=== PATIENT | female | born 1950 | race Caucasian/White ===

== ENCOUNTER 2017-08-16 16:30 | Inpatient (IN) ==
[2017-08-16 18:43] LABS: Basophils % 0.2 % (0.0-0.8); Eosinophils % 0.2 % (0.00-10.9); Hematocrit 42.3 VOL% (35.7-47.0); Immature Granulocytes % 0.9 %; Immature Granulocytes Absolute 0.11 #; Lymphocytes # 3.4 10*3/uL (1.4-4.0); Lymphocytes % 27.2 % (21.3-54.2); Mean Corpuscular HGB Conc 33.1 GM/DL (32-36); Mean Corpuscular Hemoglobin 30 PG (27-34); Mean Corpuscular Volume 90.8 FL (87-102); Mean Platelet Volume 10.3 FL (9.6-12.0); Monocytes # 0.7 10*3/uL (0.11-0.8); Monocytes % 5.5 % (1.7-12.7); Neutrophils # 8.3 10*3/uL (1.4-7.4); Platelet Count 320 T/CUMM (130-400); Red Blood Count 4.66 MC/CUMM (3.8-5.5); Red Cell Distribution Width 14.1 % (9.3-17.3); White Blood Count 12.6 T/CUMM (4-12)
[2017-08-16 19:06] LABS: Albumin 3.3 G/DL (3.4-5.0); Bilirubin,Total 0.6 MG/DL (0.2-1.0); Calcium 8.9 MG/DL (8.5-10.1); Osmolality,Calculated 285.4 MOS/KG (273-304); Potassium 3.7 MMOL/L (3.5-5.1); Total Protein 7.1 G/DL (6.4-8.3)
[2017-08-16 19:08] LABS: Lactic Acid 1.9 MMOL/L (0.4-2.0)
[2017-08-16 19:30] LABS: Apearance,Urine Slightly Hazy (Clear); Bacteria,Urine Occasional /HPF (Few); Bilirubin,Urine Negative (Negative); Blood, Urine Small mg/dL (Negative); Glucose,Urine (UA) >=500 mg/dL (Negative); Ketones,Urine 5 mg/dL (Negative); Mucus,Urine Occasional /LPF (Occasional); Nitrite,Urine Negative (Negative); Protein,Urine Negative; RBC,Urine <1 /HPF (0-4); Squamous Epithelial Cell,Urine Occasional /HPF (0-10); Urine Color Yellow (Yellow); Urine Specific Gravity 1.021 (1.001-1.035); Urine Urobilinogen < 2.0 EU/DL (0.2-1.0); WBC,Urine 1 /HPF (0-6)
[2017-08-16] MEDS ORDERED: VANCOMYCIN INJ 1,000 MG in SODIUM CHLORIDE 0.9% 250 ML IV STA (20:03)
[2017-08-16] MEDS ORDERED: CEFEPIME 1,000 MG in SODIUM CHLORIDE 0.9% 100 ML IV STA (20:03)
[2017-08-16] MEDS ORDERED: SODIUM CHLORIDE 0.9% 1,000 ML IV STA (20:03)
[2017-08-16] MEDS ORDERED: VANCOMYCIN 1,000 MG VIAL ONE (20:17)
[2017-08-16] MEDS ORDERED: SODIUM CHLORIDE 0.9% 250 ML IV ONE (20:18)
[2017-08-16] MEDS ORDERED: CEFEPIME 1,000 MG in SYRINGE 1 EACH IV STA (20:21)
[2017-08-16] MEDS ORDERED: ACETAMINOPHEN 325 MG TABLET PO PRN (20:52)
[2017-08-17] MEDS ORDERED: GLUCAGON 1 MG VIAL IM PRN (00:50)
[2017-08-17] MEDS ORDERED: DEXTROSE 50% 25 GM/50 ML VIAL IV PRN (00:50)
[2017-08-17] MEDS: INSULIN REGULAR 100 UNIT/ML SUBCUT SCH ×5 (01:25→22:20)
[2017-08-17] MEDS: HYDROmorphone 2 MG/1 ML VIAL IV PRN ×3 (01:28→22:19)
[2017-08-17] MEDS: SIMVASTATIN 10 MG TABLET PO SCH ×2 (02:02→22:19)
[2017-08-17] MEDS: CALCIUM (CARBONATE) 600 MG TABLET PO SCH ×3 (02:02→22:19)
[2017-08-17] MEDS: MAGNESIUM OXIDE 400 MG TABLET PO SCH ×4 (02:02→22:19)
[2017-08-17] MEDS: TACROLIMUS 0.5 MG CAPSULE PO SCH ×3 (02:02→22:18)
[2017-08-17] MEDS: LEVOTHYROXINE 50 MCG TABLET PO SCH (05:37)
[2017-08-17] MEDS: VANCOMYCIN INJ 1,500 MG in SODIUM CHLORIDE 0.9% 500 ML IV SCH (05:37)
[2017-08-17 07:18] LABS: Basophils # 0.1 10*3/uL (0.0-0.2); Basophils % 0.5 % (0.0-0.8); Eosinophils # 0.2 10*3/uL (0.0-0.87); Eosinophils % 2.3 % (0.00-10.9); Hematocrit 38.6 VOL% (35.7-47.0); Hemoglobin 12.7 GM/DL (12.0-16.0); Immature Granulocytes % 0.9 %; Immature Granulocytes Absolute 0.09 #; Lymphocytes # 3.8 10*3/uL (1.4-4.0); Lymphocytes % 38.1 % (21.3-54.2); Mean Corpuscular HGB Conc 32.9 GM/DL (32-36); Mean Corpuscular Hemoglobin 31 PG (27-34); Mean Corpuscular Volume 92.6 FL (87-102); Mean Platelet Volume 10.2 FL (9.6-12.0); Monocytes % 9.6 % (1.7-12.7); Neutrophils # 4.9 10*3/uL (1.4-7.4); Neutrophils % 48.6 % (38.7-73.9); Platelet Count 289 T/CUMM (130-400); Red Blood Count 4.17 MC/CUMM (3.8-5.5); Red Cell Distribution Width 14.1 % (9.3-17.3)
[2017-08-17 07:56] LABS: Albumin 2.7 G/DL (3.4-5.0); Bilirubin,Total 1.2 MG/DL (0.2-1.0); Calcium 8.2 MG/DL (8.5-10.1); Osmolality,Calculated 287.8 MOS/KG (273-304); Potassium 3.7 MMOL/L (3.5-5.1); Total Protein 5.5 G/DL (6.4-8.3)
[2017-08-17] MEDS: INSULIN NPH/REGULAR 70/30 100 UNIT/ML SUBCUT SCH (08:49)
[2017-08-17] MEDS: CALCITRIOL 0.5 MCG CAPSULE PO SCH (08:50)
[2017-08-17] MEDS: hydroCHLOROthiazide 25 MG TABLET PO SCH (08:50)
[2017-08-17] MEDS: ESTROGENS (CONJ) 0.45 MG TABLET PO SCH (08:51)
[2017-08-17] MEDS: PANTOPRAZOLE 40 MG TABLET PO SCH (08:51)
[2017-08-17] MEDS: ASPIRIN EC 81 MG TABLET PO SCH (08:51)
[2017-08-17] MEDS: TICAGRELOR 90 MG TABLET PO SCH ×2 (08:51→17:27)
[2017-08-17] MEDS: LOSARTAN 25 MG TABLET PO SCH (08:51)
[2017-08-17] MEDS: GABAPENTIN 400 MG CAPSULE PO SCH ×2 (08:51→17:26)
[2017-08-17] MEDS: predniSONE 5 MG TABLET PO SCH (08:51)
[2017-08-17] MEDS: FELODIPINE 5 MG TABLET PO SCH (17:27)
[2017-08-17] MEDS: CITALOPRAM 40 MG TABLET PO SCH (17:27)
[2017-08-17] MEDS ORDERED: INSULIN NPH/REGULAR 70/30 100 UNIT/ML SUBCUT SCH (18:00)
[2017-08-17] MEDS: MYCOPHENOLATE MOFETIL 250 MG CAPSULE PO SCH (22:19)
[2017-08-18] MEDS: HYDROmorphone 2 MG/1 ML VIAL IV PRN ×3 (06:06→22:44)
[2017-08-18] MEDS: VANCOMYCIN INJ 1,500 MG in SODIUM CHLORIDE 0.9% 500 ML IV SCH (06:07)
[2017-08-18] MEDS: LEVOTHYROXINE 50 MCG TABLET PO SCH (06:07)
[2017-08-18] MEDS ORDERED: CEFEPIME 1,000 MG in SYRINGE 1 EACH IV SCH (08:00)
[2017-08-18] MEDS: ASPIRIN EC 81 MG TABLET PO SCH (10:04)
[2017-08-18] MEDS: TICAGRELOR 90 MG TABLET PO SCH ×2 (10:04→17:26)
[2017-08-18] MEDS: CALCIUM (CARBONATE) 600 MG TABLET PO SCH ×2 (10:04→21:31)
[2017-08-18] MEDS: MYCOPHENOLATE MOFETIL 250 MG CAPSULE PO SCH ×2 (10:04→21:32)
[2017-08-18] MEDS: GABAPENTIN 400 MG CAPSULE PO SCH ×2 (10:04→17:26)
[2017-08-18] MEDS: predniSONE 5 MG TABLET PO SCH (10:05)
[2017-08-18] MEDS: MAGNESIUM OXIDE 400 MG TABLET PO SCH ×3 (10:05→21:44)
[2017-08-18] MEDS: LOSARTAN 25 MG TABLET PO SCH (10:05)
[2017-08-18] MEDS: ESTROGENS (CONJ) 0.45 MG TABLET PO SCH (10:05)
[2017-08-18] MEDS: hydroCHLOROthiazide 25 MG TABLET PO SCH (10:05)
[2017-08-18] MEDS: TACROLIMUS 0.5 MG CAPSULE PO SCH ×2 (10:05→21:31)
[2017-08-18] MEDS: INSULIN REGULAR 100 UNIT/ML SUBCUT SCH ×4 (10:06→21:44)
[2017-08-18] MEDS: CEFEPIME 1,000 MG VIAL IM SCH ×2 (10:06→22:36)
[2017-08-18] MEDS: CALCITRIOL 0.5 MCG CAPSULE PO SCH (10:06)
[2017-08-18] MEDS: PANTOPRAZOLE 40 MG TABLET PO SCH (10:06)
[2017-08-18] MEDS: INSULIN NPH/REGULAR 70/30 100 UNIT/ML SUBCUT SCH (10:07)
[2017-08-18] MEDS ORDERED: SEVOFLURANE 1 UNIT/15 MINUTE INH ONE (11:23)
[2017-08-18] MEDS ORDERED: PROPOFOL 200 MG/20 ML VIAL IV ONE (11:23)
[2017-08-18] MEDS ORDERED: fentaNYL 100 MCG/2 ML VIAL ONE (11:23)
[2017-08-18] MEDS ORDERED: MIDAZOLAM 2 MG/2 ML VIAL ONE (11:24)
[2017-08-18] MEDS: FELODIPINE 5 MG TABLET PO SCH (17:26)
[2017-08-18] MEDS: CITALOPRAM 40 MG TABLET PO SCH (17:26)
[2017-08-18] MEDS: SIMVASTATIN 10 MG TABLET PO SCH (21:32)
[2017-08-18] MEDS: INSULIN GLARGINE 100 UNIT/ML SUBCUT SCH (21:33)
[2017-08-18] MEDS ORDERED: CEFEPIME 1,000 MG VIAL IV SCH (22:35)
[2017-08-18] MEDS: CEFEPIME 1,000 MG in SYRINGE 1 EACH IV SCH (22:51)
[2017-08-19] MEDS: HYDROmorphone 2 MG/1 ML VIAL IV PRN (04:19)
[2017-08-19] MEDS: VANCOMYCIN INJ 1,500 MG in SODIUM CHLORIDE 0.9% 500 ML IV SCH ×2 (04:21→21:54)
[2017-08-19 04:32] LABS: Basophils # 0.1 10*3/uL (0.0-0.2); Basophils % 0.6 % (0.0-0.8); Eosinophils # 0.2 10*3/uL (0.0-0.87); Eosinophils % 1.8 % (0.00-10.9); Hematocrit 39.5 VOL% (35.7-47.0); Immature Granulocytes % 0.8 %; Lymphocytes # 4.5 10*3/uL (1.4-4.0); Lymphocytes % 37.6 % (21.3-54.2); Mean Corpuscular HGB Conc 32.9 GM/DL (32-36); Mean Corpuscular Hemoglobin 31 PG (27-34); Mean Corpuscular Volume 92.9 FL (87-102); Mean Platelet Volume 10.3 FL (9.6-12.0); Monocytes # 1.1 10*3/uL (0.11-0.8); Monocytes % 9.3 % (1.7-12.7); Neutrophils % 49.9 % (38.7-73.9); Platelet Count 312 T/CUMM (130-400); Red Blood Count 4.25 MC/CUMM (3.8-5.5); Red Cell Distribution Width 14.1 % (9.3-17.3)
[2017-08-19 05:22] LABS: Albumin 2.8 G/DL (3.4-5.0); Bilirubin,Total 0.9 MG/DL (0.2-1.0); Magnesium 1.5 MG/DL (1.8-2.4); Osmolality,Calculated 290.5 MOS/KG (273-304); Phosphorous 2.5 MG/DL (2.5-4.9); Potassium 4.1 MMOL/L (3.5-5.1); Total Protein 5.6 G/DL (6.4-8.3)
[2017-08-19] MEDS: LEVOTHYROXINE 50 MCG TABLET PO SCH (05:55)
[2017-08-19] MEDS: TACROLIMUS 0.5 MG CAPSULE PO SCH ×2 (09:38→21:55)
[2017-08-19] MEDS: INSULIN REGULAR 100 UNIT/ML SUBCUT SCH ×4 (09:38→21:54)
[2017-08-19] MEDS: INSULIN NPH/REGULAR 70/30 100 UNIT/ML SUBCUT SCH (09:38)
[2017-08-19] MEDS: CALCITRIOL 0.5 MCG CAPSULE PO SCH (09:39)
[2017-08-19] MEDS: MYCOPHENOLATE MOFETIL 250 MG CAPSULE PO SCH ×2 (09:39→21:56)
[2017-08-19] MEDS: ASPIRIN EC 81 MG TABLET PO SCH (09:39)
[2017-08-19] MEDS: hydroCHLOROthiazide 25 MG TABLET PO SCH (09:39)
[2017-08-19] MEDS: GABAPENTIN 400 MG CAPSULE PO SCH ×2 (09:39→17:55)
[2017-08-19] MEDS: MAGNESIUM OXIDE 400 MG TABLET PO SCH ×3 (09:39→21:56)
[2017-08-19] MEDS: TICAGRELOR 90 MG TABLET PO SCH ×2 (09:39→17:56)
[2017-08-19] MEDS: CALCIUM (CARBONATE) 600 MG TABLET PO SCH ×2 (09:39→22:02)
[2017-08-19] MEDS: PANTOPRAZOLE 40 MG TABLET PO SCH (09:39)
[2017-08-19] MEDS: predniSONE 5 MG TABLET PO SCH (09:39)
[2017-08-19] MEDS: LOSARTAN 25 MG TABLET PO SCH (09:39)
[2017-08-19] MEDS: ESTROGENS (CONJ) 0.45 MG TABLET PO SCH (09:40)
[2017-08-19] MEDS: CEFEPIME 1,000 MG in SYRINGE 1 EACH IV SCH ×2 (13:51→22:08)
[2017-08-19] MEDS: MAGNESIUM SULF RIDER 2 GM in PREMIX 1 EACH IV PRN (13:52)
[2017-08-19] MEDS ORDERED: ONDANSETRON 4 MG/2 ML VIAL IV PRN (17:10)
[2017-08-19] MEDS: FELODIPINE 5 MG TABLET PO SCH (17:55)
[2017-08-19] MEDS: CITALOPRAM 40 MG TABLET PO SCH (17:55)
[2017-08-19] MEDS: SIMVASTATIN 10 MG TABLET PO SCH (21:56)
[2017-08-19] MEDS: INSULIN GLARGINE 100 UNIT/ML SUBCUT SCH (21:57)
[2017-08-20] MEDS: LEVOTHYROXINE 50 MCG TABLET PO SCH (06:26)
[2017-08-20] MEDS: MAGNESIUM OXIDE 400 MG TABLET PO SCH ×3 (08:49→20:51)
[2017-08-20] MEDS: ASPIRIN EC 81 MG TABLET PO SCH (08:49)
[2017-08-20] MEDS: PANTOPRAZOLE 40 MG TABLET PO SCH (08:49)
[2017-08-20] MEDS: TACROLIMUS 0.5 MG CAPSULE PO SCH ×2 (08:49→20:51)
[2017-08-20] MEDS: MYCOPHENOLATE MOFETIL 250 MG CAPSULE PO SCH ×2 (08:49→20:51)
[2017-08-20] MEDS: GABAPENTIN 400 MG CAPSULE PO SCH ×2 (08:49→17:45)
[2017-08-20] MEDS: CALCIUM (CARBONATE) 600 MG TABLET PO SCH ×2 (08:49→20:51)
[2017-08-20] MEDS: predniSONE 5 MG TABLET PO SCH (08:49)
[2017-08-20] MEDS: CALCITRIOL 0.5 MCG CAPSULE PO SCH (08:50)
[2017-08-20] MEDS: hydroCHLOROthiazide 25 MG TABLET PO SCH (08:50)
[2017-08-20] MEDS: INSULIN NPH/REGULAR 70/30 100 UNIT/ML SUBCUT SCH (08:50)
[2017-08-20] MEDS: ESTROGENS (CONJ) 0.45 MG TABLET PO SCH (08:50)
[2017-08-20] MEDS: TICAGRELOR 90 MG TABLET PO SCH ×2 (08:50→17:45)
[2017-08-20] MEDS: LOSARTAN 25 MG TABLET PO SCH (08:50)
[2017-08-20] MEDS: INSULIN REGULAR 100 UNIT/ML SUBCUT SCH ×4 (08:50→20:52)
[2017-08-20] MEDS: VANCOMYCIN INJ 1,500 MG in SODIUM CHLORIDE 0.9% 500 ML IV SCH ×2 (08:54→20:51)
[2017-08-20] MEDS: CEFEPIME 1,000 MG in SYRINGE 1 EACH IV SCH (10:20)
[2017-08-20] MEDS ORDERED: SKIN HEALING OINT (AQUAPHOR) 50 GM TUBE TOP PRN (11:07)
[2017-08-20] MEDS: HYDROmorphone 2 MG/1 ML VIAL IV PRN (14:54)
[2017-08-20] MEDS: NYSTATIN 500,000 UNIT/5 ML UDCUP SWISH/SWAL SCH ×2 (17:45→20:51)
[2017-08-20] MEDS: CITALOPRAM 40 MG TABLET PO SCH (17:45)
[2017-08-20] MEDS: FELODIPINE 5 MG TABLET PO SCH (17:45)
[2017-08-20] MEDS ORDERED: MYCOPHENOLATE MOFETIL 250 MG CAPSULE PO SCH (20:00)
[2017-08-20] MEDS: INSULIN GLARGINE 100 UNIT/ML SUBCUT SCH (20:52)
[2017-08-20] MEDS: SIMVASTATIN 10 MG TABLET PO SCH (20:52)
[2017-08-21] MEDS: CEFEPIME 1,000 MG in SYRINGE 1 EACH IV SCH ×3 (00:08→22:06)
[2017-08-21] MEDS: HYDROmorphone 2 MG/1 ML VIAL IV PRN ×3 (00:16→21:51)
[2017-08-21 05:43] LABS: Basophils # 0.1 10*3/uL (0.0-0.2); Basophils % 0.7 % (0.0-0.8); Eosinophils # 0.3 10*3/uL (0.0-0.87); Eosinophils % 3.1 % (0.00-10.9); Hematocrit 36.6 VOL% (35.7-47.0); Hemoglobin 12.1 GM/DL (12.0-16.0); Immature Granulocytes % 0.7 %; Immature Granulocytes Absolute 0.07 #; Lymphocytes # 3.7 10*3/uL (1.4-4.0); Lymphocytes % 37.4 % (21.3-54.2); Mean Corpuscular HGB Conc 33.1 GM/DL (32-36); Mean Corpuscular Hemoglobin 31 PG (27-34); Mean Corpuscular Volume 92.2 FL (87-102); Mean Platelet Volume 10.5 FL (9.6-12.0); Monocytes # 0.9 10*3/uL (0.11-0.8); Monocytes % 9.2 % (1.7-12.7); Neutrophils # 4.9 10*3/uL (1.4-7.4); Neutrophils % 48.9 % (38.7-73.9); Platelet Count 296 T/CUMM (130-400); Red Blood Count 3.97 MC/CUMM (3.8-5.5); Red Cell Distribution Width 13.9 % (9.3-17.3)
[2017-08-21 06:06] LABS: Calcium 7.7 MG/DL (8.5-10.1); Magnesium 1.6 MG/DL (1.8-2.4); Osmolality,Calculated 286.5 MOS/KG (273-304); Potassium 3.8 MMOL/L (3.5-5.1)
[2017-08-21] MEDS: LEVOTHYROXINE 50 MCG TABLET PO SCH (06:38)
[2017-08-21] MEDS: MAGNESIUM SULF RIDER 2 GM in PREMIX 1 EACH IV PRN (09:01)
[2017-08-21] MEDS: INSULIN REGULAR 100 UNIT/ML SUBCUT SCH ×4 (09:01→22:06)
[2017-08-21] MEDS: INSULIN NPH/REGULAR 70/30 100 UNIT/ML SUBCUT SCH (09:01)
[2017-08-21] MEDS: TACROLIMUS 0.5 MG CAPSULE PO SCH ×2 (09:02→21:50)
[2017-08-21] MEDS: PANTOPRAZOLE 40 MG TABLET PO SCH (09:02)
[2017-08-21] MEDS: NYSTATIN 500,000 UNIT/5 ML UDCUP SWISH/SWAL SCH ×4 (09:02→21:51)
[2017-08-21] MEDS: glipiZIDE 10 MG TABLET PO SCH (09:03)
[2017-08-21] MEDS: CALCITRIOL 0.5 MCG CAPSULE PO SCH (09:03)
[2017-08-21] MEDS: GABAPENTIN 400 MG CAPSULE PO SCH ×3 (09:03→17:13)
[2017-08-21] MEDS: predniSONE 5 MG TABLET PO SCH (09:03)
[2017-08-21] MEDS: TICAGRELOR 90 MG TABLET PO SCH ×3 (09:03→17:13)
[2017-08-21] MEDS: CALCIUM (CARBONATE) 600 MG TABLET PO SCH ×2 (09:03→21:50)
[2017-08-21] MEDS: hydroCHLOROthiazide 25 MG TABLET PO SCH (09:03)
[2017-08-21] MEDS: LOSARTAN 25 MG TABLET PO SCH (09:03)
[2017-08-21] MEDS: ASPIRIN EC 81 MG TABLET PO SCH (09:03)
[2017-08-21] MEDS: MYCOPHENOLATE MOFETIL 250 MG CAPSULE PO SCH ×2 (09:03→21:51)
[2017-08-21] MEDS: MAGNESIUM OXIDE 400 MG TABLET PO SCH ×3 (09:03→21:50)
[2017-08-21] MEDS: SODIUM HYPOCHLORITE 0.25% IRRIG 473 ML BOTTLE TOP SCH (09:04)
[2017-08-21] MEDS: ESTROGENS (CONJ) 0.45 MG TABLET PO SCH (09:04)
[2017-08-21] MEDS ORDERED: MAGNESIUM SULF RIDER 2 GM in PREMIX 1 EACH IV ONE (09:07)
[2017-08-21] MEDS: VANCOMYCIN INJ 1,500 MG in SODIUM CHLORIDE 0.9% 500 ML IV SCH ×2 (10:53→14:46)
[2017-08-21] MEDS: CITALOPRAM 40 MG TABLET PO SCH ×2 (16:52→17:13)
[2017-08-21] MEDS: FELODIPINE 5 MG TABLET PO SCH ×2 (16:53→17:14)
[2017-08-21] MEDS: SIMVASTATIN 10 MG TABLET PO SCH (21:50)
[2017-08-21] MEDS: INSULIN GLARGINE 100 UNIT/ML SUBCUT SCH (21:51)
[2017-08-22] MEDS: LEVOTHYROXINE 50 MCG TABLET PO SCH (05:42)
[2017-08-22 06:22] LABS: Calcium 8.1 MG/DL (8.5-10.1); Magnesium 1.9 MG/DL (1.8-2.4); Osmolality,Calculated 288.3 MOS/KG (273-304); Potassium 4.1 MMOL/L (3.5-5.1)
[2017-08-22] MEDS: glipiZIDE 10 MG TABLET PO SCH (09:45)
[2017-08-22] MEDS: GABAPENTIN 400 MG CAPSULE PO SCH ×3 (09:45→17:47)
[2017-08-22] MEDS: TACROLIMUS 0.5 MG CAPSULE PO SCH ×2 (09:45→21:25)
[2017-08-22] MEDS: VANCOMYCIN INJ 1,500 MG in SODIUM CHLORIDE 0.9% 500 ML IV SCH (09:45)
[2017-08-22] MEDS: hydroCHLOROthiazide 25 MG TABLET PO SCH (09:45)
[2017-08-22] MEDS: ASPIRIN EC 81 MG TABLET PO SCH (09:46)
[2017-08-22] MEDS: predniSONE 5 MG TABLET PO SCH (09:46)
[2017-08-22] MEDS: TICAGRELOR 90 MG TABLET PO SCH ×3 (09:46→17:48)
[2017-08-22] MEDS: INSULIN REGULAR 100 UNIT/ML SUBCUT SCH ×4 (09:46→21:28)
[2017-08-22] MEDS: CALCIUM (CARBONATE) 600 MG TABLET PO SCH ×2 (09:46→21:25)
[2017-08-22] MEDS: CALCITRIOL 0.5 MCG CAPSULE PO SCH (09:46)
[2017-08-22] MEDS: MAGNESIUM OXIDE 400 MG TABLET PO SCH ×3 (09:46→21:25)
[2017-08-22] MEDS: NYSTATIN 500,000 UNIT/5 ML UDCUP SWISH/SWAL SCH ×4 (09:46→21:26)
[2017-08-22] MEDS: INSULIN NPH/REGULAR 70/30 100 UNIT/ML SUBCUT SCH (09:46)
[2017-08-22] MEDS: LOSARTAN 25 MG TABLET PO SCH (09:46)
[2017-08-22] MEDS: MYCOPHENOLATE MOFETIL 250 MG CAPSULE PO SCH ×2 (09:46→21:24)
[2017-08-22] MEDS: SODIUM HYPOCHLORITE 0.25% IRRIG 473 ML BOTTLE TOP SCH (09:47)
[2017-08-22] MEDS: PANTOPRAZOLE 40 MG TABLET PO SCH (09:47)
[2017-08-22] MEDS: ESTROGENS (CONJ) 0.45 MG TABLET PO SCH (10:53)
[2017-08-22] MEDS: HYDROmorphone 2 MG/1 ML VIAL IV PRN ×3 (11:32→21:34)
[2017-08-22] MEDS: CEFEPIME 1,000 MG in SYRINGE 1 EACH IV SCH ×2 (13:28→23:33)
[2017-08-22] MEDS: FELODIPINE 5 MG TABLET PO SCH ×2 (16:51→17:48)
[2017-08-22] MEDS: CITALOPRAM 40 MG TABLET PO SCH ×2 (16:52→17:47)
[2017-08-22] MEDS: SIMVASTATIN 10 MG TABLET PO SCH (21:25)
[2017-08-22] MEDS: INSULIN GLARGINE 100 UNIT/ML SUBCUT SCH (21:28)
[2017-08-23] MEDS: VANCOMYCIN INJ 1,500 MG in SODIUM CHLORIDE 0.9% 500 ML IV SCH (03:01)
[2017-08-23] MEDS: LEVOTHYROXINE 50 MCG TABLET PO SCH (06:38)
[2017-08-23] MEDS: TACROLIMUS 0.5 MG CAPSULE PO SCH ×2 (08:59→21:27)
[2017-08-23] MEDS: INSULIN REGULAR 100 UNIT/ML SUBCUT SCH ×4 (08:59→21:28)
[2017-08-23] MEDS: INSULIN NPH/REGULAR 70/30 100 UNIT/ML SUBCUT SCH (08:59)
[2017-08-23] MEDS: LOSARTAN 25 MG TABLET PO SCH (09:00)
[2017-08-23] MEDS: glipiZIDE 10 MG TABLET PO SCH (09:00)
[2017-08-23] MEDS: PANTOPRAZOLE 40 MG TABLET PO SCH (09:00)
[2017-08-23] MEDS: ASPIRIN EC 81 MG TABLET PO SCH (09:00)
[2017-08-23] MEDS: TICAGRELOR 90 MG TABLET PO SCH ×2 (09:00→18:22)
[2017-08-23] MEDS: predniSONE 5 MG TABLET PO SCH (09:00)
[2017-08-23] MEDS: NYSTATIN 500,000 UNIT/5 ML UDCUP SWISH/SWAL SCH ×4 (09:00→21:28)
[2017-08-23] MEDS: GABAPENTIN 400 MG CAPSULE PO SCH ×2 (09:00→18:22)
[2017-08-23] MEDS: MYCOPHENOLATE MOFETIL 250 MG CAPSULE PO SCH ×2 (09:00→21:27)
[2017-08-23] MEDS: CALCIUM (CARBONATE) 600 MG TABLET PO SCH ×2 (09:00→21:59)
[2017-08-23] MEDS: hydroCHLOROthiazide 25 MG TABLET PO SCH (09:00)
[2017-08-23] MEDS: CALCITRIOL 0.5 MCG CAPSULE PO SCH (09:00)
[2017-08-23] MEDS: MAGNESIUM OXIDE 400 MG TABLET PO SCH ×3 (09:00→21:27)
[2017-08-23] MEDS: ESTROGENS (CONJ) 0.45 MG TABLET PO SCH (09:07)
[2017-08-23] MEDS: CEFEPIME 1,000 MG in SYRINGE 1 EACH IV SCH (12:09)
[2017-08-23] MEDS: SODIUM HYPOCHLORITE 0.25% IRRIG 473 ML BOTTLE TOP SCH (12:20)
[2017-08-23] MEDS: CIPROFLOXACIN 500 MG TABLET PO SCH ×2 (14:43→21:58)
[2017-08-23] MEDS: AMPICILLIN/SULBACTAM 1,500 MG in SODIUM CHLORIDE 0.9% 100 ML IV SCH ×2 (14:44→21:26)
[2017-08-23] MEDS: CITALOPRAM 40 MG TABLET PO SCH (18:22)
[2017-08-23] MEDS: FELODIPINE 5 MG TABLET PO SCH (18:22)
[2017-08-23] MEDS: SIMVASTATIN 10 MG TABLET PO SCH (21:27)
[2017-08-23] MEDS: INSULIN GLARGINE 100 UNIT/ML SUBCUT SCH (21:28)
[2017-08-23] MEDS: HYDROmorphone 2 MG/1 ML VIAL IV PRN (21:30)
[2017-08-24] MEDS: AMPICILLIN/SULBACTAM 1,500 MG in SODIUM CHLORIDE 0.9% 100 ML IV SCH ×4 (02:18→21:18)
[2017-08-24] MEDS: LEVOTHYROXINE 50 MCG TABLET PO SCH (06:32)
[2017-08-24] MEDS: INSULIN NPH/REGULAR 70/30 100 UNIT/ML SUBCUT SCH (08:33)
[2017-08-24] MEDS: INSULIN REGULAR 100 UNIT/ML SUBCUT SCH ×4 (08:33→23:28)
[2017-08-24] MEDS ORDERED: HEPARIN/NACL 0.9% 2 UNITS/ML 2,000 ML IV ONE (09:44)
[2017-08-24] MEDS: TICAGRELOR 90 MG TABLET PO SCH ×2 (10:08→18:04)
[2017-08-24] MEDS: MYCOPHENOLATE MOFETIL 250 MG CAPSULE PO SCH ×2 (10:08→21:18)
[2017-08-24] MEDS: ASPIRIN EC 81 MG TABLET PO SCH (10:08)
[2017-08-24] MEDS: CALCIUM (CARBONATE) 600 MG TABLET PO SCH ×2 (10:08→21:18)
[2017-08-24] MEDS: GABAPENTIN 400 MG CAPSULE PO SCH ×2 (10:08→18:03)
[2017-08-24] MEDS: CIPROFLOXACIN 500 MG TABLET PO SCH ×2 (10:08→21:18)
[2017-08-24] MEDS: LOSARTAN 25 MG TABLET PO SCH (10:08)
[2017-08-24] MEDS: PANTOPRAZOLE 40 MG TABLET PO SCH (10:09)
[2017-08-24] MEDS: glipiZIDE 10 MG TABLET PO SCH (10:09)
[2017-08-24] MEDS: ESTROGENS (CONJ) 0.45 MG TABLET PO SCH (10:09)
[2017-08-24] MEDS: CALCITRIOL 0.5 MCG CAPSULE PO SCH (10:09)
[2017-08-24] MEDS: MAGNESIUM OXIDE 400 MG TABLET PO SCH ×3 (10:09→22:18)
[2017-08-24] MEDS: NYSTATIN 500,000 UNIT/5 ML UDCUP SWISH/SWAL SCH ×4 (10:09→21:20)
[2017-08-24] MEDS: TACROLIMUS 0.5 MG CAPSULE PO SCH ×2 (10:09→21:17)
[2017-08-24] MEDS: predniSONE 5 MG TABLET PO SCH (10:09)
[2017-08-24] MEDS: hydroCHLOROthiazide 25 MG TABLET PO SCH (10:09)
[2017-08-24] MEDS: SODIUM HYPOCHLORITE 0.25% IRRIG 473 ML BOTTLE TOP SCH (11:20)
[2017-08-24] MEDS ORDERED: fentaNYL 100 MCG/2 ML VIAL ONE (13:35)
[2017-08-24] MEDS ORDERED: MIDAZOLAM 2 MG/2 ML VIAL ONE (13:36)
[2017-08-24] MEDS ORDERED: MIDAZOLAM 2 MG/2 ML VIAL IV ONE (14:48)
[2017-08-24] MEDS ORDERED: fentaNYL 100 MCG/2 ML VIAL IV ONE (14:48)
[2017-08-24] MEDS ORDERED: MORPHINE 2 MG/1 ML SYRINGE IV ONE (17:12)
[2017-08-24] MEDS ORDERED: MORPHINE 2 MG/1 ML SYRINGE ONE (17:14)
[2017-08-24] MEDS: CITALOPRAM 40 MG TABLET PO SCH (18:03)
[2017-08-24] MEDS: FELODIPINE 5 MG TABLET PO SCH (18:03)
[2017-08-24] MEDS: SIMVASTATIN 10 MG TABLET PO SCH (21:18)
[2017-08-24 21:55] LABS: Hematocrit 36.9 VOL% (35.7-47.0); Hemoglobin 11.9 GM/DL (12.0-16.0)
[2017-08-24] MEDS: INSULIN GLARGINE 100 UNIT/ML SUBCUT SCH (23:29)
[2017-08-25] MEDS: AMPICILLIN/SULBACTAM 1,500 MG in SODIUM CHLORIDE 0.9% 100 ML IV SCH ×2 (01:48→11:54)
[2017-08-25] MEDS: LEVOTHYROXINE 50 MCG TABLET PO SCH (06:09)
[2017-08-25 08:03] LABS: Basophils # 0.1 10*3/uL (0.0-0.2); Basophils % 0.6 % (0.0-0.8); Eosinophils # 0.3 10*3/uL (0.0-0.87); Eosinophils % 2.9 % (0.00-10.9); Hematocrit 35.7 VOL% (35.7-47.0); Hemoglobin 11.6 GM/DL (12.0-16.0); Immature Granulocytes % 1.3 %; Immature Granulocytes Absolute 0.13 #; Lymphocytes # 3.9 10*3/uL (1.4-4.0); Lymphocytes % 37.5 % (21.3-54.2); Mean Corpuscular HGB Conc 32.5 GM/DL (32-36); Mean Corpuscular Hemoglobin 30 PG (27-34); Mean Corpuscular Volume 93.2 FL (87-102); Mean Platelet Volume 10.6 FL (9.6-12.0); Monocytes # 1.1 10*3/uL (0.11-0.8); Neutrophils # 4.8 10*3/uL (1.4-7.4); Neutrophils % 46.7 % (38.7-73.9); Platelet Count 355 T/CUMM (130-400); Red Blood Count 3.83 MC/CUMM (3.8-5.5); Red Cell Distribution Width 14.2 % (9.3-17.3); White Blood Count 10.3 T/CUMM (4-12)
[2017-08-25 08:40] LABS: Calcium 8.4 MG/DL (8.5-10.1); Magnesium 1.4 MG/DL (1.8-2.4); Osmolality,Calculated 283.5 MOS/KG (273-304); Potassium 4.2 MMOL/L (3.5-5.1)
[2017-08-25] MEDS: INSULIN NPH/REGULAR 70/30 100 UNIT/ML SUBCUT SCH (08:45)
[2017-08-25] MEDS: TICAGRELOR 90 MG TABLET PO SCH ×2 (09:27→17:43)
[2017-08-25] MEDS: ASPIRIN EC 81 MG TABLET PO SCH (09:27)
[2017-08-25] MEDS: GABAPENTIN 400 MG CAPSULE PO SCH ×2 (09:27→17:10)
[2017-08-25] MEDS: INSULIN REGULAR 100 UNIT/ML SUBCUT SCH ×4 (09:27→21:32)
[2017-08-25] MEDS: LOSARTAN 25 MG TABLET PO SCH ×2 (09:28→15:02)
[2017-08-25] MEDS: MYCOPHENOLATE MOFETIL 250 MG CAPSULE PO SCH ×3 (09:28→21:30)
[2017-08-25] MEDS: glipiZIDE 10 MG TABLET PO SCH (09:28)
[2017-08-25] MEDS: NYSTATIN 500,000 UNIT/5 ML UDCUP SWISH/SWAL SCH ×4 (09:28→21:31)
[2017-08-25] MEDS: CALCIUM (CARBONATE) 600 MG TABLET PO SCH ×2 (09:28→21:31)
[2017-08-25] MEDS: CIPROFLOXACIN 500 MG TABLET PO SCH ×2 (09:28→21:31)
[2017-08-25] MEDS: MAGNESIUM OXIDE 400 MG TABLET PO SCH ×3 (09:28→21:31)
[2017-08-25] MEDS: hydroCHLOROthiazide 25 MG TABLET PO SCH ×2 (09:28→15:01)
[2017-08-25] MEDS: CALCITRIOL 0.5 MCG CAPSULE PO SCH ×2 (09:29→15:01)
[2017-08-25] MEDS: TACROLIMUS 0.5 MG CAPSULE PO SCH ×3 (09:29→21:31)
[2017-08-25] MEDS: PANTOPRAZOLE 40 MG TABLET PO SCH ×2 (09:29→15:02)
[2017-08-25] MEDS: ESTROGENS (CONJ) 0.45 MG TABLET PO SCH (09:29)
[2017-08-25] MEDS: predniSONE 5 MG TABLET PO SCH ×2 (09:29→15:02)
[2017-08-25] MEDS ORDERED: HYDROCORTISONE 100 MG VIAL ONE (11:34)
[2017-08-25] MEDS ORDERED: BUPIVACAINE 0.5% 50 ML VIAL ONE (11:40)
[2017-08-25] MEDS ORDERED: BUPIVACAINE 0.25% 50 ML VIAL ONE (11:47)
[2017-08-25] MEDS ORDERED: PROPOFOL 200 MG/20 ML VIAL IV ONE (12:20)
[2017-08-25] MEDS ORDERED: MIDAZOLAM 2 MG/2 ML VIAL ONE (12:21)
[2017-08-25] MEDS ORDERED: fentaNYL 100 MCG/2 ML VIAL ONE (12:21)
[2017-08-25] MEDS: ZINC OXIDE PASTE 113 GM TUBE TOP SCH ×2 (15:02→21:33)
[2017-08-25] MEDS: AMPICILLIN/SULBACTAM 1,500 MG in SODIUM CHLORIDE 0.9% 50 ML IV SCH ×2 (15:02→21:33)
[2017-08-25] MEDS: SODIUM HYPOCHLORITE 0.25% IRRIG 473 ML BOTTLE TOP SCH (15:03)
[2017-08-25] MEDS ORDERED: MORPHINE 2 MG/1 ML SYRINGE IV PRN (16:18)
[2017-08-25] MEDS: FELODIPINE 5 MG TABLET PO SCH (17:10)
[2017-08-25] MEDS: CITALOPRAM 40 MG TABLET PO SCH (17:10)
[2017-08-25] MEDS: SIMVASTATIN 10 MG TABLET PO SCH (21:31)
[2017-08-25] MEDS: INSULIN GLARGINE 100 UNIT/ML SUBCUT SCH (21:32)
[2017-08-26] MEDS: AMPICILLIN/SULBACTAM 1,500 MG in SODIUM CHLORIDE 0.9% 50 ML IV SCH ×2 (02:20→11:22)
[2017-08-26] MEDS: LEVOTHYROXINE 50 MCG TABLET PO SCH (05:28)
[2017-08-26 06:20] LABS: Basophils # 0.1 10*3/uL (0.0-0.2); Basophils % 0.5 % (0.0-0.8); Eosinophils # 0.1 10*3/uL (0.0-0.87); Eosinophils % 1.2 % (0.00-10.9); Hematocrit 33.7 VOL% (35.7-47.0); Hemoglobin 11.1 GM/DL (12.0-16.0); Immature Granulocytes % 0.9 %; Lymphocytes # 3.7 10*3/uL (1.4-4.0); Lymphocytes % 33.3 % (21.3-54.2); Mean Corpuscular HGB Conc 32.9 GM/DL (32-36); Mean Corpuscular Hemoglobin 30 PG (27-34); Mean Corpuscular Volume 91.6 FL (87-102); Mean Platelet Volume 10.6 FL (9.6-12.0); Monocytes # 1.1 10*3/uL (0.11-0.8); Monocytes % 10.1 % (1.7-12.7); Platelet Count 356 T/CUMM (130-400); Red Blood Count 3.68 MC/CUMM (3.8-5.5); Red Cell Distribution Width 13.6 % (9.3-17.3); White Blood Count 11.2 T/CUMM (4-12)
[2017-08-26 06:54] LABS: Calcium 8.4 MG/DL (8.5-10.1); Osmolality,Calculated 284.7 MOS/KG (273-304); Potassium 4.2 MMOL/L (3.5-5.1)
[2017-08-26] MEDS ORDERED: NYSTATIN POWDER 15 GM BOTTLE TOP SCH (09:00)
[2017-08-26] MEDS: TACROLIMUS 0.5 MG CAPSULE PO SCH (09:43)
[2017-08-26] MEDS: CALCITRIOL 0.5 MCG CAPSULE PO SCH (09:43)
[2017-08-26] MEDS: GABAPENTIN 400 MG CAPSULE PO SCH (09:44)
[2017-08-26] MEDS: MYCOPHENOLATE MOFETIL 250 MG CAPSULE PO SCH (09:44)
[2017-08-26] MEDS: hydroCHLOROthiazide 25 MG TABLET PO SCH (09:44)
[2017-08-26] MEDS: predniSONE 5 MG TABLET PO SCH (09:44)
[2017-08-26] MEDS: MAGNESIUM OXIDE 400 MG TABLET PO SCH (09:45)
[2017-08-26] MEDS: CIPROFLOXACIN 500 MG TABLET PO SCH (09:45)
[2017-08-26] MEDS: PANTOPRAZOLE 40 MG TABLET PO SCH (09:45)
[2017-08-26] MEDS: ASPIRIN EC 81 MG TABLET PO SCH (09:45)
[2017-08-26] MEDS: NYSTATIN 500,000 UNIT/5 ML UDCUP SWISH/SWAL SCH (09:45)
[2017-08-26] MEDS: CALCIUM (CARBONATE) 600 MG TABLET PO SCH (09:45)
[2017-08-26] MEDS: INSULIN REGULAR 100 UNIT/ML SUBCUT SCH ×2 (09:46→11:23)
[2017-08-26] MEDS: INSULIN NPH/REGULAR 70/30 100 UNIT/ML SUBCUT SCH (09:46)
[2017-08-26] MEDS: TICAGRELOR 90 MG TABLET PO SCH (09:58)
[2017-08-26] MEDS: glipiZIDE 10 MG TABLET PO SCH (11:22)
[2017-08-26] MEDS: ZINC OXIDE PASTE 113 GM TUBE TOP SCH (11:22)
[2017-08-26] MEDS: SODIUM HYPOCHLORITE 0.25% IRRIG 473 ML BOTTLE TOP SCH (11:24)
[2017-08-26] MEDS: ESTROGENS (CONJ) 0.45 MG TABLET PO SCH (11:25)
[2017-08-26] MEDS: LOSARTAN 25 MG TABLET PO SCH (11:25)
[2017-08-26 12:00] VITALS: BP 141/82
== END 2017-08-26 15:30 | disposition home health service (06) | DRG 854 ==
LOC: N.ED 16:30 → SUATTDRO 20:52 → N.EDINP 20:52 → N.5E 23:34
PROVIDERS: ADMIT Hospitalist; ATTEND Internal Medicine

== ENCOUNTER 2017-09-10 14:32 | Inpatient (IN) ==
[2017-09-10] MEDS ORDERED: ONDANSETRON 4 MG/2 ML VIAL IV STA (15:12)
[2017-09-10] MEDS ORDERED: ONDANSETRON 4 MG/2 ML VIAL ONE (15:57)
[2017-09-10 16:13] LABS: Basophils # 0.1 10*3/uL (0.0-0.2); Basophils % 0.4 % (0.0-0.8); Eosinophils # 0.1 10*3/uL (0.0-0.87); Eosinophils % 0.6 % (0.00-10.9); Hematocrit 38.1 VOL% (35.7-47.0); Hemoglobin 12.1 GM/DL (12.0-16.0); Immature Granulocytes % 0.7 %; Immature Granulocytes Absolute 0.11 #; Lymphocytes # 2.7 10*3/uL (1.4-4.0); Lymphocytes % 16.9 % (21.3-54.2); Mean Corpuscular HGB Conc 31.8 GM/DL (32-36); Mean Corpuscular Hemoglobin 30 PG (27-34); Mean Corpuscular Volume 94.5 FL (87-102); Mean Platelet Volume 10.1 FL (9.6-12.0); Monocytes # 1.4 10*3/uL (0.11-0.8); Monocytes % 8.8 % (1.7-12.7); Neutrophils # 11.6 10*3/uL (1.4-7.4); Neutrophils % 72.6 % (38.7-73.9); Platelet Count 358 T/CUMM (130-400); Red Blood Count 4.03 MC/CUMM (3.8-5.5); Red Cell Distribution Width 14.6 % (9.3-17.3)
[2017-09-10 16:34] LABS: Albumin 3.4 G/DL (3.4-5.0); Calcium 8.3 MG/DL (8.5-10.1); Osmolality,Calculated 280.2 MOS/KG (273-304)
[2017-09-10 16:36] LABS: Lactic Acid 2.1 MMOL/L (0.4-2.0)
[2017-09-10] MEDS ORDERED: SODIUM CHLORIDE 0.9% 1,000 ML IV STA (17:01)
[2017-09-10] MEDS ORDERED: PIPERACILLIN/TAZOBACTAM 3,375 MG in SODIUM CHLORIDE 0.9% 100 ML IV STA (18:05)
[2017-09-10] MEDS ORDERED: PIPERACILLIN/TAZOBACTAM 3,375 MG VIAL IV ONE (18:11)
[2017-09-10] MEDS ORDERED: SODIUM CHLORIDE 0.9% 100 ML IV ONE (18:11)
[2017-09-10 19:02] LABS: Apearance,Urine CLEAR (Clear); Bilirubin,Urine Negative (Negative); Blood, Urine Negative (Negative); Glucose,Urine (UA) >=500 mg/dL (Negative); Ketones,Urine 5 mg/dL (Negative); Nitrite,Urine Negative (Negative); Protein,Urine Negative; RBC,Urine <1 /HPF (0-4); Squamous Epithelial Cell,Urine Occasional /HPF (0-10); Urine Color Yellow (Yellow); Urine Specific Gravity 1.038 (1.001-1.035); Urine Urobilinogen < 2.0 EU/DL (0.2-1.0); WBC,Urine 1 /HPF (0-6)
[2017-09-10] MEDS ORDERED: ONDANSETRON 4 MG/2 ML VIAL IV PRN (19:22)
[2017-09-10] MEDS ORDERED: GLUCAGON 1 MG VIAL IM PRN (19:32)
[2017-09-10] MEDS ORDERED: DEXTROSE 50% 25 GM/50 ML VIAL IV PRN (19:32)
[2017-09-10] MEDS: SODIUM CHLORIDE 0.9% 1,000 ML IV SCH (20:30)
[2017-09-10] MEDS: INSULIN REGULAR 100 UNIT/ML SUBCUT SCH (23:04)
[2017-09-11] MEDS: PIPERACILLIN/TAZOBACTAM 3,375 MG in SODIUM CHLORIDE 0.9% 100 ML IV SCH ×4 (02:02→18:11)
[2017-09-11 05:11] LABS: Basophils # 0.1 10*3/uL (0.0-0.2); Basophils % 0.3 % (0.0-0.8); Eosinophils % 0.2 % (0.00-10.9); Hematocrit 36.2 VOL% (35.7-47.0); Hemoglobin 11.3 GM/DL (12.0-16.0); Immature Granulocytes % 0.8 %; Immature Granulocytes Absolute 0.15 #; Lymphocytes # 3.2 10*3/uL (1.4-4.0); Lymphocytes % 16.2 % (21.3-54.2); Mean Corpuscular HGB Conc 31.2 GM/DL (32-36); Mean Corpuscular Hemoglobin 30 PG (27-34); Mean Corpuscular Volume 94.8 FL (87-102); Mean Platelet Volume 10.3 FL (9.6-12.0); Monocytes % 10.1 % (1.7-12.7); Neutrophils # 14.4 10*3/uL (1.4-7.4); Neutrophils % 72.4 % (38.7-73.9); Platelet Count 329 T/CUMM (130-400); Red Blood Count 3.82 MC/CUMM (3.8-5.5); White Blood Count 19.9 T/CUMM (4-12)
[2017-09-11 05:28] LABS: Lactic Acid 1.5 MMOL/L (0.4-2.0)
[2017-09-11 05:48] LABS: Albumin 2.8 G/DL (3.4-5.0); Bilirubin,Total 1.3 MG/DL (0.2-1.0); Calcium 7.8 MG/DL (8.5-10.1); Osmolality,Calculated 290.7 MOS/KG (273-304); Potassium 3.9 MMOL/L (3.5-5.1); Total Protein 5.7 G/DL (6.4-8.3)
[2017-09-11] MEDS: LEVOTHYROXINE 50 MCG TABLET PO SCH (06:00)
[2017-09-11] MEDS: SODIUM CHLORIDE 0.9% 1,000 ML IV SCH (06:31)
[2017-09-11] MEDS ORDERED: TICAGRELOR 90 MG TABLET PO SCH (08:00)
[2017-09-11] MEDS: MAGNESIUM OXIDE 400 MG TABLET PO SCH ×2 (08:26→15:01)
[2017-09-11] MEDS: GABAPENTIN 400 MG CAPSULE PO SCH ×2 (08:26→15:01)
[2017-09-11] MEDS: LOSARTAN 25 MG TABLET PO SCH (08:26)
[2017-09-11] MEDS: INSULIN REGULAR 100 UNIT/ML SUBCUT SCH ×5 (08:26→21:01)
[2017-09-11] MEDS: ASPIRIN EC 81 MG TABLET PO SCH (08:26)
[2017-09-11] MEDS: PANTOPRAZOLE 40 MG TABLET PO SCH (08:27)
[2017-09-11] MEDS: predniSONE 5 MG TABLET PO SCH (08:27)
[2017-09-11] MEDS: CALCITRIOL 0.5 MCG CAPSULE PO SCH (08:27)
[2017-09-11] MEDS ORDERED: hydroCHLOROthiazide 25 MG TABLET PO SCH (09:00)
[2017-09-11] MEDS ORDERED: CALCIUM (CARBONATE) 600 MG TABLET PO SCH (09:00)
[2017-09-11] MEDS ORDERED: ESTROGENS (CONJ) 0.45 MG TABLET PO SCH (09:00)
[2017-09-11] MEDS: INSULIN GLARGINE 100 UNIT/ML SUBCUT SCH (16:22)
[2017-09-11] MEDS: FELODIPINE 5 MG TABLET PO SCH (17:11)
[2017-09-11] MEDS: METOPROLOL SUCCINATE XL 50 MG TABLET PO SCH (17:11)
[2017-09-11] MEDS: CITALOPRAM 40 MG TABLET PO SCH (17:11)
[2017-09-11] MEDS: SODIUM CHLORIDE 0.45% 1,000 ML IV SCH (17:23)
[2017-09-11 18:34] LABS: ABG Base Excess -0.5 MMOL/L (-2.5-2.5); ABG HCO3 23.1 MMOL/L (20-26); ABG Oxygen Saturation 49.9 % (95-100); ABG PCO2 45.7 MM HG (35-48); ABG PH 7.354 (7.35-7.45); Allen Test Positive; Pt O2 Delivery Device Room Air
[2017-09-11 18:40] LABS: ABG PO2 28.7 MM HG (80-95)
[2017-09-11] MEDS: SIMVASTATIN 10 MG TABLET PO SCH (21:01)
[2017-09-12] MEDS: SODIUM CHLORIDE 0.9% 1,000 ML IV SCH (01:54)
[2017-09-12] MEDS: PIPERACILLIN/TAZOBACTAM 3,375 MG in SODIUM CHLORIDE 0.9% 100 ML IV SCH ×3 (02:32→17:47)
[2017-09-12] MEDS: SODIUM CHLORIDE 0.45% 1,000 ML IV SCH ×2 (02:33→12:11)
[2017-09-12 06:07] LABS: Basophils # 0.1 10*3/uL (0.0-0.2); Basophils % 0.3 % (0.0-0.8); Eosinophils # 0.1 10*3/uL (0.0-0.87); Eosinophils % 0.4 % (0.00-10.9); Hematocrit 34.2 VOL% (35.7-47.0); Hemoglobin 10.5 GM/DL (12.0-16.0); Immature Granulocytes % 0.9 %; Immature Granulocytes Absolute 0.16 #; Lymphocytes # 4.1 10*3/uL (1.4-4.0); Lymphocytes % 22.6 % (21.3-54.2); Mean Corpuscular HGB Conc 30.7 GM/DL (32-36); Mean Corpuscular Hemoglobin 30 PG (27-34); Mean Corpuscular Volume 96.6 FL (87-102); Mean Platelet Volume 11.3 FL (9.6-12.0); Monocytes # 1.7 10*3/uL (0.11-0.8); Monocytes % 9.4 % (1.7-12.7); Neutrophils # 11.9 10*3/uL (1.4-7.4); Neutrophils % 66.4 % (38.7-73.9); Platelet Count 292 T/CUMM (130-400); Red Blood Count 3.54 MC/CUMM (3.8-5.5); Red Cell Distribution Width 14.9 % (9.3-17.3); White Blood Count 17.9 T/CUMM (4-12)
[2017-09-12 06:37] LABS: Albumin 2.5 G/DL (3.4-5.0); Bilirubin,Total 1.6 MG/DL (0.2-1.0); Calcium 7.5 MG/DL (8.5-10.1); Osmolality,Calculated 285.8 MOS/KG (273-304); Total Protein 5.8 G/DL (6.4-8.3)
[2017-09-12] MEDS: LEVOTHYROXINE 50 MCG TABLET PO SCH (06:44)
[2017-09-12] MEDS ORDERED: cefOXitin 2,000 MG in SYRINGE 1 EACH IV ONE (08:27)
[2017-09-12] MEDS: METOPROLOL SUCCINATE XL 50 MG TABLET PO SCH (09:38)
[2017-09-12] MEDS: predniSONE 5 MG TABLET PO SCH (09:38)
[2017-09-12] MEDS: CALCITRIOL 0.5 MCG CAPSULE PO SCH (09:38)
[2017-09-12] MEDS: LOSARTAN 25 MG TABLET PO SCH (09:38)
[2017-09-12] MEDS: PANTOPRAZOLE 40 MG TABLET PO SCH (09:38)
[2017-09-12] MEDS: INSULIN REGULAR 100 UNIT/ML SUBCUT SCH ×4 (09:39→21:08)
[2017-09-12] MEDS: INSULIN GLARGINE 100 UNIT/ML SUBCUT SCH (09:39)
[2017-09-12] MEDS: ASPIRIN EC 81 MG TABLET PO SCH (09:39)
[2017-09-12] MEDS ORDERED: HYDROmorphone 2 MG/1 ML VIAL IV PRN (14:32)
[2017-09-12] MEDS: oxyCODONE/ACETAMINOPHEN 5-325 MG TABLET PO PRN ×2 (14:38→21:07)
[2017-09-12] MEDS: MYCOPHENOLATE MOFETIL 250 MG CAPSULE PO SCH ×2 (15:20→21:09)
[2017-09-12] MEDS ORDERED: INSULIN GLARGINE 100 UNIT/ML SUBCUT SCH (16:20)
[2017-09-12] MEDS: FELODIPINE 5 MG TABLET PO SCH (17:48)
[2017-09-12] MEDS: CITALOPRAM 40 MG TABLET PO SCH (17:48)
[2017-09-12] MEDS: SIMVASTATIN 10 MG TABLET PO SCH (21:09)
[2017-09-13] MEDS: PIPERACILLIN/TAZOBACTAM 3,375 MG in SODIUM CHLORIDE 0.9% 100 ML IV SCH ×2 (03:23→13:48)
[2017-09-13 06:55] LABS: Basophils % 0.3 % (0.0-0.8); Eosinophils # 0.3 10*3/uL (0.0-0.87); Eosinophils % 2.5 % (0.00-10.9); Hematocrit 34.3 VOL% (35.7-47.0); Hemoglobin 10.4 GM/DL (12.0-16.0); Immature Granulocytes % 0.7 %; Immature Granulocytes Absolute 0.08 #; Lymphocytes % 24.9 % (21.3-54.2); Mean Corpuscular HGB Conc 30.3 GM/DL (32-36); Mean Corpuscular Hemoglobin 29 PG (27-34); Mean Corpuscular Volume 95.5 FL (87-102); Monocytes # 0.8 10*3/uL (0.11-0.8); Monocytes % 6.8 % (1.7-12.7); Neutrophils # 7.7 10*3/uL (1.4-7.4); Neutrophils % 64.8 % (38.7-73.9); Platelet Count 247 T/CUMM (130-400); Red Blood Count 3.59 MC/CUMM (3.8-5.5); Red Cell Distribution Width 14.6 % (9.3-17.3); White Blood Count 11.8 T/CUMM (4-12)
[2017-09-13 07:22] LABS: Hypochromasia 1+
[2017-09-13 07:24] LABS: Microcytosis Slight
[2017-09-13 07:33] LABS: Albumin 2.6 G/DL (3.4-5.0); Bilirubin,Total 1.2 MG/DL (0.2-1.0); Calcium 7.6 MG/DL (8.5-10.1); Osmolality,Calculated 281.1 MOS/KG (273-304); Potassium 3.9 MMOL/L (3.5-5.1); Total Protein 5.9 G/DL (6.4-8.3)
[2017-09-13] MEDS: LEVOTHYROXINE 50 MCG TABLET PO SCH (08:05)
[2017-09-13] MEDS: MYCOPHENOLATE MOFETIL 250 MG CAPSULE PO SCH ×2 (08:10→21:59)
[2017-09-13] MEDS: LOSARTAN 25 MG TABLET PO SCH (08:10)
[2017-09-13] MEDS: SODIUM HYPOCHLORITE 0.25% IRRIG 473 ML BOTTLE TOP SCH (08:10)
[2017-09-13] MEDS: ASPIRIN EC 81 MG TABLET PO SCH (08:10)
[2017-09-13] MEDS: CALCITRIOL 0.5 MCG CAPSULE PO SCH (08:11)
[2017-09-13] MEDS: PANTOPRAZOLE 40 MG TABLET PO SCH (08:11)
[2017-09-13] MEDS: predniSONE 5 MG TABLET PO SCH (08:11)
[2017-09-13] MEDS: METOPROLOL SUCCINATE XL 50 MG TABLET PO SCH (08:11)
[2017-09-13] MEDS: INSULIN REGULAR 100 UNIT/ML SUBCUT SCH ×4 (08:14→22:32)
[2017-09-13] MEDS ORDERED: TISSUE ADHESIVE 1 EACH APPLICATOR TOP ONE (08:33)
[2017-09-13] MEDS ORDERED: GLUCAGON 1 MG VIAL ONE (10:41)
[2017-09-13] MEDS ORDERED: ALBUTEROL/IPRATROPIUM 3 ML NEB RESP TX ONE ×2 (11:46→12:06)
[2017-09-13] MEDS ORDERED: NALOXONE 0.4 MG/ML VIAL ONE (11:59)
[2017-09-13] MEDS ORDERED: SEVOFLURANE 1 UNIT/15 MINUTE INH ONE (12:10)
[2017-09-13] MEDS ORDERED: ONDANSETRON 4 MG/2 ML VIAL ONE (12:10)
[2017-09-13] MEDS ORDERED: fentaNYL 100 MCG/2 ML VIAL ONE ×2 (12:10)
[2017-09-13] MEDS ORDERED: KETOROLAC 30 MG/1 ML VIAL ONE (12:10)
[2017-09-13] MEDS ORDERED: PROPOFOL 200 MG/20 ML VIAL IV ONE (12:10)
[2017-09-13] MEDS ORDERED: NEOSTIGMINE 10 MG/10 ML VIAL ONE (12:11)
[2017-09-13] MEDS ORDERED: GLYCOPYRROLATE 0.4 MG/2 ML VIAL ONE (12:11)
[2017-09-13] MEDS ORDERED: ROCURONIUM 100 MG/10 ML VIAL IV ONE (12:11)
[2017-09-13] MEDS ORDERED: ACETAMINOPHEN 1,000 MG/100 ML VIAL IV ONE (12:11)
[2017-09-13] MEDS ORDERED: LACTATED RINGERS 1,000 ML IV ONE (12:11)
[2017-09-13] MEDS ORDERED: SUCCINYLCHOLINE 200 MG/10 ML VIAL ONE (12:11)
[2017-09-13] MEDS ORDERED: SODIUM CHLORIDE 0.9% 1,000 ML IV SCH (13:00)
[2017-09-13] MEDS: ERTAPENEM 1,000 MG in SODIUM CHLORIDE 0.9% 100 ML IV SCH (14:06)
[2017-09-13] MEDS: SODIUM CHLORIDE 0.9% 1,000 ML IV SCH (14:07)
[2017-09-13] MEDS: ALBUTEROL/IPRATROPIUM 3 ML NEB RESP TX SCH ×3 (15:00→23:02)
[2017-09-13] MEDS: FELODIPINE 5 MG TABLET PO SCH (17:36)
[2017-09-13] MEDS: CITALOPRAM 40 MG TABLET PO SCH (17:36)
[2017-09-13] MEDS: oxyCODONE/ACETAMINOPHEN 5-325 MG TABLET PO PRN (18:44)
[2017-09-13 21:18] LABS: ABG Base Excess -6.7 MMOL/L (-2.5-2.5); ABG HCO3 18.8 MMOL/L (20-26); ABG Oxygen Saturation 86.9 % (95-100); ABG PH 7.349 (7.35-7.45); ABG PO2 54.3 MM HG (80-95); ABG TCO2 16.6 MMOL/L (23-27); Allen Test Positive
[2017-09-13] MEDS: SIMVASTATIN 10 MG TABLET PO SCH (22:00)
[2017-09-14] MEDS: ALBUTEROL/IPRATROPIUM 3 ML NEB RESP TX SCH ×6 (04:30→23:53)
[2017-09-14] MEDS: SODIUM CHLORIDE 0.9% 1,000 ML IV SCH (04:58)
[2017-09-14 06:36] LABS: Basophils % 0.2 % (0.0-0.8); Hematocrit 31.3 VOL% (35.7-47.0); Hemoglobin 10.1 GM/DL (12.0-16.0); Immature Granulocytes Absolute 0.13 #; Lymphocytes # 0.6 10*3/uL (1.4-4.0); Lymphocytes % 4.4 % (21.3-54.2); Mean Corpuscular HGB Conc 32.3 GM/DL (32-36); Mean Corpuscular Hemoglobin 30 PG (27-34); Mean Corpuscular Volume 92.9 FL (87-102); Mean Platelet Volume 11.8 FL (9.6-12.0); Monocytes # 0.8 10*3/uL (0.11-0.8); Monocytes % 5.7 % (1.7-12.7); NRBC # 0.02 10*3/uL; Neutrophils # 11.8 10*3/uL (1.4-7.4); Neutrophils % 88.7 % (38.7-73.9); Platelet Count 232 T/CUMM (130-400); Red Blood Count 3.37 MC/CUMM (3.8-5.5); Red Cell Distribution Width 14.6 % (9.3-17.3); White Blood Count 13.2 T/CUMM (4-12)
[2017-09-14 06:41] LABS: PT Patient Result 10.1 SECS
[2017-09-14 07:00] LABS: Albumin 2.2 G/DL (3.4-5.0); Bilirubin,Total 0.6 MG/DL (0.2-1.0); Calcium 6.9 MG/DL (8.5-10.1); Osmolality,Calculated 292.1 MOS/KG (273-304); Potassium 4.2 MMOL/L (3.5-5.1); Total Protein 5.7 G/DL (6.4-8.3)
[2017-09-14 07:01] LABS: Hypochromasia 2+; Polychromasia Slight; Target Cells Slight
[2017-09-14] MEDS: MYCOPHENOLATE MOFETIL 250 MG CAPSULE PO SCH ×2 (08:21→20:22)
[2017-09-14] MEDS: METOPROLOL SUCCINATE XL 50 MG TABLET PO SCH (08:21)
[2017-09-14] MEDS: LEVOTHYROXINE 50 MCG TABLET PO SCH (08:21)
[2017-09-14] MEDS: INSULIN REGULAR 100 UNIT/ML SUBCUT SCH ×4 (08:22→20:23)
[2017-09-14] MEDS: CALCITRIOL 0.5 MCG CAPSULE PO SCH (08:22)
[2017-09-14] MEDS: PANTOPRAZOLE 40 MG TABLET PO SCH (08:22)
[2017-09-14] MEDS: predniSONE 5 MG TABLET PO SCH (08:22)
[2017-09-14] MEDS: ASPIRIN EC 81 MG TABLET PO SCH (08:23)
[2017-09-14] MEDS: SODIUM HYPOCHLORITE 0.25% IRRIG 473 ML BOTTLE TOP SCH (08:23)
[2017-09-14] MEDS: INSULIN GLARGINE 100 UNIT/ML SUBCUT SCH (08:23)
[2017-09-14] MEDS ORDERED: GLUCAGON 1 MG VIAL ONE (14:19)
[2017-09-14] MEDS ORDERED: ENOXAPARIN 40 MG/0.4 ML SYRINGE SUBCUT SCH (14:30)
[2017-09-14 14:56] LABS: ABG Base Excess -4.2 MMOL/L (-2.5-2.5); ABG HCO3 20.8 MMOL/L (20-26); ABG Oxygen Saturation 93.9 % (95-100); ABG PCO2 33.8 MM HG (35-48); ABG PH 7.383 (7.35-7.45); ABG PO2 70.5 MM HG (80-95); ABG TCO2 18.4 MMOL/L (23-27)
[2017-09-14] MEDS ORDERED: PROPOFOL 1,000 MG/100 ML BOTTLE IV ONE (14:57)
[2017-09-14] MEDS ORDERED: ENOXAPARIN 100 MG/ML SYRINGE SUBCUT SCH (15:00)
[2017-09-14] MEDS ORDERED: VECURONIUM 10 MG VIAL IV ONE ×2 (15:08→15:16)
[2017-09-14] MEDS ORDERED: PROPOFOL 200 MG/20 ML VIAL IV ONE (15:18)
[2017-09-14] MEDS ORDERED: SEVOFLURANE 1 UNIT/15 MINUTE INH ONE (15:18)
[2017-09-14] MEDS ORDERED: PROPOFOL 1,000 MG/100 ML BOTTLE IV SCH ×2 (15:30→16:30)
[2017-09-14 15:35] LABS: Basophils % 0.2 % (0.0-0.8); Eosinophils # 0.2 10*3/uL (0.0-0.87); Eosinophils % 1.2 % (0.00-10.9); Hematocrit 32.6 VOL% (35.7-47.0); Hemoglobin 10.1 GM/DL (12.0-16.0); Immature Granulocytes % 0.8 %; Immature Granulocytes Absolute 0.13 #; Lymphocytes # 0.6 10*3/uL (1.4-4.0); Lymphocytes % 3.7 % (21.3-54.2); Mean Corpuscular Hemoglobin 30 PG (27-34); Mean Corpuscular Volume 95.9 FL (87-102); Mean Platelet Volume 10.9 FL (9.6-12.0); Monocytes # 0.8 10*3/uL (0.11-0.8); Monocytes % 4.4 % (1.7-12.7); Neutrophils # 15.4 10*3/uL (1.4-7.4); Neutrophils % 89.7 % (38.7-73.9); Platelet Count 315 T/CUMM (130-400); Red Cell Distribution Width 14.6 % (9.3-17.3); White Blood Count 17.2 T/CUMM (4-12)
[2017-09-14] MEDS: ERTAPENEM 1,000 MG in SODIUM CHLORIDE 0.9% 100 ML IV SCH (15:41)
[2017-09-14 15:44] LABS: ABG Base Excess -3.9 MMOL/L (-2.5-2.5); ABG HCO3 21.2 MMOL/L (20-26); ABG Oxygen Saturation 98.5 % (95-100); ABG PCO2 33.1 MM HG (35-48); ABG PH 7.396 (7.35-7.45); ABG TCO2 18.5 MMOL/L (23-27)
[2017-09-14 16:05] LABS: Band Neutrophils 6 % (0-10); Lymphocytes 5 % (20-55); Metamyelocytes 3 %; Platelet Estimate Normal; Segmented Neutrophils 81 % (50-85); Total Cells Counted 100
[2017-09-14] MEDS: PANTOPRAZOLE 40 MG VIAL IV SCH (17:16)
[2017-09-14] MEDS: FELODIPINE 5 MG TABLET PO SCH ×2 (17:16→17:26)
[2017-09-14] MEDS: CITALOPRAM 40 MG TABLET PO SCH ×2 (17:16→17:25)
[2017-09-14] MEDS: PIPERACILLIN/TAZOBACTAM 3,375 MG in SODIUM CHLORIDE 0.9% 100 ML IV SCH (18:42)
[2017-09-14] MEDS: PROPOFOL 1,000 MG/100 ML BOTTLE IV SCH (19:44)
[2017-09-14] MEDS: SIMVASTATIN 10 MG TABLET PO SCH (20:25)
[2017-09-15] MEDS: PIPERACILLIN/TAZOBACTAM 3,375 MG in SODIUM CHLORIDE 0.9% 100 ML IV SCH ×3 (01:13→17:19)
[2017-09-15] MEDS: PROPOFOL 1,000 MG/100 ML BOTTLE IV SCH ×3 (02:02→19:14)
[2017-09-15] MEDS: ALBUTEROL/IPRATROPIUM 3 ML NEB RESP TX SCH ×6 (03:38→23:53)
[2017-09-15 04:08] LABS: ABG Base Excess -2.9 MMOL/L (-2.5-2.5); ABG Oxygen Saturation 98.4 % (95-100); ABG PCO2 33.9 MM HG (35-48); ABG PH 7.403 (7.35-7.45); ABG TCO2 18.8 MMOL/L (23-27)
[2017-09-15 04:15] LABS: Basophils % 0.2 % (0.0-0.8); Eosinophils % 0.1 % (0.00-10.9); Hematocrit 30.2 VOL% (35.7-47.0); Hemoglobin 9.4 GM/DL (12.0-16.0); Immature Granulocytes % 0.8 %; Lymphocytes # 2.3 10*3/uL (1.4-4.0); Lymphocytes % 17.7 % (21.3-54.2); Mean Corpuscular HGB Conc 31.1 GM/DL (32-36); Mean Corpuscular Hemoglobin 30 PG (27-34); Mean Platelet Volume 11.4 FL (9.6-12.0); Monocytes # 0.8 10*3/uL (0.11-0.8); Monocytes % 6.3 % (1.7-12.7); Neutrophils # 9.8 10*3/uL (1.4-7.4); Neutrophils % 74.9 % (38.7-73.9); Platelet Count 269 T/CUMM (130-400); Red Blood Count 3.18 MC/CUMM (3.8-5.5); Red Cell Distribution Width 14.9 % (9.3-17.3); White Blood Count 13.1 T/CUMM (4-12)
[2017-09-15 04:56] LABS: Albumin 2.1 G/DL (3.4-5.0); Bilirubin,Total 0.5 MG/DL (0.2-1.0); Osmolality,Calculated 291.3 MOS/KG (273-304); Potassium 3.7 MMOL/L (3.5-5.1); Total Protein 5.6 G/DL (6.4-8.3)
[2017-09-15] MEDS: LEVOTHYROXINE 50 MCG TABLET PO SCH (08:56)
[2017-09-15] MEDS: PANTOPRAZOLE 40 MG VIAL IV SCH (09:18)
[2017-09-15] MEDS: ENOXAPARIN 40 MG/0.4 ML SYRINGE SUBCUT SCH (09:18)
[2017-09-15] MEDS: CALCITRIOL 0.5 MCG CAPSULE PO SCH (09:18)
[2017-09-15] MEDS: predniSONE 5 MG TABLET PO SCH (09:19)
[2017-09-15] MEDS: ASPIRIN EC 81 MG TABLET PO SCH (09:19)
[2017-09-15] MEDS: MYCOPHENOLATE MOFETIL 250 MG CAPSULE PO SCH ×2 (09:19→21:00)
[2017-09-15] MEDS: INSULIN REGULAR 100 UNIT/ML SUBCUT SCH ×4 (11:12→21:01)
[2017-09-15] MEDS: INSULIN GLARGINE 100 UNIT/ML SUBCUT SCH (11:13)
[2017-09-15 12:11] LABS: ABG Base Excess -4.1 MMOL/L (-2.5-2.5); ABG HCO3 19.7 MMOL/L (20-26); ABG Oxygen Saturation 97.1 % (95-100); ABG PCO2 31.3 MM HG (35-48); ABG PH 7.417 (7.35-7.45); ABG PO2 96.3 MM HG (80-95); ABG TCO2 20.7 MMOL/L (23-27); Allen Test Positive
[2017-09-15] MEDS: METOPROLOL SUCCINATE XL 50 MG TABLET PO SCH (12:46)
[2017-09-15] MEDS: METOPROLOL TARTRATE 25 MG TABLET PO SCH ×2 (12:46→21:01)
[2017-09-15] MEDS ORDERED: PHENYLEPHRINE 1 MG/10 ML SYRINGE IV ONE (13:01)
[2017-09-15] MEDS ORDERED: LIDOCAINE 2% 5 ML VIAL ONE (13:01)
[2017-09-15] MEDS ORDERED: PROPOFOL 200 MG/20 ML VIAL IV ONE (13:01)
[2017-09-15] MEDS ORDERED: SUCCINYLCHOLINE 200 MG/10 ML VIAL ONE (13:01)
[2017-09-15] MEDS ORDERED: INSULIN GLARGINE 100 UNIT/ML SUBCUT SCH (15:59)
[2017-09-15] MEDS: SODIUM HYPOCHLORITE 0.25% IRRIG 473 ML BOTTLE TOP SCH (16:00)
[2017-09-15] MEDS ORDERED: hydrALAZINE 20 MG/1 ML VIAL IV PRN (16:01)
[2017-09-15] MEDS: INSULIN LISPRO 100 UNIT/ML SUBCUT SCH (17:08)
[2017-09-15] MEDS: FELODIPINE 5 MG TABLET PO SCH (17:08)
[2017-09-15] MEDS: CITALOPRAM 40 MG TABLET PO SCH (17:08)
[2017-09-15] MEDS: SIMVASTATIN 10 MG TABLET PO SCH (21:00)
[2017-09-16] MEDS: INSULIN LISPRO 100 UNIT/ML SUBCUT SCH ×5 (01:16→23:46)
[2017-09-16] MEDS: PIPERACILLIN/TAZOBACTAM 3,375 MG in SODIUM CHLORIDE 0.9% 100 ML IV SCH ×3 (02:36→17:53)
[2017-09-16 03:45] LABS: ABG Base Excess -1.1 MMOL/L (-2.5-2.5); ABG HCO3 22.1 MMOL/L (20-26); ABG Oxygen Saturation 98.7 % (95-100); ABG PO2 159.2 MM HG (80-95); Allen Test Positive; Pt O2 Delivery Device Ventilator
[2017-09-16] MEDS: PROPOFOL 1,000 MG/100 ML BOTTLE IV SCH (04:16)
[2017-09-16] MEDS: ALBUTEROL/IPRATROPIUM 3 ML NEB RESP TX SCH ×6 (04:19→23:52)
[2017-09-16 04:54] LABS: Basophils % 0.3 % (0.0-0.8); Eosinophils # 0.1 10*3/uL (0.0-0.87); Eosinophils % 1.2 % (0.00-10.9); Hematocrit 29.6 VOL% (35.7-47.0); Immature Granulocytes % 0.8 %; Immature Granulocytes Absolute 0.08 #; Lymphocytes # 2.5 10*3/uL (1.4-4.0); Lymphocytes % 25.5 % (21.3-54.2); Mean Corpuscular HGB Conc 30.4 GM/DL (32-36); Mean Corpuscular Hemoglobin 29 PG (27-34); Mean Corpuscular Volume 95.2 FL (87-102); Mean Platelet Volume 10.8 FL (9.6-12.0); Monocytes # 0.6 10*3/uL (0.11-0.8); Monocytes % 6.3 % (1.7-12.7); Neutrophils # 6.4 10*3/uL (1.4-7.4); Neutrophils % 65.9 % (38.7-73.9); Platelet Count 291 T/CUMM (130-400); Red Blood Count 3.11 MC/CUMM (3.8-5.5); White Blood Count 9.8 T/CUMM (4-12)
[2017-09-16 05:21] LABS: Calcium 7.2 MG/DL (8.5-10.1); Potassium 3.5 MMOL/L (3.5-5.1)
[2017-09-16] MEDS: ENOXAPARIN 40 MG/0.4 ML SYRINGE SUBCUT SCH (08:07)
[2017-09-16] MEDS: PANTOPRAZOLE 40 MG VIAL IV SCH (08:07)
[2017-09-16] MEDS: METOPROLOL TARTRATE 25 MG TABLET PO SCH ×2 (08:08→20:12)
[2017-09-16] MEDS: predniSONE 5 MG TABLET PO SCH (08:08)
[2017-09-16] MEDS: MYCOPHENOLATE MOFETIL 250 MG CAPSULE PO SCH ×3 (08:08→20:11)
[2017-09-16] MEDS: CALCITRIOL 0.5 MCG CAPSULE PO SCH (08:08)
[2017-09-16] MEDS: INSULIN GLARGINE 100 UNIT/ML SUBCUT SCH (08:08)
[2017-09-16] MEDS: ASPIRIN EC 81 MG TABLET PO SCH (08:08)
[2017-09-16] MEDS: LEVOTHYROXINE 50 MCG TABLET PO SCH (08:08)
[2017-09-16] MEDS: INSULIN REGULAR 100 UNIT/ML SUBCUT SCH ×4 (08:09→21:10)
[2017-09-16 08:34] LABS: ABG Base Excess 0.2 MMOL/L (-2.5-2.5); ABG HCO3 24.5 MMOL/L (20-26); ABG Oxygen Saturation 93.8 % (95-100); ABG PH 7.433 (7.35-7.45); ABG TCO2 21.8 MMOL/L (23-27); Allen Test Positive
[2017-09-16] MEDS ORDERED: MULTIVITAMIN LIQUID (CENTRUM) 60 ML BOTTLE PER TUBE SCH (09:00)
[2017-09-16] MEDS: TACROLIMUS 0.5 MG CAPSULE PO SCH ×2 (10:14→20:12)
[2017-09-16 10:42] LABS: ABG Base Excess -0.5 MMOL/L (-2.5-2.5); ABG Oxygen Saturation 97.8 % (95-100); ABG PCO2 37.3 MM HG (35-48); ABG PH 7.413 (7.35-7.45); ABG TCO2 21.7 MMOL/L (23-27); Allen Test Positive; Pt O2 Delivery Device Venturi Mask
[2017-09-16] MEDS: COLLAGENASE OINT 30 GM TUBE TOP SCH (14:09)
[2017-09-16] MEDS: SODIUM HYPOCHLORITE 0.25% IRRIG 473 ML BOTTLE TOP SCH (14:09)
[2017-09-16] MEDS: CITALOPRAM 40 MG TABLET PO SCH (17:54)
[2017-09-16] MEDS: FELODIPINE 5 MG TABLET PO SCH (17:54)
[2017-09-16] MEDS: SIMVASTATIN 10 MG TABLET PO SCH (20:12)
[2017-09-17] MEDS: PIPERACILLIN/TAZOBACTAM 3,375 MG in SODIUM CHLORIDE 0.9% 100 ML IV SCH ×3 (02:59→18:09)
[2017-09-17 03:21] LABS: ABG Base Excess 0.1 MMOL/L (-2.5-2.5); ABG HCO3 24.4 MMOL/L (20-26); ABG PCO2 38.1 MM HG (35-48); ABG PH 7.416 (7.35-7.45); ABG TCO2 21.6 MMOL/L (23-27); Allen Test Positive
[2017-09-17] MEDS: ALBUTEROL/IPRATROPIUM 3 ML NEB RESP TX SCH ×6 (04:18→23:56)
[2017-09-17 04:48] LABS: Basophils % 0.2 % (0.0-0.8); Eosinophils # 0.4 10*3/uL (0.0-0.87); Eosinophils % 4.4 % (0.00-10.9); Hematocrit 31.5 VOL% (35.7-47.0); Hemoglobin 9.7 GM/DL (12.0-16.0); Immature Granulocytes % 0.8 %; Immature Granulocytes Absolute 0.07 #; Lymphocytes # 2.6 10*3/uL (1.4-4.0); Lymphocytes % 30.5 % (21.3-54.2); Mean Corpuscular HGB Conc 30.8 GM/DL (32-36); Mean Corpuscular Hemoglobin 29 PG (27-34); Mean Corpuscular Volume 93.8 FL (87-102); Mean Platelet Volume 10.8 FL (9.6-12.0); Monocytes # 0.6 10*3/uL (0.11-0.8); Monocytes % 7.6 % (1.7-12.7); Neutrophils # 4.7 10*3/uL (1.4-7.4); Neutrophils % 56.5 % (38.7-73.9); Platelet Count 337 T/CUMM (130-400); Red Blood Count 3.36 MC/CUMM (3.8-5.5); Red Cell Distribution Width 14.9 % (9.3-17.3); White Blood Count 8.4 T/CUMM (4-12)
[2017-09-17 05:17] LABS: Albumin 1.9 G/DL (3.4-5.0); Bilirubin,Direct 0.2 MG/DL (0.0-0.20); Bilirubin,Indirect 0.4 MG/DL (0.0-1.0); Bilirubin,Total 0.6 MG/DL (0.2-1.0)
[2017-09-17 06:12] LABS: Anisocytosis 1+; Band Neutrophils 6 % (0-10); Eosinophils 7 % (0-10); Hypochromasia 1+; Lymphocytes 20 % (20-55); Myelocytes 1 %; Segmented Neutrophils 63 % (50-85); Total Cells Counted 100
[2017-09-17 06:13] LABS: Platelet Estimate Normal
[2017-09-17] MEDS: LEVOTHYROXINE 50 MCG TABLET PO SCH (06:21)
[2017-09-17] MEDS: INSULIN LISPRO 100 UNIT/ML SUBCUT SCH ×2 (06:21→11:52)
[2017-09-17] MEDS: INSULIN REGULAR 100 UNIT/ML SUBCUT SCH ×4 (08:05→20:02)
[2017-09-17] MEDS: MYCOPHENOLATE MOFETIL 250 MG CAPSULE PO SCH ×2 (09:25→18:04)
[2017-09-17] MEDS: TACROLIMUS 0.5 MG CAPSULE PO SCH ×2 (09:26→20:00)
[2017-09-17] MEDS: ASPIRIN EC 81 MG TABLET PO SCH (09:27)
[2017-09-17] MEDS: METOPROLOL TARTRATE 25 MG TABLET PO SCH ×2 (09:27→20:00)
[2017-09-17] MEDS: CALCITRIOL 0.5 MCG CAPSULE PO SCH (09:27)
[2017-09-17] MEDS: predniSONE 5 MG TABLET PO SCH (09:27)
[2017-09-17] MEDS: ENOXAPARIN 40 MG/0.4 ML SYRINGE SUBCUT SCH (09:28)
[2017-09-17] MEDS: INSULIN GLARGINE 100 UNIT/ML SUBCUT SCH (09:28)
[2017-09-17] MEDS: COLLAGENASE OINT 30 GM TUBE TOP SCH (09:36)
[2017-09-17] MEDS: SODIUM HYPOCHLORITE 0.25% IRRIG 473 ML BOTTLE TOP SCH (09:36)
[2017-09-17] MEDS: PANTOPRAZOLE 40 MG VIAL IV SCH (09:36)
[2017-09-17] MEDS ORDERED: TUBERCULIN SKIN TEST 0.1 ML SYRINGE INTRADERM ONE (16:05)
[2017-09-17] MEDS: FELODIPINE 5 MG TABLET PO SCH (18:04)
[2017-09-17] MEDS: CITALOPRAM 40 MG TABLET PO SCH (18:04)
[2017-09-17] MEDS: SIMVASTATIN 10 MG TABLET PO SCH (20:00)
[2017-09-18] MEDS: PIPERACILLIN/TAZOBACTAM 3,375 MG in SODIUM CHLORIDE 0.9% 100 ML IV SCH ×3 (02:04→21:16)
[2017-09-18 03:13] LABS: ABG Base Excess 0.2 MMOL/L (-2.5-2.5); ABG Oxygen Saturation 93.8 % (95-100); ABG PCO2 30.6 MM HG (35-48); ABG PH 7.493 (7.35-7.45); ABG PO2 70.5 MM HG (80-95); ABG TCO2 23.9 MMOL/L (23-27); Allen Test Positive; Pt O2 Delivery Device Room Air
[2017-09-18] MEDS: ALBUTEROL/IPRATROPIUM 3 ML NEB RESP TX SCH ×5 (04:15→19:53)
[2017-09-18] MEDS: LEVOTHYROXINE 50 MCG TABLET PO SCH (06:00)
[2017-09-18] MEDS: COLLAGENASE OINT 30 GM TUBE TOP SCH (06:30)
[2017-09-18] MEDS: SODIUM HYPOCHLORITE 0.25% IRRIG 473 ML BOTTLE TOP SCH (06:30)
[2017-09-18 06:44] LABS: Basophils % 0.5 % (0.0-0.8); Eosinophils # 0.3 10*3/uL (0.0-0.87); Eosinophils % 4.2 % (0.00-10.9); Hematocrit 31.8 VOL% (35.7-47.0); Immature Granulocytes % 0.9 %; Immature Granulocytes Absolute 0.07 #; Lymphocytes # 2.7 10*3/uL (1.4-4.0); Lymphocytes % 33.6 % (21.3-54.2); Mean Corpuscular HGB Conc 31.4 GM/DL (32-36); Mean Corpuscular Hemoglobin 30 PG (27-34); Mean Corpuscular Volume 93.8 FL (87-102); Mean Platelet Volume 10.7 FL (9.6-12.0); Monocytes # 0.8 10*3/uL (0.11-0.8); Monocytes % 9.9 % (1.7-12.7); Neutrophils # 4.1 10*3/uL (1.4-7.4); Neutrophils % 50.9 % (38.7-73.9); Platelet Count 388 T/CUMM (130-400); Red Blood Count 3.39 MC/CUMM (3.8-5.5); Red Cell Distribution Width 14.7 % (9.3-17.3); White Blood Count 8.1 T/CUMM (4-12)
[2017-09-18 07:12] LABS: Calcium 7.5 MG/DL (8.5-10.1); Osmolality,Calculated 290.7 MOS/KG (273-304); Potassium 3.2 MMOL/L (3.5-5.1); Prealbumin 8.1 MG/DL (20-40)
[2017-09-18] MEDS: INSULIN GLARGINE 100 UNIT/ML SUBCUT SCH (09:18)
[2017-09-18] MEDS: INSULIN REGULAR 100 UNIT/ML SUBCUT SCH ×4 (09:19→21:13)
[2017-09-18] MEDS: METOPROLOL TARTRATE 25 MG TABLET PO SCH (09:20)
[2017-09-18] MEDS: ASPIRIN EC 81 MG TABLET PO SCH (09:20)
[2017-09-18] MEDS: TACROLIMUS 0.5 MG CAPSULE PO SCH ×2 (09:20→21:22)
[2017-09-18] MEDS: CALCITRIOL 0.5 MCG CAPSULE PO SCH (09:21)
[2017-09-18] MEDS: ENOXAPARIN 40 MG/0.4 ML SYRINGE SUBCUT SCH (09:21)
[2017-09-18] MEDS: PANTOPRAZOLE 40 MG VIAL IV SCH (09:21)
[2017-09-18] MEDS: MYCOPHENOLATE MOFETIL 250 MG CAPSULE PO SCH ×2 (09:21→18:03)
[2017-09-18] MEDS: predniSONE 5 MG TABLET PO SCH (09:21)
[2017-09-18] MEDS: MUPIROCIN 2% OINT 22 GM TUBE TOP SCH ×2 (12:39→21:23)
[2017-09-18] MEDS: NYSTATIN 500,000 UNIT/5 ML UDCUP SWISH/SWAL SCH ×3 (12:39→21:23)
[2017-09-18] MEDS ORDERED: POTASSIUM CHLORIDE 20 MEQ TABLET PO ONE (13:28)
[2017-09-18] MEDS ORDERED: MAGNESIUM SULF RIDER 4 GM in PREMIX 1 EACH IV ONE (14:00)
[2017-09-18] MEDS: CITALOPRAM 40 MG TABLET PO SCH (17:29)
[2017-09-18] MEDS: FELODIPINE 5 MG TABLET PO SCH (17:29)
[2017-09-18] MEDS: SIMVASTATIN 10 MG TABLET PO SCH (21:22)
[2017-09-18] MEDS: DESITIN 4OZ/NYSTATIN 15 GRAM MIXTURE PASTE TOP SCH (21:27)
[2017-09-18] MEDS: oxyCODONE/ACETAMINOPHEN 5-325 MG TABLET PO PRN (22:48)
[2017-09-19] MEDS: METOPROLOL TARTRATE 25 MG TABLET PO SCH ×3 (00:01→21:15)
[2017-09-19] MEDS: ALBUTEROL/IPRATROPIUM 3 ML NEB RESP TX SCH ×7 (00:43→23:13)
[2017-09-19] MEDS: PIPERACILLIN/TAZOBACTAM 3,375 MG in SODIUM CHLORIDE 0.9% 100 ML IV SCH ×3 (04:16→21:16)
[2017-09-19 07:07] LABS: Calcium 7.6 MG/DL (8.5-10.1); Potassium 3.7 MMOL/L (3.5-5.1)
[2017-09-19] MEDS: LEVOTHYROXINE 50 MCG TABLET PO SCH (07:09)
[2017-09-19] MEDS ORDERED: MAGNESIUM SULF RIDER 2 GM in PREMIX 1 EACH IV PRN (08:29)
[2017-09-19] MEDS ORDERED: MAGNESIUM SULF RIDER 4 GM in PREMIX 1 EACH IV PRN (08:29)
[2017-09-19] MEDS: INSULIN GLARGINE 100 UNIT/ML SUBCUT SCH (08:36)
[2017-09-19] MEDS: INSULIN REGULAR 100 UNIT/ML SUBCUT SCH ×4 (10:13→21:13)
[2017-09-19] MEDS: MUPIROCIN 2% OINT 22 GM TUBE TOP SCH (11:09)
[2017-09-19] MEDS: SODIUM HYPOCHLORITE 0.25% IRRIG 473 ML BOTTLE TOP SCH (11:09)
[2017-09-19] MEDS: CALCIUM (CITRATE) 200 MG TABLET PO SCH (11:20)
[2017-09-19] MEDS: NYSTATIN 500,000 UNIT/5 ML UDCUP SWISH/SWAL SCH ×4 (11:20→21:15)
[2017-09-19] MEDS: CALCITRIOL 0.5 MCG CAPSULE PO SCH (11:21)
[2017-09-19] MEDS: TACROLIMUS 0.5 MG CAPSULE PO SCH ×2 (11:21→21:15)
[2017-09-19] MEDS: ASPIRIN EC 81 MG TABLET PO SCH (11:21)
[2017-09-19] MEDS: MYCOPHENOLATE MOFETIL 250 MG CAPSULE PO SCH ×3 (11:21→18:33)
[2017-09-19] MEDS: PANTOPRAZOLE 40 MG VIAL IV SCH (11:22)
[2017-09-19] MEDS: COLLAGENASE OINT 30 GM TUBE TOP SCH (11:22)
[2017-09-19] MEDS: predniSONE 5 MG TABLET PO SCH (11:22)
[2017-09-19] MEDS: ENOXAPARIN 40 MG/0.4 ML SYRINGE SUBCUT SCH (11:22)
[2017-09-19] MEDS: DESITIN 4OZ/NYSTATIN 15 GRAM MIXTURE PASTE TOP SCH (11:22)
[2017-09-19] MEDS ORDERED: MAGNESIUM OXIDE 400 MG TABLET PO ONE (14:31)
[2017-09-19] MEDS ORDERED: INSULIN GLARGINE 100 UNIT/ML SUBCUT SCH (14:32)
[2017-09-19] MEDS ORDERED: ZINC OXIDE PASTE 113 GM TUBE TOP PRN (15:09)
[2017-09-19] MEDS: CITALOPRAM 40 MG TABLET PO SCH (17:30)
[2017-09-19] MEDS: FELODIPINE 5 MG TABLET PO SCH (17:31)
[2017-09-19] MEDS: SIMVASTATIN 10 MG TABLET PO SCH (21:15)
[2017-09-20] MEDS: DESITIN 4OZ/NYSTATIN 15 GRAM MIXTURE PASTE TOP SCH ×2 (00:18→09:04)
[2017-09-20] MEDS: MUPIROCIN 2% OINT 22 GM TUBE TOP SCH ×2 (00:18→09:04)
[2017-09-20] MEDS: ALBUTEROL/IPRATROPIUM 3 ML NEB RESP TX SCH ×3 (02:27→10:48)
[2017-09-20] MEDS: PIPERACILLIN/TAZOBACTAM 3,375 MG in SODIUM CHLORIDE 0.9% 100 ML IV SCH ×2 (04:53→11:48)
[2017-09-20 06:25] LABS: Basophils % 0.4 % (0.0-0.8); Eosinophils # 0.4 10*3/uL (0.0-0.87); Eosinophils % 4.1 % (0.00-10.9); Hematocrit 32.6 VOL% (35.7-47.0); Hemoglobin 10.1 GM/DL (12.0-16.0); Immature Granulocytes % 1.9 %; Immature Granulocytes Absolute 0.17 #; Lymphocytes # 2.7 10*3/uL (1.4-4.0); Lymphocytes % 29.8 % (21.3-54.2); Mean Corpuscular Hemoglobin 29 PG (27-34); Mean Corpuscular Volume 94.5 FL (87-102); Mean Platelet Volume 10.6 FL (9.6-12.0); Monocytes # 0.9 10*3/uL (0.11-0.8); Monocytes % 9.6 % (1.7-12.7); Neutrophils # 4.9 10*3/uL (1.4-7.4); Neutrophils % 54.2 % (38.7-73.9); Platelet Count 469 T/CUMM (130-400); Red Blood Count 3.45 MC/CUMM (3.8-5.5); Red Cell Distribution Width 14.7 % (9.3-17.3); White Blood Count 9.1 T/CUMM (4-12)
[2017-09-20 06:49] LABS: Osmolality,Calculated 284.1 MOS/KG (273-304); Potassium 3.3 MMOL/L (3.5-5.1)
[2017-09-20] MEDS: INSULIN REGULAR 100 UNIT/ML SUBCUT SCH ×3 (09:01→16:29)
[2017-09-20] MEDS: MYCOPHENOLATE MOFETIL 250 MG CAPSULE PO SCH (09:02)
[2017-09-20] MEDS: CALCITRIOL 0.5 MCG CAPSULE PO SCH (09:02)
[2017-09-20] MEDS: PANTOPRAZOLE 40 MG VIAL IV SCH (09:02)
[2017-09-20] MEDS: predniSONE 5 MG TABLET PO SCH (09:02)
[2017-09-20] MEDS: LEVOTHYROXINE 50 MCG TABLET PO SCH (09:03)
[2017-09-20] MEDS: ENOXAPARIN 40 MG/0.4 ML SYRINGE SUBCUT SCH (09:03)
[2017-09-20] MEDS: TACROLIMUS 0.5 MG CAPSULE PO SCH ×2 (09:03→16:29)
[2017-09-20] MEDS: METOPROLOL TARTRATE 25 MG TABLET PO SCH (09:03)
[2017-09-20] MEDS: CALCIUM (CITRATE) 200 MG TABLET PO SCH (09:03)
[2017-09-20] MEDS: NYSTATIN 500,000 UNIT/5 ML UDCUP SWISH/SWAL SCH ×4 (09:04→16:29)
[2017-09-20] MEDS: ASPIRIN EC 81 MG TABLET PO SCH (09:04)
[2017-09-20] MEDS: SODIUM HYPOCHLORITE 0.25% IRRIG 473 ML BOTTLE TOP SCH (09:04)
[2017-09-20] MEDS: COLLAGENASE OINT 30 GM TUBE TOP SCH (09:04)
[2017-09-20] MEDS: POTASSIUM CHLORIDE 20 MEQ TABLET PO SCH ×2 (10:47→14:21)
[2017-09-20] MEDS ORDERED: LOPERAMIDE 2 MG CAPSULE PO PRN (13:54)
[2017-09-20] MEDS ORDERED: LOPERAMIDE 2 MG CAPSULE PO ONE (13:54)
[2017-09-20 15:43] VITALS: BP 140/64
== END 2017-09-20 17:00 | DRG 417 ==
LOC: N.ED 14:32 → N.EDINP 18:28 → SUATTDRO 18:28 → N.5E 19:01 → N.ICU 09-14 14:42 → N.5E 09-17 13:40
PROVIDERS: ADMIT Internal Medicine; ATTEND Internal Medicine Cardiovascular Disease
PROC: LAPCHOL (2017-09-13 09:50)

== ENCOUNTER 2017-11-10 06:14 | Inpatient (IN) ==
[~2017-11-10 06:14] MED LIST: LACTATED RINGERS 1,000 ML IV SCH; ceFAZolin 1,000 MG VIAL ONE
[2017-11-10] MEDS ORDERED: LIDOCAINE 1% 5 ML VIAL ONE (06:26)
[2017-11-10] MEDS ORDERED: ceFAZolin 1,000 MG in SYRINGE 1 EACH IV ONE (07:00)
[2017-11-10] MEDS ORDERED: ROPIVACAINE 0.5% 30 ML VIAL ONE (07:20)
[2017-11-10] MEDS ORDERED: PROPOFOL 200 MG/20 ML VIAL IV ONE (08:41)
[2017-11-10] MEDS ORDERED: fentaNYL 100 MCG/2 ML VIAL ONE (08:42)
[2017-11-10] MEDS ORDERED: MIDAZOLAM 2 MG/2 ML VIAL ONE (08:42)
[2017-11-10] MEDS ORDERED: GLUCAGON 1 MG VIAL IM PRN ×2 (09:42)
[2017-11-10] MEDS ORDERED: DEXTROSE 50% 25 GM/50 ML VIAL IV PRN ×2 (09:42)
[2017-11-10 10:53] LABS: Basophils # 0.1 10*3/uL (0.0-0.2); Basophils % 0.6 % (0.0-0.8); Eosinophils # 0.6 10*3/uL (0.0-0.87); Eosinophils % 4.9 % (0.00-10.9); Hematocrit 37.3 VOL% (35.7-47.0); Hemoglobin 11.4 GM/DL (12.0-16.0); Immature Granulocytes % 0.3 %; Immature Granulocytes Absolute 0.03 #; Lymphocytes # 4.8 10*3/uL (1.4-4.0); Mean Corpuscular HGB Conc 30.6 GM/DL (32-36); Mean Corpuscular Hemoglobin 28 PG (27-34); Mean Corpuscular Volume 91.4 FL (87-102); Mean Platelet Volume 10.4 FL (9.6-12.0); Monocytes % 8.8 % (1.7-12.7); Neutrophils # 4.7 10*3/uL (1.4-7.4); Neutrophils % 42.4 % (38.7-73.9); Platelet Count 285 T/CUMM (130-400); Red Blood Count 4.08 MC/CUMM (3.8-5.5); Red Cell Distribution Width 15.4 % (9.3-17.3); White Blood Count 11.2 T/CUMM (4-12)
[2017-11-10 11:23] LABS: Calcium 8.3 MG/DL (8.5-10.1); Osmolality,Calculated 292.4 MOS/KG (273-304); Potassium 3.9 MMOL/L (3.5-5.1)
[2017-11-10] MEDS ORDERED: INSULIN REGULAR 100 UNIT/ML SUBCUT SCH (11:30)
[2017-11-10] MEDS: glipiZIDE 10 MG TABLET PO SCH (11:37)
[2017-11-10] MEDS: CALCITRIOL 0.5 MCG CAPSULE PO SCH (11:37)
[2017-11-10] MEDS: hydroCHLOROthiazide 25 MG TABLET PO SCH (11:38)
[2017-11-10] MEDS: MAGNESIUM OXIDE 400 MG TABLET PO SCH ×3 (11:38→20:54)
[2017-11-10] MEDS: predniSONE 5 MG TABLET PO SCH (11:38)
[2017-11-10] MEDS: CALCIUM (CITRATE) 200 MG TABLET PO SCH ×2 (11:38→20:53)
[2017-11-10] MEDS: LACTATED RINGERS 1,000 ML IV SCH ×2 (11:39→17:19)
[2017-11-10] MEDS: LOSARTAN 25 MG TABLET PO SCH (11:39)
[2017-11-10] MEDS: GABAPENTIN 400 MG CAPSULE PO SCH ×3 (11:39→20:54)
[2017-11-10] MEDS: ASPIRIN EC 81 MG TABLET PO SCH (11:39)
[2017-11-10] MEDS: INSULIN REGULAR 100 UNIT/ML SUBCUT SCH ×3 (11:40→20:54)
[2017-11-10] MEDS: ESTROGENS (CONJ) 0.45 MG TABLET PO SCH (11:40)
[2017-11-10] MEDS: PANTOPRAZOLE 40 MG VIAL IV SCH (11:40)
[2017-11-10] MEDS ORDERED: ZINC OXIDE PASTE 113 GM TUBE TOP PRN (14:06)
[2017-11-10] MEDS: HYDROmorphone 2 MG/1 ML VIAL IV PRN ×2 (16:16→21:15)
[2017-11-10 17:05] LABS: Apearance,Urine CLEAR (Clear); Bacteria,Urine Occasional /HPF (Few); Bilirubin,Urine Negative (Negative); Blood, Urine Moderate mg/dL (Negative); Glucose,Urine (UA) >=500 mg/dL (Negative); Ketones,Urine Negative (Negative); Mucus,Urine Occasional /LPF (Occasional); Nitrite,Urine Positive (Negative); Protein,Urine Negative; RBC,Urine 9 /HPF (0-4); Squamous Epithelial Cell,Urine Occasional /HPF (0-10); Urine Color Straw (Yellow); Urine Specific Gravity 1.008 (1.001-1.035); Urine Urobilinogen < 2.0 EU/DL (0.2-1.0); WBC,Urine 14 /HPF (0-6)
[2017-11-10] MEDS: CITALOPRAM 40 MG TABLET PO SCH (17:17)
[2017-11-10] MEDS: FELODIPINE 5 MG TABLET PO SCH (17:17)
[2017-11-10] MEDS: TICAGRELOR 90 MG TABLET PO SCH (17:18)
[2017-11-10] MEDS: SIMVASTATIN 10 MG TABLET PO SCH (20:53)
[2017-11-10] MEDS: ENOXAPARIN 40 MG/0.4 ML SYRINGE SUBCUT SCH (20:54)
[2017-11-11] MEDS: HYDROmorphone 2 MG/1 ML VIAL IV PRN ×4 (03:17→21:00)
[2017-11-11] MEDS: LACTATED RINGERS 1,000 ML IV SCH ×3 (03:19→17:08)
[2017-11-11 06:11] LABS: Basophils # 0.1 10*3/uL (0.0-0.2); Basophils % 0.5 % (0.0-0.8); Eosinophils # 0.5 10*3/uL (0.0-0.87); Eosinophils % 3.9 % (0.00-10.9); Hematocrit 37.5 VOL% (35.7-47.0); Hemoglobin 11.9 GM/DL (12.0-16.0); Immature Granulocytes % 0.4 %; Immature Granulocytes Absolute 0.05 #; Lymphocytes # 4.8 10*3/uL (1.4-4.0); Lymphocytes % 42.3 % (21.3-54.2); Mean Corpuscular HGB Conc 31.7 GM/DL (32-36); Mean Corpuscular Hemoglobin 28 PG (27-34); Mean Corpuscular Volume 88.7 FL (87-102); Mean Platelet Volume 10.6 FL (9.6-12.0); Monocytes % 8.7 % (1.7-12.7); Neutrophils # 5.1 10*3/uL (1.4-7.4); Neutrophils % 44.2 % (38.7-73.9); Platelet Count 272 T/CUMM (130-400); Red Blood Count 4.23 MC/CUMM (3.8-5.5); Red Cell Distribution Width 15.5 % (9.3-17.3); White Blood Count 11.5 T/CUMM (4-12)
[2017-11-11] MEDS: LEVOTHYROXINE 50 MCG TABLET PO SCH (06:12)
[2017-11-11 06:56] LABS: Calcium 8.7 MG/DL (8.5-10.1); Osmolality,Calculated 288.5 MOS/KG (273-304); Potassium 4.1 MMOL/L (3.5-5.1)
[2017-11-11] MEDS: predniSONE 5 MG TABLET PO SCH (08:53)
[2017-11-11] MEDS: CALCITRIOL 0.5 MCG CAPSULE PO SCH (08:53)
[2017-11-11] MEDS: INSULIN REGULAR 100 UNIT/ML SUBCUT SCH ×4 (08:53→21:02)
[2017-11-11] MEDS: glipiZIDE 10 MG TABLET PO SCH (08:53)
[2017-11-11] MEDS: TICAGRELOR 90 MG TABLET PO SCH ×2 (08:53→17:03)
[2017-11-11] MEDS: MAGNESIUM OXIDE 400 MG TABLET PO SCH ×3 (08:53→20:30)
[2017-11-11] MEDS: hydroCHLOROthiazide 25 MG TABLET PO SCH (08:53)
[2017-11-11] MEDS: LOSARTAN 25 MG TABLET PO SCH (08:53)
[2017-11-11] MEDS: ASPIRIN EC 81 MG TABLET PO SCH (08:53)
[2017-11-11] MEDS: CALCIUM (CITRATE) 200 MG TABLET PO SCH ×2 (08:53→20:29)
[2017-11-11] MEDS: GABAPENTIN 400 MG CAPSULE PO SCH ×3 (08:53→20:30)
[2017-11-11] MEDS: PANTOPRAZOLE 40 MG VIAL IV SCH (08:54)
[2017-11-11] MEDS: ESTROGENS (CONJ) 0.45 MG TABLET PO SCH (08:54)
[2017-11-11] MEDS: CEFUROXIME 250 MG TABLET PO SCH ×2 (10:00→20:30)
[2017-11-11] MEDS ORDERED: MYCOPHENOLATE MOFETIL 500 MG PO SCH (10:30)
[2017-11-11] MEDS: TACROLIMUS 1 MG PO SCH ×3 (12:05→23:22)
[2017-11-11] MEDS: MYCOPHENOLATE MOFETIL 250 MG CAPSULE PO SCH ×2 (12:06→20:30)
[2017-11-11] MEDS: CITALOPRAM 40 MG TABLET PO SCH (17:03)
[2017-11-11] MEDS: FELODIPINE 5 MG TABLET PO SCH (17:03)
[2017-11-11] MEDS: ENOXAPARIN 40 MG/0.4 ML SYRINGE SUBCUT SCH (20:30)
[2017-11-11] MEDS: SIMVASTATIN 10 MG TABLET PO SCH (20:30)
[2017-11-12] MEDS: LACTATED RINGERS 1,000 ML IV SCH ×3 (01:18→16:43)
[2017-11-12] MEDS: HYDROmorphone 2 MG/1 ML VIAL IV PRN ×3 (04:03→20:51)
[2017-11-12] MEDS: LEVOTHYROXINE 50 MCG TABLET PO SCH (06:38)
[2017-11-12] MEDS: INSULIN REGULAR 100 UNIT/ML SUBCUT SCH ×4 (08:55→20:51)
[2017-11-12] MEDS: PANTOPRAZOLE 40 MG VIAL IV SCH (08:55)
[2017-11-12] MEDS: MAGNESIUM OXIDE 400 MG TABLET PO SCH ×3 (08:56→20:50)
[2017-11-12] MEDS: CEFUROXIME 250 MG TABLET PO SCH ×2 (08:56→20:51)
[2017-11-12] MEDS: hydroCHLOROthiazide 25 MG TABLET PO SCH (08:56)
[2017-11-12] MEDS: ASPIRIN EC 81 MG TABLET PO SCH (08:56)
[2017-11-12] MEDS: CALCIUM (CITRATE) 200 MG TABLET PO SCH ×2 (08:56→20:50)
[2017-11-12] MEDS: CALCITRIOL 0.5 MCG CAPSULE PO SCH (08:56)
[2017-11-12] MEDS: MYCOPHENOLATE MOFETIL 250 MG CAPSULE PO SCH ×2 (08:56→20:51)
[2017-11-12] MEDS: glipiZIDE 10 MG TABLET PO SCH (08:57)
[2017-11-12] MEDS: TICAGRELOR 90 MG TABLET PO SCH ×2 (08:57→17:26)
[2017-11-12] MEDS: predniSONE 5 MG TABLET PO SCH (08:57)
[2017-11-12] MEDS: ESTROGENS (CONJ) 0.45 MG TABLET PO SCH (08:57)
[2017-11-12] MEDS: GABAPENTIN 400 MG CAPSULE PO SCH ×3 (08:57→20:51)
[2017-11-12] MEDS: LOSARTAN 25 MG TABLET PO SCH (08:57)
[2017-11-12] MEDS: TACROLIMUS 1 MG PO SCH ×2 (08:57→20:54)
[2017-11-12] MEDS: FELODIPINE 5 MG TABLET PO SCH (17:26)
[2017-11-12] MEDS: CITALOPRAM 40 MG TABLET PO SCH (17:26)
[2017-11-12] MEDS: SIMVASTATIN 10 MG TABLET PO SCH (20:51)
[2017-11-12] MEDS: ENOXAPARIN 40 MG/0.4 ML SYRINGE SUBCUT SCH (20:52)
[2017-11-13] MEDS: LACTATED RINGERS 1,000 ML IV SCH ×2 (02:39→16:19)
[2017-11-13] MEDS: HYDROmorphone 2 MG/1 ML VIAL IV PRN ×3 (02:46→16:23)
[2017-11-13] MEDS: LEVOTHYROXINE 50 MCG TABLET PO SCH (06:11)
[2017-11-13 06:20] LABS: Basophils % 0.4 % (0.0-0.8); Eosinophils # 0.4 10*3/uL (0.0-0.87); Eosinophils % 3.3 % (0.00-10.9); Hematocrit 36.3 VOL% (35.7-47.0); Hemoglobin 11.5 GM/DL (12.0-16.0); Immature Granulocytes % 0.5 %; Immature Granulocytes Absolute 0.05 #; Lymphocytes # 4.6 10*3/uL (1.4-4.0); Lymphocytes % 43.2 % (21.3-54.2); Mean Corpuscular HGB Conc 31.7 GM/DL (32-36); Mean Corpuscular Hemoglobin 28 PG (27-34); Mean Corpuscular Volume 88.5 FL (87-102); Mean Platelet Volume 10.6 FL (9.6-12.0); Neutrophils # 4.7 10*3/uL (1.4-7.4); Neutrophils % 43.6 % (38.7-73.9); Platelet Count 273 T/CUMM (130-400); Red Cell Distribution Width 15.4 % (9.3-17.3); White Blood Count 10.7 T/CUMM (4-12)
[2017-11-13 06:40] LABS: Albumin 2.7 G/DL (3.4-5.0); Calcium 9.1 MG/DL (8.5-10.1); Osmolality,Calculated 284.8 MOS/KG (273-304)
[2017-11-13] MEDS: INSULIN REGULAR 100 UNIT/ML SUBCUT SCH ×4 (09:23→21:55)
[2017-11-13] MEDS: PANTOPRAZOLE 40 MG VIAL IV SCH (09:25)
[2017-11-13] MEDS: CALCIUM (CITRATE) 200 MG TABLET PO SCH ×2 (09:25→21:49)
[2017-11-13] MEDS: MYCOPHENOLATE MOFETIL 250 MG CAPSULE PO SCH ×2 (09:26→21:48)
[2017-11-13] MEDS: CEFUROXIME 250 MG TABLET PO SCH ×2 (09:26→21:49)
[2017-11-13] MEDS: MAGNESIUM OXIDE 400 MG TABLET PO SCH ×3 (09:26→21:49)
[2017-11-13] MEDS: CALCITRIOL 0.5 MCG CAPSULE PO SCH (09:26)
[2017-11-13] MEDS: hydroCHLOROthiazide 25 MG TABLET PO SCH (09:26)
[2017-11-13] MEDS: glipiZIDE 10 MG TABLET PO SCH (09:27)
[2017-11-13] MEDS: GABAPENTIN 400 MG CAPSULE PO SCH ×3 (09:27→21:49)
[2017-11-13] MEDS: TICAGRELOR 90 MG TABLET PO SCH ×2 (09:27→17:27)
[2017-11-13] MEDS: ASPIRIN EC 81 MG TABLET PO SCH (09:27)
[2017-11-13] MEDS: LOSARTAN 25 MG TABLET PO SCH (09:28)
[2017-11-13] MEDS: TACROLIMUS 1 MG PO SCH ×2 (09:34→22:41)
[2017-11-13] MEDS: ESTROGENS (CONJ) 0.45 MG TABLET PO SCH (09:37)
[2017-11-13] MEDS: predniSONE 5 MG TABLET PO SCH (09:37)
[2017-11-13] MEDS ORDERED: TUBERCULIN SKIN TEST 0.1 ML SYRINGE INTRADERM ONE (13:01)
[2017-11-13] MEDS: FELODIPINE 5 MG TABLET PO SCH (17:27)
[2017-11-13] MEDS: CITALOPRAM 40 MG TABLET PO SCH (17:27)
[2017-11-13] MEDS: SIMVASTATIN 10 MG TABLET PO SCH (21:49)
[2017-11-13] MEDS: ENOXAPARIN 40 MG/0.4 ML SYRINGE SUBCUT SCH (21:55)
[2017-11-14] MEDS: HYDROmorphone 2 MG/1 ML VIAL IV PRN (04:47)
[2017-11-14] MEDS: LEVOTHYROXINE 50 MCG TABLET PO SCH (07:04)
[2017-11-14 07:45] VITALS: BP 134/58
[2017-11-14] MEDS: PANTOPRAZOLE 40 MG VIAL IV SCH (08:31)
[2017-11-14] MEDS: INSULIN REGULAR 100 UNIT/ML SUBCUT SCH ×2 (08:31→13:38)
[2017-11-14] MEDS: hydroCHLOROthiazide 25 MG TABLET PO SCH (08:32)
[2017-11-14] MEDS: MYCOPHENOLATE MOFETIL 250 MG CAPSULE PO SCH (08:32)
[2017-11-14] MEDS: CALCITRIOL 0.5 MCG CAPSULE PO SCH (08:32)
[2017-11-14] MEDS: CALCIUM (CITRATE) 200 MG TABLET PO SCH (08:32)
[2017-11-14] MEDS: predniSONE 5 MG TABLET PO SCH (08:32)
[2017-11-14] MEDS: GABAPENTIN 400 MG CAPSULE PO SCH (08:32)
[2017-11-14] MEDS: LOSARTAN 25 MG TABLET PO SCH (08:32)
[2017-11-14] MEDS: CEFUROXIME 250 MG TABLET PO SCH (08:33)
[2017-11-14] MEDS: ESTROGENS (CONJ) 0.45 MG TABLET PO SCH (08:33)
[2017-11-14] MEDS: ASPIRIN EC 81 MG TABLET PO SCH (08:33)
[2017-11-14] MEDS: glipiZIDE 10 MG TABLET PO SCH (08:33)
[2017-11-14] MEDS: TICAGRELOR 90 MG TABLET PO SCH (08:33)
[2017-11-14] MEDS: TACROLIMUS 1 MG PO SCH (08:59)
[2017-11-14] MEDS: MAGNESIUM OXIDE 400 MG TABLET PO SCH (09:01)
[2017-11-14] MEDS ORDERED: glipiZIDE 5 MG TABLET PO SCH (10:03)
== END 2017-11-14 13:49 | DRG 988 ==
LOC: N.SDSINP 06:14 → N.OR 06:14 → N.SDSINP 08:22 → N.3E 09:37 → N.5E 11:06
PROVIDERS: ADMIT Surgery; ATTEND Surgery

== ENCOUNTER 2017-12-21 15:38 | Inpatient (IN) ==
[2017-12-21] MEDS ORDERED: SODIUM CHLORIDE 0.9% 1,000 ML IV STA (16:00)
[2017-12-21 16:36] LABS: Basophils # 0.1 10*3/uL (0.0-0.2); Basophils % 0.4 % (0.0-0.8); Eosinophils # 0.1 10*3/uL (0.0-0.87); Eosinophils % 0.5 % (0.00-10.9); Hemoglobin 11.5 GM/DL (12.0-16.0); Immature Granulocytes % 0.5 %; Immature Granulocytes Absolute 0.09 #; Lymphocytes # 3.9 10*3/uL (1.4-4.0); Mean Corpuscular HGB Conc 31.9 GM/DL (32-36); Mean Corpuscular Hemoglobin 28 PG (27-34); Mean Corpuscular Volume 86.3 FL (87-102); Mean Platelet Volume 10.5 FL (9.6-12.0); Monocytes # 1.4 10*3/uL (0.11-0.8); Monocytes % 7.9 % (1.7-12.7); Neutrophils # 11.5 10*3/uL (1.4-7.4); Neutrophils % 67.7 % (38.7-73.9); Platelet Count 464 T/CUMM (130-400); Red Blood Count 4.17 MC/CUMM (3.8-5.5); Red Cell Distribution Width 15.6 % (9.3-17.3)
[2017-12-21 16:45] LABS: PT Patient Result 10.5 SECS
[2017-12-21 16:57] LABS: Lactic Acid 1.2 MMOL/L (0.4-2.0)
[2017-12-21 17:01] LABS: Ammonia < 10 UMOL/L (11-32)
[2017-12-21 17:05] LABS: Alanine Aminotransferase 32 U/L (13-56); Albumin 2.6 G/DL (3.4-5.0); Alkaline Phosphatase 128 U/L (45-117); Aspartate Amino Transferase 34 U/L (0-37); Blood Urea Nitrogen 18 MG/DL (7-18); Calcium 8.8 MG/DL (8.5-10.1); Glucose 332 MG/DL (74-106); Osmolality,Calculated 278.5 MOS/KG (273-304); Potassium 3.6 MMOL/L (3.5-5.1); Sodium 132 MMOL/L (136-145); Total Protein 7.6 G/DL (6.4-8.3); Troponin I Only < 0.015 NG/ML (0.00-0.045)
[2017-12-21] MEDS ORDERED: LEVOFLOXACIN INJ 500 MG in PREMIX 1 EACH IV STA (17:33)
[2017-12-21] MEDS ORDERED: LEVOFLOXACIN INJ 100 ML IV ONE (17:38)
[2017-12-21 17:44] LABS: Apearance,Urine CLOUDY (Clear); Bacteria,Urine Many /HPF (Few); Bilirubin,Urine Negative (Negative); Blood, Urine Small mg/dL (Negative); Glucose,Urine (UA) >=500 mg/dL (Negative); Ketones,Urine 20 mg/dL (Negative); Mucus,Urine Many /LPF (Occasional); Nitrite,Urine Negative (Negative); Protein,Urine 30 MG/DL; Squamous Epithelial Cell,Urine Occasional /HPF (0-10); Urine Color Yellow (Yellow); Urine Specific Gravity 1.016 (1.001-1.035); Urine Urobilinogen < 2.0 EU/DL (0.2-1.0); WBC,Urine 333 /HPF (0-6)
[2017-12-21] MEDS ORDERED: GLUCAGON 1 MG VIAL IM PRN (18:18)
[2017-12-21] MEDS ORDERED: DEXTROSE 50% 25 GM/50 ML VIAL IV PRN (18:18)
[2017-12-21] MEDS ORDERED: ACETAMINOPHEN 325 MG TABLET PO PRN (18:18)
[2017-12-21] MEDS: SODIUM CHLORIDE 0.9% 1,000 ML IV SCH (19:01)
[2017-12-21] MEDS ORDERED: MAGNESIUM SULF RIDER 4 GM in PREMIX 1 EACH IV ONE (20:13)
[2017-12-21] MEDS: SIMVASTATIN 10 MG TABLET PO SCH (20:26)
[2017-12-21] MEDS: HYDROCORTISONE 100 MG VIAL IV SCH (20:35)
[2017-12-21] MEDS: TACROLIMUS 0.5 MG CAPSULE PO SCH (20:36)
[2017-12-21] MEDS: MYCOPHENOLATE MOFETIL 250 MG CAPSULE PO SCH (20:37)
[2017-12-21] MEDS: MEROPENEM 1,000 MG in SODIUM CHLORIDE 0.9% 100 ML IV SCH (20:42)
[2017-12-21] MEDS ORDERED: GABAPENTIN 400 MG CAPSULE PO SCH (21:00)
[2017-12-21] MEDS: INSULIN LISPRO 100 UNIT/ML SUBCUT SCH (21:48)
[2017-12-22 02:39] LABS: Basophils % 0.3 % (0.0-0.8); Eosinophils % 0.1 % (0.00-10.9); Hematocrit 35.4 VOL% (35.7-47.0); Hemoglobin 11.4 GM/DL (12.0-16.0); Immature Granulocytes % 0.9 %; Immature Granulocytes Absolute 0.12 #; Lymphocytes # 1.9 10*3/uL (1.4-4.0); Lymphocytes % 13.8 % (21.3-54.2); Mean Corpuscular HGB Conc 32.2 GM/DL (32-36); Mean Corpuscular Hemoglobin 27 PG (27-34); Mean Corpuscular Volume 85.1 FL (87-102); Mean Platelet Volume 10.4 FL (9.6-12.0); Monocytes # 0.6 10*3/uL (0.11-0.8); Monocytes % 4.3 % (1.7-12.7); Neutrophils # 11.3 10*3/uL (1.4-7.4); Neutrophils % 80.6 % (38.7-73.9); Platelet Count 465 T/CUMM (130-400); Red Blood Count 4.16 MC/CUMM (3.8-5.5); Red Cell Distribution Width 15.7 % (9.3-17.3)
[2017-12-22 03:25] LABS: Albumin 2.6 G/DL (3.4-5.0); Bilirubin,Total 1.6 MG/DL (0.2-1.0); Calcium 8.3 MG/DL (8.5-10.1); Osmolality,Calculated 287.7 MOS/KG (273-304); Potassium 4.1 MMOL/L (3.5-5.1); Total Protein 6.4 G/DL (6.4-8.3)
[2017-12-22] MEDS: HYDROCORTISONE 100 MG VIAL IV SCH ×3 (04:26→21:05)
[2017-12-22] MEDS: MORPHINE 4 MG/1 ML VIAL IV PRN (08:56)
[2017-12-22] MEDS ORDERED: LOSARTAN 25 MG TABLET PO SCH (09:00)
[2017-12-22] MEDS ORDERED: predniSONE 5 MG TABLET PO SCH (09:00)
[2017-12-22] MEDS: MEROPENEM 1,000 MG in SODIUM CHLORIDE 0.9% 100 ML IV SCH ×2 (09:04→10:29)
[2017-12-22] MEDS: INSULIN LISPRO 100 UNIT/ML SUBCUT SCH ×4 (09:05→21:06)
[2017-12-22] MEDS: MYCOPHENOLATE MOFETIL 250 MG CAPSULE PO SCH ×2 (09:05→21:04)
[2017-12-22] MEDS: TACROLIMUS 0.5 MG CAPSULE PO SCH ×2 (09:05→21:05)
[2017-12-22] MEDS: PANTOPRAZOLE 40 MG TABLET PO SCH (09:06)
[2017-12-22] MEDS: glipiZIDE 10 MG TABLET PO SCH (09:06)
[2017-12-22] MEDS: MAGNESIUM OXIDE 400 MG TABLET PO SCH (09:06)
[2017-12-22] MEDS: LEVOTHYROXINE 50 MCG TABLET PO SCH (09:06)
[2017-12-22] MEDS: ASPIRIN EC 81 MG TABLET PO SCH (09:06)
[2017-12-22] MEDS: CALCITRIOL 0.5 MCG CAPSULE PO SCH (09:06)
[2017-12-22] MEDS: cefTRIAXone 1,000 MG in SYRINGE 1 EACH IV SCH (10:26)
[2017-12-22] MEDS: SODIUM CHLORIDE 0.9% 1,000 ML IV SCH ×2 (10:26→16:55)
[2017-12-22] MEDS: oxyCODONE/ACETAMINOPHEN 5-325 MG TABLET PO PRN ×2 (14:27→21:05)
[2017-12-22] MEDS ORDERED: LEVOFLOXACIN INJ 750 MG in PREMIX 1 EACH IV SCH (18:00)
[2017-12-22] MEDS: FELODIPINE 5 MG TABLET PO SCH (18:15)
[2017-12-22] MEDS: CITALOPRAM 40 MG TABLET PO SCH (18:15)
[2017-12-22] MEDS: SIMVASTATIN 10 MG TABLET PO SCH (21:04)
[2017-12-23] MEDS: SODIUM CHLORIDE 0.9% 1,000 ML IV SCH ×4 (03:32→22:30)
[2017-12-23] MEDS: HYDROCORTISONE 100 MG VIAL IV SCH ×3 (03:32→20:50)
[2017-12-23] MEDS: oxyCODONE/ACETAMINOPHEN 5-325 MG TABLET PO PRN ×4 (03:37→22:29)
[2017-12-23] MEDS: LEVOTHYROXINE 50 MCG TABLET PO SCH (06:05)
[2017-12-23] MEDS: glipiZIDE 10 MG TABLET PO SCH (09:48)
[2017-12-23] MEDS: MAGNESIUM OXIDE 400 MG TABLET PO SCH (09:48)
[2017-12-23] MEDS: CALCITRIOL 0.5 MCG CAPSULE PO SCH (09:48)
[2017-12-23] MEDS: TACROLIMUS 0.5 MG CAPSULE PO SCH ×2 (09:48→20:50)
[2017-12-23] MEDS: ASPIRIN EC 81 MG TABLET PO SCH (09:49)
[2017-12-23] MEDS: PANTOPRAZOLE 40 MG TABLET PO SCH (09:49)
[2017-12-23] MEDS: MYCOPHENOLATE MOFETIL 250 MG CAPSULE PO SCH ×2 (09:49→20:50)
[2017-12-23] MEDS: cefTRIAXone 1,000 MG in SYRINGE 1 EACH IV SCH (09:50)
[2017-12-23] MEDS: INSULIN LISPRO 100 UNIT/ML SUBCUT SCH ×4 (09:56→20:50)
[2017-12-23] MEDS: ENOXAPARIN 40 MG/0.4 ML SYRINGE SUBCUT SCH (16:33)
[2017-12-23] MEDS: PIPERACILLIN/TAZOBACTAM 3,375 MG in SODIUM CHLORIDE 0.9% 100 ML IV SCH ×2 (16:33→22:30)
[2017-12-23] MEDS: FELODIPINE 5 MG TABLET PO SCH (17:48)
[2017-12-23] MEDS: CITALOPRAM 40 MG TABLET PO SCH (17:48)
[2017-12-23] MEDS: SIMVASTATIN 10 MG TABLET PO SCH (20:50)
[2017-12-24] MEDS: SODIUM CHLORIDE 0.9% 1,000 ML IV SCH ×4 (00:29→23:20)
[2017-12-24] MEDS: oxyCODONE/ACETAMINOPHEN 5-325 MG TABLET PO PRN ×3 (04:08→18:19)
[2017-12-24] MEDS: HYDROCORTISONE 100 MG VIAL IV SCH (04:08)
[2017-12-24] MEDS: PIPERACILLIN/TAZOBACTAM 3,375 MG in SODIUM CHLORIDE 0.9% 100 ML IV SCH ×3 (06:01→23:20)
[2017-12-24] MEDS: LEVOTHYROXINE 50 MCG TABLET PO SCH (06:01)
[2017-12-24 06:02] LABS: Basophils % 0.1 % (0.0-0.8); Hematocrit 33.4 VOL% (35.7-47.0); Hemoglobin 10.4 GM/DL (12.0-16.0); Immature Granulocytes % 0.9 %; Immature Granulocytes Absolute 0.09 #; Lymphocytes # 2.1 10*3/uL (1.4-4.0); Lymphocytes % 20.9 % (21.3-54.2); Mean Corpuscular HGB Conc 31.1 GM/DL (32-36); Mean Corpuscular Hemoglobin 27 PG (27-34); Mean Corpuscular Volume 87.2 FL (87-102); Mean Platelet Volume 10.9 FL (9.6-12.0); Monocytes # 0.4 10*3/uL (0.11-0.8); Monocytes % 3.9 % (1.7-12.7); Neutrophils # 7.6 10*3/uL (1.4-7.4); Neutrophils % 74.2 % (38.7-73.9); Platelet Count 455 T/CUMM (130-400); Red Blood Count 3.83 MC/CUMM (3.8-5.5); Red Cell Distribution Width 15.4 % (9.3-17.3); White Blood Count 10.2 T/CUMM (4-12)
[2017-12-24 06:29] LABS: Calcium 7.1 MG/DL (8.5-10.1); Osmolality,Calculated 294.7 MOS/KG (273-304); Potassium 3.8 MMOL/L (3.5-5.1)
[2017-12-24] MEDS: MYCOPHENOLATE MOFETIL 250 MG CAPSULE PO SCH ×2 (08:37→21:48)
[2017-12-24] MEDS: glipiZIDE 10 MG TABLET PO SCH (08:37)
[2017-12-24] MEDS: PANTOPRAZOLE 40 MG TABLET PO SCH (08:37)
[2017-12-24] MEDS: ASPIRIN EC 81 MG TABLET PO SCH (08:37)
[2017-12-24] MEDS: CALCITRIOL 0.5 MCG CAPSULE PO SCH (08:37)
[2017-12-24] MEDS: INSULIN LISPRO 100 UNIT/ML SUBCUT SCH ×4 (08:38→21:49)
[2017-12-24] MEDS: TACROLIMUS 0.5 MG CAPSULE PO SCH ×2 (08:38→21:49)
[2017-12-24] MEDS: MAGNESIUM OXIDE 400 MG TABLET PO SCH (08:38)
[2017-12-24] MEDS ORDERED: TICAGRELOR 60 MG PO SCH (13:00)
[2017-12-24] MEDS: NYSTATIN 500,000 UNIT/5 ML UDCUP SWISH/SWAL SCH ×3 (13:10→21:49)
[2017-12-24] MEDS: ENOXAPARIN 40 MG/0.4 ML SYRINGE SUBCUT SCH (16:20)
[2017-12-24] MEDS: FELODIPINE 5 MG TABLET PO SCH (17:15)
[2017-12-24] MEDS: CITALOPRAM 40 MG TABLET PO SCH (17:15)
[2017-12-24] MEDS: SIMVASTATIN 10 MG TABLET PO SCH (21:49)
[2017-12-24] MEDS: MORPHINE 4 MG/1 ML VIAL IV PRN (23:24)
[2017-12-25 05:09] LABS: Basophils % 0.3 % (0.0-0.8); Eosinophils # 0.1 10*3/uL (0.0-0.87); Eosinophils % 1.3 % (0.00-10.9); Hematocrit 32.8 VOL% (35.7-47.0); Hemoglobin 10.2 GM/DL (12.0-16.0); Immature Granulocytes % 0.7 %; Immature Granulocytes Absolute 0.08 #; Lymphocytes # 4.2 10*3/uL (1.4-4.0); Lymphocytes % 38.5 % (21.3-54.2); Mean Corpuscular HGB Conc 31.1 GM/DL (32-36); Mean Corpuscular Hemoglobin 27 PG (27-34); Mean Platelet Volume 10.8 FL (9.6-12.0); Monocytes # 0.9 10*3/uL (0.11-0.8); Monocytes % 8.1 % (1.7-12.7); Neutrophils # 5.6 10*3/uL (1.4-7.4); Neutrophils % 51.1 % (38.7-73.9); Platelet Count 445 T/CUMM (130-400); Red Blood Count 3.77 MC/CUMM (3.8-5.5); Red Cell Distribution Width 15.1 % (9.3-17.3); White Blood Count 10.9 T/CUMM (4-12)
[2017-12-25 05:33] LABS: Osmolality,Calculated 290.1 MOS/KG (273-304); Potassium 3.3 MMOL/L (3.5-5.1)
[2017-12-25] MEDS: PIPERACILLIN/TAZOBACTAM 3,375 MG in SODIUM CHLORIDE 0.9% 100 ML IV SCH ×2 (06:20→17:44)
[2017-12-25] MEDS: LEVOTHYROXINE 50 MCG TABLET PO SCH (06:20)
[2017-12-25] MEDS: INSULIN LISPRO 100 UNIT/ML SUBCUT SCH ×4 (08:46→22:10)
[2017-12-25] MEDS: CALCITRIOL 0.5 MCG CAPSULE PO SCH (08:47)
[2017-12-25] MEDS: glipiZIDE 10 MG TABLET PO SCH (08:48)
[2017-12-25] MEDS: TACROLIMUS 0.5 MG CAPSULE PO SCH ×2 (08:48→22:09)
[2017-12-25] MEDS: PANTOPRAZOLE 40 MG TABLET PO SCH (08:48)
[2017-12-25] MEDS: ASPIRIN EC 81 MG TABLET PO SCH (08:48)
[2017-12-25] MEDS: MYCOPHENOLATE MOFETIL 250 MG CAPSULE PO SCH ×2 (08:48→22:09)
[2017-12-25] MEDS: MAGNESIUM OXIDE 400 MG TABLET PO SCH (09:00)
[2017-12-25] MEDS: MORPHINE 4 MG/1 ML VIAL IV PRN (09:01)
[2017-12-25] MEDS: NYSTATIN 500,000 UNIT/5 ML UDCUP SWISH/SWAL SCH ×4 (09:06→22:10)
[2017-12-25] MEDS: oxyCODONE/ACETAMINOPHEN 5-325 MG TABLET PO PRN ×2 (13:21→22:09)
[2017-12-25] MEDS ORDERED: POTASSIUM CHLORIDE 20 MEQ TABLET PO ONE (14:19)
[2017-12-25] MEDS: ENOXAPARIN 40 MG/0.4 ML SYRINGE SUBCUT SCH (15:20)
[2017-12-25] MEDS: CITALOPRAM 40 MG TABLET PO SCH (17:45)
[2017-12-25] MEDS: SODIUM CHLORIDE 0.9% 1,000 ML IV SCH ×2 (19:38→19:41)
[2017-12-25] MEDS: FELODIPINE 5 MG TABLET PO SCH (22:10)
[2017-12-25] MEDS: SIMVASTATIN 10 MG TABLET PO SCH (22:10)
[2017-12-26] MEDS: PIPERACILLIN/TAZOBACTAM 3,375 MG in SODIUM CHLORIDE 0.9% 100 ML IV SCH ×3 (01:42→16:59)
[2017-12-26] MEDS: SODIUM CHLORIDE 0.9% 1,000 ML IV SCH ×3 (01:42→17:02)
[2017-12-26] MEDS: oxyCODONE/ACETAMINOPHEN 5-325 MG TABLET PO PRN ×3 (05:36→20:48)
[2017-12-26] MEDS: LEVOTHYROXINE 50 MCG TABLET PO SCH ×2 (05:37→08:03)
[2017-12-26 06:43] LABS: Basophils # 0.1 10*3/uL (0.0-0.2); Basophils % 0.4 % (0.0-0.8); Eosinophils # 0.3 10*3/uL (0.0-0.87); Eosinophils % 2.5 % (0.00-10.9); Hematocrit 33.2 VOL% (35.7-47.0); Hemoglobin 10.6 GM/DL (12.0-16.0); Immature Granulocytes % 0.9 %; Immature Granulocytes Absolute 0.11 #; Lymphocytes # 4.6 10*3/uL (1.4-4.0); Lymphocytes % 37.3 % (21.3-54.2); Mean Corpuscular HGB Conc 31.9 GM/DL (32-36); Mean Corpuscular Hemoglobin 27 PG (27-34); Mean Corpuscular Volume 85.8 FL (87-102); Monocytes # 0.9 10*3/uL (0.11-0.8); Monocytes % 7.2 % (1.7-12.7); NRBC # 0.02 10*3/uL; Neutrophils # 6.4 10*3/uL (1.4-7.4); Neutrophils % 51.7 % (38.7-73.9); Platelet Count 496 T/CUMM (130-400); Red Blood Count 3.87 MC/CUMM (3.8-5.5); Red Cell Distribution Width 15.7 % (9.3-17.3); White Blood Count 12.3 T/CUMM (4-12)
[2017-12-26 07:01] LABS: Calcium 7.3 MG/DL (8.5-10.1); Osmolality,Calculated 286.4 MOS/KG (273-304)
[2017-12-26] MEDS: MYCOPHENOLATE MOFETIL 250 MG CAPSULE PO SCH ×2 (09:08→20:48)
[2017-12-26] MEDS: MAGNESIUM OXIDE 400 MG TABLET PO SCH (09:08)
[2017-12-26] MEDS: CALCITRIOL 0.5 MCG CAPSULE PO SCH (09:08)
[2017-12-26] MEDS: TACROLIMUS 0.5 MG CAPSULE PO SCH ×2 (09:08→20:48)
[2017-12-26] MEDS: ASPIRIN EC 81 MG TABLET PO SCH (09:08)
[2017-12-26] MEDS: glipiZIDE 10 MG TABLET PO SCH (09:08)
[2017-12-26] MEDS: PANTOPRAZOLE 40 MG TABLET PO SCH (09:08)
[2017-12-26] MEDS: INSULIN LISPRO 100 UNIT/ML SUBCUT SCH ×4 (09:08→23:33)
[2017-12-26] MEDS: NYSTATIN 500,000 UNIT/5 ML UDCUP SWISH/SWAL SCH ×4 (09:09→20:47)
[2017-12-26] MEDS ORDERED: TUBERCULIN SKIN TEST 0.1 ML SYRINGE INTRADERM ONE (10:00)
[2017-12-26] MEDS: hydroCHLOROthiazide 25 MG TABLET PO SCH (13:15)
[2017-12-26] MEDS: LOSARTAN 25 MG TABLET PO SCH (13:16)
[2017-12-26] MEDS: MORPHINE 4 MG/1 ML VIAL IV PRN (15:57)
[2017-12-26] MEDS: ENOXAPARIN 40 MG/0.4 ML SYRINGE SUBCUT SCH (15:57)
[2017-12-26] MEDS: FLUCONAZOLE 200 MG TABLET PO SCH (15:57)
[2017-12-26] MEDS: predniSONE 5 MG TABLET PO SCH (15:57)
[2017-12-26] MEDS: FELODIPINE 5 MG TABLET PO SCH (16:59)
[2017-12-26] MEDS: CITALOPRAM 40 MG TABLET PO SCH (16:59)
[2017-12-26] MEDS: SIMVASTATIN 10 MG TABLET PO SCH (20:48)
[2017-12-27] MEDS: SODIUM CHLORIDE 0.9% 1,000 ML IV SCH ×5 (01:13→23:20)
[2017-12-27] MEDS: PIPERACILLIN/TAZOBACTAM 3,375 MG in SODIUM CHLORIDE 0.9% 100 ML IV SCH ×3 (01:13→18:06)
[2017-12-27] MEDS: oxyCODONE/ACETAMINOPHEN 5-325 MG TABLET PO PRN ×3 (05:47→20:06)
[2017-12-27] MEDS: LEVOTHYROXINE 50 MCG TABLET PO SCH ×2 (05:48→07:03)
[2017-12-27 06:59] LABS: Basophils % 0.3 % (0.0-0.8); Eosinophils # 0.3 10*3/uL (0.0-0.87); Eosinophils % 2.3 % (0.00-10.9); Hematocrit 34.7 VOL% (35.7-47.0); Hemoglobin 11.3 GM/DL (12.0-16.0); Immature Granulocytes % 0.8 %; Immature Granulocytes Absolute 0.09 #; Lymphocytes # 4.4 10*3/uL (1.4-4.0); Lymphocytes % 41.5 % (21.3-54.2); Mean Corpuscular HGB Conc 32.6 GM/DL (32-36); Mean Corpuscular Hemoglobin 28 PG (27-34); Mean Platelet Volume 10.5 FL (9.6-12.0); Monocytes # 0.7 10*3/uL (0.11-0.8); Monocytes % 6.4 % (1.7-12.7); Neutrophils # 5.2 10*3/uL (1.4-7.4); Neutrophils % 48.7 % (38.7-73.9); Platelet Count 527 T/CUMM (130-400); Red Blood Count 4.08 MC/CUMM (3.8-5.5); Red Cell Distribution Width 15.7 % (9.3-17.3); White Blood Count 10.7 T/CUMM (4-12)
[2017-12-27] MEDS: INSULIN LISPRO 100 UNIT/ML SUBCUT SCH ×4 (07:01→23:12)
[2017-12-27 07:21] LABS: Calcium 7.6 MG/DL (8.5-10.1); Osmolality,Calculated 281.7 MOS/KG (273-304); Potassium 3.5 MMOL/L (3.5-5.1)
[2017-12-27] MEDS: NYSTATIN 500,000 UNIT/5 ML UDCUP SWISH/SWAL SCH ×4 (09:23→20:05)
[2017-12-27] MEDS: TACROLIMUS 0.5 MG CAPSULE PO SCH ×2 (09:23→20:06)
[2017-12-27] MEDS: glipiZIDE 10 MG TABLET PO SCH (09:24)
[2017-12-27] MEDS: FLUCONAZOLE 200 MG TABLET PO SCH (09:24)
[2017-12-27] MEDS: MYCOPHENOLATE MOFETIL 250 MG CAPSULE PO SCH ×2 (09:24→20:05)
[2017-12-27] MEDS: ASPIRIN EC 81 MG TABLET PO SCH (09:24)
[2017-12-27] MEDS: CALCITRIOL 0.5 MCG CAPSULE PO SCH (09:24)
[2017-12-27] MEDS: predniSONE 5 MG TABLET PO SCH (09:24)
[2017-12-27] MEDS: PANTOPRAZOLE 40 MG TABLET PO SCH (09:24)
[2017-12-27] MEDS: LOSARTAN 25 MG TABLET PO SCH (09:24)
[2017-12-27] MEDS: MAGNESIUM OXIDE 400 MG TABLET PO SCH (09:24)
[2017-12-27] MEDS: hydroCHLOROthiazide 25 MG TABLET PO SCH (09:24)
[2017-12-27] MEDS: MORPHINE 4 MG/1 ML VIAL IV PRN (09:29)
[2017-12-27] MEDS ORDERED: MAGNESIUM SULF RIDER 4 GM in PREMIX 1 EACH IV PRN (09:34)
[2017-12-27] MEDS ORDERED: MAGNESIUM SULF RIDER 2 GM in PREMIX 1 EACH IV PRN (09:34)
[2017-12-27] MEDS: ENOXAPARIN 40 MG/0.4 ML SYRINGE SUBCUT SCH (15:56)
[2017-12-27] MEDS: FELODIPINE 5 MG TABLET PO SCH (17:24)
[2017-12-27] MEDS: CITALOPRAM 40 MG TABLET PO SCH (17:24)
[2017-12-27] MEDS: SIMVASTATIN 10 MG TABLET PO SCH (20:06)
[2017-12-27] MEDS ORDERED: INSULIN GLARGINE 100 UNIT/ML SUBCUT SCH (21:00)
[2017-12-28] MEDS: PIPERACILLIN/TAZOBACTAM 3,375 MG in SODIUM CHLORIDE 0.9% 100 ML IV SCH ×3 (02:33→17:45)
[2017-12-28] MEDS ORDERED: CLINDAMYCIN INJ 900 MG in PREMIX 1 EACH IV ONE (06:00)
[2017-12-28] MEDS: INSULIN LISPRO 100 UNIT/ML SUBCUT SCH ×4 (06:23→23:43)
[2017-12-28] MEDS: LEVOTHYROXINE 50 MCG TABLET PO SCH (06:24)
[2017-12-28 07:14] LABS: Basophils % 0.3 % (0.0-0.8); Eosinophils # 0.4 10*3/uL (0.0-0.87); Eosinophils % 3.7 % (0.00-10.9); Hematocrit 34.4 VOL% (35.7-47.0); Hemoglobin 10.8 GM/DL (12.0-16.0); Immature Granulocytes % 0.8 %; Immature Granulocytes Absolute 0.08 #; Lymphocytes # 4.4 10*3/uL (1.4-4.0); Lymphocytes % 46.1 % (21.3-54.2); Mean Corpuscular HGB Conc 31.4 GM/DL (32-36); Mean Corpuscular Hemoglobin 27 PG (27-34); Mean Corpuscular Volume 85.8 FL (87-102); Mean Platelet Volume 10.7 FL (9.6-12.0); Monocytes # 0.7 10*3/uL (0.11-0.8); Monocytes % 7.4 % (1.7-12.7); Neutrophils # 3.9 10*3/uL (1.4-7.4); Neutrophils % 41.7 % (38.7-73.9); Platelet Count 552 T/CUMM (130-400); Red Blood Count 4.01 MC/CUMM (3.8-5.5); Red Cell Distribution Width 15.6 % (9.3-17.3); White Blood Count 9.5 T/CUMM (4-12)
[2017-12-28 07:41] LABS: Calcium 7.8 MG/DL (8.5-10.1); Osmolality,Calculated 284.4 MOS/KG (273-304); Potassium 3.5 MMOL/L (3.5-5.1)
[2017-12-28] MEDS: MORPHINE 4 MG/1 ML VIAL IV PRN (07:57)
[2017-12-28] MEDS: SODIUM CHLORIDE 0.9% 1,000 ML IV SCH ×3 (10:47→23:47)
[2017-12-28] MEDS ORDERED: ONDANSETRON 4 MG/2 ML VIAL IV PRN (14:26)
[2017-12-28] MEDS ORDERED: DEXAMETHASONE 10 MG/1 ML VIAL ONE (14:27)
[2017-12-28] MEDS ORDERED: SEVOFLURANE 1 UNIT/15 MINUTE INH ONE (14:27)
[2017-12-28] MEDS ORDERED: KETOROLAC 30 MG/1 ML VIAL ONE (14:27)
[2017-12-28] MEDS ORDERED: fentaNYL 100 MCG/2 ML VIAL ONE (14:27)
[2017-12-28] MEDS ORDERED: PROPOFOL 200 MG/20 ML VIAL IV ONE (14:27)
[2017-12-28] MEDS ORDERED: ACETAMINOPHEN 1,000 MG/100 ML VIAL IV ONE (14:28)
[2017-12-28] MEDS ORDERED: ROCURONIUM 100 MG/10 ML VIAL IV ONE (14:28)
[2017-12-28] MEDS ORDERED: NEOSTIGMINE 10 MG/10 ML VIAL ONE (14:28)
[2017-12-28] MEDS ORDERED: GLYCOPYRROLATE 0.4 MG/2 ML VIAL ONE (14:28)
[2017-12-28] MEDS: HYDROmorphone 2 MG/1 ML VIAL IV PRN ×8 (14:31→23:36)
[2017-12-28] MEDS ORDERED: LACTATED RINGERS 1,000 ML IV SCH (15:30)
[2017-12-28] MEDS: ASPIRIN EC 81 MG TABLET PO SCH (15:31)
[2017-12-28] MEDS: glipiZIDE 10 MG TABLET PO SCH (15:31)
[2017-12-28] MEDS: MYCOPHENOLATE MOFETIL 250 MG CAPSULE PO SCH ×2 (15:31→20:23)
[2017-12-28] MEDS: FLUCONAZOLE 200 MG TABLET PO SCH (15:31)
[2017-12-28] MEDS: hydroCHLOROthiazide 25 MG TABLET PO SCH (15:31)
[2017-12-28] MEDS: LOSARTAN 25 MG TABLET PO SCH (15:31)
[2017-12-28] MEDS: CALCITRIOL 0.5 MCG CAPSULE PO SCH (15:32)
[2017-12-28] MEDS: predniSONE 5 MG TABLET PO SCH (15:32)
[2017-12-28] MEDS: MAGNESIUM OXIDE 400 MG TABLET PO SCH (15:32)
[2017-12-28] MEDS: TACROLIMUS 0.5 MG CAPSULE PO SCH ×2 (15:32→20:23)
[2017-12-28] MEDS: PANTOPRAZOLE 40 MG TABLET PO SCH (15:32)
[2017-12-28] MEDS: NYSTATIN 500,000 UNIT/5 ML UDCUP SWISH/SWAL SCH ×3 (15:32→20:23)
[2017-12-28 15:50] LABS: Basophils % 0.3 % (0.0-0.8); Eosinophils # 0.2 10*3/uL (0.0-0.87); Eosinophils % 1.4 % (0.00-10.9); Hematocrit 33.6 VOL% (35.7-47.0); Hemoglobin 10.6 GM/DL (12.0-16.0); Immature Granulocytes % 1.3 %; Immature Granulocytes Absolute 0.19 #; Lymphocytes % 13.6 % (21.3-54.2); Mean Corpuscular HGB Conc 31.5 GM/DL (32-36); Mean Corpuscular Hemoglobin 28 PG (27-34); Mean Corpuscular Volume 87.3 FL (87-102); Mean Platelet Volume 10.6 FL (9.6-12.0); Monocytes # 0.3 10*3/uL (0.11-0.8); Monocytes % 2.3 % (1.7-12.7); Neutrophils # 11.8 10*3/uL (1.4-7.4); Neutrophils % 81.1 % (38.7-73.9); Platelet Count 520 T/CUMM (130-400); Red Blood Count 3.85 MC/CUMM (3.8-5.5); Red Cell Distribution Width 15.9 % (9.3-17.3); White Blood Count 14.6 T/CUMM (4-12)
[2017-12-28] MEDS: ENOXAPARIN 40 MG/0.4 ML SYRINGE SUBCUT SCH (17:29)
[2017-12-28] MEDS: CITALOPRAM 40 MG TABLET PO SCH (17:29)
[2017-12-28] MEDS: FELODIPINE 5 MG TABLET PO SCH (17:30)
[2017-12-28] MEDS: SIMVASTATIN 10 MG TABLET PO SCH (20:23)
[2017-12-28] MEDS: ONDANSETRON 4 MG/2 ML VIAL IV PRN ×2 (20:27→23:40)
[2017-12-28] MEDS: INSULIN GLARGINE 100 UNIT/ML SUBCUT SCH (20:30)
[2017-12-29] MEDS: PIPERACILLIN/TAZOBACTAM 3,375 MG in SODIUM CHLORIDE 0.9% 100 ML IV SCH ×3 (01:39→17:30)
[2017-12-29] MEDS: oxyCODONE/ACETAMINOPHEN 5-325 MG TABLET PO PRN ×3 (03:40→16:15)
[2017-12-29 05:05] LABS: Basophils % 0.1 % (0.0-0.8); Hematocrit 31.9 VOL% (35.7-47.0); Hemoglobin 10.3 GM/DL (12.0-16.0); Immature Granulocytes % 0.8 %; Immature Granulocytes Absolute 0.09 #; Lymphocytes # 2.1 10*3/uL (1.4-4.0); Lymphocytes % 17.7 % (21.3-54.2); Mean Corpuscular HGB Conc 32.3 GM/DL (32-36); Mean Corpuscular Hemoglobin 28 PG (27-34); Mean Corpuscular Volume 85.1 FL (87-102); Mean Platelet Volume 10.7 FL (9.6-12.0); Monocytes # 0.3 10*3/uL (0.11-0.8); Monocytes % 2.7 % (1.7-12.7); Neutrophils # 9.1 10*3/uL (1.4-7.4); Neutrophils % 78.7 % (38.7-73.9); Platelet Count 544 T/CUMM (130-400); Red Blood Count 3.75 MC/CUMM (3.8-5.5); Red Cell Distribution Width 15.9 % (9.3-17.3); White Blood Count 11.6 T/CUMM (4-12)
[2017-12-29 05:47] LABS: Calcium 7.2 MG/DL (8.5-10.1); Osmolality,Calculated 285.5 MOS/KG (273-304); Potassium 4.1 MMOL/L (3.5-5.1)
[2017-12-29] MEDS: HYDROmorphone 2 MG/1 ML VIAL IV PRN ×4 (05:47→21:07)
[2017-12-29] MEDS: INSULIN LISPRO 100 UNIT/ML SUBCUT SCH ×3 (05:47→17:00)
[2017-12-29] MEDS: LEVOTHYROXINE 50 MCG TABLET PO SCH (06:08)
[2017-12-29] MEDS: predniSONE 5 MG TABLET PO SCH (08:36)
[2017-12-29] MEDS: NYSTATIN 500,000 UNIT/5 ML UDCUP SWISH/SWAL SCH ×4 (08:36→21:00)
[2017-12-29] MEDS: hydroCHLOROthiazide 25 MG TABLET PO SCH (08:37)
[2017-12-29] MEDS: MYCOPHENOLATE MOFETIL 250 MG CAPSULE PO SCH ×2 (08:37→21:00)
[2017-12-29] MEDS: CALCITRIOL 0.5 MCG CAPSULE PO SCH (08:37)
[2017-12-29] MEDS: FLUCONAZOLE 200 MG TABLET PO SCH (08:37)
[2017-12-29] MEDS: PANTOPRAZOLE 40 MG TABLET PO SCH (08:37)
[2017-12-29] MEDS: glipiZIDE 10 MG TABLET PO SCH (08:37)
[2017-12-29] MEDS: TACROLIMUS 0.5 MG CAPSULE PO SCH ×2 (08:37→20:59)
[2017-12-29] MEDS: LOSARTAN 25 MG TABLET PO SCH (08:38)
[2017-12-29] MEDS: MAGNESIUM OXIDE 400 MG TABLET PO SCH (08:38)
[2017-12-29] MEDS: ASPIRIN EC 81 MG TABLET PO SCH (08:38)
[2017-12-29] MEDS: ENOXAPARIN 40 MG/0.4 ML SYRINGE SUBCUT SCH (14:00)
[2017-12-29] MEDS: FELODIPINE 5 MG TABLET PO SCH (17:30)
[2017-12-29] MEDS: CITALOPRAM 40 MG TABLET PO SCH (17:30)
[2017-12-29] MEDS: SIMVASTATIN 10 MG TABLET PO SCH (21:00)
[2017-12-29] MEDS: INSULIN GLARGINE 100 UNIT/ML SUBCUT SCH (21:00)
[2017-12-30] MEDS: HYDROmorphone 2 MG/1 ML VIAL IV PRN ×4 (00:02→22:36)
[2017-12-30] MEDS: INSULIN LISPRO 100 UNIT/ML SUBCUT SCH ×4 (00:30→17:59)
[2017-12-30] MEDS: oxyCODONE/ACETAMINOPHEN 5-325 MG TABLET PO PRN ×2 (02:30→09:22)
[2017-12-30] MEDS: LEVOTHYROXINE 50 MCG TABLET PO SCH (06:22)
[2017-12-30] MEDS: PIPERACILLIN/TAZOBACTAM 3,375 MG in SODIUM CHLORIDE 0.9% 100 ML IV SCH (06:23)
[2017-12-30] MEDS: MAGNESIUM OXIDE 400 MG TABLET PO SCH (09:22)
[2017-12-30] MEDS: NYSTATIN 500,000 UNIT/5 ML UDCUP SWISH/SWAL SCH ×4 (09:24→22:35)
[2017-12-30] MEDS: ASPIRIN EC 81 MG TABLET PO SCH (09:24)
[2017-12-30] MEDS: TACROLIMUS 0.5 MG CAPSULE PO SCH ×2 (09:26→22:33)
[2017-12-30] MEDS: hydroCHLOROthiazide 25 MG TABLET PO SCH (09:26)
[2017-12-30] MEDS: PANTOPRAZOLE 40 MG TABLET PO SCH (09:26)
[2017-12-30] MEDS: predniSONE 5 MG TABLET PO SCH (09:26)
[2017-12-30] MEDS: CALCITRIOL 0.5 MCG CAPSULE PO SCH (09:27)
[2017-12-30] MEDS: glipiZIDE 10 MG TABLET PO SCH (09:28)
[2017-12-30] MEDS: LOSARTAN 25 MG TABLET PO SCH (09:28)
[2017-12-30] MEDS: MYCOPHENOLATE MOFETIL 250 MG CAPSULE PO SCH ×2 (09:28→22:34)
[2017-12-30] MEDS: FLUCONAZOLE 200 MG TABLET PO SCH (09:28)
[2017-12-30] MEDS: ENOXAPARIN 40 MG/0.4 ML SYRINGE SUBCUT SCH (14:35)
[2017-12-30] MEDS: CITALOPRAM 40 MG TABLET PO SCH (17:50)
[2017-12-30] MEDS: FELODIPINE 5 MG TABLET PO SCH (17:50)
[2017-12-30] MEDS: SIMVASTATIN 10 MG TABLET PO SCH (22:34)
[2017-12-30] MEDS: INSULIN GLARGINE 100 UNIT/ML SUBCUT SCH (22:35)
[2017-12-31] MEDS: INSULIN LISPRO 100 UNIT/ML SUBCUT SCH ×5 (00:43→23:35)
[2017-12-31] MEDS: LEVOTHYROXINE 50 MCG TABLET PO SCH (06:22)
[2017-12-31] MEDS ORDERED: oxyCODONE/ACETAMINOPHEN 5-325 MG TABLET PO PRN (08:43)
[2017-12-31] MEDS: MYCOPHENOLATE MOFETIL 250 MG CAPSULE PO SCH ×2 (08:50→21:00)
[2017-12-31] MEDS: PANTOPRAZOLE 40 MG TABLET PO SCH (08:50)
[2017-12-31] MEDS: ASPIRIN EC 81 MG TABLET PO SCH (08:50)
[2017-12-31] MEDS: LOSARTAN 25 MG TABLET PO SCH (08:51)
[2017-12-31] MEDS: MAGNESIUM OXIDE 400 MG TABLET PO SCH (08:51)
[2017-12-31] MEDS: CALCITRIOL 0.5 MCG CAPSULE PO SCH (08:51)
[2017-12-31] MEDS: predniSONE 5 MG TABLET PO SCH (08:51)
[2017-12-31] MEDS: TACROLIMUS 0.5 MG CAPSULE PO SCH ×2 (08:51→20:59)
[2017-12-31] MEDS: NYSTATIN 500,000 UNIT/5 ML UDCUP SWISH/SWAL SCH ×4 (08:51→20:59)
[2017-12-31] MEDS: glipiZIDE 10 MG TABLET PO SCH (08:51)
[2017-12-31] MEDS: FLUCONAZOLE 200 MG TABLET PO SCH (08:51)
[2017-12-31] MEDS: hydroCHLOROthiazide 25 MG TABLET PO SCH (08:51)
[2017-12-31] MEDS: oxyCODONE/ACETAMINOPHEN 5-325 MG TABLET PO PRN ×2 (08:52→22:46)
[2017-12-31] MEDS: HYDROmorphone 2 MG/1 ML VIAL IV PRN ×2 (12:51→21:05)
[2017-12-31] MEDS: ENOXAPARIN 40 MG/0.4 ML SYRINGE SUBCUT SCH (14:57)
[2017-12-31] MEDS: FELODIPINE 5 MG TABLET PO SCH (17:04)
[2017-12-31] MEDS: CITALOPRAM 40 MG TABLET PO SCH (17:04)
[2017-12-31] MEDS: SIMVASTATIN 10 MG TABLET PO SCH (20:59)
[2017-12-31] MEDS: INSULIN GLARGINE 100 UNIT/ML SUBCUT SCH (21:00)
[2018-01-01] MEDS: LEVOTHYROXINE 50 MCG TABLET PO SCH (07:07)
[2018-01-01] MEDS: INSULIN LISPRO 100 UNIT/ML SUBCUT SCH ×2 (07:07→12:56)
[2018-01-01] MEDS: predniSONE 5 MG TABLET PO SCH (08:52)
[2018-01-01] MEDS: LOSARTAN 25 MG TABLET PO SCH (08:52)
[2018-01-01] MEDS: TACROLIMUS 0.5 MG CAPSULE PO SCH (08:52)
[2018-01-01] MEDS: glipiZIDE 10 MG TABLET PO SCH (08:52)
[2018-01-01] MEDS: MYCOPHENOLATE MOFETIL 250 MG CAPSULE PO SCH (08:52)
[2018-01-01] MEDS: FLUCONAZOLE 200 MG TABLET PO SCH (08:53)
[2018-01-01] MEDS: oxyCODONE/ACETAMINOPHEN 5-325 MG TABLET PO PRN (08:53)
[2018-01-01] MEDS: hydroCHLOROthiazide 25 MG TABLET PO SCH (08:53)
[2018-01-01] MEDS: NYSTATIN 500,000 UNIT/5 ML UDCUP SWISH/SWAL SCH ×2 (08:54→12:56)
[2018-01-01] MEDS: MAGNESIUM OXIDE 400 MG TABLET PO SCH (08:54)
[2018-01-01] MEDS: CALCITRIOL 0.5 MCG CAPSULE PO SCH (08:54)
[2018-01-01] MEDS: PANTOPRAZOLE 40 MG TABLET PO SCH (08:54)
[2018-01-01] MEDS: ASPIRIN EC 81 MG TABLET PO SCH (08:54)
[2018-01-01 11:48] VITALS: BP 153/79
== END 2018-01-01 14:05 | DRG 982 ==
LOC: EDBD → EDUNIT# → N.ED 15:38 → N.EDINP 17:53 → SUATTDRO 17:53 → N.EDINP 18:43 → N.2E 18:49 → N.5E 12-22 11:30
PROVIDERS: ADMIT Internal Medicine; ATTEND Internal Medicine

== ENCOUNTER 2018-01-16 12:32 | Inpatient (IN) ==
[2018-01-16] MEDS ORDERED: PANTOPRAZOLE 40 MG VIAL IV STA (12:41)
[2018-01-16] MEDS ORDERED: metroNIDAZOLE 500 MG TABLET PO STA (12:41)
[2018-01-16] MEDS ORDERED: ONDANSETRON 4 MG/2 ML VIAL IV STA (12:41)
[2018-01-16] MEDS ORDERED: SODIUM CHLORIDE 0.9% 1,000 ML IV STA (12:41)
[2018-01-16] MEDS ORDERED: LOPERAMIDE 2 MG CAPSULE PO STA (12:41)
[2018-01-16 13:46] LABS: Basophils # 0.1 10*3/uL (0.0-0.2); Basophils % 0.5 % (0.0-0.8); Eosinophils # 0.6 10*3/uL (0.0-0.87); Eosinophils % 4.8 % (0.00-10.9); Hematocrit 36.4 VOL% (35.7-47.0); Hemoglobin 11.4 GM/DL (12.0-16.0); Immature Granulocytes % 0.3 %; Immature Granulocytes Absolute 0.04 #; Lymphocytes # 5.4 10*3/uL (1.4-4.0); Lymphocytes % 46.4 % (21.3-54.2); Mean Corpuscular HGB Conc 31.3 GM/DL (32-36); Mean Corpuscular Hemoglobin 28 PG (27-34); Mean Corpuscular Volume 87.7 FL (87-102); Mean Platelet Volume 10.9 FL (9.6-12.0); Monocytes # 0.8 10*3/uL (0.11-0.8); Monocytes % 7.3 % (1.7-12.7); Neutrophils # 4.7 10*3/uL (1.4-7.4); Neutrophils % 40.7 % (38.7-73.9); Platelet Count 374 T/CUMM (130-400); Red Blood Count 4.15 MC/CUMM (3.8-5.5); Red Cell Distribution Width 15.9 % (9.3-17.3); White Blood Count 11.6 T/CUMM (4-12)
[2018-01-16 13:50] LABS: Apearance,Urine Slightly Hazy (Clear); Bacteria,Urine Occasional /HPF (Few); Bilirubin,Urine Negative (Negative); Blood, Urine Small mg/dL (Negative); Glucose,Urine (UA) >=500 mg/dL (Negative); Ketones,Urine 20 mg/dL (Negative); Nitrite,Urine Positive (Negative); Protein,Urine Negative; RBC,Urine 4 /HPF (0-4); Squamous Epithelial Cell,Urine Occasional /HPF (0-10); Urine Color Yellow (Yellow); Urine Specific Gravity 1.012 (1.001-1.035); Urine Urobilinogen < 2.0 EU/DL (0.2-1.0); WBC,Urine 15 /HPF (0-6)
[2018-01-16 14:00] LABS: Lactic Acid 4.9 MMOL/L (0.4-2.0)
[2018-01-16 14:08] LABS: Alanine Aminotransferase 20 U/L (13-56); Albumin 2.8 G/DL (3.4-5.0); Alkaline Phosphatase 102 U/L (45-117); Amylase 16 U/L (25-115); Aspartate Amino Transferase 36 U/L (0-37); Blood Urea Nitrogen 7 MG/DL (7-18); Calcium 9.2 MG/DL (8.5-10.1); Free T4 (Free Thyroxine) 1.23 NG/DL (0.76-1.46); Glucose 346 MG/DL (74-106); Osmolality,Calculated 281.1 MOS/KG (273-304); Potassium 4.2 MMOL/L (3.5-5.1); Sodium 135 MMOL/L (136-145); Total Protein 6.8 G/DL (6.4-8.3); Troponin I Only < 0.015 NG/ML (0.00-0.045)
[2018-01-16] MEDS ORDERED: LEVOFLOXACIN INJ 750 MG in PREMIX 1 EACH IV STA (14:38)
[2018-01-16] MEDS ORDERED: MORPHINE 4 MG/1 ML VIAL IV PRN (17:24)
[2018-01-16] MEDS ORDERED: DEXTROSE 50% 25 GM/50 ML VIAL IV PRN (17:30)
[2018-01-16] MEDS ORDERED: GLUCAGON 1 MG VIAL IM PRN (17:30)
[2018-01-16 17:41] LABS: ABG Base Excess -3.7 MMOL/L (-2.5-2.5); ABG HCO3 21.3 MMOL/L (20-26); ABG Oxygen Saturation 99.4 % (95-100); ABG TCO2 13.8 MMOL/L (23-27); Allen Test Positive; Pt O2 Delivery Device Room Air
[2018-01-16 17:43] LABS: ABG PCO2 14.2 MM HG (35-48); ABG PH 7.641 (7.35-7.45)
[2018-01-16] MEDS ORDERED: INSULIN REGULAR 100 UNIT/ML IV STA (17:43)
[2018-01-16] MEDS: SODIUM CHLORIDE 0.9% 1,000 ML IV SCH (17:51)
[2018-01-16 19:02] LABS: Lactic Acid 3.1 MMOL/L (0.4-2.0)
[2018-01-16] MEDS: MAGNESIUM OXIDE 400 MG TABLET PO SCH (20:55)
[2018-01-16] MEDS: CITALOPRAM 40 MG TABLET PO SCH (20:55)
[2018-01-16] MEDS: SIMVASTATIN 10 MG TABLET PO SCH (20:55)
[2018-01-16] MEDS: FELODIPINE 5 MG TABLET PO SCH (20:55)
[2018-01-16] MEDS: MYCOPHENOLATE MOFETIL 250 MG CAPSULE PO SCH (20:57)
[2018-01-16] MEDS: CALCIUM (CITRATE) 200 MG TABLET PO SCH (20:57)
[2018-01-16] MEDS: ACETAMINOPHEN 325 MG TABLET PO PRN (20:58)
[2018-01-16] MEDS: TACROLIMUS 0.5 MG CAPSULE PO SCH (20:58)
[2018-01-16] MEDS: ENOXAPARIN 40 MG/0.4 ML SYRINGE SUBCUT SCH (21:05)
[2018-01-16] MEDS: metroNIDAZOLE INJ 500 MG in PREMIX 1 EACH IV SCH (21:10)
[2018-01-16] MEDS: INSULIN REGULAR 100 UNIT/ML SUBCUT SCH (21:37)
[2018-01-16] MEDS: INSULIN GLARGINE 100 UNIT/ML SUBCUT SCH (21:38)
[2018-01-17] MEDS: metroNIDAZOLE INJ 500 MG in PREMIX 1 EACH IV SCH ×3 (04:24→22:22)
[2018-01-17] MEDS: ONDANSETRON 4 MG/2 ML VIAL IV PRN ×2 (04:24→22:18)
[2018-01-17] MEDS: SODIUM CHLORIDE 0.9% 1,000 ML IV SCH ×4 (05:05→18:07)
[2018-01-17 06:18] LABS: Basophils % 0.4 % (0.0-0.8); Eosinophils # 0.4 10*3/uL (0.0-0.87); Eosinophils % 4.3 % (0.00-10.9); Hematocrit 32.9 VOL% (35.7-47.0); Hemoglobin 10.4 GM/DL (12.0-16.0); Immature Granulocytes % 0.6 %; Immature Granulocytes Absolute 0.06 #; Lymphocytes # 3.6 10*3/uL (1.4-4.0); Lymphocytes % 35.7 % (21.3-54.2); Mean Corpuscular HGB Conc 31.6 GM/DL (32-36); Mean Corpuscular Hemoglobin 28 PG (27-34); Monocytes # 0.9 10*3/uL (0.11-0.8); Monocytes % 8.9 % (1.7-12.7); Neutrophils # 5.1 10*3/uL (1.4-7.4); Neutrophils % 50.1 % (38.7-73.9); Platelet Count 312 T/CUMM (130-400); Red Blood Count 3.78 MC/CUMM (3.8-5.5); Red Cell Distribution Width 15.9 % (9.3-17.3); White Blood Count 10.2 T/CUMM (4-12)
[2018-01-17 06:55] LABS: Calcium 8.6 MG/DL (8.5-10.1); Osmolality,Calculated 282.4 MOS/KG (273-304); Potassium 3.4 MMOL/L (3.5-5.1)
[2018-01-17] MEDS ORDERED: POTASSIUM CHLORIDE 20 MEQ TABLET PO PRN (08:09)
[2018-01-17] MEDS: MYCOPHENOLATE MOFETIL 250 MG CAPSULE PO SCH ×2 (08:56→22:22)
[2018-01-17] MEDS: INSULIN REGULAR 100 UNIT/ML SUBCUT SCH ×4 (08:56→22:17)
[2018-01-17] MEDS: TACROLIMUS 0.5 MG CAPSULE PO SCH ×2 (08:56→22:22)
[2018-01-17] MEDS: glipiZIDE 10 MG TABLET PO SCH (08:56)
[2018-01-17] MEDS: ASPIRIN EC 81 MG TABLET PO SCH (08:57)
[2018-01-17] MEDS: MAGNESIUM OXIDE 400 MG TABLET PO SCH ×3 (08:57→22:23)
[2018-01-17] MEDS: CALCITRIOL 0.5 MCG CAPSULE PO SCH (08:57)
[2018-01-17] MEDS: predniSONE 5 MG TABLET PO SCH (08:57)
[2018-01-17] MEDS: LOSARTAN 25 MG TABLET PO SCH (08:57)
[2018-01-17] MEDS: CALCIUM (CITRATE) 200 MG TABLET PO SCH ×2 (08:57→22:23)
[2018-01-17] MEDS: LEVOTHYROXINE 50 MCG TABLET PO SCH (08:57)
[2018-01-17] MEDS ORDERED: TICAGRELOR 60 MG PO SCH (09:00)
[2018-01-17] MEDS: DESITIN 4OZ/NYSTATIN 15 GRAM MIXTURE PASTE TOP SCH ×2 (11:59→22:23)
[2018-01-17] MEDS: LEVOFLOXACIN INJ 750 MG in PREMIX 1 EACH IV SCH (18:04)
[2018-01-17] MEDS: CITALOPRAM 40 MG TABLET PO SCH (18:05)
[2018-01-17] MEDS: FELODIPINE 5 MG TABLET PO SCH (18:05)
[2018-01-17] MEDS: INSULIN GLARGINE 100 UNIT/ML SUBCUT SCH (22:18)
[2018-01-17] MEDS: ENOXAPARIN 40 MG/0.4 ML SYRINGE SUBCUT SCH (22:18)
[2018-01-17] MEDS: SIMVASTATIN 10 MG TABLET PO SCH (22:23)
[2018-01-17] MEDS: ACETAMINOPHEN 325 MG TABLET PO PRN (22:34)
[2018-01-18] MEDS: SODIUM CHLORIDE 0.9% 1,000 ML IV SCH ×2 (05:22→10:33)
[2018-01-18 06:33] LABS: Basophils % 0.5 % (0.0-0.8); Eosinophils # 0.6 10*3/uL (0.0-0.87); Eosinophils % 7.6 % (0.00-10.9); Hematocrit 33.2 VOL% (35.7-47.0); Hemoglobin 10.2 GM/DL (12.0-16.0); Immature Granulocytes % 0.6 %; Immature Granulocytes Absolute 0.05 #; Lymphocytes # 3.6 10*3/uL (1.4-4.0); Lymphocytes % 44.1 % (21.3-54.2); Mean Corpuscular HGB Conc 30.7 GM/DL (32-36); Mean Corpuscular Hemoglobin 27 PG (27-34); Mean Corpuscular Volume 88.8 FL (87-102); Monocytes # 0.7 10*3/uL (0.11-0.8); Monocytes % 8.8 % (1.7-12.7); Neutrophils # 3.2 10*3/uL (1.4-7.4); Neutrophils % 38.4 % (38.7-73.9); Platelet Count 309 T/CUMM (130-400); Red Blood Count 3.74 MC/CUMM (3.8-5.5); Red Cell Distribution Width 16.1 % (9.3-17.3); White Blood Count 8.3 T/CUMM (4-12)
[2018-01-18] MEDS: LEVOTHYROXINE 50 MCG TABLET PO SCH (07:04)
[2018-01-18] MEDS: metroNIDAZOLE INJ 500 MG in PREMIX 1 EACH IV SCH ×3 (07:04→21:13)
[2018-01-18 07:06] LABS: Eosinophils 2 % (0-10); Hypochromasia 1+; Lymphocytes 48 % (20-55); Segmented Neutrophils 46 % (50-85); Total Cells Counted 100
[2018-01-18 07:07] LABS: Microcytosis 1+; Ovalocytes Slight; Platelet Estimate Normal
[2018-01-18 07:08] LABS: Calcium 8.2 MG/DL (8.5-10.1); Osmolality,Calculated 282.1 MOS/KG (273-304); Potassium 3.9 MMOL/L (3.5-5.1)
[2018-01-18] MEDS: INSULIN REGULAR 100 UNIT/ML SUBCUT SCH ×3 (10:19→17:38)
[2018-01-18] MEDS: CALCIUM (CITRATE) 200 MG TABLET PO SCH ×2 (10:22→21:13)
[2018-01-18] MEDS: MYCOPHENOLATE MOFETIL 250 MG CAPSULE PO SCH ×2 (10:22→21:04)
[2018-01-18] MEDS: ASPIRIN EC 81 MG TABLET PO SCH (10:22)
[2018-01-18] MEDS: predniSONE 5 MG TABLET PO SCH (10:23)
[2018-01-18] MEDS: LOSARTAN 25 MG TABLET PO SCH (10:23)
[2018-01-18] MEDS: glipiZIDE 10 MG TABLET PO SCH (10:23)
[2018-01-18] MEDS: MAGNESIUM OXIDE 400 MG TABLET PO SCH ×3 (10:23→21:05)
[2018-01-18] MEDS: DESITIN 4OZ/NYSTATIN 15 GRAM MIXTURE PASTE TOP SCH ×2 (10:24→21:13)
[2018-01-18] MEDS: CALCITRIOL 0.5 MCG CAPSULE PO SCH (10:24)
[2018-01-18] MEDS: TACROLIMUS 0.5 MG CAPSULE PO SCH ×2 (10:24→21:04)
[2018-01-18] MEDS: oxyCODONE/ACETAMINOPHEN 5-325 MG TABLET PO PRN ×2 (14:20→21:05)
[2018-01-18] MEDS: NEOMYCIN/POLYMYXIN/BACITRACIN OINT 0.9 GM PACK TOP SCH (15:03)
[2018-01-18] MEDS: LEVOFLOXACIN INJ 750 MG in PREMIX 1 EACH IV SCH (16:17)
[2018-01-18] MEDS: FELODIPINE 5 MG TABLET PO SCH (17:39)
[2018-01-18] MEDS: CITALOPRAM 40 MG TABLET PO SCH (17:39)
[2018-01-18] MEDS ORDERED: TUBERCULIN SKIN TEST 0.1 ML SYRINGE INTRADERM ONE (17:46)
[2018-01-18] MEDS: INSULIN GLARGINE 100 UNIT/ML SUBCUT SCH (21:04)
[2018-01-18] MEDS: ENOXAPARIN 40 MG/0.4 ML SYRINGE SUBCUT SCH (21:05)
[2018-01-18] MEDS: SIMVASTATIN 10 MG TABLET PO SCH (21:05)
[2018-01-19] MEDS: SODIUM CHLORIDE 0.9% 1,000 ML IV SCH ×3 (00:16→17:15)
[2018-01-19] MEDS: INSULIN REGULAR 100 UNIT/ML SUBCUT SCH ×5 (00:17→21:50)
[2018-01-19] MEDS: LEVOTHYROXINE 50 MCG TABLET PO SCH (06:08)
[2018-01-19] MEDS: metroNIDAZOLE INJ 500 MG in PREMIX 1 EACH IV SCH ×2 (06:08→12:44)
[2018-01-19] MEDS ORDERED: NEOMYCIN/POLYMYXIN/BACITRACIN OINT 0.9 GM PACK TOP SCH (09:00)
[2018-01-19] MEDS: TACROLIMUS 0.5 MG CAPSULE PO SCH ×2 (09:18→21:53)
[2018-01-19] MEDS: MAGNESIUM OXIDE 400 MG TABLET PO SCH ×3 (09:19→21:53)
[2018-01-19] MEDS: MYCOPHENOLATE MOFETIL 250 MG CAPSULE PO SCH ×2 (09:19→21:53)
[2018-01-19] MEDS: LOSARTAN 25 MG TABLET PO SCH (09:19)
[2018-01-19] MEDS: CALCIUM (CITRATE) 200 MG TABLET PO SCH ×2 (09:19→21:53)
[2018-01-19] MEDS: predniSONE 5 MG TABLET PO SCH (09:19)
[2018-01-19] MEDS: ASPIRIN EC 81 MG TABLET PO SCH (09:19)
[2018-01-19] MEDS: glipiZIDE 10 MG TABLET PO SCH (09:19)
[2018-01-19] MEDS: CALCITRIOL 0.5 MCG CAPSULE PO SCH (09:19)
[2018-01-19] MEDS: DESITIN 4OZ/NYSTATIN 15 GRAM MIXTURE PASTE TOP SCH ×2 (09:20→21:58)
[2018-01-19] MEDS: oxyCODONE/ACETAMINOPHEN 5-325 MG TABLET PO PRN ×2 (09:22→21:53)
[2018-01-19] MEDS: NEOMYCIN/POLYMYXIN/BACITRACIN OINT 0.9 GM PACK TOP SCH (09:25)
[2018-01-19] MEDS: CITALOPRAM 40 MG TABLET PO SCH (17:12)
[2018-01-19] MEDS: FELODIPINE 5 MG TABLET PO SCH (17:13)
[2018-01-19] MEDS: AMPICILLIN 500 MG CAPSULE PO SCH ×2 (17:13→21:53)
[2018-01-19] MEDS: INSULIN GLARGINE 100 UNIT/ML SUBCUT SCH (21:50)
[2018-01-19] MEDS: ENOXAPARIN 40 MG/0.4 ML SYRINGE SUBCUT SCH (21:51)
[2018-01-19] MEDS: SIMVASTATIN 10 MG TABLET PO SCH (21:53)
[2018-01-20] MEDS: LEVOTHYROXINE 50 MCG TABLET PO SCH (06:46)
[2018-01-20 07:28] LABS: Basophils # 0.1 10*3/uL (0.0-0.2); Basophils % 0.7 % (0.0-0.8); Eosinophils # 0.7 10*3/uL (0.0-0.87); Eosinophils % 7.9 % (0.00-10.9); Hematocrit 34.3 VOL% (35.7-47.0); Immature Granulocytes % 0.2 %; Immature Granulocytes Absolute 0.02 #; Lymphocytes # 3.8 10*3/uL (1.4-4.0); Lymphocytes % 45.8 % (21.3-54.2); Mean Corpuscular HGB Conc 32.1 GM/DL (32-36); Mean Corpuscular Hemoglobin 28 PG (27-34); Mean Corpuscular Volume 87.3 FL (87-102); Mean Platelet Volume 10.8 FL (9.6-12.0); Monocytes # 0.7 10*3/uL (0.11-0.8); Neutrophils # 3.1 10*3/uL (1.4-7.4); Neutrophils % 37.4 % (38.7-73.9); Platelet Count 285 T/CUMM (130-400); Red Blood Count 3.93 MC/CUMM (3.8-5.5); Red Cell Distribution Width 15.9 % (9.3-17.3); White Blood Count 8.3 T/CUMM (4-12)
[2018-01-20 07:56] LABS: Calcium 8.2 MG/DL (8.5-10.1); Osmolality,Calculated 279.3 MOS/KG (273-304); Potassium 3.8 MMOL/L (3.5-5.1)
[2018-01-20 08:46] LABS: Hypochromasia 1+; Macrocytosis 1+
[2018-01-20] MEDS: MAGNESIUM OXIDE 400 MG TABLET PO SCH ×3 (09:20→21:12)
[2018-01-20] MEDS: ASPIRIN EC 81 MG TABLET PO SCH (09:20)
[2018-01-20] MEDS: MYCOPHENOLATE MOFETIL 250 MG CAPSULE PO SCH ×2 (09:20→21:11)
[2018-01-20] MEDS: LEVOFLOXACIN 750 MG TABLET PO SCH (09:20)
[2018-01-20] MEDS: TACROLIMUS 0.5 MG CAPSULE PO SCH ×2 (09:20→21:12)
[2018-01-20] MEDS: glipiZIDE 10 MG TABLET PO SCH (09:20)
[2018-01-20] MEDS: CALCIUM (CITRATE) 200 MG TABLET PO SCH ×2 (09:20→21:11)
[2018-01-20] MEDS: predniSONE 5 MG TABLET PO SCH (09:20)
[2018-01-20] MEDS: CALCITRIOL 0.5 MCG CAPSULE PO SCH (09:21)
[2018-01-20] MEDS: DESITIN 4OZ/NYSTATIN 15 GRAM MIXTURE PASTE TOP SCH ×2 (09:21→21:12)
[2018-01-20] MEDS: LOSARTAN 25 MG TABLET PO SCH (09:21)
[2018-01-20] MEDS: INSULIN REGULAR 100 UNIT/ML SUBCUT SCH ×4 (09:21→21:08)
[2018-01-20] MEDS: AMPICILLIN 500 MG CAPSULE PO SCH ×4 (09:21→21:11)
[2018-01-20] MEDS: NEOMYCIN/POLYMYXIN/BACITRACIN OINT 0.9 GM PACK TOP SCH (09:21)
[2018-01-20] MEDS: CITALOPRAM 40 MG TABLET PO SCH (17:20)
[2018-01-20] MEDS: FELODIPINE 5 MG TABLET PO SCH (17:20)
[2018-01-20] MEDS: INSULIN GLARGINE 100 UNIT/ML SUBCUT SCH (21:07)
[2018-01-20] MEDS: ENOXAPARIN 40 MG/0.4 ML SYRINGE SUBCUT SCH (21:08)
[2018-01-20] MEDS: SIMVASTATIN 10 MG TABLET PO SCH (21:12)
[2018-01-20] MEDS: oxyCODONE/ACETAMINOPHEN 5-325 MG TABLET PO PRN (22:19)
[2018-01-21] MEDS: LEVOTHYROXINE 50 MCG TABLET PO SCH (06:34)
[2018-01-21 06:55] LABS: Calcium 8.9 MG/DL (8.5-10.1); Osmolality,Calculated 283.4 MOS/KG (273-304); Potassium 4.1 MMOL/L (3.5-5.1)
[2018-01-21 07:02] LABS: Basophils # 0.1 10*3/uL (0.0-0.2); Basophils % 0.6 % (0.0-0.8); Eosinophils # 0.6 10*3/uL (0.0-0.87); Eosinophils % 6.8 % (0.00-10.9); Hematocrit 35.7 VOL% (35.7-47.0); Hemoglobin 11.4 GM/DL (12.0-16.0); Immature Granulocytes % 0.3 %; Immature Granulocytes Absolute 0.03 #; Lymphocytes # 4.4 10*3/uL (1.4-4.0); Lymphocytes % 49.3 % (21.3-54.2); Mean Corpuscular HGB Conc 31.9 GM/DL (32-36); Mean Corpuscular Hemoglobin 28 PG (27-34); Mean Corpuscular Volume 87.3 FL (87-102); Mean Platelet Volume 11.1 FL (9.6-12.0); Monocytes # 0.7 10*3/uL (0.11-0.8); Monocytes % 8.2 % (1.7-12.7); Neutrophils # 3.1 10*3/uL (1.4-7.4); Neutrophils % 34.8 % (38.7-73.9); Platelet Count 314 T/CUMM (130-400); Red Blood Count 4.09 MC/CUMM (3.8-5.5); Red Cell Distribution Width 15.9 % (9.3-17.3); White Blood Count 8.9 T/CUMM (4-12)
[2018-01-21 07:30] LABS: Eosinophils 3 % (0-10); Hypochromasia 1+; Lymphocytes 46 % (20-55); Platelet Estimate Adequate; Segmented Neutrophils 46 % (50-85); Total Cells Counted 100
[2018-01-21] MEDS: MYCOPHENOLATE MOFETIL 250 MG CAPSULE PO SCH ×2 (09:39→20:33)
[2018-01-21] MEDS: INSULIN REGULAR 100 UNIT/ML SUBCUT SCH ×4 (09:39→21:55)
[2018-01-21] MEDS: CALCIUM (CITRATE) 200 MG TABLET PO SCH ×2 (09:39→20:32)
[2018-01-21] MEDS: ASPIRIN EC 81 MG TABLET PO SCH (09:39)
[2018-01-21] MEDS: TACROLIMUS 0.5 MG CAPSULE PO SCH ×2 (09:39→20:32)
[2018-01-21] MEDS: LOSARTAN 25 MG TABLET PO SCH (09:39)
[2018-01-21] MEDS: NEOMYCIN/POLYMYXIN/BACITRACIN OINT 0.9 GM PACK TOP SCH (09:40)
[2018-01-21] MEDS: AMPICILLIN 500 MG CAPSULE PO SCH ×4 (09:40→20:33)
[2018-01-21] MEDS: LEVOFLOXACIN 750 MG TABLET PO SCH (09:40)
[2018-01-21] MEDS: glipiZIDE 10 MG TABLET PO SCH (09:40)
[2018-01-21] MEDS: CALCITRIOL 0.5 MCG CAPSULE PO SCH (09:40)
[2018-01-21] MEDS: MAGNESIUM OXIDE 400 MG TABLET PO SCH ×3 (09:40→20:33)
[2018-01-21] MEDS: predniSONE 5 MG TABLET PO SCH (09:40)
[2018-01-21] MEDS: DESITIN 4OZ/NYSTATIN 15 GRAM MIXTURE PASTE TOP SCH ×2 (09:40→20:33)
[2018-01-21] MEDS: CITALOPRAM 40 MG TABLET PO SCH (17:05)
[2018-01-21] MEDS: FELODIPINE 5 MG TABLET PO SCH (17:05)
[2018-01-21] MEDS: ENOXAPARIN 40 MG/0.4 ML SYRINGE SUBCUT SCH (20:32)
[2018-01-21] MEDS: SIMVASTATIN 10 MG TABLET PO SCH (20:33)
[2018-01-21] MEDS: INSULIN GLARGINE 100 UNIT/ML SUBCUT SCH (21:55)
[2018-01-21] MEDS: oxyCODONE/ACETAMINOPHEN 5-325 MG TABLET PO PRN (21:56)
[2018-01-22] MEDS: LEVOTHYROXINE 50 MCG TABLET PO SCH (06:04)
[2018-01-22] MEDS: INSULIN REGULAR 100 UNIT/ML SUBCUT SCH ×3 (09:43→14:35)
[2018-01-22] MEDS: predniSONE 5 MG TABLET PO SCH (09:44)
[2018-01-22] MEDS: MAGNESIUM OXIDE 400 MG TABLET PO SCH ×2 (09:44→14:34)
[2018-01-22] MEDS: glipiZIDE 10 MG TABLET PO SCH (09:44)
[2018-01-22] MEDS: MYCOPHENOLATE MOFETIL 250 MG CAPSULE PO SCH (09:44)
[2018-01-22] MEDS: AMPICILLIN 500 MG CAPSULE PO SCH ×2 (09:45→13:34)
[2018-01-22] MEDS: TACROLIMUS 0.5 MG CAPSULE PO SCH (09:45)
[2018-01-22] MEDS: LOSARTAN 25 MG TABLET PO SCH (09:45)
[2018-01-22] MEDS: LEVOFLOXACIN 750 MG TABLET PO SCH (09:45)
[2018-01-22] MEDS: ASPIRIN EC 81 MG TABLET PO SCH (09:45)
[2018-01-22] MEDS: CALCITRIOL 0.5 MCG CAPSULE PO SCH (09:46)
[2018-01-22] MEDS: CALCIUM (CITRATE) 200 MG TABLET PO SCH (09:46)
[2018-01-22] MEDS: NEOMYCIN/POLYMYXIN/BACITRACIN OINT 0.9 GM PACK TOP SCH (09:50)
[2018-01-22] MEDS: DESITIN 4OZ/NYSTATIN 15 GRAM MIXTURE PASTE TOP SCH (09:50)
[2018-01-22 11:55] VITALS: BP 131/56
== END 2018-01-22 15:37 | disposition swing bed (61) | DRG 689 ==
LOC: N.ED 12:32 → N.EDINP 17:03 → N.5E 18:21
PROVIDERS: ADMIT Internal Medicine; ATTEND Internal Medicine

== ENCOUNTER 2020-01-12 20:34 | Inpatient (IN) ==
[2020-01-12 20:55] LABS: Basophils # 0.1 10*3/uL (0.0-0.2); Basophils % 0.4 % (0.0-0.8); Eosinophils # 0.1 10*3/uL (0.0-0.87); Eosinophils % 0.3 % (0.00-10.9); Hematocrit 38.6 VOL% (35.7-47.0); Hemoglobin 11.9 GM/DL (12.0-16.0); Immature Granulocytes % 0.7 %; Immature Granulocytes Absolute 0.12 #; Lymphocytes # 2.2 10*3/uL (1.4-4.0); Lymphocytes % 12.7 % (21.3-54.2); Mean Corpuscular HGB Conc 30.8 GM/DL (32-36); Mean Corpuscular Volume 94.1 FL (87-102); Mean Platelet Volume 10.4 FL (9.6-12.0); Monocytes % 5.8 % (1.7-12.7); Neutrophils % 80.1 % (38.7-73.9); Platelet Count 209 T/CUMM (130-400); Red Cell Distribution Width 14.1 % (9.3-17.3); White Blood Count 16.9 T/CUMM (4-12)
[2020-01-12 21:20] LABS: Albumin 2.8 G/DL (3.4-5.0); Bilirubin,Total 0.9 MG/DL (0.2-1.0); Total Protein 6.3 G/DL (6.4-8.3)
[2020-01-12 23:39] LABS: Amorphous Crystals,Urine Occasional /HPF (Few); Apearance,Urine CLOUDY (Clear); Bacteria,Urine Many /HPF (Few); Bilirubin,Urine Negative (Negative); Blood, Urine Moderate mg/dL (Negative); Glucose,Urine (UA) >=500 mg/dL (Negative); Ketones,Urine Negative (Negative); Nitrite,Urine Negative (Negative); Protein,Urine 100 MG/DL; RBC,Urine 33 /HPF (0-4); Urine Color Amber (Yellow); Urine Specific Gravity 1.013 (1.001-1.035); Urine Urobilinogen < 2.0 EU/DL (0.2-1.0); WBC,Urine 283 /HPF (0-6)
[2020-01-13] MEDS ORDERED: cefTRIAXone 1,000 MG in SODIUM CHLORIDE 0.9% 100 ML IV STA (00:28)
[2020-01-13] MEDS ORDERED: AZITHROMYCIN INJ 500 MG in SODIUM CHLORIDE 0.9% 250 ML IV STA (00:28)
[2020-01-13] MEDS ORDERED: SODIUM CHLORIDE 0.9% 500 ML IV STA (00:29)
[2020-01-13] MEDS ORDERED: ONDANSETRON 4 MG/2 ML VIAL IV STA (00:29)
[2020-01-13] MEDS ORDERED: GLUCAGON 1 MG VIAL IM PRN (02:39)
[2020-01-13] MEDS ORDERED: DOCUSATE SODIUM 100 MG CAPSULE PO PRN (02:39)
[2020-01-13] MEDS ORDERED: ONDANSETRON 4 MG/2 ML VIAL IV PRN (02:39)
[2020-01-13] MEDS ORDERED: MEROPENEM 2,000 MG in SODIUM CHLORIDE 0.9% 100 ML IV SCH (02:39)
[2020-01-13] MEDS ORDERED: DEXTROSE 10% 250 ML BAG IV PRN (03:02)
[2020-01-13] MEDS: SODIUM CHLORIDE 0.9% 1,000 ML IV SCH ×2 (03:30→16:14)
[2020-01-13] MEDS: MEROPENEM 500 MG in SODIUM CHLORIDE 0.9% 100 ML IV SCH ×3 (03:30→21:43)
[2020-01-13 04:55] LABS: Basophils # 0.1 10*3/uL (0.0-0.2); Basophils % 0.4 % (0.0-0.8); Eosinophils # 0.1 10*3/uL (0.0-0.87); Eosinophils % 0.6 % (0.00-10.9); Hematocrit 41.2 VOL% (35.7-47.0); Hemoglobin 12.4 GM/DL (12.0-16.0); Immature Granulocytes % 0.6 %; Immature Granulocytes Absolute 0.11 #; Lymphocytes # 2.8 10*3/uL (1.4-4.0); Lymphocytes % 14.5 % (21.3-54.2); Mean Corpuscular HGB Conc 30.1 GM/DL (32-36); Mean Corpuscular Volume 96.3 FL (87-102); Mean Platelet Volume 10.8 FL (9.6-12.0); Monocytes % 1.9 % (1.7-12.7); Platelet Count 221 T/CUMM (130-400); Red Blood Count 4.28 MC/CUMM (3.8-5.5); Red Cell Distribution Width 14.2 % (9.3-17.3); White Blood Count 19.5 T/CUMM (4-12)
[2020-01-13 05:15] LABS: Calcium 8.1 MG/DL (8.5-10.1)
[2020-01-13] MEDS: oxyCODONE/ACETAMINOPHEN 5-325 MG TABLET PO PRN (06:10)
[2020-01-13] MEDS: ENOXAPARIN 40 MG/0.4 ML SYRINGE SUBCUT SCH (09:40)
[2020-01-13] MEDS: INSULIN LISPRO 100 UNIT/ML SUBCUT SCH ×4 (09:40→22:01)
[2020-01-13] MEDS: ACETAMINOPHEN 325 MG TABLET PO PRN (09:45)
[2020-01-13] MEDS ORDERED: NITROGLYCERIN SL 0.4 MG TABLET SL PRN (14:36)
[2020-01-13] MEDS: CALCIUM (CARBONATE) 600 MG TABLET PO SCH (18:40)
[2020-01-13] MEDS: MAGNESIUM OXIDE 400 MG TABLET PO SCH ×2 (18:40→21:46)
[2020-01-13] MEDS: SIMVASTATIN 10 MG TABLET PO SCH (21:43)
[2020-01-14] MEDS: SODIUM CHLORIDE 0.9% 1,000 ML IV SCH ×3 (00:25→20:52)
[2020-01-14] MEDS: MEROPENEM 500 MG in SODIUM CHLORIDE 0.9% 100 ML IV SCH ×3 (03:30→21:02)
[2020-01-14] MEDS: ACETAMINOPHEN 325 MG TABLET PO PRN (04:51)
[2020-01-14 05:10] LABS: Basophils % 0.2 % (0.0-0.8); Eosinophils # 0.1 10*3/uL (0.0-0.87); Eosinophils % 0.8 % (0.00-10.9); Hematocrit 33.8 VOL% (35.7-47.0); Hemoglobin 10.4 GM/DL (12.0-16.0); Immature Granulocytes % 0.9 %; Immature Granulocytes Absolute 0.15 #; Lymphocytes # 2.3 10*3/uL (1.4-4.0); Lymphocytes % 13.7 % (21.3-54.2); Mean Corpuscular HGB Conc 30.8 GM/DL (32-36); Mean Corpuscular Volume 94.2 FL (87-102); Mean Platelet Volume 10.7 FL (9.6-12.0); Monocytes % 4.5 % (1.7-12.7); Neutrophils % 79.9 % (38.7-73.9); Platelet Count 158 T/CUMM (130-400); Red Blood Count 3.59 MC/CUMM (3.8-5.5); Red Cell Distribution Width 14.1 % (9.3-17.3); White Blood Count 16.6 T/CUMM (4-12)
[2020-01-14 05:24] LABS: Calcium 7.2 MG/DL (8.5-10.1); Osmolality,Calculated 283.1 MOS/KG (273-304)
[2020-01-14 05:32] LABS: Band Neutrophils 3 % (0-10); Eosinophils 1 % (0-10); Hypochromasia Slight; Lymphocytes 8 % (20-55); Platelet Estimate Adequate; Segmented Neutrophils 86 % (50-85); Total Cells Counted 100
[2020-01-14] MEDS ORDERED: NON-FORMULARY MEDICATION (Ticagrelor [Brilinta] 60 MG) PO SCH (09:00)
[2020-01-14] MEDS: INSULIN LISPRO 100 UNIT/ML SUBCUT SCH ×4 (09:49→21:02)
[2020-01-14] MEDS: ENOXAPARIN 40 MG/0.4 ML SYRINGE SUBCUT SCH (09:50)
[2020-01-14] MEDS: MAGNESIUM OXIDE 400 MG TABLET PO SCH ×3 (09:50→21:04)
[2020-01-14] MEDS: ASPIRIN EC 81 MG TABLET PO SCH (09:50)
[2020-01-14] MEDS: LEVOTHYROXINE 50 MCG TABLET PO SCH (09:50)
[2020-01-14] MEDS: glipiZIDE 10 MG TABLET PO SCH (09:50)
[2020-01-14] MEDS: predniSONE 5 MG TABLET PO SCH (09:51)
[2020-01-14] MEDS: AZITHROMYCIN 250 MG TABLET PO SCH (09:51)
[2020-01-14] MEDS: CETIRIZINE 10 MG TABLET PO SCH (09:51)
[2020-01-14] MEDS: CALCIUM (CARBONATE) 600 MG TABLET PO SCH ×2 (09:51→16:10)
[2020-01-14] MEDS: TACROLIMUS 0.5 MG CAPSULE PO SCH ×4 (11:52→21:03)
[2020-01-14] MEDS: MYCOPHENOLATE MOFETIL 250 MG CAPSULE PO SCH ×2 (11:52→21:04)
[2020-01-14] MEDS: CLOPIDOGREL 75 MG TABLET PO SCH (11:52)
[2020-01-14] MEDS: oxyCODONE/ACETAMINOPHEN 5-325 MG TABLET PO PRN (12:40)
[2020-01-14] MEDS: SIMVASTATIN 10 MG TABLET PO SCH (21:04)
[2020-01-15] MEDS: MEROPENEM 500 MG in SODIUM CHLORIDE 0.9% 100 ML IV SCH ×3 (03:45→20:50)
[2020-01-15] MEDS: SODIUM CHLORIDE 0.9% 1,000 ML IV SCH ×2 (07:33→17:40)
[2020-01-15] MEDS: oxyCODONE/ACETAMINOPHEN 5-325 MG TABLET PO PRN (09:30)
[2020-01-15] MEDS: glipiZIDE 10 MG TABLET PO SCH (09:30)
[2020-01-15] MEDS: ENOXAPARIN 40 MG/0.4 ML SYRINGE SUBCUT SCH (09:30)
[2020-01-15] MEDS: AZITHROMYCIN 250 MG TABLET PO SCH (09:30)
[2020-01-15] MEDS: MYCOPHENOLATE MOFETIL 250 MG CAPSULE PO SCH ×2 (09:30→20:50)
[2020-01-15] MEDS: CETIRIZINE 10 MG TABLET PO SCH (09:30)
[2020-01-15] MEDS: TACROLIMUS 0.5 MG CAPSULE PO SCH ×2 (09:30→20:50)
[2020-01-15] MEDS: INSULIN LISPRO 100 UNIT/ML SUBCUT SCH ×4 (09:30→23:41)
[2020-01-15] MEDS: predniSONE 5 MG TABLET PO SCH (09:30)
[2020-01-15] MEDS: LEVOTHYROXINE 50 MCG TABLET PO SCH (09:30)
[2020-01-15] MEDS: ASPIRIN EC 81 MG TABLET PO SCH (09:30)
[2020-01-15] MEDS: CLOPIDOGREL 75 MG TABLET PO SCH (09:30)
[2020-01-15] MEDS: MAGNESIUM OXIDE 400 MG TABLET PO SCH ×3 (09:30→20:50)
[2020-01-15] MEDS: CALCIUM (CARBONATE) 600 MG TABLET PO SCH ×2 (09:30→16:43)
[2020-01-15 10:13] LABS: Basophils % 0.3 % (0.0-0.8); Eosinophils # 0.2 10*3/uL (0.0-0.87); Eosinophils % 1.8 % (0.00-10.9); Hematocrit 33.4 VOL% (35.7-47.0); Hemoglobin 10.3 GM/DL (12.0-16.0); Immature Granulocytes % 0.6 %; Immature Granulocytes Absolute 0.07 #; Lymphocytes # 2.6 10*3/uL (1.4-4.0); Lymphocytes % 23.6 % (21.3-54.2); Mean Corpuscular HGB Conc 30.8 GM/DL (32-36); Mean Corpuscular Volume 94.4 FL (87-102); Mean Platelet Volume 11.3 FL (9.6-12.0); Monocytes % 6.3 % (1.7-12.7); Neutrophils % 67.4 % (38.7-73.9); Platelet Count 137 T/CUMM (130-400); Red Blood Count 3.54 MC/CUMM (3.8-5.5); Red Cell Distribution Width 13.9 % (9.3-17.3)
[2020-01-15 10:27] LABS: Calcium 7.1 MG/DL (8.5-10.1); Osmolality,Calculated 284.5 MOS/KG (273-304)
[2020-01-15] MEDS: SIMVASTATIN 10 MG TABLET PO SCH (20:50)
[2020-01-16] MEDS: SODIUM CHLORIDE 0.9% 1,000 ML IV SCH ×2 (03:55→14:32)
[2020-01-16] MEDS: MEROPENEM 500 MG in SODIUM CHLORIDE 0.9% 100 ML IV SCH (04:35)
[2020-01-16 07:25] LABS: Basophils % 0.3 % (0.0-0.8); Eosinophils # 0.2 10*3/uL (0.0-0.87); Eosinophils % 3.2 % (0.00-10.9); Hematocrit 32.8 VOL% (35.7-47.0); Hemoglobin 10.4 GM/DL (12.0-16.0); Immature Granulocytes % 0.6 %; Immature Granulocytes Absolute 0.04 #; Lymphocytes # 1.8 10*3/uL (1.4-4.0); Lymphocytes % 25.5 % (21.3-54.2); Mean Corpuscular HGB Conc 31.7 GM/DL (32-36); Mean Corpuscular Volume 91.4 FL (87-102); Monocytes % 7.5 % (1.7-12.7); Neutrophils % 62.9 % (38.7-73.9); Platelet Count 126 T/CUMM (130-400); Red Blood Count 3.59 MC/CUMM (3.8-5.5); Red Cell Distribution Width 13.7 % (9.3-17.3); White Blood Count 7.2 T/CUMM (4-12)
[2020-01-16 07:39] LABS: Calcium 7.7 MG/DL (8.5-10.1); Osmolality,Calculated 285.4 MOS/KG (273-304)
[2020-01-16] MEDS: MYCOPHENOLATE MOFETIL 250 MG CAPSULE PO SCH (08:53)
[2020-01-16] MEDS: CETIRIZINE 10 MG TABLET PO SCH (08:53)
[2020-01-16] MEDS: glipiZIDE 10 MG TABLET PO SCH (08:54)
[2020-01-16] MEDS: TACROLIMUS 0.5 MG CAPSULE PO SCH (08:54)
[2020-01-16] MEDS: CALCIUM (CARBONATE) 600 MG TABLET PO SCH (08:54)
[2020-01-16] MEDS: MAGNESIUM OXIDE 400 MG TABLET PO SCH ×2 (08:54→16:24)
[2020-01-16] MEDS: predniSONE 5 MG TABLET PO SCH (08:54)
[2020-01-16] MEDS: LEVOTHYROXINE 50 MCG TABLET PO SCH (08:54)
[2020-01-16] MEDS: ENOXAPARIN 40 MG/0.4 ML SYRINGE SUBCUT SCH (08:55)
[2020-01-16] MEDS: ASPIRIN EC 81 MG TABLET PO SCH (08:55)
[2020-01-16] MEDS: CLOPIDOGREL 75 MG TABLET PO SCH (08:55)
[2020-01-16] MEDS: INSULIN LISPRO 100 UNIT/ML SUBCUT SCH ×2 (10:38→14:30)
[2020-01-16] MEDS ORDERED: ERTAPENEM 1,000 MG in SODIUM CHLORIDE 0.9% 100 ML IV SCH (12:00)
[2020-01-16 14:37] VITALS: BP 181/78
== END 2020-01-16 15:25 | disposition home health service (06) | DRG 871 ==
LOC: N.ED 20:34 → N.EDINP 01-13 02:10 → SUATTDRO 01-13 02:10 → N.2E 01-13 02:30
PROVIDERS: ADMIT Internal Medicine; ATTEND Internal Medicine

== ENCOUNTER 2020-07-14 13:22 | Inpatient (IN) ==
[2020-07-14] MEDS ORDERED: ONDANSETRON 4 MG/2 ML VIAL IV PRN (19:29)
[2020-07-14] MEDS ORDERED: GLUCAGON 1 MG VIAL IM PRN ×2 (19:29)
[2020-07-14] MEDS ORDERED: DEXTROSE 50% 25 GM/50 ML VIAL IV PRN ×2 (19:29)
[2020-07-14] MEDS ORDERED: tiZANidine 4 MG TABLET PO PRN (19:37)
[2020-07-14] MEDS ORDERED: NITROGLYCERIN SL 0.4 MG TABLET SL PRN (19:37)
[2020-07-14] MEDS: ENOXAPARIN 40 MG/0.4 ML SYRINGE SUBCUT SCH (20:55)
[2020-07-14] MEDS: PIPERACILLIN/TAZOBACTAM 3,375 MG in SODIUM CHLORIDE 0.9% 100 ML IV SCH (20:55)
[2020-07-14] MEDS: SODIUM CHLORIDE 0.45% 1,000 ML IV SCH (21:06)
[2020-07-14] MEDS: TACROLIMUS 0.5 MG CAPSULE PO SCH (21:13)
[2020-07-14] MEDS: SIMVASTATIN 10 MG TABLET PO SCH (21:14)
[2020-07-14] MEDS: GABAPENTIN 400 MG CAPSULE PO SCH (21:15)
[2020-07-14] MEDS: MYCOPHENOLATE MOFETIL 250 MG CAPSULE PO SCH (21:15)
[2020-07-14] MEDS: CALCIUM (CARBONATE) 600 MG TABLET PO SCH (21:16)
[2020-07-14] MEDS: MAGNESIUM OXIDE 400 MG TABLET PO SCH (22:13)
[2020-07-14] MEDS: oxyCODONE/ACETAMINOPHEN 5-325 MG TABLET PO PRN (22:40)
[2020-07-15] MEDS: PIPERACILLIN/TAZOBACTAM 3,375 MG in SODIUM CHLORIDE 0.9% 100 ML IV SCH ×2 (05:10→17:50)
[2020-07-15] MEDS: SODIUM CHLORIDE 0.45% 1,000 ML IV SCH ×2 (06:00→23:43)
[2020-07-15] MEDS: LEVOTHYROXINE 50 MCG TABLET PO SCH (06:26)
[2020-07-15 07:01] LABS: Basophils % 0.4 % (0.0-0.8); Eosinophils # 0.5 10*3/uL (0.0-0.87); Eosinophils % 4.8 % (0.00-10.9); Hematocrit 41.2 VOL% (35.7-47.0); Hemoglobin 13.2 GM/DL (12.0-16.0); Immature Granulocytes % 0.4 %; Immature Granulocytes Absolute 0.04 #; Lymphocytes # 5.1 10*3/uL (1.4-4.0); Lymphocytes % 49.7 % (21.3-54.2); Mean Corpuscular Volume 92.8 FL (87-102); Mean Platelet Volume 10.1 FL (9.6-12.0); Monocytes % 9.5 % (1.7-12.7); Neutrophils % 35.2 % (38.7-73.9); Platelet Count 318 T/CUMM (130-400); Red Blood Count 4.44 MC/CUMM (3.8-5.5); Red Cell Distribution Width 13.1 % (9.3-17.3); White Blood Count 10.3 T/CUMM (4-12)
[2020-07-15 07:19] LABS: Calcium 9.1 MG/DL (8.5-10.1)
[2020-07-15 07:23] LABS: Eosinophils 4 % (0-10); Lymphocytes 55 % (20-55); Segmented Neutrophils 36 % (50-85); Total Cells Counted 100
[2020-07-15 07:24] LABS: Atypical Lymphocytes Few; Hypochromasia 1+; Microcytosis 1+; Platelet Estimate Adequate
[2020-07-15 07:43] LABS: Bacteria,Urine Occasional /HPF (Few); Bilirubin,Urine Negative (Negative); Blood, Urine Negative (Negative); Glucose,Urine (UA) 150 mg/dL (Negative); Ketones,Urine Negative (Negative); Nitrite,Urine Negative (Negative); Protein,Urine Negative; RBC,Urine <1 /HPF (0-4); Squamous Epithelial Cell,Urine Occasional /HPF (0-10); Urine Appearance CLEAR (Clear); Urine Color Straw (Yellow); Urine Specific Gravity 1.013 (1.001-1.035); Urine Urobilinogen < 2.0 EU/DL (0.2-1.0); WBC,Urine 8 /HPF (0-6)
[2020-07-15] MEDS ORDERED: MAGNESIUM SULF RIDER 4 GM in PREMIX 1 EACH IV ONE (09:00)
[2020-07-15] MEDS ORDERED: PANTOPRAZOLE 40 MG TABLET PO SCH (09:00)
[2020-07-15] MEDS: MYCOPHENOLATE MOFETIL 250 MG CAPSULE PO SCH ×2 (11:15→22:18)
[2020-07-15] MEDS: CITALOPRAM 40 MG TABLET PO SCH (11:17)
[2020-07-15] MEDS: CLOPIDOGREL 75 MG TABLET PO SCH (11:17)
[2020-07-15] MEDS: GABAPENTIN 400 MG CAPSULE PO SCH ×3 (11:17→22:16)
[2020-07-15] MEDS: hydroCHLOROthiazide 25 MG TABLET PO SCH (11:18)
[2020-07-15] MEDS: LOSARTAN 25 MG TABLET PO SCH (11:18)
[2020-07-15] MEDS: predniSONE 5 MG TABLET PO SCH (11:18)
[2020-07-15] MEDS: MAGNESIUM OXIDE 400 MG TABLET PO SCH ×3 (11:19→22:17)
[2020-07-15] MEDS: CALCIUM (CARBONATE) 600 MG TABLET PO SCH ×2 (11:19→22:16)
[2020-07-15] MEDS: TACROLIMUS 0.5 MG CAPSULE PO SCH ×2 (11:20→22:17)
[2020-07-15] MEDS: INSULIN NPH/REGULAR 70/30 100 UNIT/ML SUBCUT SCH ×2 (13:36→17:48)
[2020-07-15] MEDS: oxyCODONE/ACETAMINOPHEN 5-325 MG TABLET PO PRN (15:09)
[2020-07-15] MEDS: SIMVASTATIN 10 MG TABLET PO SCH (22:17)
[2020-07-15] MEDS: ENOXAPARIN 40 MG/0.4 ML SYRINGE SUBCUT SCH (22:20)
[2020-07-16] MEDS: PIPERACILLIN/TAZOBACTAM 3,375 MG in SODIUM CHLORIDE 0.9% 100 ML IV SCH ×2 (01:52→09:30)
[2020-07-16] MEDS: SODIUM CHLORIDE 0.45% 1,000 ML IV SCH ×4 (05:00→23:55)
[2020-07-16] MEDS: LEVOTHYROXINE 50 MCG TABLET PO SCH (08:20)
[2020-07-16] MEDS: MYCOPHENOLATE MOFETIL 250 MG CAPSULE PO SCH ×2 (09:31→21:43)
[2020-07-16] MEDS: hydroCHLOROthiazide 25 MG TABLET PO SCH (09:31)
[2020-07-16] MEDS: MAGNESIUM OXIDE 400 MG TABLET PO SCH ×3 (09:31→21:42)
[2020-07-16] MEDS: INSULIN NPH/REGULAR 70/30 100 UNIT/ML SUBCUT SCH ×2 (09:31→17:35)
[2020-07-16] MEDS: CITALOPRAM 40 MG TABLET PO SCH (09:31)
[2020-07-16] MEDS: LOSARTAN 25 MG TABLET PO SCH (09:31)
[2020-07-16] MEDS: CALCIUM (CARBONATE) 600 MG TABLET PO SCH ×2 (09:31→21:43)
[2020-07-16] MEDS: predniSONE 5 MG TABLET PO SCH (09:32)
[2020-07-16] MEDS: TACROLIMUS 0.5 MG CAPSULE PO SCH ×2 (09:32→21:43)
[2020-07-16] MEDS: GABAPENTIN 400 MG CAPSULE PO SCH ×3 (09:32→21:42)
[2020-07-16] MEDS: CLOPIDOGREL 75 MG TABLET PO SCH (09:32)
[2020-07-16] MEDS: MEROPENEM 500 MG in SODIUM CHLORIDE 0.9% 100 ML IV SCH ×3 (10:31→21:41)
[2020-07-16] MEDS: oxyCODONE/ACETAMINOPHEN 5-325 MG TABLET PO PRN (18:29)
[2020-07-16] MEDS: SIMVASTATIN 10 MG TABLET PO SCH (21:42)
[2020-07-16] MEDS: ENOXAPARIN 40 MG/0.4 ML SYRINGE SUBCUT SCH (21:42)
[2020-07-17] MEDS: MEROPENEM 500 MG in SODIUM CHLORIDE 0.9% 100 ML IV SCH ×3 (03:29→17:08)
[2020-07-17] MEDS: LEVOTHYROXINE 50 MCG TABLET PO SCH (06:05)
[2020-07-17 06:23] LABS: Basophils # 0.1 10*3/uL (0.0-0.2); Basophils % 0.5 % (0.0-0.8); Eosinophils # 0.6 10*3/uL (0.0-0.87); Eosinophils % 5.9 % (0.00-10.9); Hematocrit 39.5 VOL% (35.7-47.0); Hemoglobin 12.8 GM/DL (12.0-16.0); Immature Granulocytes % 0.4 %; Immature Granulocytes Absolute 0.04 #; Lymphocytes # 4.7 10*3/uL (1.4-4.0); Lymphocytes % 47.9 % (21.3-54.2); Mean Corpuscular HGB Conc 32.4 GM/DL (32-36); Mean Corpuscular Volume 91.6 FL (87-102); Mean Platelet Volume 10.2 FL (9.6-12.0); Monocytes % 8.8 % (1.7-12.7); Neutrophils % 36.5 % (38.7-73.9); Platelet Count 284 T/CUMM (130-400); Red Blood Count 4.31 MC/CUMM (3.8-5.5); White Blood Count 9.9 T/CUMM (4-12)
[2020-07-17 06:47] LABS: Eosinophils 7 % (0-10); Lymphocytes 46 % (20-55); Platelet Estimate Adequate; Segmented Neutrophils 42 % (50-85); Total Cells Counted 100
[2020-07-17 06:48] LABS: Atypical Lymphocytes Few; Hypochromasia 1+; Microcytosis Slight
[2020-07-17 06:56] LABS: Calcium 8.9 MG/DL (8.5-10.1); Osmolality,Calculated 288.4 MOS/KG (273-304)
[2020-07-17] MEDS: oxyCODONE/ACETAMINOPHEN 5-325 MG TABLET PO PRN (08:20)
[2020-07-17] MEDS: CITALOPRAM 40 MG TABLET PO SCH (08:22)
[2020-07-17] MEDS: CALCIUM (CARBONATE) 600 MG TABLET PO SCH (08:22)
[2020-07-17] MEDS: MYCOPHENOLATE MOFETIL 250 MG CAPSULE PO SCH (08:23)
[2020-07-17] MEDS: MAGNESIUM OXIDE 400 MG TABLET PO SCH ×2 (08:23→14:00)
[2020-07-17] MEDS: TACROLIMUS 0.5 MG CAPSULE PO SCH (08:24)
[2020-07-17] MEDS: LOSARTAN 25 MG TABLET PO SCH (08:24)
[2020-07-17] MEDS: GABAPENTIN 400 MG CAPSULE PO SCH ×2 (08:24→14:00)
[2020-07-17] MEDS: CLOPIDOGREL 75 MG TABLET PO SCH (08:24)
[2020-07-17] MEDS: predniSONE 5 MG TABLET PO SCH (08:24)
[2020-07-17] MEDS: hydroCHLOROthiazide 25 MG TABLET PO SCH (08:25)
[2020-07-17] MEDS: INSULIN NPH/REGULAR 70/30 100 UNIT/ML SUBCUT SCH (08:25)
[2020-07-17] MEDS ORDERED: MAGNESIUM SULF RIDER 4 GM in PREMIX 1 EACH IV ONE (10:00)
[2020-07-17] MEDS: SODIUM CHLORIDE 0.45% 1,000 ML IV SCH (14:40)
[2020-07-17 15:58] VITALS: BP 100/53
== END 2020-07-17 17:28 | disposition home or self-care (01) | DRG 689 ==
LOC: N.5E → SUATTDRO 17:29
PROVIDERS: ADMIT Internal Medicine; ATTEND Internal Medicine

== ENCOUNTER 2020-09-02 21:56 | Inpatient (IN) ==
[2020-09-02 22:35] LABS: Basophils % 0.3 % (0.0-0.8); Eosinophils # 0.1 10*3/uL (0.0-0.87); Eosinophils % 0.7 % (0.00-10.9); Hemoglobin 12.9 GM/DL (12.0-16.0); Immature Granulocytes % 0.5 %; Immature Granulocytes Absolute 0.05 #; Lymphocytes # 2.4 10*3/uL (1.4-4.0); Mean Corpuscular HGB Conc 33.1 GM/DL (32-36); Mean Corpuscular Volume 90.1 FL (87-102); Monocytes % 8.8 % (1.7-12.7); Neutrophils % 65.7 % (38.7-73.9); Platelet Count 323 T/CUMM (130-400); Red Blood Count 4.33 MC/CUMM (3.8-5.5); Red Cell Distribution Width 13.2 % (9.3-17.3); White Blood Count 10.1 T/CUMM (4-12)
[2020-09-02] MEDS ORDERED: ALUM/MAG/SIMETH/LIDO VISC 1:1 30 ML BOTTLE PO STA (22:44)
[2020-09-02] MEDS ORDERED: NITROGLYCERIN 2% OINT 1 INCH/GM PACK TOP STA (22:44)
[2020-09-02] MEDS ORDERED: MORPHINE 4 MG/1 ML VIAL IV STA (22:44)
[2020-09-02] MEDS ORDERED: ONDANSETRON 4 MG/2 ML VIAL IV STA (22:44)
[2020-09-02] MEDS ORDERED: ASPIRIN 325 MG TABLET PO STA (22:44)
[2020-09-02 23:02] LABS: Albumin 3.5 G/DL (3.4-5.0); Bilirubin,Total 0.7 MG/DL (0.2-1.0); Calcium 9.4 MG/DL (8.5-10.1); Osmolality,Calculated 286.8 MOS/KG (273-304); Potassium 3.6 MMOL/L (3.5-5.1); Total Protein 7.3 G/DL (6.4-8.3)
[2020-09-02] MEDS ORDERED: MAGNESIUM SULF RIDER 2 GM in PREMIX 1 EACH IV STA (23:24)
[2020-09-03] MEDS ORDERED: NITROGLYCERIN SL 0.4 MG TABLET SL PRN
[2020-09-03] MEDS ORDERED: ONDANSETRON 4 MG/2 ML VIAL IV PRN (00:03)
[2020-09-03] MEDS ORDERED: GLUCAGON 1 MG VIAL IM PRN ×3 (00:03→13:58)
[2020-09-03] MEDS ORDERED: DEXTROSE 50% 25 GM/50 ML VIAL IV PRN ×3 (00:03→13:58)
[2020-09-03] MEDS ORDERED: ACETAMINOPHEN 325 MG TABLET PO PRN (00:03)
[2020-09-03] MEDS ORDERED: traMADol 50 MG TABLET PO PRN (00:03)
[2020-09-03] MEDS ORDERED: BISACODYL 5 MG TABLET PO PRN (00:03)
[2020-09-03 02:05] LABS: CKMB % 3.3 %
[2020-09-03 02:08] LABS: Troponin I 0.709 NG/ML (0.00-0.045)
[2020-09-03] MEDS ORDERED: tiZANidine 4 MG TABLET PO PRN (06:46)
[2020-09-03] MEDS ORDERED: ENOXAPARIN 80 MG/0.8 ML SYRINGE SUBCUT SCH (07:00)
[2020-09-03] MEDS: INSULIN LISPRO 100 UNIT/ML SUBCUT SCH ×4 (08:16→20:37)
[2020-09-03 08:22] LABS: CKMB % 6.2 %
[2020-09-03 08:25] LABS: Troponin I 2.32 NG/ML (0.00-0.045)
[2020-09-03] MEDS: MAGNESIUM OXIDE 400 MG TABLET PO SCH ×3 (08:52→20:37)
[2020-09-03] MEDS: LOSARTAN 25 MG TABLET PO SCH (08:52)
[2020-09-03] MEDS: GABAPENTIN 400 MG CAPSULE PO SCH ×3 (08:53→20:37)
[2020-09-03] MEDS: CALCIUM (CARBONATE) 600 MG TABLET PO SCH ×2 (08:53→20:37)
[2020-09-03] MEDS: CITALOPRAM 40 MG TABLET PO SCH (08:53)
[2020-09-03] MEDS ORDERED: CLOPIDOGREL 75 MG TABLET PO SCH (09:00)
[2020-09-03] MEDS ORDERED: ENOXAPARIN 40 MG/0.4 ML SYRINGE SUBCUT SCH (09:00)
[2020-09-03] MEDS ORDERED: DIAZEPAM 5 MG TABLET PO ONE (09:29)
[2020-09-03] MEDS ORDERED: MAGNESIUM SULF RIDER 2 GM in PREMIX 1 EACH IV PRN (09:29)
[2020-09-03] MEDS ORDERED: diphenhydrAMINE CAP 25 MG CAPSULE PO ONE (09:29)
[2020-09-03] MEDS ORDERED: POTASSIUM CHLORIDE RIDER 10 MEQ in PREMIX 1 EACH IV PRN (09:29)
[2020-09-03] MEDS ORDERED: SODIUM CHLORIDE 0.9% 1,000 ML IV SCH (09:30)
[2020-09-03] MEDS ORDERED: MIDAZOLAM 2 MG/2 ML VIAL ONE (12:33)
[2020-09-03] MEDS ORDERED: fentaNYL 100 MCG/2 ML VIAL ONE (12:33)
[2020-09-03] MEDS ORDERED: LIDOCAINE 1% 20 ML VIAL ONE (13:32)
[2020-09-03] MEDS: INSULIN GLARGINE 100 UNIT/ML SUBCUT SCH (14:10)
[2020-09-03 15:04] LABS: Risk Ratio 2.89; VLDL CHOLESTEROL 29.4 MG/DL
[2020-09-03] MEDS: amLODIPine 5 MG TABLET PO SCH (15:35)
[2020-09-03] MEDS: carvediloL 3.125 MG TABLET PO SCH ×2 (15:35→20:37)
[2020-09-03] MEDS: MYCOPHENOLATE MOFETIL 250 MG CAPSULE PO SCH ×2 (15:35→20:37)
[2020-09-03] MEDS: SIMVASTATIN 10 MG TABLET PO SCH (20:37)
[2020-09-04] MEDS: ZALEPLON 5 MG CAPSULE PO PRN (02:25)
[2020-09-04] MEDS: LEVOTHYROXINE 50 MCG TABLET PO SCH (05:36)
[2020-09-04 05:50] LABS: Basophils % 0.3 % (0.0-0.8); Eosinophils # 0.5 10*3/uL (0.0-0.87); Eosinophils % 4.3 % (0.00-10.9); Hematocrit 36.1 VOL% (35.7-47.0); Hemoglobin 11.4 GM/DL (12.0-16.0); Immature Granulocytes % 0.4 %; Immature Granulocytes Absolute 0.05 #; Lymphocytes % 34.8 % (21.3-54.2); Mean Corpuscular HGB Conc 31.6 GM/DL (32-36); Mean Platelet Volume 10.1 FL (9.6-12.0); Monocytes % 9.8 % (1.7-12.7); Neutrophils % 50.4 % (38.7-73.9); Platelet Count 293 T/CUMM (130-400); Red Blood Count 3.88 MC/CUMM (3.8-5.5); Red Cell Distribution Width 13.6 % (9.3-17.3); White Blood Count 11.4 T/CUMM (4-12)
[2020-09-04 06:50] LABS: Calcium 8.9 MG/DL (8.5-10.1); Osmolality,Calculated 288.5 MOS/KG (273-304)
[2020-09-04] MEDS: INSULIN LISPRO 100 UNIT/ML SUBCUT SCH ×4 (09:14→21:48)
[2020-09-04] MEDS: INSULIN GLARGINE 100 UNIT/ML SUBCUT SCH (09:15)
[2020-09-04] MEDS: MYCOPHENOLATE MOFETIL 250 MG CAPSULE PO SCH ×3 (09:15→21:46)
[2020-09-04] MEDS: amLODIPine 5 MG TABLET PO SCH (09:16)
[2020-09-04] MEDS: carvediloL 3.125 MG TABLET PO SCH (09:16)
[2020-09-04] MEDS: ASPIRIN EC 325 MG TABLET PO SCH (09:16)
[2020-09-04] MEDS: LOSARTAN 25 MG TABLET PO SCH (09:16)
[2020-09-04] MEDS: GABAPENTIN 400 MG CAPSULE PO SCH ×3 (09:16→21:46)
[2020-09-04] MEDS: MAGNESIUM OXIDE 400 MG TABLET PO SCH ×3 (09:16→21:46)
[2020-09-04] MEDS: CITALOPRAM 40 MG TABLET PO SCH (09:16)
[2020-09-04] MEDS: CALCIUM (CARBONATE) 600 MG TABLET PO SCH ×2 (09:16→21:46)
[2020-09-04] MEDS ORDERED: POLYETHYLENE GLYCOL POWDER 17 GM PACK PO PRN (09:29)
[2020-09-04] MEDS ORDERED: LOSARTAN 50 MG TABLET PO SCH (11:59)
[2020-09-04] MEDS ORDERED: INSULIN GLARGINE 100 UNIT/ML SUBCUT SCH (12:01)
[2020-09-04] MEDS: carvediloL 6.25 MG TABLET PO SCH ×2 (12:54→21:46)
[2020-09-04] MEDS: PSYLLIUM POWDER 3.7 GM/PACK PO SCH (12:55)
[2020-09-04] MEDS: INSULIN REGULAR 100 UNIT/ML SUBCUT SCH (12:55)
[2020-09-04] MEDS ORDERED: INSULIN REGULAR 100 UNIT/ML SUBCUT SCH (16:30)
[2020-09-04] MEDS: SIMVASTATIN 10 MG TABLET PO SCH (21:46)
[2020-09-05] MEDS: ZALEPLON 5 MG CAPSULE PO PRN (02:21)
[2020-09-05] MEDS: LEVOTHYROXINE 50 MCG TABLET PO SCH (07:13)
[2020-09-05] MEDS ORDERED: INSULIN REGULAR 100 UNIT/ML SUBCUT SCH (07:30)
[2020-09-05] MEDS: ENOXAPARIN 40 MG/0.4 ML SYRINGE SUBCUT SCH (09:05)
[2020-09-05] MEDS: PSYLLIUM POWDER 3.7 GM/PACK PO SCH (09:05)
[2020-09-05] MEDS: MAGNESIUM OXIDE 400 MG TABLET PO SCH ×3 (09:06→20:34)
[2020-09-05] MEDS: MYCOPHENOLATE MOFETIL 250 MG CAPSULE PO SCH ×3 (09:06→20:34)
[2020-09-05] MEDS: CITALOPRAM 40 MG TABLET PO SCH (09:06)
[2020-09-05] MEDS: GABAPENTIN 400 MG CAPSULE PO SCH ×3 (09:06→20:34)
[2020-09-05] MEDS: carvediloL 6.25 MG TABLET PO SCH (09:06)
[2020-09-05] MEDS: CALCIUM (CARBONATE) 600 MG TABLET PO SCH ×2 (09:06→20:34)
[2020-09-05] MEDS: ASPIRIN EC 325 MG TABLET PO SCH (09:06)
[2020-09-05] MEDS: amLODIPine 5 MG TABLET PO SCH ×2 (09:07→21:50)
[2020-09-05] MEDS: INSULIN LISPRO 100 UNIT/ML SUBCUT SCH ×4 (09:07→20:36)
[2020-09-05] MEDS ORDERED: carvediloL 12.5 MG TABLET PO SCH (10:35)
[2020-09-05] MEDS ORDERED: LOSARTAN 50 MG TABLET PO SCH (10:35)
[2020-09-05 11:36] LABS: Calcium 9.2 MG/DL (8.5-10.1); Osmolality,Calculated 288.7 MOS/KG (273-304)
[2020-09-05 11:48] LABS: Basophils % 0.3 % (0.0-0.8); Eosinophils # 0.4 10*3/uL (0.0-0.87); Eosinophils % 3.4 % (0.00-10.9); Hematocrit 35.1 VOL% (35.7-47.0); Immature Granulocytes % 0.5 %; Immature Granulocytes Absolute 0.06 #; Lymphocytes # 3.7 10*3/uL (1.4-4.0); Mean Corpuscular HGB Conc 31.3 GM/DL (32-36); Mean Corpuscular Volume 95.1 FL (87-102); Mean Platelet Volume 11.1 FL (9.6-12.0); Monocytes % 9.4 % (1.7-12.7); Neutrophils % 57.4 % (38.7-73.9); Platelet Count 260 T/CUMM (130-400); Red Blood Count 3.69 MC/CUMM (3.8-5.5); Red Cell Distribution Width 13.5 % (9.3-17.3); White Blood Count 12.9 T/CUMM (4-12)
[2020-09-05] MEDS ORDERED: MAGNESIUM SULF RIDER 2 GM in PREMIX 1 EACH IV ONE (11:53)
[2020-09-05] MEDS: INSULIN REGULAR 100 UNIT/ML SUBCUT SCH ×2 (12:01→16:36)
[2020-09-05] MEDS: SIMVASTATIN 10 MG TABLET PO SCH (20:35)
[2020-09-05] MEDS: carvediloL 12.5 MG TABLET PO SCH ×2 (22:47→22:48)
[2020-09-06 06:00] LABS: Basophils # 0.1 10*3/uL (0.0-0.2); Basophils % 0.5 % (0.0-0.8); Eosinophils # 0.5 10*3/uL (0.0-0.87); Eosinophils % 3.8 % (0.00-10.9); Hemoglobin 10.8 GM/DL (12.0-16.0); Immature Granulocytes % 0.5 %; Immature Granulocytes Absolute 0.06 #; Lymphocytes # 3.9 10*3/uL (1.4-4.0); Lymphocytes % 29.3 % (21.3-54.2); Mean Corpuscular HGB Conc 31.8 GM/DL (32-36); Mean Corpuscular Volume 93.7 FL (87-102); Mean Platelet Volume 10.3 FL (9.6-12.0); Neutrophils % 56.9 % (38.7-73.9); Platelet Count 256 T/CUMM (130-400); Red Blood Count 3.63 MC/CUMM (3.8-5.5); Red Cell Distribution Width 13.4 % (9.3-17.3); White Blood Count 13.3 T/CUMM (4-12)
[2020-09-06 06:23] LABS: Calcium 9.3 MG/DL (8.5-10.1); Osmolality,Calculated 284.8 MOS/KG (273-304); Potassium 4.2 MMOL/L (3.5-5.1)
[2020-09-06] MEDS: LEVOTHYROXINE 50 MCG TABLET PO SCH (07:14)
[2020-09-06] MEDS: INSULIN REGULAR 100 UNIT/ML SUBCUT SCH ×3 (09:17→16:01)
[2020-09-06] MEDS: INSULIN GLARGINE 100 UNIT/ML SUBCUT SCH ×2 (09:17→21:50)
[2020-09-06] MEDS: PSYLLIUM POWDER 3.7 GM/PACK PO SCH (09:18)
[2020-09-06] MEDS: POLYETHYLENE GLYCOL POWDER 17 GM PACK PO SCH (09:18)
[2020-09-06] MEDS: carvediloL 25 MG TABLET PO SCH ×2 (09:18→21:09)
[2020-09-06] MEDS: MYCOPHENOLATE MOFETIL 250 MG CAPSULE PO SCH ×3 (09:18→21:08)
[2020-09-06] MEDS: ENOXAPARIN 40 MG/0.4 ML SYRINGE SUBCUT SCH (09:18)
[2020-09-06] MEDS: CALCIUM (CARBONATE) 600 MG TABLET PO SCH ×2 (09:19→21:09)
[2020-09-06] MEDS: MAGNESIUM OXIDE 400 MG TABLET PO SCH ×3 (09:19→21:09)
[2020-09-06] MEDS: ASPIRIN EC 325 MG TABLET PO SCH (09:19)
[2020-09-06] MEDS: LOSARTAN 50 MG TABLET PO SCH (09:19)
[2020-09-06] MEDS: CITALOPRAM 40 MG TABLET PO SCH (09:19)
[2020-09-06] MEDS: GABAPENTIN 400 MG CAPSULE PO SCH ×3 (09:19→21:09)
[2020-09-06] MEDS: amLODIPine 5 MG TABLET PO SCH (09:19)
[2020-09-06] MEDS: INSULIN LISPRO 100 UNIT/ML SUBCUT SCH ×4 (09:23→21:47)
[2020-09-06] MEDS ORDERED: MAGNESIUM CITRATE 300 ML BOTTLE PO ONE (10:01)
[2020-09-06] MEDS: metFORMIN 500 MG TABLET PO SCH (17:14)
[2020-09-06] MEDS: SIMVASTATIN 10 MG TABLET PO SCH (21:09)
[2020-09-07] MEDS: LEVOTHYROXINE 50 MCG TABLET PO SCH (06:03)
[2020-09-07 06:23] LABS: Basophils % 0.4 % (0.0-0.8); Eosinophils # 0.5 10*3/uL (0.0-0.87); Eosinophils % 5.7 % (0.00-10.9); Hematocrit 35.2 VOL% (35.7-47.0); Hemoglobin 11.1 GM/DL (12.0-16.0); Immature Granulocytes % 0.4 %; Immature Granulocytes Absolute 0.04 #; Lymphocytes # 3.6 10*3/uL (1.4-4.0); Mean Corpuscular HGB Conc 31.5 GM/DL (32-36); Mean Corpuscular Volume 93.6 FL (87-102); Mean Platelet Volume 10.5 FL (9.6-12.0); Monocytes % 9.4 % (1.7-12.7); Neutrophils % 45.1 % (38.7-73.9); Platelet Count 254 T/CUMM (130-400); Red Blood Count 3.76 MC/CUMM (3.8-5.5); Red Cell Distribution Width 13.4 % (9.3-17.3); White Blood Count 9.1 T/CUMM (4-12)
[2020-09-07 06:44] LABS: Calcium 9.2 MG/DL (8.5-10.1); Osmolality,Calculated 283.7 MOS/KG (273-304); Potassium 3.8 MMOL/L (3.5-5.1)
[2020-09-07] MEDS: INSULIN GLARGINE 100 UNIT/ML SUBCUT SCH ×2 (08:50→20:41)
[2020-09-07] MEDS: CITALOPRAM 40 MG TABLET PO SCH (08:51)
[2020-09-07] MEDS: carvediloL 25 MG TABLET PO SCH ×2 (08:51→20:39)
[2020-09-07] MEDS: LOSARTAN 50 MG TABLET PO SCH (08:51)
[2020-09-07] MEDS: ASPIRIN EC 325 MG TABLET PO SCH (08:51)
[2020-09-07] MEDS: metFORMIN 500 MG TABLET PO SCH ×2 (08:51→16:29)
[2020-09-07] MEDS: MYCOPHENOLATE MOFETIL 250 MG CAPSULE PO SCH ×3 (08:51→20:40)
[2020-09-07] MEDS: CALCIUM (CARBONATE) 600 MG TABLET PO SCH ×2 (08:52→20:40)
[2020-09-07] MEDS: GABAPENTIN 400 MG CAPSULE PO SCH ×3 (08:52→20:40)
[2020-09-07] MEDS: MAGNESIUM OXIDE 400 MG TABLET PO SCH ×3 (08:52→20:39)
[2020-09-07] MEDS: amLODIPine 5 MG TABLET PO SCH (08:52)
[2020-09-07] MEDS: INSULIN LISPRO 100 UNIT/ML SUBCUT SCH ×4 (08:53→20:41)
[2020-09-07] MEDS: INSULIN REGULAR 100 UNIT/ML SUBCUT SCH ×3 (08:55→17:41)
[2020-09-07] MEDS: PSYLLIUM POWDER 3.7 GM/PACK PO SCH (09:25)
[2020-09-07] MEDS: POLYETHYLENE GLYCOL POWDER 17 GM PACK PO SCH (09:25)
[2020-09-07] MEDS: ENOXAPARIN 40 MG/0.4 ML SYRINGE SUBCUT SCH (09:28)
[2020-09-07] MEDS ORDERED: ONDANSETRON 4 MG TABLET PO PRN (09:44)
[2020-09-07] MEDS: predniSONE 5 MG TABLET PO SCH (10:29)
[2020-09-07] MEDS: TACROLIMUS 0.5 MG CAPSULE PO SCH ×2 (10:29→20:39)
[2020-09-07] MEDS ORDERED: CLORAZEPATE 3.75 MG TABLET PO PRN (12:19)
[2020-09-07] MEDS ORDERED: SERTRALINE 25 MG TABLET PO ONE (16:22)
[2020-09-07] MEDS: ASCORBIC ACID 500 MG TABLET PO SCH (20:38)
[2020-09-07] MEDS: SIMVASTATIN 10 MG TABLET PO SCH (20:39)
[2020-09-07] MEDS: SERTRALINE 50 MG TABLET PO SCH (20:39)
[2020-09-07] MEDS: ZALEPLON 5 MG CAPSULE PO PRN (23:39)
[2020-09-08] MEDS: LEVOTHYROXINE 50 MCG TABLET PO SCH (05:43)
[2020-09-08 06:55] LABS: Basophils # 0.1 10*3/uL (0.0-0.2); Basophils % 0.5 % (0.0-0.8); Eosinophils # 0.5 10*3/uL (0.0-0.87); Eosinophils % 4.8 % (0.00-10.9); Hematocrit 31.9 VOL% (35.7-47.0); Hemoglobin 10.2 GM/DL (12.0-16.0); Immature Granulocytes % 0.5 %; Immature Granulocytes Absolute 0.05 #; Lymphocytes # 4.3 10*3/uL (1.4-4.0); Lymphocytes % 41.4 % (21.3-54.2); Mean Corpuscular Volume 92.5 FL (87-102); Mean Platelet Volume 10.4 FL (9.6-12.0); Monocytes % 8.6 % (1.7-12.7); Neutrophils % 44.2 % (38.7-73.9); Platelet Count 281 T/CUMM (130-400); Red Blood Count 3.45 MC/CUMM (3.8-5.5); Red Cell Distribution Width 13.3 % (9.3-17.3); White Blood Count 10.5 T/CUMM (4-12)
[2020-09-08 07:11] LABS: Calcium 8.5 MG/DL (8.5-10.1); Osmolality,Calculated 290.7 MOS/KG (273-304); Potassium 3.8 MMOL/L (3.5-5.1)
[2020-09-08] MEDS: carvediloL 25 MG TABLET PO SCH ×2 (09:59→22:35)
[2020-09-08] MEDS: ASCORBIC ACID 500 MG TABLET PO SCH ×2 (10:00→22:35)
[2020-09-08] MEDS: TACROLIMUS 0.5 MG CAPSULE PO SCH ×2 (10:00→22:36)
[2020-09-08] MEDS: MAGNESIUM OXIDE 400 MG TABLET PO SCH ×3 (10:00→22:39)
[2020-09-08] MEDS: metFORMIN 500 MG TABLET PO SCH ×2 (10:01→18:23)
[2020-09-08] MEDS: ASPIRIN EC 325 MG TABLET PO SCH (10:01)
[2020-09-08] MEDS: CALCIUM (CARBONATE) 600 MG TABLET PO SCH ×2 (10:01→22:35)
[2020-09-08] MEDS: CITALOPRAM 20 MG TABLET PO SCH (10:01)
[2020-09-08] MEDS: GABAPENTIN 400 MG CAPSULE PO SCH ×3 (10:01→22:36)
[2020-09-08] MEDS: amLODIPine 5 MG TABLET PO SCH (10:02)
[2020-09-08] MEDS: predniSONE 5 MG TABLET PO SCH (10:02)
[2020-09-08] MEDS: LOSARTAN 50 MG TABLET PO SCH (10:02)
[2020-09-08] MEDS: MYCOPHENOLATE MOFETIL 250 MG CAPSULE PO SCH ×3 (10:02→22:35)
[2020-09-08] MEDS: ENOXAPARIN 40 MG/0.4 ML SYRINGE SUBCUT SCH (10:03)
[2020-09-08] MEDS: INSULIN GLARGINE 100 UNIT/ML SUBCUT SCH ×2 (10:04→22:37)
[2020-09-08] MEDS: INSULIN LISPRO 100 UNIT/ML SUBCUT SCH ×4 (10:05→22:38)
[2020-09-08] MEDS: INSULIN REGULAR 100 UNIT/ML SUBCUT SCH ×3 (10:05→16:42)
[2020-09-08] MEDS: PSYLLIUM POWDER 3.7 GM/PACK PO SCH (11:25)
[2020-09-08] MEDS: POLYETHYLENE GLYCOL POWDER 17 GM PACK PO SCH (11:25)
[2020-09-08] MEDS: SERTRALINE 50 MG TABLET PO SCH (22:39)
[2020-09-08] MEDS: SIMVASTATIN 10 MG TABLET PO SCH (22:42)
[2020-09-08] MEDS: traZODone 50 MG TABLET PO SCH (22:42)
[2020-09-09 05:32] LABS: Basophils % 0.4 % (0.0-0.8); Eosinophils # 0.4 10*3/uL (0.0-0.87); Eosinophils % 4.6 % (0.00-10.9); Hemoglobin 10.2 GM/DL (12.0-16.0); Immature Granulocytes % 0.5 %; Immature Granulocytes Absolute 0.05 #; Lymphocytes # 3.9 10*3/uL (1.4-4.0); Lymphocytes % 42.5 % (21.3-54.2); Mean Corpuscular HGB Conc 31.9 GM/DL (32-36); Mean Corpuscular Volume 93.3 FL (87-102); Mean Platelet Volume 11.2 FL (9.6-12.0); Monocytes % 8.7 % (1.7-12.7); Neutrophils % 43.3 % (38.7-73.9); Platelet Count 300 T/CUMM (130-400); Red Blood Count 3.43 MC/CUMM (3.8-5.5); Red Cell Distribution Width 13.3 % (9.3-17.3); White Blood Count 9.3 T/CUMM (4-12)
[2020-09-09 05:58] LABS: Albumin 2.7 G/DL (3.4-5.0); Calcium 7.9 MG/DL (8.5-10.1); Osmolality,Calculated 289.4 MOS/KG (273-304); Potassium 3.6 MMOL/L (3.5-5.1); Total Protein 6.1 G/DL (6.4-8.3)
[2020-09-09] MEDS: LEVOTHYROXINE 50 MCG TABLET PO SCH (06:29)
[2020-09-09] MEDS: INSULIN LISPRO 100 UNIT/ML SUBCUT SCH ×4 (08:16→21:00)
[2020-09-09] MEDS ORDERED: CHLORHEXIDINE 0.12% ORAL RINSE 60 ML BOTTLE SWISH/SPIT SCH (09:00)
[2020-09-09] MEDS ORDERED: CHLORHEXIDINE 4% SOLN 118 ML BOTTLE TOP SCH (09:00)
[2020-09-09] MEDS: INSULIN REGULAR 100 UNIT/ML SUBCUT SCH ×3 (09:13→16:43)
[2020-09-09] MEDS: INSULIN GLARGINE 100 UNIT/ML SUBCUT SCH ×2 (09:13→20:59)
[2020-09-09] MEDS: POLYETHYLENE GLYCOL POWDER 17 GM PACK PO SCH (09:13)
[2020-09-09] MEDS: ASCORBIC ACID 500 MG TABLET PO SCH ×2 (09:14→20:58)
[2020-09-09] MEDS: TACROLIMUS 0.5 MG CAPSULE PO SCH ×2 (09:14→20:56)
[2020-09-09] MEDS: amLODIPine 5 MG TABLET PO SCH (09:15)
[2020-09-09] MEDS: GABAPENTIN 400 MG CAPSULE PO SCH ×3 (09:15→20:58)
[2020-09-09] MEDS: metFORMIN 500 MG TABLET PO SCH ×2 (09:15→16:43)
[2020-09-09] MEDS: LOSARTAN 50 MG TABLET PO SCH (09:15)
[2020-09-09] MEDS: MYCOPHENOLATE MOFETIL 250 MG CAPSULE PO SCH ×3 (09:15→20:57)
[2020-09-09] MEDS: MAGNESIUM OXIDE 400 MG TABLET PO SCH ×3 (09:15→20:57)
[2020-09-09] MEDS: predniSONE 5 MG TABLET PO SCH (09:16)
[2020-09-09] MEDS: carvediloL 25 MG TABLET PO SCH ×2 (09:16→20:58)
[2020-09-09] MEDS: CITALOPRAM 20 MG TABLET PO SCH (09:16)
[2020-09-09] MEDS: ASPIRIN EC 325 MG TABLET PO SCH (09:16)
[2020-09-09] MEDS: CALCIUM (CARBONATE) 600 MG TABLET PO SCH ×2 (09:16→20:58)
[2020-09-09] MEDS: PSYLLIUM POWDER 3.7 GM/PACK PO SCH (09:17)
[2020-09-09] MEDS ORDERED: SODIUM CHLORIDE 0.9% 1,000 ML IV SCH (10:00)
[2020-09-09] MEDS ORDERED: CITALOPRAM 20 MG TABLET PO SCH (10:53)
[2020-09-09] MEDS: ENOXAPARIN 40 MG/0.4 ML SYRINGE SUBCUT SCH (12:58)
[2020-09-09 13:00] LABS: Basophils % 0.4 % (0.0-0.8); Eosinophils # 0.4 10*3/uL (0.0-0.87); Eosinophils % 4.1 % (0.00-10.9); Hematocrit 32.9 VOL% (35.7-47.0); Hemoglobin 10.5 GM/DL (12.0-16.0); Immature Granulocytes % 0.3 %; Immature Granulocytes Absolute 0.03 #; Lymphocytes # 2.3 10*3/uL (1.4-4.0); Lymphocytes % 25.5 % (21.3-54.2); Mean Corpuscular HGB Conc 31.9 GM/DL (32-36); Mean Platelet Volume 10.5 FL (9.6-12.0); Neutrophils % 60.7 % (38.7-73.9); Platelet Count 286 T/CUMM (130-400); Red Cell Distribution Width 13.4 % (9.3-17.3)
[2020-09-09 13:24] LABS: Albumin 2.7 G/DL (3.4-5.0); Bilirubin,Total 0.7 MG/DL (0.2-1.0); Osmolality,Calculated 287.7 MOS/KG (273-304); Potassium 4.2 MMOL/L (3.5-5.1)
[2020-09-09] MEDS: SIMVASTATIN 10 MG TABLET PO SCH (20:58)
[2020-09-09] MEDS: traZODone 50 MG TABLET PO SCH (20:58)
[2020-09-09] MEDS: SERTRALINE 50 MG TABLET PO SCH (20:58)
[2020-09-09] MEDS: NYSTATIN CREAM 15 GM TUBE TOP SCH (21:01)
[2020-09-09] MEDS: oxyCODONE/ACETAMINOPHEN 5-325 MG TABLET PO PRN (21:08)
[2020-09-10] MEDS ORDERED: CEFUROXIME INJ 1,500 MG in SYRINGE 1 EACH IV ONE (05:00)
[2020-09-10] MEDS: LEVOTHYROXINE 50 MCG TABLET PO SCH (06:12)
[2020-09-10] MEDS: INSULIN REGULAR 100 UNIT/ML SUBCUT SCH ×3 (09:26→16:39)
[2020-09-10] MEDS: INSULIN GLARGINE 100 UNIT/ML SUBCUT SCH ×2 (09:26→21:54)
[2020-09-10] MEDS: ASPIRIN EC 325 MG TABLET PO SCH (09:27)
[2020-09-10] MEDS: TACROLIMUS 0.5 MG CAPSULE PO SCH ×2 (09:27→21:53)
[2020-09-10] MEDS: GABAPENTIN 400 MG CAPSULE PO SCH ×3 (09:27→21:52)
[2020-09-10] MEDS: INSULIN LISPRO 100 UNIT/ML SUBCUT SCH ×4 (09:27→21:55)
[2020-09-10] MEDS: carvediloL 25 MG TABLET PO SCH ×2 (09:28→21:53)
[2020-09-10] MEDS: metFORMIN 500 MG TABLET PO SCH ×2 (09:28→16:38)
[2020-09-10] MEDS: ASCORBIC ACID 500 MG TABLET PO SCH ×2 (09:28→21:52)
[2020-09-10] MEDS: LOSARTAN 50 MG TABLET PO SCH (09:28)
[2020-09-10] MEDS: MAGNESIUM OXIDE 400 MG TABLET PO SCH ×3 (09:28→21:53)
[2020-09-10] MEDS: MYCOPHENOLATE MOFETIL 250 MG CAPSULE PO SCH ×3 (09:28→21:54)
[2020-09-10] MEDS: predniSONE 5 MG TABLET PO SCH (09:29)
[2020-09-10] MEDS: CALCIUM (CARBONATE) 600 MG TABLET PO SCH ×2 (09:29→21:53)
[2020-09-10] MEDS: PSYLLIUM POWDER 3.7 GM/PACK PO SCH (09:29)
[2020-09-10] MEDS: amLODIPine 5 MG TABLET PO SCH (09:29)
[2020-09-10] MEDS: NYSTATIN CREAM 15 GM TUBE TOP SCH ×2 (09:30→21:55)
[2020-09-10] MEDS: POLYETHYLENE GLYCOL POWDER 17 GM PACK PO SCH (09:30)
[2020-09-10] MEDS: ENOXAPARIN 40 MG/0.4 ML SYRINGE SUBCUT SCH (12:58)
[2020-09-10] MEDS: SIMVASTATIN 10 MG TABLET PO SCH (21:52)
[2020-09-10] MEDS: oxyCODONE/ACETAMINOPHEN 5-325 MG TABLET PO PRN (21:53)
[2020-09-10] MEDS: SERTRALINE 50 MG TABLET PO SCH (21:54)
[2020-09-10] MEDS: traZODone 50 MG TABLET PO SCH (21:54)
[2020-09-11 04:59] LABS: Basophils # 0.1 10*3/uL (0.0-0.2); Basophils % 0.6 % (0.0-0.8); Eosinophils # 0.3 10*3/uL (0.0-0.87); Eosinophils % 3.7 % (0.00-10.9); Hemoglobin 10.4 GM/DL (12.0-16.0); Immature Granulocytes % 0.5 %; Immature Granulocytes Absolute 0.04 #; Lymphocytes # 3.8 10*3/uL (1.4-4.0); Lymphocytes % 45.4 % (21.3-54.2); Mean Corpuscular HGB Conc 31.5 GM/DL (32-36); Mean Corpuscular Volume 94.8 FL (87-102); Mean Platelet Volume 10.9 FL (9.6-12.0); Monocytes % 10.5 % (1.7-12.7); Neutrophils % 39.3 % (38.7-73.9); Platelet Count 303 T/CUMM (130-400); Red Blood Count 3.48 MC/CUMM (3.8-5.5); Red Cell Distribution Width 13.6 % (9.3-17.3); White Blood Count 8.3 T/CUMM (4-12)
[2020-09-11 05:36] LABS: Calcium 8.4 MG/DL (8.5-10.1); Osmolality,Calculated 291.4 MOS/KG (273-304); Potassium 4.5 MMOL/L (3.5-5.1)
[2020-09-11] MEDS: LEVOTHYROXINE 50 MCG TABLET PO SCH (05:57)
[2020-09-11] MEDS: ASPIRIN EC 325 MG TABLET PO SCH (08:49)
[2020-09-11] MEDS: TACROLIMUS 0.5 MG CAPSULE PO SCH ×2 (08:49→21:23)
[2020-09-11] MEDS: LOSARTAN 50 MG TABLET PO SCH (08:50)
[2020-09-11] MEDS: predniSONE 5 MG TABLET PO SCH (08:50)
[2020-09-11] MEDS: metFORMIN 500 MG TABLET PO SCH ×2 (08:50→16:23)
[2020-09-11] MEDS: MAGNESIUM OXIDE 400 MG TABLET PO SCH ×3 (08:50→21:23)
[2020-09-11] MEDS: MYCOPHENOLATE MOFETIL 250 MG CAPSULE PO SCH ×3 (08:50→21:24)
[2020-09-11] MEDS: amLODIPine 5 MG TABLET PO SCH (08:50)
[2020-09-11] MEDS: GABAPENTIN 400 MG CAPSULE PO SCH ×3 (08:50→21:23)
[2020-09-11] MEDS: carvediloL 25 MG TABLET PO SCH ×2 (08:50→21:25)
[2020-09-11] MEDS: ASCORBIC ACID 500 MG TABLET PO SCH ×2 (08:50→21:24)
[2020-09-11] MEDS: INSULIN LISPRO 100 UNIT/ML SUBCUT SCH ×4 (08:51→21:25)
[2020-09-11] MEDS: INSULIN REGULAR 100 UNIT/ML SUBCUT SCH ×3 (08:51→16:24)
[2020-09-11] MEDS: INSULIN GLARGINE 100 UNIT/ML SUBCUT SCH ×2 (08:52→21:25)
[2020-09-11] MEDS: NYSTATIN CREAM 15 GM TUBE TOP SCH ×2 (08:53→21:26)
[2020-09-11] MEDS: PSYLLIUM POWDER 3.7 GM/PACK PO SCH (08:53)
[2020-09-11] MEDS: POLYETHYLENE GLYCOL POWDER 17 GM PACK PO SCH (08:53)
[2020-09-11] MEDS: CALCIUM (CARBONATE) 600 MG TABLET PO SCH ×2 (08:59→21:23)
[2020-09-11] MEDS: ENOXAPARIN 40 MG/0.4 ML SYRINGE SUBCUT SCH (11:33)
[2020-09-11] MEDS: SERTRALINE 50 MG TABLET PO SCH (21:24)
[2020-09-11] MEDS: SIMVASTATIN 10 MG TABLET PO SCH (21:24)
[2020-09-11] MEDS: traZODone 50 MG TABLET PO SCH (21:25)
[2020-09-11] MEDS: oxyCODONE/ACETAMINOPHEN 5-325 MG TABLET PO PRN (21:34)
[2020-09-12 06:07] LABS: Basophils # 0.1 10*3/uL (0.0-0.2); Basophils % 0.5 % (0.0-0.8); Eosinophils # 0.3 10*3/uL (0.0-0.87); Eosinophils % 3.5 % (0.00-10.9); Hematocrit 33.5 VOL% (35.7-47.0); Hemoglobin 10.5 GM/DL (12.0-16.0); Immature Granulocytes % 0.4 %; Immature Granulocytes Absolute 0.04 #; Lymphocytes # 4.3 10*3/uL (1.4-4.0); Lymphocytes % 43.4 % (21.3-54.2); Mean Corpuscular HGB Conc 31.3 GM/DL (32-36); Mean Corpuscular Volume 94.9 FL (87-102); Monocytes % 8.6 % (1.7-12.7); Neutrophils % 43.6 % (38.7-73.9); Platelet Count 320 T/CUMM (130-400); Red Blood Count 3.53 MC/CUMM (3.8-5.5); Red Cell Distribution Width 13.7 % (9.3-17.3); White Blood Count 9.8 T/CUMM (4-12)
[2020-09-12] MEDS: LEVOTHYROXINE 50 MCG TABLET PO SCH (06:12)
[2020-09-12 06:39] LABS: Calcium 8.4 MG/DL (8.5-10.1); Osmolality,Calculated 289.4 MOS/KG (273-304); Potassium 4.3 MMOL/L (3.5-5.1)
[2020-09-12 07:15] LABS: Platelet Estimate Normal
[2020-09-12] MEDS: INSULIN LISPRO 100 UNIT/ML SUBCUT SCH ×4 (08:52→21:38)
[2020-09-12] MEDS: INSULIN REGULAR 100 UNIT/ML SUBCUT SCH ×3 (08:52→15:49)
[2020-09-12] MEDS: ASPIRIN EC 325 MG TABLET PO SCH (08:53)
[2020-09-12] MEDS: GABAPENTIN 400 MG CAPSULE PO SCH ×3 (08:53→21:36)
[2020-09-12] MEDS: MAGNESIUM OXIDE 400 MG TABLET PO SCH ×3 (08:53→21:37)
[2020-09-12] MEDS: TACROLIMUS 0.5 MG CAPSULE PO SCH ×2 (08:53→21:35)
[2020-09-12] MEDS: MYCOPHENOLATE MOFETIL 250 MG CAPSULE PO SCH ×3 (08:53→21:36)
[2020-09-12] MEDS: PSYLLIUM POWDER 3.7 GM/PACK PO SCH (08:54)
[2020-09-12] MEDS: metFORMIN 500 MG TABLET PO SCH ×2 (08:54→17:02)
[2020-09-12] MEDS: LOSARTAN 50 MG TABLET PO SCH (08:54)
[2020-09-12] MEDS: ASCORBIC ACID 500 MG TABLET PO SCH ×2 (08:54→21:36)
[2020-09-12] MEDS: predniSONE 5 MG TABLET PO SCH (08:54)
[2020-09-12] MEDS: carvediloL 25 MG TABLET PO SCH ×2 (08:54→21:37)
[2020-09-12] MEDS: INSULIN GLARGINE 100 UNIT/ML SUBCUT SCH ×2 (08:55→21:37)
[2020-09-12] MEDS: NYSTATIN CREAM 15 GM TUBE TOP SCH ×2 (08:55→21:39)
[2020-09-12] MEDS: POLYETHYLENE GLYCOL POWDER 17 GM PACK PO SCH (08:55)
[2020-09-12] MEDS: CALCIUM (CARBONATE) 600 MG TABLET PO SCH ×2 (09:01→21:36)
[2020-09-12] MEDS: amLODIPine 5 MG TABLET PO SCH (09:01)
[2020-09-12] MEDS: ENOXAPARIN 40 MG/0.4 ML SYRINGE SUBCUT SCH (12:00)
[2020-09-12] MEDS ORDERED: diphenhydrAMINE CAP 25 MG CAPSULE PO ONE (21:00)
[2020-09-12] MEDS: traZODone 50 MG TABLET PO SCH (21:36)
[2020-09-12] MEDS: SIMVASTATIN 10 MG TABLET PO SCH (21:37)
[2020-09-12] MEDS: SERTRALINE 50 MG TABLET PO SCH (21:39)
[2020-09-13] MEDS: LEVOTHYROXINE 50 MCG TABLET PO SCH (05:51)
[2020-09-13 06:30] LABS: Basophils % 0.4 % (0.0-0.8); Eosinophils # 0.3 10*3/uL (0.0-0.87); Eosinophils % 3.4 % (0.00-10.9); Hematocrit 36.2 VOL% (35.7-47.0); Hemoglobin 11.3 GM/DL (12.0-16.0); Immature Granulocytes % 0.4 %; Immature Granulocytes Absolute 0.04 #; Lymphocytes # 3.4 10*3/uL (1.4-4.0); Lymphocytes % 38.4 % (21.3-54.2); Mean Corpuscular HGB Conc 31.2 GM/DL (32-36); Mean Platelet Volume 11.9 FL (9.6-12.0); Monocytes % 7.7 % (1.7-12.7); Neutrophils % 49.7 % (38.7-73.9); Platelet Count 327 T/CUMM (130-400); Red Blood Count 3.77 MC/CUMM (3.8-5.5); Red Cell Distribution Width 13.8 % (9.3-17.3); White Blood Count 8.9 T/CUMM (4-12)
[2020-09-13 06:58] LABS: Troponin I < 0.015 NG/ML (0.00-0.045)
[2020-09-13 07:15] LABS: Calcium 8.7 MG/DL (8.5-10.1); Osmolality,Calculated 292.1 MOS/KG (273-304); Potassium 4.5 MMOL/L (3.5-5.1)
[2020-09-13] MEDS ORDERED: MAGNESIUM SULF RIDER 2 GM in PREMIX 1 EACH IV ONE (07:24)
[2020-09-13] MEDS: CALCIUM (CARBONATE) 600 MG TABLET PO SCH ×2 (08:19→21:07)
[2020-09-13] MEDS: amLODIPine 5 MG TABLET PO SCH (08:19)
[2020-09-13] MEDS: predniSONE 5 MG TABLET PO SCH (08:19)
[2020-09-13] MEDS: ASPIRIN EC 325 MG TABLET PO SCH (08:19)
[2020-09-13] MEDS: TACROLIMUS 0.5 MG CAPSULE PO SCH ×2 (08:19→21:07)
[2020-09-13] MEDS: ASCORBIC ACID 500 MG TABLET PO SCH ×2 (08:19→21:08)
[2020-09-13] MEDS: LOSARTAN 50 MG TABLET PO SCH (08:19)
[2020-09-13] MEDS: metFORMIN 500 MG TABLET PO SCH ×2 (08:19→17:24)
[2020-09-13] MEDS: MYCOPHENOLATE MOFETIL 250 MG CAPSULE PO SCH ×3 (08:19→21:08)
[2020-09-13] MEDS: GABAPENTIN 400 MG CAPSULE PO SCH ×3 (08:19→21:06)
[2020-09-13] MEDS: carvediloL 25 MG TABLET PO SCH ×2 (08:19→21:07)
[2020-09-13] MEDS: INSULIN LISPRO 100 UNIT/ML SUBCUT SCH ×4 (08:20→21:08)
[2020-09-13] MEDS: PSYLLIUM POWDER 3.7 GM/PACK PO SCH (08:20)
[2020-09-13] MEDS: POLYETHYLENE GLYCOL POWDER 17 GM PACK PO SCH (08:20)
[2020-09-13] MEDS: NYSTATIN CREAM 15 GM TUBE TOP SCH ×2 (08:20→21:12)
[2020-09-13] MEDS: INSULIN GLARGINE 100 UNIT/ML SUBCUT SCH ×2 (08:21→21:08)
[2020-09-13] MEDS: INSULIN REGULAR 100 UNIT/ML SUBCUT SCH ×3 (08:21→17:25)
[2020-09-13] MEDS: CHLORHEXIDINE 0.12% ORAL RINSE 60 ML BOTTLE SWISH/SPIT SCH ×2 (09:39→21:12)
[2020-09-13] MEDS: CHLORHEXIDINE 4% SOLN 118 ML BOTTLE TOP SCH ×2 (09:40→18:10)
[2020-09-13 10:15] LABS: ABG Base Excess 0.8 MMOL/L (-2.5-2.5); ABG PCO2 38.9 MM HG (35-48); ABG PH 7.419 (7.35-7.45); ABG PO2 65.8 MM HG (80-95); ABG TCO2 22.6 MMOL/L (23-27); Allen Test Positive; Pt O2 Delivery Device Room Air
[2020-09-13] MEDS ORDERED: SODIUM CHLORIDE 0.9% 1,000 ML IV SCH (12:30)
[2020-09-13] MEDS: traZODone 50 MG TABLET PO SCH (21:07)
[2020-09-13] MEDS: SERTRALINE 50 MG TABLET PO SCH (21:08)
[2020-09-13] MEDS: SIMVASTATIN 10 MG TABLET PO SCH (21:08)
[2020-09-13] MEDS: oxyCODONE/ACETAMINOPHEN 5-325 MG TABLET PO PRN (23:38)
[2020-09-14] MEDS ORDERED: VANCOMYCIN 1,000 MG VIAL ONE (04:22)
[2020-09-14] MEDS ORDERED: VANCOMYCIN 500 MG VIAL ONE (04:22)
[2020-09-14] MEDS ORDERED: PAPAVERINE 60 MG/2 ML VIAL ONE (04:22)
[2020-09-14] MEDS ORDERED: CEFUROXIME INJ 1,500 MG in SYRINGE 1 EACH IV ONE (05:00)
[2020-09-14 05:37] LABS: Basophils % 0.4 % (0.0-0.8); Eosinophils # 0.4 10*3/uL (0.0-0.87); Eosinophils % 3.5 % (0.00-10.9); Hematocrit 34.4 VOL% (35.7-47.0); Hemoglobin 10.6 GM/DL (12.0-16.0); Immature Granulocytes % 0.5 %; Immature Granulocytes Absolute 0.05 #; Lymphocytes # 4.3 10*3/uL (1.4-4.0); Lymphocytes % 38.8 % (21.3-54.2); Mean Corpuscular HGB Conc 30.8 GM/DL (32-36); Mean Corpuscular Volume 97.2 FL (87-102); Mean Platelet Volume 10.3 FL (9.6-12.0); Monocytes % 7.9 % (1.7-12.7); Neutrophils % 48.9 % (38.7-73.9); Platelet Count 345 T/CUMM (130-400); Red Blood Count 3.54 MC/CUMM (3.8-5.5); Red Cell Distribution Width 14.1 % (9.3-17.3)
[2020-09-14] MEDS ORDERED: DIAZEPAM 5 MG TABLET PO ONE (05:44)
[2020-09-14] MEDS ORDERED: FAMOTIDINE 20 MG TABLET PO ONE (05:45)
[2020-09-14 05:53] LABS: Calcium 8.9 MG/DL (8.5-10.1); Osmolality,Calculated 288.3 MOS/KG (273-304); Potassium 4.4 MMOL/L (3.5-5.1)
[2020-09-14] MEDS: carvediloL 25 MG TABLET PO SCH ×2 (05:58→09:00)
[2020-09-14] MEDS ORDERED: CALCIUM CHLORIDE 1,000 MG/10 ML VIAL IV ONE ×3 (06:03→10:34)
[2020-09-14] MEDS ORDERED: MIDAZOLAM 10 MG/2 ML VIAL ONE ×4 (06:03→07:39)
[2020-09-14] MEDS ORDERED: AMINOCAPROIC ACID 5,000 MG/20 ML VIAL ONE (06:03)
[2020-09-14] MEDS ORDERED: VECURONIUM 10 MG VIAL IV ONE (06:03)
[2020-09-14] MEDS ORDERED: NITROGLYCERIN DRIP 50 MG/250 ML BOTTLE IV ONE ×2 (06:03→18:34)
[2020-09-14] MEDS ORDERED: SEVOFLURANE 1 UNIT/15 MINUTE INH ONE (06:03)
[2020-09-14] MEDS ORDERED: SUFentanil 250 MCG/5 ML AMP ONE ×3 (06:03→07:40)
[2020-09-14] MEDS: LEVOTHYROXINE 50 MCG TABLET PO SCH (06:30)
[2020-09-14] MEDS: INSULIN REGULAR 100 UNIT/ML SUBCUT SCH (07:30)
[2020-09-14] MEDS: INSULIN LISPRO 100 UNIT/ML SUBCUT SCH (07:30)
[2020-09-14 07:37] LABS: ABG Base Excess -1.3 MMOL/L (-2.5-2.5); ABG HCO3 23.4 MMOL/L (20-26); ABG Oxygen Saturation 99.6 % (95-100); ABG PH 7.396 (7.35-7.45); ABG TCO2 21.3 MMOL/L (23-27); Glucose Heart Surgery 198 MG/DL (74-106); Hematocrit Heart Surgery 29.8 PERCENT (37-47); Hemoglobin Heart Surgery 9.6 G/DL (12.0-16.0); PH Patient Temp Arterial 7.396; Patient Temperature 37 CELCIUS; Potassium Heart/CVR 4.2 MMOL/L (3.5-5.1); Sodium Heart/CVR 139 MMOL/L (135-145)
[2020-09-14] MEDS ORDERED: MINERAL OIL/PETROLATUM OPH OINT 3.5 GM TUBE ONE (07:39)
[2020-09-14] MEDS: metFORMIN 500 MG TABLET PO SCH (08:00)
[2020-09-14 08:08] LABS: Bilirubin,Urine Negative (Negative); Blood, Urine Negative (Negative); Glucose,Urine (UA) 50 mg/dL (Negative); Ketones,Urine Negative (Negative); Mucus,Urine Occasional /LPF (Occasional); Nitrite,Urine Negative (Negative); Protein,Urine Negative; RBC,Urine 1 /HPF (0-4); Squamous Epithelial Cell,Urine Occasional /HPF (0-10); Urine Appearance CLEAR (Clear); Urine Color Yellow (Yellow); Urine Specific Gravity 1.017 (1.001-1.035); Urine Urobilinogen < 2.0 EU/DL (0.2-1.0); WBC,Urine <1 /HPF (0-6)
[2020-09-14] MEDS: MYCOPHENOLATE MOFETIL 250 MG CAPSULE PO SCH (09:00)
[2020-09-14] MEDS: LOSARTAN 50 MG TABLET PO SCH (09:00)
[2020-09-14] MEDS: ASPIRIN EC 325 MG TABLET PO SCH (09:00)
[2020-09-14] MEDS: CHLORHEXIDINE 0.12% ORAL RINSE 60 ML BOTTLE SWISH/SPIT SCH ×2 (09:00→20:58)
[2020-09-14] MEDS: predniSONE 5 MG TABLET PO SCH (09:00)
[2020-09-14] MEDS: CALCIUM (CARBONATE) 600 MG TABLET PO SCH (09:00)
[2020-09-14] MEDS: ASCORBIC ACID 500 MG TABLET PO SCH (09:00)
[2020-09-14] MEDS: NYSTATIN CREAM 15 GM TUBE TOP SCH (09:00)
[2020-09-14] MEDS: INSULIN GLARGINE 100 UNIT/ML SUBCUT SCH (09:00)
[2020-09-14] MEDS: GABAPENTIN 400 MG CAPSULE PO SCH (09:00)
[2020-09-14] MEDS: PSYLLIUM POWDER 3.7 GM/PACK PO SCH (09:00)
[2020-09-14] MEDS: amLODIPine 5 MG TABLET PO SCH (09:00)
[2020-09-14] MEDS: POLYETHYLENE GLYCOL POWDER 17 GM PACK PO SCH (09:00)
[2020-09-14] MEDS: TACROLIMUS 0.5 MG CAPSULE PO SCH (09:00)
[2020-09-14 09:05] LABS: Hemoglobin Heart Surgery 7.4 G/DL (12.0-16.0); PH Patient Temp Venous 7.483; PO2 Patient Temp Venous 33.6 MM HG; Potassium Heart/CVR 5.1 MMOL/L (3.5-5.1); VBG Base Excess -0.7 MEQ/L (0-4); VBG HCO3 23.3 MEQ/L (24-28); VBG Oxygen Saturation 74.3 %; VBG PCO2 35.3 MMHG (41-51); VBG PH 7.438; VBG PO2 41.5 MMHG (17-40); VBG Total CO2 24.4 MMOL/L
[2020-09-14] MEDS ORDERED: NITROPRUSSIDE 50 MG/2 ML VIAL ONE (09:05)
[2020-09-14] MEDS ORDERED: POTASSIUM CHLORIDE RIDER 100 ML IV ONE (09:05)
[2020-09-14] MEDS ORDERED: CALCIUM CHLORIDE 1,000 MG/10 ML SYRINGE IV ONE (09:06)
[2020-09-14] MEDS ORDERED: PHENYLEPHRINE DRIP 40 MG/250 ML PREMIX IV ONE (09:06)
[2020-09-14 09:37] LABS: Hematocrit Heart Surgery 21.6 PERCENT (37-47); Hemoglobin Heart Surgery 6.9 G/DL (12.0-16.0); PCO2 Patient Temp Venous 33.6 MM HG; PH Patient Temp Venous 7.45; PO2 Patient Temp Venous 37.2 MM HG; Potassium Heart/CVR 4.7 MMOL/L (3.5-5.1); VBG Base Excess -0.2 MEQ/L (0-4); VBG HCO3 24.1 MEQ/L (24-28); VBG Oxygen Saturation 80.2 %; VBG PCO2 38.8 MMHG (41-51); VBG PH 7.406; VBG PO2 45.7 MMHG (17-40); VBG Total CO2 23.1 MMOL/L
[2020-09-14 10:06] LABS: PCO2 Patient Temp Venous 39.1 MM HG; PH Patient Temp Venous 7.393; PO2 Patient Temp Venous 47.4 MM HG; Potassium Heart/CVR 5.1 MMOL/L (3.5-5.1); VBG HCO3 23.4 MEQ/L (24-28); VBG Oxygen Saturation 81.9 %; VBG PCO2 39.1 MMHG (41-51); VBG PH 7.393; VBG PO2 47.4 MMHG (17-40); VBG Total CO2 22.5 MMOL/L
[2020-09-14] MEDS ORDERED: ALBUMIN 25% 25 GM/100 ML VIAL IV ONE (10:20)
[2020-09-14] MEDS ORDERED: LIDOCAINE 2% 5 ML VIAL ONE (10:20)
[2020-09-14] MEDS ORDERED: MAGNESIUM SULFATE 5 GM/10 ML VIAL IV ONE (10:20)
[2020-09-14] MEDS ORDERED: PROTAMINE SULFATE 250 MG/25 ML VIAL IV ONE (10:21)
[2020-09-14] MEDS ORDERED: methylPREDNISolone SOD SUC 1,000 MG/8 ML VIAL ONE (10:21)
[2020-09-14] MEDS ORDERED: DEXTROSE 5% KCL 20 MEQ 20 MEQ/1,000 ML BAG IV ONE (10:21)
[2020-09-14] MEDS ORDERED: HEPARIN 10,000 UNIT/10 ML VIAL ONE (10:21)
[2020-09-14] MEDS ORDERED: FUROSEMIDE 20 MG/2 ML VIAL ONE (10:21)
[2020-09-14] MEDS ORDERED: MANNITOL 100 GM/500 ML BAG IV ONE (10:21)
[2020-09-14] MEDS ORDERED: SODIUM BICARBONATE 50 MEQ/50 ML VIAL IV ONE (10:22)
[2020-09-14 10:33] LABS: ABG Base Excess -2.4 MMOL/L (-2.5-2.5); ABG HCO3 22.4 MMOL/L (20-26); ABG Oxygen Saturation 98.9 % (95-100); ABG PCO2 48.4 MM HG (35-48); ABG PH 7.303 (7.35-7.45); ABG TCO2 22.7 MMOL/L (23-27); Glucose Heart Surgery 362 MG/DL (74-106); Hematocrit Heart Surgery 24.1 PERCENT (37-47); Hemoglobin Heart Surgery 7.7 G/DL (12.0-16.0); Ionized Calcium Arterial 1.45 MMOL/L (1.21-1.46); PCO2 Patient Temp Arterial 48.4 MMHG; PH Patient Temp Arterial 7.303; Patient Temperature 37 CELCIUS; Potassium Heart/CVR 4.5 MMOL/L (3.5-5.1); Sodium Heart/CVR 133 MMOL/L (135-145)
[2020-09-14] MEDS ORDERED: PROTAMINE SULFATE 50 MG/5 ML VIAL IV ONE ×2 (10:54→11:26)
[2020-09-14] MEDS ORDERED: MORPHINE 10 MG/1 ML VIAL IV PRN (11:13)
[2020-09-14] MEDS ORDERED: INSULIN REGULAR 100 UNIT/ML IV ONE (11:13)
[2020-09-14] MEDS ORDERED: ACETAMINOPHEN 650 MG SUPP RECTAL PRN (11:13)
[2020-09-14] MEDS ORDERED: CALCIUM CHLORIDE 1,000 MG/10 ML SYRINGE IV PRN (11:13)
[2020-09-14] MEDS ORDERED: VECURONIUM 10 MG VIAL IV PRN ×2 (11:13)
[2020-09-14] MEDS ORDERED: MIDAZOLAM 10 MG/2 ML VIAL IV PRN (11:13)
[2020-09-14] MEDS ORDERED: MAGNESIUM SULF RIDER 4 GM in PREMIX 1 EACH IV PRN (11:13)
[2020-09-14] MEDS ORDERED: MAGNESIUM SULF RIDER 2 GM in PREMIX 1 EACH IV PRN (11:13)
[2020-09-14] MEDS ORDERED: NITROPRUSSIDE 100 MG in DEXTROSE 5% 250 ML IV PRN (11:13)
[2020-09-14] MEDS ORDERED: ONDANSETRON 4 MG/2 ML VIAL IV PRN (11:13)
[2020-09-14] MEDS ORDERED: PHENYLEPHRINE DRIP 40 MG/250 ML PREMIX IV PRN (11:13)
[2020-09-14] MEDS ORDERED: DEXTROSE 50% 25 GM/50 ML VIAL IV PRN ×2 (11:13)
[2020-09-14] MEDS ORDERED: CHLORHEXIDINE 4% SOLN 118 ML BOTTLE TOP PRN (11:13)
[2020-09-14] MEDS ORDERED: SODIUM CHLORIDE 0.45% 1,000 ML IV SCH (11:13)
[2020-09-14] MEDS ORDERED: MIDAZOLAM 2 MG/2 ML VIAL IV PRN (11:13)
[2020-09-14] MEDS: SODIUM CHLORIDE 0.45% 1,000 ML IV SCH (11:20)
[2020-09-14 11:52] LABS: ABG Base Excess -2.6 MMOL/L (-2.5-2.5); ABG HCO3 22.2 MMOL/L (20-26); ABG Oxygen Saturation 99.9 % (95-100); ABG PH 7.409 (7.35-7.45); ABG TCO2 19.8 MMOL/L (23-27); Glucose Heart Surgery 352 MG/DL (74-106); Hematocrit Heart Surgery 27.8 PERCENT (37-47); Hemoglobin Heart Surgery 8.9 G/DL (12.0-16.0); Potassium Heart/CVR 4.3 MMOL/L (3.5-5.1)
[2020-09-14 11:54] LABS: Basophils % 0.2 % (0.0-0.8); Eosinophils # 0.1 10*3/uL (0.0-0.87); Hematocrit 27.7 VOL% (35.7-47.0); Hemoglobin 8.9 GM/DL (12.0-16.0); Immature Granulocytes % 1.1 %; Immature Granulocytes Absolute 0.12 #; Lymphocytes # 1.6 10*3/uL (1.4-4.0); Lymphocytes % 14.5 % (21.3-54.2); Mean Corpuscular HGB Conc 32.1 GM/DL (32-36); Mean Corpuscular Volume 94.2 FL (87-102); Mean Platelet Volume 10.5 FL (9.6-12.0); Monocytes % 4.1 % (1.7-12.7); Neutrophils % 79.1 % (38.7-73.9); Platelet Count 257 T/CUMM (130-400); Red Blood Count 2.94 MC/CUMM (3.8-5.5); Red Cell Distribution Width 13.9 % (9.3-17.3); White Blood Count 10.9 T/CUMM (4-12)
[2020-09-14] MEDS ORDERED: HEPARIN/NACL 0.9% 2 UNITS/ML 500 ML IV ONE (12:03)
[2020-09-14] MEDS ORDERED: PHENYLEPHRINE DRIP 20 MG/250 ML PREMIX IV ONE (12:03)
[2020-09-14 12:05] LABS: INR 1.1
[2020-09-14] MEDS: POTASSIUM CHLORIDE RIDER 20 MEQ in PREMIX 1 EACH IV PRN ×4 (12:05→20:54)
[2020-09-14 12:21] LABS: CKMB % 10.7 %
[2020-09-14 12:23] LABS: Troponin I 7.32 NG/ML (0.00-0.045)
[2020-09-14] MEDS: INSULIN REGULAR DRIP 100 ML IV SCH ×2 (12:30→19:34)
[2020-09-14 12:42] LABS: Albumin 3.1 G/DL (3.4-5.0); Calcium 11.1 MG/DL (8.5-10.1); Potassium 4.4 MMOL/L (3.5-5.1); Total Protein 5.9 G/DL (6.4-8.3)
[2020-09-14] MEDS: ALBUMIN 5% 12.5 GM in PREMIX 1 EACH IV PRN ×3 (14:00→18:25)
[2020-09-14 14:05] LABS: ABG HCO3 21.7 MMOL/L (20-26); ABG Oxygen Saturation 98.4 % (95-100); ABG PCO2 33.4 MM HG (35-48); ABG PH 7.431 (7.35-7.45); ABG PO2 142.9 MM HG (80-95); ABG TCO2 22.7 MMOL/L (23-27); Glucose Heart Surgery 347 MG/DL (74-106); Hemoglobin Heart Surgery 10.3 G/DL (12.0-16.0); Potassium Heart/CVR 3.9 MMOL/L (3.5-5.1)
[2020-09-14] MEDS: INSULIN REGULAR 100 UNIT/ML IV PRN ×2 (14:15→16:01)
[2020-09-14] MEDS: POTASSIUM CHLORIDE RIDER 10 MEQ in PREMIX 1 EACH IV PRN (14:55)
[2020-09-14 17:56] LABS: ABG Base Excess -0.6 MMOL/L (-2.5-2.5); ABG HCO3 23.9 MMOL/L (20-26); ABG Oxygen Saturation 97.1 % (95-100); ABG PCO2 36.2 MM HG (35-48); ABG PO2 93.2 MM HG (80-95); ABG TCO2 21.5 MMOL/L (23-27); Glucose Heart Surgery 194 MG/DL (74-106); Hematocrit Heart Surgery 29.8 PERCENT (37-47); Hemoglobin Heart Surgery 9.6 G/DL (12.0-16.0); Potassium Heart/CVR 3.9 MMOL/L (3.5-5.1)
[2020-09-14] MEDS: LACTATED RINGERS 250 ML IV PRN ×2 (18:15→19:10)
[2020-09-14] MEDS ORDERED: NITROGLYCERIN DRIP 50 MG/250 ML BOTTLE IV PRN (18:34)
[2020-09-14] MEDS ORDERED: CEFUROXIME INJ 1,500 MG in SYRINGE 1 EACH IV SCH (18:44)
[2020-09-14 20:10] LABS: ABG Base Excess -1.3 MMOL/L (-2.5-2.5); ABG HCO3 23.3 MMOL/L (20-26); ABG Oxygen Saturation 97.3 % (95-100); ABG PCO2 36.2 MM HG (35-48); ABG PH 7.409 (7.35-7.45); ABG PO2 91.7 MM HG (80-95); ABG TCO2 20.6 MMOL/L (23-27); Glucose Heart Surgery 128 MG/DL (74-106); Hematocrit Heart Surgery 33.3 PERCENT (37-47); Hemoglobin Heart Surgery 10.8 G/DL (12.0-16.0)
[2020-09-14 20:29] LABS: CKMB % 9.5 %
[2020-09-14 20:34] LABS: Troponin I 7.71 NG/ML (0.00-0.045)
[2020-09-14 23:28] LABS: ABG Base Excess -0.9 MMOL/L (-2.5-2.5); ABG HCO3 23.6 MMOL/L (20-26); ABG Oxygen Saturation 96.7 % (95-100); ABG PCO2 35.3 MM HG (35-48); ABG PH 7.423 (7.35-7.45); ABG PO2 87.1 MM HG (80-95); ABG TCO2 20.6 MMOL/L (23-27); Glucose Heart Surgery 111 MG/DL (74-106); Hematocrit Heart Surgery 34.4 PERCENT (37-47); Hemoglobin Heart Surgery 11.2 G/DL (12.0-16.0); Potassium Heart/CVR 4.6 MMOL/L (3.5-5.1)
[2020-09-15] MEDS: MORPHINE 4 MG/1 ML VIAL IV PRN ×2 (00:12→07:18)
[2020-09-15] MEDS ORDERED: FUROSEMIDE 40 MG/4 ML VIAL IV ONE (01:20)
[2020-09-15 02:18] LABS: ABG Base Excess -1.1 MMOL/L (-2.5-2.5); ABG HCO3 23.5 MMOL/L (20-26); ABG Oxygen Saturation 96.3 % (95-100); ABG PCO2 37.1 MM HG (35-48); ABG PH 7.405 (7.35-7.45); ABG PO2 80.6 MM HG (80-95); ABG TCO2 20.7 MMOL/L (23-27); Glucose Heart Surgery 140 MG/DL (74-106); Hematocrit Heart Surgery 35.5 PERCENT (37-47); Hemoglobin Heart Surgery 11.5 G/DL (12.0-16.0); Potassium Heart/CVR 4.2 MMOL/L (3.5-5.1)
[2020-09-15 03:24] LABS: ABG Base Excess -0.2 MMOL/L (-2.5-2.5); ABG HCO3 23.5 MMOL/L (20-26); ABG Oxygen Saturation 95.9 % (95-100); ABG PCO2 35.2 MM HG (35-48); ABG PH 7.443 (7.35-7.45); ABG PO2 81.8 MM HG (80-95); ABG TCO2 24.6 MMOL/L (23-27); Glucose Heart Surgery 138 MG/DL (74-106); Hemoglobin Heart Surgery 11.9 G/DL (12.0-16.0); Potassium Heart/CVR 4.1 MMOL/L (3.5-5.1)
[2020-09-15 03:45] LABS: Basophils % 0.2 % (0.0-0.8); Hematocrit 34.2 VOL% (35.7-47.0); Immature Granulocytes % 0.5 %; Lymphocytes # 1.4 10*3/uL (1.4-4.0); Lymphocytes % 7.1 % (21.3-54.2); Mean Corpuscular HGB Conc 33.3 GM/DL (32-36); Mean Corpuscular Volume 90.7 FL (87-102); Mean Platelet Volume 10.6 FL (9.6-12.0); Monocytes % 2.4 % (1.7-12.7); Neutrophils % 89.8 % (38.7-73.9); Platelet Count 268 T/CUMM (130-400); Red Blood Count 3.77 MC/CUMM (3.8-5.5); Red Cell Distribution Width 14.9 % (9.3-17.3); White Blood Count 19.9 T/CUMM (4-12)
[2020-09-15 03:53] LABS: Hemoglobin 11.4 GM/DL (12.0-16.0)
[2020-09-15 04:06] LABS: Albumin 3.7 G/DL (3.4-5.0); Bilirubin,Direct 0.32 MG/DL (0.0-0.20); Bilirubin,Total 1.4 MG/DL (0.2-1.0); Calcium 9.2 MG/DL (8.5-10.1); Osmolality,Calculated 283.5 MOS/KG (273-304); Potassium 4.2 MMOL/L (3.5-5.1); Total Protein 6.3 G/DL (6.4-8.3)
[2020-09-15 04:08] LABS: CKMB % 9.1 %
[2020-09-15 04:20] LABS: Troponin I 8.59 NG/ML (0.00-0.045)
[2020-09-15 05:07] LABS: ABG Base Excess -0.6 MMOL/L (-2.5-2.5); ABG HCO3 23.6 MMOL/L (20-26); ABG Oxygen Saturation 96.2 % (95-100); ABG PCO2 37.1 MM HG (35-48); ABG PH 7.421 (7.35-7.45); ABG PO2 85.1 MM HG (80-95); ABG TCO2 24.7 MMOL/L (23-27); Glucose Heart Surgery 148 MG/DL (74-106); Potassium Heart/CVR 3.8 MMOL/L (3.5-5.1)
[2020-09-15 05:47] LABS: ABG Base Excess -0.5 MMOL/L (-2.5-2.5); ABG HCO3 23.5 MMOL/L (20-26); ABG Oxygen Saturation 96.7 % (95-100); ABG PCO2 36.5 MM HG (35-48); ABG PH 7.427 (7.35-7.45); ABG PO2 89.1 MM HG (80-95); ABG TCO2 24.6 MMOL/L (23-27); Glucose Heart Surgery 141 MG/DL (74-106); Potassium Heart/CVR 3.9 MMOL/L (3.5-5.1)
[2020-09-15] MEDS: POTASSIUM CHLORIDE RIDER 20 MEQ in PREMIX 1 EACH IV PRN (06:43)
[2020-09-15 08:13] LABS: ABG Base Excess 0.5 MMOL/L (-2.5-2.5); ABG HCO3 24.8 MMOL/L (20-26); ABG Oxygen Saturation 95.1 % (95-100); ABG PCO2 40.4 MM HG (35-48); ABG PH 7.404 (7.35-7.45); ABG PO2 77.8 MM HG (80-95); ABG TCO2 22.5 MMOL/L (23-27); Glucose Heart Surgery 123 MG/DL (74-106); Hematocrit Heart Surgery 35.6 PERCENT (37-47); Hemoglobin Heart Surgery 11.5 G/DL (12.0-16.0); Potassium Heart/CVR 4.1 MMOL/L (3.5-5.1)
[2020-09-15] MEDS: POTASSIUM CHLORIDE RIDER 10 MEQ in PREMIX 1 EACH IV PRN ×2 (08:18→08:50)
[2020-09-15] MEDS ORDERED: FELODIPINE 5 MG TABLET PO SCH ×2 (09:00)
[2020-09-15] MEDS ORDERED: carvediloL 3.125 MG TABLET PO SCH (09:00)
[2020-09-15] MEDS: GABAPENTIN 400 MG CAPSULE PO SCH ×3 (09:30→21:32)
[2020-09-15] MEDS: predniSONE 5 MG TABLET PO SCH (09:30)
[2020-09-15] MEDS: CALCIUM (CARBONATE) 600 MG TABLET PO SCH ×2 (09:30→21:32)
[2020-09-15] MEDS: hydroCHLOROthiazide 25 MG TABLET PO SCH (09:30)
[2020-09-15] MEDS: ASPIRIN EC 325 MG TABLET PO SCH (09:30)
[2020-09-15] MEDS: MAGNESIUM OXIDE 400 MG TABLET PO SCH ×3 (09:30→21:32)
[2020-09-15] MEDS: CITALOPRAM 40 MG TABLET PO SCH (09:30)
[2020-09-15] MEDS: CHLORHEXIDINE 0.12% ORAL RINSE 60 ML BOTTLE SWISH/SPIT SCH ×2 (09:35→21:39)
[2020-09-15] MEDS: MYCOPHENOLATE MOFETIL 250 MG CAPSULE PO SCH ×2 (10:55→21:31)
[2020-09-15] MEDS: INSULIN REGULAR 100 UNIT/ML SUBCUT SCH ×3 (12:10→21:33)
[2020-09-15 13:14] LABS: ABG HCO3 21.9 MMOL/L (20-26); ABG Oxygen Saturation 94.2 % (95-100); ABG PCO2 38.9 MM HG (35-48); ABG PH 7.363 (7.35-7.45); ABG PO2 75.1 MM HG (80-95); ABG TCO2 19.8 MMOL/L (23-27); Glucose Heart Surgery 296 MG/DL (74-106); Hematocrit Heart Surgery 35.5 PERCENT (37-47); Hemoglobin Heart Surgery 11.5 G/DL (12.0-16.0); Potassium Heart/CVR 4.6 MMOL/L (3.5-5.1)
[2020-09-15 13:42] LABS: CKMB % 7.7 %
[2020-09-15 13:48] LABS: Troponin I 5.69 NG/ML (0.00-0.045)
[2020-09-15] MEDS: oxyCODONE/ACETAMINOPHEN 5-325 MG TABLET PO PRN ×2 (14:50→21:32)
[2020-09-15] MEDS: SODIUM CHLORIDE 0.45% 1,000 ML IV SCH (15:30)
[2020-09-15] MEDS: ASCORBIC ACID 500 MG TABLET PO SCH (21:31)
[2020-09-15] MEDS: carvediloL 6.25 MG TABLET PO SCH (21:32)
[2020-09-16 05:07] LABS: Basophils % 0.2 % (0.0-0.8); Eosinophils % 0.1 % (0.00-10.9); Hematocrit 34.1 VOL% (35.7-47.0); Immature Granulocytes % 0.7 %; Immature Granulocytes Absolute 0.13 #; Lymphocytes # 2.8 10*3/uL (1.4-4.0); Lymphocytes % 14.8 % (21.3-54.2); Mean Corpuscular HGB Conc 32.3 GM/DL (32-36); Mean Corpuscular Volume 93.9 FL (87-102); Monocytes % 8.1 % (1.7-12.7); Neutrophils % 76.1 % (38.7-73.9); Platelet Count 259 T/CUMM (130-400); Red Blood Count 3.63 MC/CUMM (3.8-5.5); Red Cell Distribution Width 15.7 % (9.3-17.3); White Blood Count 18.8 T/CUMM (4-12)
[2020-09-16 05:27] LABS: Albumin 3.1 G/DL (3.4-5.0); Bilirubin,Direct 0.23 MG/DL (0.0-0.20); Bilirubin,Total 0.9 MG/DL (0.2-1.0); Calcium 8.8 MG/DL (8.5-10.1); Osmolality,Calculated 285.5 MOS/KG (273-304); Potassium 4.4 MMOL/L (3.5-5.1); Total Protein 6.3 G/DL (6.4-8.3)
[2020-09-16 05:40] LABS: CKMB % 4.9 %
[2020-09-16 05:46] LABS: Troponin I 3.68 NG/ML (0.00-0.045)
[2020-09-16] MEDS: oxyCODONE/ACETAMINOPHEN 5-325 MG TABLET PO PRN ×2 (05:52→20:55)
[2020-09-16] MEDS: LEVOTHYROXINE 50 MCG TABLET PO SCH (06:42)
[2020-09-16] MEDS: ASCORBIC ACID 500 MG TABLET PO SCH ×2 (08:59→20:55)
[2020-09-16] MEDS: hydroCHLOROthiazide 25 MG TABLET PO SCH (08:59)
[2020-09-16] MEDS: CITALOPRAM 40 MG TABLET PO SCH (08:59)
[2020-09-16] MEDS: ASPIRIN EC 325 MG TABLET PO SCH (08:59)
[2020-09-16] MEDS: LOSARTAN 25 MG TABLET PO SCH (08:59)
[2020-09-16] MEDS: MAGNESIUM OXIDE 400 MG TABLET PO SCH ×3 (08:59→20:55)
[2020-09-16] MEDS: carvediloL 6.25 MG TABLET PO SCH ×2 (08:59→21:02)
[2020-09-16] MEDS: CALCIUM (CARBONATE) 600 MG TABLET PO SCH ×2 (08:59→20:54)
[2020-09-16] MEDS: GABAPENTIN 400 MG CAPSULE PO SCH ×3 (09:00→20:56)
[2020-09-16] MEDS: CHLORHEXIDINE 0.12% ORAL RINSE 60 ML BOTTLE SWISH/SPIT SCH (09:01)
[2020-09-16] MEDS: INSULIN REGULAR 100 UNIT/ML SUBCUT SCH ×4 (09:01→20:56)
[2020-09-16] MEDS: MYCOPHENOLATE MOFETIL 250 MG CAPSULE PO SCH ×2 (09:04→20:55)
[2020-09-16] MEDS: predniSONE 5 MG TABLET PO SCH (09:04)
[2020-09-16] MEDS: FELODIPINE 5 MG TABLET PO SCH (09:04)
[2020-09-16] MEDS ORDERED: MAGNESIUM SULF RIDER 4 GM in PREMIX 1 EACH IV PRN (11:27)
[2020-09-16] MEDS ORDERED: POTASSIUM CHLORIDE 20 MEQ TABLET PO PRN (11:27)
[2020-09-16] MEDS ORDERED: GLUCAGON 1 MG VIAL IM PRN (11:27)
[2020-09-16] MEDS ORDERED: ALUMINUM/MAGNES/SIMETH MAX STR 30 ML UDCUP PO PRN (11:27)
[2020-09-16] MEDS ORDERED: MAGNESIUM SULF RIDER 2 GM in PREMIX 1 EACH IV PRN (11:27)
[2020-09-16] MEDS ORDERED: ONDANSETRON 4 MG/2 ML VIAL IV PRN (11:27)
[2020-09-16] MEDS ORDERED: DEXTROSE 50% 25 GM/50 ML VIAL IV PRN (11:27)
[2020-09-16] MEDS ORDERED: SODIUM CHLOR 0.45% KCL 20 MEQ 20 MEQ/1,000 ML BAG IV SCH (11:30)
[2020-09-16] MEDS: SODIUM CHLORIDE 0.45% 1,000 ML IV SCH (11:32)
[2020-09-16] MEDS ORDERED: FUROSEMIDE 40 MG/4 ML VIAL IV ONE (12:39)
[2020-09-16] MEDS: ALBUTEROL/IPRATROPIUM 3 ML NEB RESP TX SCH ×2 (14:04→19:32)
[2020-09-16] MEDS: INSULIN NPH/REGULAR 70/30 100 UNIT/ML SUBCUT SCH (16:47)
[2020-09-16] MEDS: MAGNESIUM HYDROXIDE SUSP 30 ML UDCUP PO PRN (20:55)
[2020-09-16] MEDS: SIMVASTATIN 10 MG TABLET PO SCH (20:57)
[2020-09-17] MEDS: ACETAMINOPHEN 325 MG TABLET PO PRN (00:20)
[2020-09-17 04:47] LABS: Basophils % 0.1 % (0.0-0.8); Eosinophils # 0.2 10*3/uL (0.0-0.87); Eosinophils % 1.3 % (0.00-10.9); Hematocrit 35.5 VOL% (35.7-47.0); Hemoglobin 11.2 GM/DL (12.0-16.0); Immature Granulocytes % 0.7 %; Lymphocytes % 26.7 % (21.3-54.2); Mean Corpuscular HGB Conc 31.5 GM/DL (32-36); Mean Corpuscular Volume 94.7 FL (87-102); Mean Platelet Volume 11.2 FL (9.6-12.0); Monocytes % 7.9 % (1.7-12.7); Neutrophils % 63.3 % (38.7-73.9); Platelet Count 265 T/CUMM (130-400); Red Blood Count 3.75 MC/CUMM (3.8-5.5); Red Cell Distribution Width 15.7 % (9.3-17.3)
[2020-09-17 05:09] LABS: Albumin 3.2 G/DL (3.4-5.0); Bilirubin,Direct 0.26 MG/DL (0.0-0.20); Bilirubin,Total 1.2 MG/DL (0.2-1.0); Calcium 8.8 MG/DL (8.5-10.1); Osmolality,Calculated 284.5 MOS/KG (273-304); Total Protein 5.9 G/DL (6.4-8.3)
[2020-09-17 05:14] LABS: Alanine Aminotransferase 27 U/L (13-56); Albumin 3.1 G/DL (3.4-5.0); Alkaline Phosphatase 84 U/L (45-117); Aspartate Amino Transferase 20 U/L (0-37); Bilirubin,Indirect 0.8 MG/DL (0.0-1.0); Total Protein 6.3 G/DL (6.4-8.3)
[2020-09-17] MEDS ORDERED: FUROSEMIDE 40 MG/4 ML VIAL IV ONE ×2 (06:00→10:19)
[2020-09-17] MEDS: LEVOTHYROXINE 50 MCG TABLET PO SCH (06:57)
[2020-09-17] MEDS: ALBUTEROL/IPRATROPIUM 3 ML NEB RESP TX SCH ×4 (07:59→19:04)
[2020-09-17] MEDS ORDERED: TUBERCULIN SKIN TEST 0.1 ML SYRINGE INTRADERM ONE (08:02)
[2020-09-17] MEDS: POLYETHYLENE GLYCOL POWDER 17 GM PACK PO SCH (08:29)
[2020-09-17] MEDS: MYCOPHENOLATE MOFETIL 250 MG CAPSULE PO SCH ×2 (08:29→21:26)
[2020-09-17] MEDS: LOSARTAN 25 MG TABLET PO SCH (08:30)
[2020-09-17] MEDS: CITALOPRAM 40 MG TABLET PO SCH (08:30)
[2020-09-17] MEDS: carvediloL 6.25 MG TABLET PO SCH ×2 (08:30→21:26)
[2020-09-17] MEDS: DOCUSATE SODIUM 100 MG CAPSULE PO SCH (08:30)
[2020-09-17] MEDS: FELODIPINE 5 MG TABLET PO SCH (08:30)
[2020-09-17] MEDS: predniSONE 5 MG TABLET PO SCH (08:30)
[2020-09-17] MEDS: ASPIRIN EC 325 MG TABLET PO SCH (08:30)
[2020-09-17] MEDS: CALCIUM (CARBONATE) 600 MG TABLET PO SCH ×2 (08:30→21:25)
[2020-09-17] MEDS: PANTOPRAZOLE 40 MG TABLET PO SCH (08:31)
[2020-09-17] MEDS: hydroCHLOROthiazide 25 MG TABLET PO SCH (08:31)
[2020-09-17] MEDS: MAGNESIUM OXIDE 400 MG TABLET PO SCH ×3 (08:31→21:31)
[2020-09-17] MEDS: FERROUS SULFATE 325 MG TABLET PO SCH (08:32)
[2020-09-17] MEDS: GABAPENTIN 400 MG CAPSULE PO SCH ×3 (08:33→21:26)
[2020-09-17] MEDS: INSULIN NPH/REGULAR 70/30 100 UNIT/ML SUBCUT SCH ×2 (09:00→16:54)
[2020-09-17] MEDS: INSULIN REGULAR 100 UNIT/ML SUBCUT SCH ×4 (09:45→21:24)
[2020-09-17] MEDS: oxyCODONE/ACETAMINOPHEN 5-325 MG TABLET PO PRN ×2 (09:46→21:25)
[2020-09-17] MEDS: ASCORBIC ACID 500 MG TABLET PO SCH ×2 (10:18→21:25)
[2020-09-17] MEDS: MAGNESIUM HYDROXIDE SUSP 30 ML UDCUP PO PRN (21:25)
[2020-09-17] MEDS: SIMVASTATIN 10 MG TABLET PO SCH (21:26)
[2020-09-18] MEDS: ALBUTEROL/IPRATROPIUM 3 ML NEB RESP TX SCH ×4 (00:54→21:15)
[2020-09-18 03:52] LABS: Basophils % 0.2 % (0.0-0.8); Eosinophils # 0.4 10*3/uL (0.0-0.87); Eosinophils % 2.7 % (0.00-10.9); Hematocrit 36.9 VOL% (35.7-47.0); Hemoglobin 11.9 GM/DL (12.0-16.0); Immature Granulocytes % 0.6 %; Immature Granulocytes Absolute 0.08 #; Lymphocytes % 28.6 % (21.3-54.2); Mean Corpuscular HGB Conc 32.2 GM/DL (32-36); Mean Corpuscular Volume 92.9 FL (87-102); Mean Platelet Volume 10.7 FL (9.6-12.0); Monocytes % 8.6 % (1.7-12.7); Neutrophils % 59.3 % (38.7-73.9); Platelet Count 302 T/CUMM (130-400); Red Blood Count 3.97 MC/CUMM (3.8-5.5); Red Cell Distribution Width 15.4 % (9.3-17.3); White Blood Count 13.9 T/CUMM (4-12)
[2020-09-18 04:16] LABS: Alanine Aminotransferase 24 U/L (13-56); Albumin 2.9 G/DL (3.4-5.0); Alkaline Phosphatase 89 U/L (45-117); Aspartate Amino Transferase 19 U/L (0-37); Bilirubin,Indirect 0.7 MG/DL (0.0-1.0); Blood Urea Nitrogen 43 MG/DL (7-18); Calcium 8.8 MG/DL (8.5-10.1); Carbon Dioxide 31 MMOL/L (21-32); Estimated Glom Filtration Rate 54 ML/MIN; Glucose 58 MG/DL (74-106); Osmolality,Calculated 287.4 MOS/KG (273-304); Potassium 3.4 MMOL/L (3.5-5.1); Sodium 140 MMOL/L (136-145); Total Protein 6.3 G/DL (6.4-8.3)
[2020-09-18] MEDS: LEVOTHYROXINE 50 MCG TABLET PO SCH (05:58)
[2020-09-18] MEDS: INSULIN REGULAR 100 UNIT/ML SUBCUT SCH ×4 (11:36→20:41)
[2020-09-18] MEDS: INSULIN NPH/REGULAR 70/30 100 UNIT/ML SUBCUT SCH ×2 (11:43→17:36)
[2020-09-18] MEDS: FERROUS SULFATE 325 MG TABLET PO SCH (11:44)
[2020-09-18] MEDS: GABAPENTIN 400 MG CAPSULE PO SCH ×3 (11:44→20:39)
[2020-09-18] MEDS: ASCORBIC ACID 500 MG TABLET PO SCH ×2 (11:44→20:40)
[2020-09-18] MEDS: MYCOPHENOLATE MOFETIL 250 MG CAPSULE PO SCH ×2 (11:45→20:40)
[2020-09-18] MEDS: CALCIUM (CARBONATE) 600 MG TABLET PO SCH ×2 (11:45→20:40)
[2020-09-18] MEDS: predniSONE 5 MG TABLET PO SCH (11:45)
[2020-09-18] MEDS: CITALOPRAM 40 MG TABLET PO SCH (11:45)
[2020-09-18] MEDS: carvediloL 6.25 MG TABLET PO SCH ×2 (11:46→20:40)
[2020-09-18] MEDS: ASPIRIN EC 325 MG TABLET PO SCH (11:46)
[2020-09-18] MEDS: FUROSEMIDE 40 MG TABLET PO SCH (11:46)
[2020-09-18] MEDS: FELODIPINE 5 MG TABLET PO SCH (11:46)
[2020-09-18] MEDS: MAGNESIUM OXIDE 400 MG TABLET PO SCH ×3 (11:46→20:40)
[2020-09-18] MEDS: DOCUSATE SODIUM 100 MG CAPSULE PO SCH (11:46)
[2020-09-18] MEDS: POLYETHYLENE GLYCOL POWDER 17 GM PACK PO SCH (11:47)
[2020-09-18] MEDS: PANTOPRAZOLE 40 MG TABLET PO SCH (11:47)
[2020-09-18] MEDS: LEVOFLOXACIN 500 MG TABLET PO SCH (13:00)
[2020-09-18] MEDS: ACETAMINOPHEN 325 MG TABLET PO PRN (15:42)
[2020-09-18] MEDS: oxyCODONE/ACETAMINOPHEN 5-325 MG TABLET PO PRN (20:39)
[2020-09-18] MEDS: SIMVASTATIN 10 MG TABLET PO SCH (20:40)
[2020-09-19] MEDS: ALBUTEROL/IPRATROPIUM 3 ML NEB RESP TX SCH ×4 (00:56→18:52)
[2020-09-19 05:56] LABS: Basophils % 0.2 % (0.0-0.8); Eosinophils # 0.4 10*3/uL (0.0-0.87); Eosinophils % 2.9 % (0.00-10.9); Hematocrit 37.2 VOL% (35.7-47.0); Hemoglobin 11.8 GM/DL (12.0-16.0); Immature Granulocytes % 0.7 %; Immature Granulocytes Absolute 0.09 #; Lymphocytes # 3.9 10*3/uL (1.4-4.0); Lymphocytes % 29.9 % (21.3-54.2); Mean Corpuscular HGB Conc 31.7 GM/DL (32-36); Mean Corpuscular Volume 94.4 FL (87-102); Mean Platelet Volume 10.9 FL (9.6-12.0); Monocytes % 9.1 % (1.7-12.7); Neutrophils % 57.2 % (38.7-73.9); Platelet Count 337 T/CUMM (130-400); Red Blood Count 3.94 MC/CUMM (3.8-5.5); White Blood Count 12.9 T/CUMM (4-12)
[2020-09-19] MEDS: LEVOTHYROXINE 50 MCG TABLET PO SCH (05:59)
[2020-09-19 06:08] LABS: Calcium 8.1 MG/DL (8.5-10.1); Osmolality,Calculated 289.8 MOS/KG (273-304); Potassium 3.3 MMOL/L (3.5-5.1)
[2020-09-19] MEDS: POLYETHYLENE GLYCOL POWDER 17 GM PACK PO SCH (09:44)
[2020-09-19] MEDS: INSULIN NPH/REGULAR 70/30 100 UNIT/ML SUBCUT SCH ×2 (09:45→16:40)
[2020-09-19] MEDS: DOCUSATE SODIUM 100 MG CAPSULE PO SCH (09:46)
[2020-09-19] MEDS: CITALOPRAM 40 MG TABLET PO SCH (09:46)
[2020-09-19] MEDS: ASPIRIN EC 325 MG TABLET PO SCH (09:46)
[2020-09-19] MEDS: FERROUS SULFATE 325 MG TABLET PO SCH (09:46)
[2020-09-19] MEDS: predniSONE 5 MG TABLET PO SCH (09:47)
[2020-09-19] MEDS: MYCOPHENOLATE MOFETIL 250 MG CAPSULE PO SCH ×2 (09:47→21:59)
[2020-09-19] MEDS: ASCORBIC ACID 500 MG TABLET PO SCH ×2 (09:47→21:36)
[2020-09-19] MEDS: carvediloL 6.25 MG TABLET PO SCH ×2 (09:47→21:37)
[2020-09-19] MEDS: FUROSEMIDE 40 MG TABLET PO SCH (09:47)
[2020-09-19] MEDS: FELODIPINE 5 MG TABLET PO SCH (09:47)
[2020-09-19] MEDS: LEVOFLOXACIN 500 MG TABLET PO SCH (09:47)
[2020-09-19] MEDS: PANTOPRAZOLE 40 MG TABLET PO SCH (09:47)
[2020-09-19] MEDS: CALCIUM (CARBONATE) 600 MG TABLET PO SCH ×2 (09:48→21:36)
[2020-09-19] MEDS: GABAPENTIN 400 MG CAPSULE PO SCH ×3 (09:48→21:36)
[2020-09-19] MEDS: MAGNESIUM OXIDE 400 MG TABLET PO SCH ×3 (09:48→21:36)
[2020-09-19] MEDS: oxyCODONE/ACETAMINOPHEN 5-325 MG TABLET PO PRN ×2 (09:53→21:37)
[2020-09-19] MEDS: INSULIN REGULAR 100 UNIT/ML SUBCUT SCH ×4 (10:02→22:21)
[2020-09-19] MEDS: SIMVASTATIN 10 MG TABLET PO SCH (21:37)
[2020-09-20] MEDS: ALBUTEROL/IPRATROPIUM 3 ML NEB RESP TX SCH ×4 (01:24→19:44)
[2020-09-20 05:47] LABS: Basophils % 0.3 % (0.0-0.8); Eosinophils # 0.4 10*3/uL (0.0-0.87); Eosinophils % 3.5 % (0.00-10.9); Hematocrit 36.5 VOL% (35.7-47.0); Hemoglobin 11.6 GM/DL (12.0-16.0); Immature Granulocytes % 0.6 %; Immature Granulocytes Absolute 0.07 #; Lymphocytes # 3.6 10*3/uL (1.4-4.0); Lymphocytes % 30.9 % (21.3-54.2); Mean Corpuscular HGB Conc 31.8 GM/DL (32-36); Mean Corpuscular Volume 94.3 FL (87-102); Mean Platelet Volume 11.3 FL (9.6-12.0); Monocytes % 10.3 % (1.7-12.7); Neutrophils % 54.4 % (38.7-73.9); Platelet Count 349 T/CUMM (130-400); Red Blood Count 3.87 MC/CUMM (3.8-5.5); White Blood Count 11.6 T/CUMM (4-12)
[2020-09-20] MEDS: LEVOTHYROXINE 50 MCG TABLET PO SCH (06:03)
[2020-09-20 06:16] LABS: Alanine Aminotransferase 23 U/L (13-56); Albumin 2.7 G/DL (3.4-5.0); Alkaline Phosphatase 118 U/L (45-117); Aspartate Amino Transferase 15 U/L (0-37); Bilirubin,Indirect 0.4 MG/DL (0.0-1.0); Blood Urea Nitrogen 52 MG/DL (7-18); Calcium 7.8 MG/DL (8.5-10.1); Carbon Dioxide 29 MMOL/L (21-32); Estimated Glom Filtration Rate 38 ML/MIN; Glucose 215 MG/DL (74-106); Osmolality,Calculated 296.5 MOS/KG (273-304); Potassium 3.3 MMOL/L (3.5-5.1); Sodium 139 MMOL/L (136-145); Total Protein 6.2 G/DL (6.4-8.3)
[2020-09-20 06:19] LABS: Troponin I 0.728 NG/ML (0.00-0.045)
[2020-09-20] MEDS ORDERED: INSULIN NPH/REGULAR 70/30 100 UNIT/ML SUBCUT SCH ×2 (09:24→09:26)
[2020-09-20] MEDS: FELODIPINE 5 MG TABLET PO SCH (09:47)
[2020-09-20] MEDS: ASCORBIC ACID 500 MG TABLET PO SCH ×2 (09:48→21:12)
[2020-09-20] MEDS: carvediloL 6.25 MG TABLET PO SCH ×2 (09:48→21:12)
[2020-09-20] MEDS: GABAPENTIN 400 MG CAPSULE PO SCH ×3 (09:48→21:10)
[2020-09-20] MEDS: MYCOPHENOLATE MOFETIL 250 MG CAPSULE PO SCH ×2 (09:48→21:12)
[2020-09-20] MEDS: FERROUS SULFATE 325 MG TABLET PO SCH (09:48)
[2020-09-20] MEDS: ASPIRIN EC 325 MG TABLET PO SCH (09:48)
[2020-09-20] MEDS: CITALOPRAM 40 MG TABLET PO SCH (09:48)
[2020-09-20] MEDS: CALCIUM (CARBONATE) 600 MG TABLET PO SCH ×2 (09:49→21:10)
[2020-09-20] MEDS: FUROSEMIDE 20 MG TABLET PO SCH (09:49)
[2020-09-20] MEDS: PANTOPRAZOLE 40 MG TABLET PO SCH (09:49)
[2020-09-20] MEDS: LEVOFLOXACIN 500 MG TABLET PO SCH (09:49)
[2020-09-20] MEDS: predniSONE 5 MG TABLET PO SCH (09:49)
[2020-09-20] MEDS: DOCUSATE SODIUM 100 MG CAPSULE PO SCH (09:49)
[2020-09-20] MEDS: MAGNESIUM OXIDE 400 MG TABLET PO SCH ×3 (09:49→21:12)
[2020-09-20] MEDS: POLYETHYLENE GLYCOL POWDER 17 GM PACK PO SCH (09:50)
[2020-09-20] MEDS: INSULIN REGULAR 100 UNIT/ML SUBCUT SCH ×4 (09:50→21:13)
[2020-09-20] MEDS: oxyCODONE/ACETAMINOPHEN 5-325 MG TABLET PO PRN ×2 (09:51→21:12)
[2020-09-20] MEDS ORDERED: INSULIN NPH/REGULAR 70/30 100 UNIT/ML SUBCUT ONE (09:58)
[2020-09-20] MEDS: INSULIN NPH/REGULAR 70/30 100 UNIT/ML SUBCUT SCH (10:08)
[2020-09-20] MEDS: SIMVASTATIN 10 MG TABLET PO SCH (21:12)
[2020-09-21] MEDS: ALBUTEROL/IPRATROPIUM 3 ML NEB RESP TX SCH ×2 (02:20→07:45)
[2020-09-21] MEDS: LEVOTHYROXINE 50 MCG TABLET PO SCH (06:14)
[2020-09-21 08:00] LABS: Basophils % 0.4 % (0.0-0.8); Eosinophils # 0.5 10*3/uL (0.0-0.87); Eosinophils % 4.9 % (0.00-10.9); Hematocrit 34.7 VOL% (35.7-47.0); Immature Granulocytes % 0.5 %; Immature Granulocytes Absolute 0.06 #; Lymphocytes # 3.6 10*3/uL (1.4-4.0); Lymphocytes % 32.4 % (21.3-54.2); Mean Corpuscular HGB Conc 31.7 GM/DL (32-36); Mean Corpuscular Volume 94.8 FL (87-102); Mean Platelet Volume 10.5 FL (9.6-12.0); Monocytes % 9.6 % (1.7-12.7); Neutrophils % 52.2 % (38.7-73.9); Platelet Count 354 T/CUMM (130-400); Red Blood Count 3.66 MC/CUMM (3.8-5.5); Red Cell Distribution Width 14.9 % (9.3-17.3); White Blood Count 11.1 T/CUMM (4-12)
[2020-09-21 08:22] LABS: Alanine Aminotransferase 20 U/L (13-56); Albumin 2.6 G/DL (3.4-5.0); Alkaline Phosphatase 93 U/L (45-117); Aspartate Amino Transferase 17 U/L (0-37); Bilirubin,Indirect 0.3 MG/DL (0.0-1.0); Blood Urea Nitrogen 36 MG/DL (7-18); Calcium 7.9 MG/DL (8.5-10.1); Carbon Dioxide 30 MMOL/L (21-32); Estimated Glom Filtration Rate 47 ML/MIN; Glucose 97 MG/DL (74-106); Osmolality,Calculated 290.1 MOS/KG (273-304); Potassium 3.6 MMOL/L (3.5-5.1); Sodium 142 MMOL/L (136-145); Total Protein 5.9 G/DL (6.4-8.3)
[2020-09-21 08:24] LABS: Troponin I 0.434 NG/ML (0.00-0.045)
[2020-09-21] MEDS: INSULIN REGULAR 100 UNIT/ML SUBCUT SCH ×2 (08:42→12:41)
[2020-09-21] MEDS: POLYETHYLENE GLYCOL POWDER 17 GM PACK PO SCH (08:50)
[2020-09-21] MEDS: DOCUSATE SODIUM 100 MG CAPSULE PO SCH (08:51)
[2020-09-21] MEDS: ASCORBIC ACID 500 MG TABLET PO SCH (08:51)
[2020-09-21] MEDS: predniSONE 5 MG TABLET PO SCH (08:51)
[2020-09-21] MEDS: LEVOFLOXACIN 500 MG TABLET PO SCH (08:51)
[2020-09-21] MEDS: MYCOPHENOLATE MOFETIL 250 MG CAPSULE PO SCH (08:51)
[2020-09-21] MEDS: FUROSEMIDE 20 MG TABLET PO SCH (08:52)
[2020-09-21] MEDS: FELODIPINE 5 MG TABLET PO SCH (08:52)
[2020-09-21] MEDS: carvediloL 6.25 MG TABLET PO SCH (08:52)
[2020-09-21] MEDS: GABAPENTIN 400 MG CAPSULE PO SCH (08:53)
[2020-09-21] MEDS: PANTOPRAZOLE 40 MG TABLET PO SCH (08:53)
[2020-09-21] MEDS: ASPIRIN EC 325 MG TABLET PO SCH (08:53)
[2020-09-21] MEDS: CALCIUM (CARBONATE) 600 MG TABLET PO SCH (08:53)
[2020-09-21] MEDS: MAGNESIUM OXIDE 400 MG TABLET PO SCH (08:53)
[2020-09-21] MEDS: CITALOPRAM 40 MG TABLET PO SCH (08:53)
[2020-09-21] MEDS: FERROUS SULFATE 325 MG TABLET PO SCH (09:34)
[2020-09-21 12:04] VITALS: BP 147/57
[2020-09-21] MEDS: oxyCODONE/ACETAMINOPHEN 5-325 MG TABLET PO PRN (12:50)
[2020-09-21] MEDS ORDERED: FUROSEMIDE 20 MG TABLET PO SCH (16:00)
== END 2020-09-21 14:40 | DRG 234 ==
LOC: EDUNIT# → EDBD → N.ED 21:56 → N.EDINP 21:56 → SUATTDRO 09-03 00:03 → N.TELEN 09-03 01:21 → SUATTDRO 09-03 14:32 → N.CVR 09-14 11:07 → N.ICU 09-16 13:35 → N.TELES 09-18 16:57
PROVIDERS: ADMIT Internal Medicine Geriatric Medicine; ATTEND Internal Medicine Cardiovascular Disease

== ENCOUNTER 2021-03-06 17:35 | Inpatient (IN) ==
[2021-03-06 18:12] LABS: Basophils % 0.2 % (0.0-0.8); Eosinophils # 0.5 10*3/uL (0.0-0.87); Eosinophils % 3.7 % (0.00-10.9); Hematocrit 40.7 VOL% (35.7-47.0); Hemoglobin 12.6 GM/DL (12.0-16.0); Immature Granulocytes % 0.3 %; Immature Granulocytes Absolute 0.04 #; Lymphocytes % 24.3 % (21.3-54.2); Mean Corpuscular Volume 94.7 FL (87-102); Mean Platelet Volume 10.7 FL (9.6-12.0); Monocytes % 7.8 % (1.7-12.7); Neutrophils % 63.7 % (38.7-73.9); Platelet Count 299 T/CUMM (130-400); Red Cell Distribution Width 13.8 % (9.3-17.3); White Blood Count 12.2 T/CUMM (4-12)
[2021-03-06 18:36] LABS: Albumin 3.3 G/DL (3.4-5.0); Bilirubin,Total 0.8 MG/DL (0.2-1.0); Calcium 9.7 MG/DL (8.5-10.1); Osmolality,Calculated 285.7 MOS/KG (273-304); Potassium 4.2 MMOL/L (3.5-5.1); Total Protein 6.3 G/DL (6.4-8.2)
[2021-03-06] MEDS ORDERED: SODIUM CHLORIDE 0.9% 500 ML IV STA ×2 (20:03→21:55)
[2021-03-06] MEDS ORDERED: IBUPROFEN 800 MG TABLET PO STA (21:44)
[2021-03-06] MEDS ORDERED: MORPHINE 4 MG/1 ML VIAL IV ONE (21:55)
[2021-03-06] MEDS ORDERED: ONDANSETRON 4 MG/2 ML VIAL IV ONE (21:55)
[2021-03-06] MEDS ORDERED: MAGNESIUM CITRATE 300 ML BOTTLE PO STA (22:32)
[2021-03-06] MEDS ORDERED: oxyCODONE/ACETAMINOPHEN 5-325 MG TABLET PO STA (23:41)
[2021-03-06 23:42] LABS: Bilirubin,Urine Negative (Negative); Blood, Urine Negative (Negative); Glucose,Urine (UA) 50 mg/dL (Negative); Granular Casts,Urine 1 /LPF (0-1); Hyaline Casts,Urine 218 /LPF (0-3); Ketones,Urine Negative (Negative); Mucus,Urine Occasional /LPF (Occasional); Nitrite,Urine Negative (Negative); Protein,Urine Negative; RBC,Urine <1 /HPF (0-4); Squamous Epithelial Cell,Urine Occasional /HPF (0-10); Urine Appearance CLEAR (Clear); Urine Color Yellow (Yellow); Urine Specific Gravity 1.015 (1.001-1.035); Urine Urobilinogen < 2.0 EU/DL (0.2-1.0)
[2021-03-06] MEDS ORDERED: cefTRIAXone 1,000 MG in SODIUM CHLORIDE 0.9% 100 ML IV STA (23:42)
[2021-03-06] MEDS ORDERED: AZITHROMYCIN INJ 500 MG in SODIUM CHLORIDE 0.9% 250 ML IV STA (23:42)
[2021-03-06] MEDS ORDERED: hydrALAZINE 20 MG/1 ML VIAL IV PRN (23:50)
[2021-03-06] MEDS ORDERED: MORPHINE 4 MG/1 ML VIAL IV PRN (23:50)
[2021-03-06] MEDS ORDERED: ACETAMINOPHEN 325 MG TABLET PO PRN (23:50)
[2021-03-06] MEDS ORDERED: NICOTINE 21 MG/24 HR PATCH TRANSDERM PRN (23:50)
[2021-03-06] MEDS ORDERED: ONDANSETRON 4 MG/2 ML VIAL IV PRN (23:50)
[2021-03-06] MEDS ORDERED: GLUCAGON 1 MG VIAL IM PRN ×2 (23:50)
[2021-03-06] MEDS ORDERED: DEXTROSE 50% 25 GM/50 ML VIAL IV PRN ×2 (23:50)
[2021-03-06] MEDS ORDERED: guaiFENesin/DM ER 600-30 MG TABLET PO PRN (23:50)
[2021-03-06] MEDS ORDERED: BISACODYL 5 MG TABLET PO PRN (23:50)
[2021-03-06] MEDS ORDERED: ZALEPLON 5 MG CAPSULE PO PRN (23:50)
[2021-03-06] MEDS ORDERED: diphenhydrAMINE CAP 25 MG CAPSULE PO PRN (23:50)
[2021-03-07] MEDS: SODIUM CHLORIDE 0.9% 1,000 ML IV SCH ×3 (01:00→20:57)
[2021-03-07] MEDS ORDERED: SODIUM CHLORIDE 0.9% 500 ML IV ONE (01:37)
[2021-03-07] MEDS: ALBUTEROL/IPRATROPIUM 3 ML NEB RESP TX SCH ×4 (02:50→19:31)
[2021-03-07] MEDS: PIPERACILLIN/TAZOBACTAM 3,375 MG in SODIUM CHLORIDE 0.9% 100 ML IV SCH ×3 (03:10→18:31)
[2021-03-07 03:20] LABS: ABG Base Excess 0.2 MMOL/L (-2.5-2.5); ABG HCO3 24.5 MMOL/L (20-26); ABG Oxygen Saturation 91.3 % (95-100); ABG PH 7.388 (7.35-7.45); ABG PO2 65.1 MM HG (80-95); ABG TCO2 22.6 MMOL/L (23-27)
[2021-03-07] MEDS ORDERED: VANCOMYCIN INJ 1,750 MG in SODIUM CHLORIDE 0.9% 500 ML IV SCH (05:00)
[2021-03-07 07:32] LABS: Basophils % 0.3 % (0.0-0.8); Eosinophils # 0.4 10*3/uL (0.0-0.87); Eosinophils % 3.3 % (0.00-10.9); Hematocrit 35.9 VOL% (35.7-47.0); Hemoglobin 11.1 GM/DL (12.0-16.0); Immature Granulocytes % 0.4 %; Immature Granulocytes Absolute 0.04 #; Lymphocytes # 3.5 10*3/uL (1.4-4.0); Lymphocytes % 32.4 % (21.3-54.2); Mean Corpuscular HGB Conc 30.9 GM/DL (32-36); Mean Corpuscular Volume 94.2 FL (87-102); Mean Platelet Volume 11.3 FL (9.6-12.0); Monocytes % 8.1 % (1.7-12.7); Neutrophils % 55.5 % (38.7-73.9); Platelet Count 276 T/CUMM (130-400); Red Blood Count 3.81 MC/CUMM (3.8-5.5); Red Cell Distribution Width 13.8 % (9.3-17.3); White Blood Count 10.9 T/CUMM (4-12)
[2021-03-07 07:49] LABS: Calcium 8.8 MG/DL (8.5-10.1); Osmolality,Calculated 292.3 MOS/KG (273-304); Potassium 3.9 MMOL/L (3.5-5.1)
[2021-03-07] MEDS ORDERED: ZINC OXIDE PASTE 113 GM TUBE TOP PRN (08:16)
[2021-03-07] MEDS ORDERED: ALUMINUM/MAGNES/SIMETH MAX STR 30 ML UDCUP PO PRN (08:16)
[2021-03-07] MEDS ORDERED: MAGNESIUM HYDROXIDE SUSP 30 ML UDCUP PO PRN (08:16)
[2021-03-07] MEDS ORDERED: tiZANidine 4 MG TABLET PO PRN (08:16)
[2021-03-07] MEDS: POLYETHYLENE GLYCOL POWDER 17 GM PACK PO SCH (08:59)
[2021-03-07] MEDS ORDERED: POLYETHYLENE GLYCOL POWDER 17 GM PACK PO SCH (09:00)
[2021-03-07] MEDS: CALCIUM (CARBONATE)/VITAMIN D 600 MG-400 UNIT TABLET PO SCH (09:35)
[2021-03-07] MEDS: MAGNESIUM OXIDE 400 MG TABLET PO SCH ×3 (09:35→20:53)
[2021-03-07] MEDS: GABAPENTIN 400 MG CAPSULE PO SCH ×3 (09:35→20:52)
[2021-03-07] MEDS: TACROLIMUS 0.5 MG CAPSULE PO SCH ×2 (09:36→20:52)
[2021-03-07] MEDS: ASCORBIC ACID 500 MG TABLET PO SCH ×2 (09:37→20:52)
[2021-03-07] MEDS: DOCUSATE SODIUM 100 MG CAPSULE PO SCH (09:37)
[2021-03-07] MEDS: MYCOPHENOLATE MOFETIL 250 MG CAPSULE PO SCH ×2 (09:37→20:53)
[2021-03-07] MEDS: HEPARIN 5,000 UNIT/1 ML VIAL SUBCUT SCH ×2 (09:38→20:53)
[2021-03-07] MEDS: PANTOPRAZOLE 40 MG TABLET PO SCH (09:38)
[2021-03-07] MEDS: INSULIN LISPRO 100 UNIT/ML SUBCUT SCH ×4 (09:38→20:54)
[2021-03-07] MEDS: FUROSEMIDE 20 MG TABLET PO SCH ×2 (09:38→15:35)
[2021-03-07] MEDS: carvediloL 6.25 MG TABLET PO SCH ×2 (09:38→20:30)
[2021-03-07] MEDS: predniSONE 20 MG TABLET PO SCH (09:38)
[2021-03-07] MEDS: ASPIRIN EC 325 MG TABLET PO SCH (09:38)
[2021-03-07] MEDS: INSULIN NPH/REGULAR 70/30 100 UNIT/ML SUBCUT SCH (09:39)
[2021-03-07] MEDS: LEVOTHYROXINE 50 MCG TABLET PO SCH (09:40)
[2021-03-07] MEDS ORDERED: INSULIN NPH/REGULAR 70/30 100 UNIT/ML SUBCUT SCH (17:00)
[2021-03-07] MEDS: AZITHROMYCIN INJ 500 MG in SODIUM CHLORIDE 0.9% 250 ML IV SCH (22:37)
[2021-03-08] MEDS: PIPERACILLIN/TAZOBACTAM 3,375 MG in SODIUM CHLORIDE 0.9% 100 ML IV SCH ×3 (00:17→17:16)
[2021-03-08] MEDS: ALBUTEROL/IPRATROPIUM 3 ML NEB RESP TX SCH ×4 (01:45→19:22)
[2021-03-08] MEDS: LEVOTHYROXINE 50 MCG TABLET PO SCH (05:48)
[2021-03-08 05:56] LABS: Basophils % 0.3 % (0.0-0.8); Eosinophils # 0.1 10*3/uL (0.0-0.87); Hematocrit 36.2 VOL% (35.7-47.0); Hemoglobin 11.3 GM/DL (12.0-16.0); Immature Granulocytes % 0.4 %; Immature Granulocytes Absolute 0.04 #; Lymphocytes # 3.1 10*3/uL (1.4-4.0); Lymphocytes % 31.1 % (21.3-54.2); Mean Corpuscular HGB Conc 31.2 GM/DL (32-36); Mean Platelet Volume 10.9 FL (9.6-12.0); Monocytes % 7.3 % (1.7-12.7); Neutrophils % 59.9 % (38.7-73.9); Platelet Count 293 T/CUMM (130-400); Red Blood Count 3.85 MC/CUMM (3.8-5.5); Red Cell Distribution Width 13.7 % (9.3-17.3)
[2021-03-08 06:05] LABS: Calcium 8.4 MG/DL (8.5-10.1); Osmolality,Calculated 291.5 MOS/KG (273-304)
[2021-03-08 06:20] LABS: Thyroid Stimulating Hormone 0.353 uIU/ml (0.358-3.74)
[2021-03-08] MEDS: FUROSEMIDE 20 MG TABLET PO SCH ×2 (08:37→16:58)
[2021-03-08] MEDS: GABAPENTIN 400 MG CAPSULE PO SCH ×3 (08:37→21:34)
[2021-03-08] MEDS: DOCUSATE SODIUM 100 MG CAPSULE PO SCH (08:37)
[2021-03-08] MEDS: TACROLIMUS 0.5 MG CAPSULE PO SCH ×2 (08:37→21:34)
[2021-03-08] MEDS: PANTOPRAZOLE 40 MG TABLET PO SCH (08:37)
[2021-03-08] MEDS: MAGNESIUM OXIDE 400 MG TABLET PO SCH ×3 (08:37→21:35)
[2021-03-08] MEDS: predniSONE 20 MG TABLET PO SCH (08:38)
[2021-03-08] MEDS: ASPIRIN EC 325 MG TABLET PO SCH (08:38)
[2021-03-08] MEDS: HEPARIN 5,000 UNIT/1 ML VIAL SUBCUT SCH ×2 (08:38→21:34)
[2021-03-08] MEDS: MYCOPHENOLATE MOFETIL 250 MG CAPSULE PO SCH ×2 (08:38→21:35)
[2021-03-08] MEDS: CALCIUM (CARBONATE)/VITAMIN D 600 MG-400 UNIT TABLET PO SCH (08:38)
[2021-03-08] MEDS: ASCORBIC ACID 500 MG TABLET PO SCH ×2 (08:38→21:35)
[2021-03-08] MEDS: carvediloL 6.25 MG TABLET PO SCH ×2 (08:38→21:35)
[2021-03-08] MEDS: POLYETHYLENE GLYCOL POWDER 17 GM PACK PO SCH (08:39)
[2021-03-08] MEDS: INSULIN LISPRO 100 UNIT/ML SUBCUT SCH ×4 (08:39→21:33)
[2021-03-08] MEDS: INSULIN NPH/REGULAR 70/30 100 UNIT/ML SUBCUT SCH (09:30)
[2021-03-08] MEDS: SODIUM CHLORIDE 0.9% 1,000 ML IV SCH (16:59)
[2021-03-08] MEDS: MENTHOL/ZINC OXIDE OINT 71 GM JAR TOP SCH ×2 (17:00→21:48)
[2021-03-08] MEDS ORDERED: INSULIN NPH/REGULAR 70/30 100 UNIT/ML SUBCUT SCH (17:00)
[2021-03-08] MEDS: AZITHROMYCIN INJ 500 MG in SODIUM CHLORIDE 0.9% 250 ML IV SCH (21:47)
[2021-03-09] MEDS: ALBUTEROL/IPRATROPIUM 3 ML NEB RESP TX SCH ×3 (00:16→13:11)
[2021-03-09] MEDS: PIPERACILLIN/TAZOBACTAM 3,375 MG in SODIUM CHLORIDE 0.9% 100 ML IV SCH ×2 (00:45→09:21)
[2021-03-09] MEDS: SODIUM CHLORIDE 0.9% 1,000 ML IV SCH (05:01)
[2021-03-09] MEDS: LEVOTHYROXINE 50 MCG TABLET PO SCH (05:39)
[2021-03-09 05:45] LABS: Basophils # 0.1 10*3/uL (0.0-0.2); Basophils % 0.4 % (0.0-0.8); Eosinophils # 0.1 10*3/uL (0.0-0.87); Eosinophils % 1.1 % (0.00-10.9); Hematocrit 36.6 VOL% (35.7-47.0); Hemoglobin 11.1 GM/DL (12.0-16.0); Immature Granulocytes % 0.6 %; Immature Granulocytes Absolute 0.07 #; Lymphocytes % 32.1 % (21.3-54.2); Mean Corpuscular HGB Conc 30.3 GM/DL (32-36); Mean Corpuscular Volume 95.8 FL (87-102); Mean Platelet Volume 11.2 FL (9.6-12.0); Monocytes % 8.1 % (1.7-12.7); Neutrophils % 57.7 % (38.7-73.9); Platelet Count 330 T/CUMM (130-400); Red Blood Count 3.82 MC/CUMM (3.8-5.5); White Blood Count 12.4 T/CUMM (4-12)
[2021-03-09 06:20] LABS: Calcium 8.2 MG/DL (8.5-10.1); Osmolality,Calculated 289.4 MOS/KG (273-304); Potassium 3.6 MMOL/L (3.5-5.1)
[2021-03-09] MEDS ORDERED: INSULIN NPH/REGULAR 70/30 100 UNIT/ML SUBCUT SCH (08:00)
[2021-03-09] MEDS ORDERED: predniSONE 5 MG TABLET PO SCH (09:00)
[2021-03-09] MEDS: TACROLIMUS 0.5 MG CAPSULE PO SCH (09:18)
[2021-03-09] MEDS: CALCIUM (CARBONATE)/VITAMIN D 600 MG-400 UNIT TABLET PO SCH (09:18)
[2021-03-09] MEDS: MYCOPHENOLATE MOFETIL 250 MG CAPSULE PO SCH (09:19)
[2021-03-09] MEDS: MAGNESIUM OXIDE 400 MG TABLET PO SCH (09:20)
[2021-03-09] MEDS: carvediloL 6.25 MG TABLET PO SCH (09:20)
[2021-03-09] MEDS: DOCUSATE SODIUM 100 MG CAPSULE PO SCH (09:20)
[2021-03-09] MEDS: PANTOPRAZOLE 40 MG TABLET PO SCH (09:20)
[2021-03-09] MEDS: FUROSEMIDE 20 MG TABLET PO SCH (09:20)
[2021-03-09] MEDS: ASPIRIN EC 325 MG TABLET PO SCH (09:20)
[2021-03-09] MEDS: ASCORBIC ACID 500 MG TABLET PO SCH (09:20)
[2021-03-09] MEDS: GABAPENTIN 400 MG CAPSULE PO SCH (09:20)
[2021-03-09] MEDS: HEPARIN 5,000 UNIT/1 ML VIAL SUBCUT SCH (09:21)
[2021-03-09] MEDS: INSULIN LISPRO 100 UNIT/ML SUBCUT SCH ×2 (09:21→12:09)
[2021-03-09] MEDS: MENTHOL/ZINC OXIDE OINT 71 GM JAR TOP SCH (09:34)
[2021-03-09 11:35] VITALS: BP 152/60
== END 2021-03-09 15:21 | DRG 194 ==
LOC: N.ED 17:35 → N.EDINP 23:50 → SUATTDRO 23:50 → N.5E 03-07 00:31
PROVIDERS: ADMIT Hospitalist; ATTEND Internal Medicine

== ENCOUNTER 2021-10-16 13:21 | Inpatient (IN) ==
[2021-10-16 14:24] LABS: Basophils % 0.1 % (0.0-0.8); Eosinophils % 0.4 % (0.00-10.9); Hematocrit 38.4 VOL% (35.7-47.0); Immature Granulocytes % 0.4 %; Immature Granulocytes Absolute 0.04 #; Lymphocytes # 2.6 10*3/uL (1.4-4.0); Lymphocytes % 28.7 % (21.3-54.2); Mean Corpuscular HGB Conc 31.3 GM/DL (32-36); Mean Corpuscular Volume 92.5 FL (87-102); Mean Platelet Volume 11.9 FL (9.6-12.0); Neutrophils % 62.4 % (38.7-73.9); Platelet Count 182 T/CUMM (130-400); Red Blood Count 4.15 MC/CUMM (3.8-5.5); White Blood Count 9.1 T/CUMM (4-12)
[2021-10-16 14:47] LABS: Albumin 2.3 G/DL (3.4-5.0); Bilirubin,Total 0.5 MG/DL (0.20-1.00); Calcium 7.7 MG/DL (8.5-10.1); Osmolality,Calculated 287.7 MOS/KG (273-304); Potassium 3.4 MMOL/L (3.5-5.1); Total Protein 6.3 G/DL (6.4-8.2)
[2021-10-16] MEDS ORDERED: SODIUM CHLORIDE 0.9% 1,000 ML IV STA (15:25)
[2021-10-16] MEDS ORDERED: ONDANSETRON 4 MG/2 ML VIAL IV STA (15:25)
[2021-10-16 16:17] LABS: Bilirubin,Urine Negative (Negative); Blood, Urine Negative (Negative); Glucose,Urine (UA) >=500 mg/dL (Negative); Hyaline Casts,Urine 15 /LPF (0-3); Ketones,Urine 20 mg/dL (Negative); Mucus,Urine Few /LPF (Occasional); Nitrite,Urine Negative (Negative); Protein,Urine 30 MG/DL; Squamous Epithelial Cell,Urine Occasional /HPF (0-10); Urine Appearance CLEAR (Clear); Urine Color Amber (Yellow); Urine Specific Gravity 1.021 (1.001-1.035); Urine Urobilinogen < 2.0 EU/DL (<2.0)
[2021-10-16] MEDS ORDERED: ONDANSETRON 4 MG/2 ML VIAL IV PRN (17:42)
[2021-10-16] MEDS ORDERED: ACETAMINOPHEN 325 MG TABLET PO PRN (17:42)
[2021-10-16] MEDS ORDERED: GLUCAGON 1 MG VIAL IM PRN ×2 (17:42)
[2021-10-16] MEDS ORDERED: DEXTROSE 50% 25 GM/50 ML VIAL IV PRN (17:42)
[2021-10-16] MEDS ORDERED: DEXTROSE 10% 250 ML BAG IV PRN (17:46)
[2021-10-16] MEDS: ENOXAPARIN 40 MG/0.4 ML SYRINGE SUBCUT SCH (19:54)
[2021-10-16] MEDS: metroNIDAZOLE INJ 500 MG/100 ML PREMIX IV SCH (19:55)
[2021-10-16] MEDS: INSULIN LISPRO 100 UNIT/ML SUBCUT SCH ×2 (20:14→22:41)
[2021-10-16] MEDS ORDERED: FAMOTIDINE 20 MG TABLET PO SCH (21:00)
[2021-10-16] MEDS: cefTRIAXone 1,000 MG in SODIUM CHLORIDE 0.9% 100 ML IV SCH (22:39)
[2021-10-16] MEDS: FAMOTIDINE 20 MG/2 ML VIAL IV SCH (22:40)
[2021-10-16] MEDS: ASCORBIC ACID 500 MG TABLET PO SCH (22:40)
[2021-10-17] MEDS: metroNIDAZOLE INJ 500 MG/100 ML PREMIX IV SCH ×3 (01:44→17:33)
[2021-10-17 06:14] LABS: Basophils % 0.3 % (0.0-0.8); Eosinophils % 0.4 % (0.00-10.9); Hematocrit 39.4 VOL% (35.7-47.0); Hemoglobin 12.1 GM/DL (12.0-16.0); Immature Granulocytes % 0.3 %; Immature Granulocytes Absolute 0.02 #; Lymphocytes # 3.5 10*3/uL (1.4-4.0); Lymphocytes % 46.1 % (21.3-54.2); Mean Corpuscular HGB Conc 30.7 GM/DL (32-36); Mean Corpuscular Volume 93.6 FL (87-102); Mean Platelet Volume 12.7 FL (9.6-12.0); Monocytes % 11.5 % (1.7-12.7); Neutrophils % 41.4 % (38.7-73.9); Platelet Count 177 T/CUMM (130-400); Red Blood Count 4.21 MC/CUMM (3.8-5.5); White Blood Count 7.5 T/CUMM (4-12)
[2021-10-17] MEDS: FAMOTIDINE 20 MG/2 ML VIAL IV SCH ×2 (06:17→17:34)
[2021-10-17] MEDS: ENOXAPARIN 40 MG/0.4 ML SYRINGE SUBCUT SCH ×2 (06:17→17:07)
[2021-10-17 06:46] LABS: Albumin 2.6 G/DL (3.4-5.0); Bilirubin,Total 0.9 MG/DL (0.20-1.00); Calcium 7.7 MG/DL (8.5-10.1); Potassium 3.4 MMOL/L (3.5-5.1); Total Protein 6.2 G/DL (6.4-8.2)
[2021-10-17 07:16] LABS: Ferritin 202.3 ng/mL (8-252)
[2021-10-17] MEDS: CETIRIZINE 10 MG TABLET PO SCH (09:05)
[2021-10-17] MEDS: ASCORBIC ACID 500 MG TABLET PO SCH ×2 (09:05→21:51)
[2021-10-17] MEDS: INSULIN LISPRO 100 UNIT/ML SUBCUT SCH ×4 (09:05→21:52)
[2021-10-17] MEDS: CHOLECALCIFEROL 1,000 UNIT TABLET PO SCH (09:05)
[2021-10-17] MEDS: ZINC GLUCONATE 50 MG TABLET PO SCH (09:06)
[2021-10-17] MEDS: oxyCODONE/ACETAMINOPHEN 5-325 MG TABLET PO PRN ×2 (14:20→21:51)
[2021-10-17] MEDS ORDERED: DEXTROSE 10% 250 ML BAG IV PRN (15:05)
[2021-10-17] MEDS: cefTRIAXone 1,000 MG in SODIUM CHLORIDE 0.9% 100 ML IV SCH (17:41)
[2021-10-18] MEDS: metroNIDAZOLE INJ 500 MG/100 ML PREMIX IV SCH ×3 (02:09→18:19)
[2021-10-18] MEDS: ENOXAPARIN 40 MG/0.4 ML SYRINGE SUBCUT SCH ×2 (05:19→17:40)
[2021-10-18 05:24] LABS: Basophils % 0.2 % (0.0-0.8); Eosinophils % 0.3 % (0.00-10.9); Hematocrit 43.1 VOL% (35.7-47.0); Hemoglobin 13.2 GM/DL (12.0-16.0); Immature Granulocytes % 0.5 %; Immature Granulocytes Absolute 0.05 #; Lymphocytes # 2.7 10*3/uL (1.4-4.0); Mean Corpuscular HGB Conc 30.6 GM/DL (32-36); Mean Corpuscular Volume 94.1 FL (87-102); Monocytes % 9.9 % (1.7-12.7); Neutrophils % 61.1 % (38.7-73.9); Platelet Count 181 T/CUMM (130-400); Red Blood Count 4.58 MC/CUMM (3.8-5.5); White Blood Count 9.5 T/CUMM (4-12)
[2021-10-18 05:59] LABS: Calcium 8.1 MG/DL (8.5-10.1); Ferritin 210.1 ng/mL (8-252); Osmolality,Calculated 283.1 MOS/KG (273-304); Potassium 3.7 MMOL/L (3.5-5.1)
[2021-10-18] MEDS: FAMOTIDINE 20 MG/2 ML VIAL IV SCH ×2 (06:27→17:43)
[2021-10-18] MEDS: ZINC GLUCONATE 50 MG TABLET PO SCH (10:02)
[2021-10-18] MEDS: CETIRIZINE 10 MG TABLET PO SCH (10:02)
[2021-10-18] MEDS: ASCORBIC ACID 500 MG TABLET PO SCH ×2 (10:02→20:46)
[2021-10-18] MEDS: CHOLECALCIFEROL 1,000 UNIT TABLET PO SCH (10:02)
[2021-10-18] MEDS: INSULIN LISPRO 100 UNIT/ML SUBCUT SCH ×4 (10:39→21:33)
[2021-10-18] MEDS: TACROLIMUS 0.5 MG CAPSULE PO SCH ×2 (10:46→20:46)
[2021-10-18] MEDS: predniSONE 5 MG TABLET PO SCH (10:46)
[2021-10-18] MEDS: MYCOPHENOLATE MOFETIL 250 MG CAPSULE PO SCH ×2 (10:47→20:47)
[2021-10-18] MEDS: ASPIRIN EC 325 MG TABLET PO SCH (16:01)
[2021-10-18] MEDS: carvediloL 3.125 MG TABLET PO SCH ×2 (16:01→20:46)
[2021-10-18] MEDS: CITALOPRAM 40 MG TABLET PO SCH (16:01)
[2021-10-18] MEDS: DESITIN 4OZ/NYSTATIN 15 GRAM MIXTURE PASTE TOP SCH ×2 (16:07→20:00)
[2021-10-18] MEDS: cefTRIAXone 1,000 MG in SODIUM CHLORIDE 0.9% 100 ML IV SCH (17:40)
[2021-10-18] MEDS: tiZANidine 4 MG TABLET PO SCH (20:46)
[2021-10-18] MEDS: GABAPENTIN 400 MG CAPSULE PO SCH (20:47)
[2021-10-19] MEDS: metroNIDAZOLE INJ 500 MG/100 ML PREMIX IV SCH ×3 (02:42→17:48)
[2021-10-19 03:50] LABS: Basophils % 0.1 % (0.0-0.8); Eosinophils % 0.6 % (0.00-10.9); Hematocrit 38.4 VOL% (35.7-47.0); Hemoglobin 11.7 GM/DL (12.0-16.0); Immature Granulocytes % 0.3 %; Immature Granulocytes Absolute 0.02 #; Lymphocytes # 3.4 10*3/uL (1.4-4.0); Lymphocytes % 50.5 % (21.3-54.2); Mean Corpuscular HGB Conc 30.5 GM/DL (32-36); Mean Corpuscular Volume 93.4 FL (87-102); Mean Platelet Volume 11.6 FL (9.6-12.0); Monocytes % 7.5 % (1.7-12.7); Platelet Count 165 T/CUMM (130-400); Red Blood Count 4.11 MC/CUMM (3.8-5.5); Red Cell Distribution Width 13.7 % (9.3-17.3); White Blood Count 6.8 T/CUMM (4-12)
[2021-10-19 04:09] LABS: Calcium 7.4 MG/DL (8.5-10.1); Ferritin 194.6 ng/mL (8-252); Osmolality,Calculated 286.1 MOS/KG (273-304); Potassium 3.3 MMOL/L (3.5-5.1)
[2021-10-19] MEDS: ENOXAPARIN 40 MG/0.4 ML SYRINGE SUBCUT SCH ×2 (06:18→17:51)
[2021-10-19] MEDS: FAMOTIDINE 20 MG/2 ML VIAL IV SCH ×2 (07:00→17:51)
[2021-10-19] MEDS: LEVOTHYROXINE 50 MCG TABLET PO SCH (07:01)
[2021-10-19] MEDS: oxyCODONE/ACETAMINOPHEN 5-325 MG TABLET PO PRN (10:40)
[2021-10-19] MEDS: INSULIN LISPRO 100 UNIT/ML SUBCUT SCH ×4 (10:40→21:11)
[2021-10-19] MEDS: ASPIRIN EC 325 MG TABLET PO SCH (10:41)
[2021-10-19] MEDS: CHOLECALCIFEROL 1,000 UNIT TABLET PO SCH (10:41)
[2021-10-19] MEDS: ZINC GLUCONATE 50 MG TABLET PO SCH (10:41)
[2021-10-19] MEDS: MYCOPHENOLATE MOFETIL 250 MG CAPSULE PO SCH ×2 (10:41→21:10)
[2021-10-19] MEDS: TACROLIMUS 0.5 MG CAPSULE PO SCH ×2 (10:41→21:10)
[2021-10-19] MEDS: ASCORBIC ACID 500 MG TABLET PO SCH ×2 (10:41→21:10)
[2021-10-19] MEDS: CITALOPRAM 40 MG TABLET PO SCH (10:41)
[2021-10-19] MEDS: POTASSIUM CHLORIDE 20 MEQ TABLET PO PRN ×3 (10:42→17:50)
[2021-10-19] MEDS: predniSONE 5 MG TABLET PO SCH (10:42)
[2021-10-19] MEDS: DESITIN 4OZ/NYSTATIN 15 GRAM MIXTURE PASTE TOP SCH ×2 (10:42→21:11)
[2021-10-19] MEDS: CETIRIZINE 10 MG TABLET PO SCH (10:42)
[2021-10-19] MEDS: carvediloL 3.125 MG TABLET PO SCH ×2 (10:42→21:10)
[2021-10-19] MEDS: cefTRIAXone 1,000 MG in SODIUM CHLORIDE 0.9% 100 ML IV SCH (17:56)
[2021-10-19] MEDS: GABAPENTIN 400 MG CAPSULE PO SCH (21:10)
[2021-10-19] MEDS: tiZANidine 4 MG TABLET PO SCH (21:15)
[2021-10-20] MEDS: metroNIDAZOLE INJ 500 MG/100 ML PREMIX IV SCH ×3 (02:44→20:24)
[2021-10-20 05:10] LABS: Basophils % 0.2 % (0.0-0.8); Eosinophils # 0.1 10*3/uL (0.0-0.87); Eosinophils % 1.1 % (0.00-10.9); Hemoglobin 12.1 GM/DL (12.0-16.0); Immature Granulocytes % 0.4 %; Immature Granulocytes Absolute 0.02 #; Lymphocytes % 53.1 % (21.3-54.2); Mean Corpuscular Volume 92.9 FL (87-102); Mean Platelet Volume 11.9 FL (9.6-12.0); Monocytes % 8.2 % (1.7-12.7); Platelet Count 168 T/CUMM (130-400); Red Cell Distribution Width 13.9 % (9.3-17.3); White Blood Count 5.7 T/CUMM (4-12)
[2021-10-20 05:31] LABS: Band Neutrophils 1 % (0-10); Lymphocytes 43 % (20-55); Segmented Neutrophils 46 % (50-85); Total Cells Counted 100
[2021-10-20 05:32] LABS: Atypical Lymphocytes Few
[2021-10-20 05:33] LABS: Hypochromia 1+; Microcytosis Slight; Ovalocytes Slight; Platelet Estimate Adequate
[2021-10-20 05:40] LABS: Calcium 7.5 MG/DL (8.5-10.1); Ferritin 221.5 ng/mL (8-252); Osmolality,Calculated 284.4 MOS/KG (273-304); Potassium 4.2 MMOL/L (3.5-5.1)
[2021-10-20] MEDS: FAMOTIDINE 20 MG/2 ML VIAL IV SCH ×2 (05:52→18:13)
[2021-10-20] MEDS: ENOXAPARIN 40 MG/0.4 ML SYRINGE SUBCUT SCH ×2 (05:53→18:13)
[2021-10-20] MEDS: LEVOTHYROXINE 50 MCG TABLET PO SCH (05:53)
[2021-10-20] MEDS: INSULIN LISPRO 100 UNIT/ML SUBCUT SCH ×4 (10:55→20:25)
[2021-10-20] MEDS: TACROLIMUS 0.5 MG CAPSULE PO SCH ×2 (11:15→20:25)
[2021-10-20] MEDS: CITALOPRAM 40 MG TABLET PO SCH (11:15)
[2021-10-20] MEDS: CHOLECALCIFEROL 1,000 UNIT TABLET PO SCH (11:15)
[2021-10-20] MEDS: ZINC GLUCONATE 50 MG TABLET PO SCH (11:15)
[2021-10-20] MEDS: MYCOPHENOLATE MOFETIL 250 MG CAPSULE PO SCH ×2 (11:15→20:25)
[2021-10-20] MEDS: predniSONE 5 MG TABLET PO SCH (11:15)
[2021-10-20] MEDS: carvediloL 3.125 MG TABLET PO SCH ×2 (11:15→20:26)
[2021-10-20] MEDS: ASPIRIN EC 325 MG TABLET PO SCH (11:15)
[2021-10-20] MEDS: DESITIN 4OZ/NYSTATIN 15 GRAM MIXTURE PASTE TOP SCH ×2 (11:15→20:26)
[2021-10-20] MEDS: ASCORBIC ACID 500 MG TABLET PO SCH ×2 (11:15→20:26)
[2021-10-20] MEDS: CETIRIZINE 10 MG TABLET PO SCH (11:15)
[2021-10-20] MEDS ORDERED: TUBERCULIN SKIN TEST 0.1 ML SYRINGE INTRADERM ONE (16:59)
[2021-10-20] MEDS: cefTRIAXone 1,000 MG in SODIUM CHLORIDE 0.9% 100 ML IV SCH (18:16)
[2021-10-20] MEDS: GABAPENTIN 400 MG CAPSULE PO SCH (20:25)
[2021-10-20] MEDS: tiZANidine 4 MG TABLET PO SCH (20:30)
[2021-10-21] MEDS: metroNIDAZOLE INJ 500 MG/100 ML PREMIX IV SCH ×3 (03:56→21:14)
[2021-10-21 05:33] LABS: Basophils % 0.2 % (0.0-0.8); Eosinophils % 0.5 % (0.00-10.9); Hemoglobin 12.8 GM/DL (12.0-16.0); Immature Granulocytes % 0.2 %; Immature Granulocytes Absolute 0.01 #; Lymphocytes # 2.9 10*3/uL (1.4-4.0); Lymphocytes % 47.7 % (21.3-54.2); Mean Corpuscular HGB Conc 31.2 GM/DL (32-36); Mean Corpuscular Volume 92.3 FL (87-102); Mean Platelet Volume 12.1 FL (9.6-12.0); Monocytes % 7.8 % (1.7-12.7); Neutrophils % 43.6 % (38.7-73.9); Platelet Count 191 T/CUMM (130-400); Red Blood Count 4.44 MC/CUMM (3.8-5.5); Red Cell Distribution Width 13.7 % (9.3-17.3); White Blood Count 6.2 T/CUMM (4-12)
[2021-10-21] MEDS: ENOXAPARIN 40 MG/0.4 ML SYRINGE SUBCUT SCH ×2 (05:35→17:52)
[2021-10-21] MEDS: FAMOTIDINE 20 MG/2 ML VIAL IV SCH ×2 (05:36→17:54)
[2021-10-21] MEDS: LEVOTHYROXINE 50 MCG TABLET PO SCH (05:36)
[2021-10-21 05:53] LABS: Calcium 7.9 MG/DL (8.5-10.1); Ferritin 283.1 ng/mL (8-252); Osmolality,Calculated 276.8 MOS/KG (273-304); Potassium 3.7 MMOL/L (3.5-5.1)
[2021-10-21] MEDS: TACROLIMUS 0.5 MG CAPSULE PO SCH ×2 (09:15→21:15)
[2021-10-21] MEDS: CHOLECALCIFEROL 1,000 UNIT TABLET PO SCH (09:15)
[2021-10-21] MEDS: INSULIN LISPRO 100 UNIT/ML SUBCUT SCH ×4 (09:15→21:15)
[2021-10-21] MEDS: carvediloL 3.125 MG TABLET PO SCH ×2 (09:16→21:16)
[2021-10-21] MEDS: predniSONE 5 MG TABLET PO SCH (09:17)
[2021-10-21] MEDS: ASCORBIC ACID 500 MG TABLET PO SCH ×2 (09:17→21:16)
[2021-10-21] MEDS: ASPIRIN EC 325 MG TABLET PO SCH (09:17)
[2021-10-21] MEDS: CETIRIZINE 10 MG TABLET PO SCH (09:17)
[2021-10-21] MEDS: ZINC GLUCONATE 50 MG TABLET PO SCH (09:17)
[2021-10-21] MEDS: MYCOPHENOLATE MOFETIL 250 MG CAPSULE PO SCH ×2 (09:18→21:15)
[2021-10-21] MEDS: CITALOPRAM 40 MG TABLET PO SCH (09:36)
[2021-10-21] MEDS: DESITIN 4OZ/NYSTATIN 15 GRAM MIXTURE PASTE TOP SCH ×2 (09:36→21:17)
[2021-10-21] MEDS: amLODIPine 5 MG TABLET PO SCH (09:41)
[2021-10-21] MEDS: cefTRIAXone 1,000 MG in SODIUM CHLORIDE 0.9% 100 ML IV SCH (17:53)
[2021-10-21] MEDS: tiZANidine 4 MG TABLET PO SCH (21:16)
[2021-10-21] MEDS: GABAPENTIN 400 MG CAPSULE PO SCH (21:16)
[2021-10-22] MEDS: metroNIDAZOLE INJ 500 MG/100 ML PREMIX IV SCH ×3 (02:56→21:17)
[2021-10-22 05:33] LABS: Basophils % 0.1 % (0.0-0.8); Eosinophils % 0.4 % (0.00-10.9); Hematocrit 40.7 VOL% (35.7-47.0); Hemoglobin 12.8 GM/DL (12.0-16.0); Immature Granulocytes % 0.6 %; Immature Granulocytes Absolute 0.04 #; Lymphocytes # 2.6 10*3/uL (1.4-4.0); Lymphocytes % 36.9 % (21.3-54.2); Mean Corpuscular HGB Conc 31.4 GM/DL (32-36); Mean Corpuscular Volume 90.4 FL (87-102); Mean Platelet Volume 11.7 FL (9.6-12.0); Monocytes % 7.2 % (1.7-12.7); Neutrophils % 54.8 % (38.7-73.9); Platelet Count 224 T/CUMM (130-400); Red Cell Distribution Width 13.6 % (9.3-17.3); White Blood Count 7.1 T/CUMM (4-12)
[2021-10-22 05:53] LABS: Calcium 7.6 MG/DL (8.5-10.1); Ferritin 305.4 ng/mL (8-252); Osmolality,Calculated 278.5 MOS/KG (273-304); Potassium 3.7 MMOL/L (3.5-5.1)
[2021-10-22] MEDS: FAMOTIDINE 20 MG/2 ML VIAL IV SCH (06:15)
[2021-10-22] MEDS: ENOXAPARIN 40 MG/0.4 ML SYRINGE SUBCUT SCH ×2 (06:15→19:20)
[2021-10-22] MEDS: LEVOTHYROXINE 50 MCG TABLET PO SCH (06:15)
[2021-10-22] MEDS: INSULIN LISPRO 100 UNIT/ML SUBCUT SCH ×3 (08:50→21:29)
[2021-10-22] MEDS: TACROLIMUS 0.5 MG CAPSULE PO SCH ×2 (09:14→21:18)
[2021-10-22] MEDS: ASPIRIN EC 325 MG TABLET PO SCH (09:17)
[2021-10-22] MEDS: MYCOPHENOLATE MOFETIL 250 MG CAPSULE PO SCH ×2 (09:18→21:20)
[2021-10-22] MEDS: CHOLECALCIFEROL 1,000 UNIT TABLET PO SCH (09:18)
[2021-10-22] MEDS: CITALOPRAM 40 MG TABLET PO SCH (09:18)
[2021-10-22] MEDS: CETIRIZINE 10 MG TABLET PO SCH (09:18)
[2021-10-22] MEDS: ASCORBIC ACID 500 MG TABLET PO SCH ×2 (09:19→21:19)
[2021-10-22] MEDS: carvediloL 3.125 MG TABLET PO SCH ×2 (09:19→21:19)
[2021-10-22] MEDS: amLODIPine 5 MG TABLET PO SCH (09:19)
[2021-10-22] MEDS: ZINC GLUCONATE 50 MG TABLET PO SCH (09:19)
[2021-10-22] MEDS: predniSONE 5 MG TABLET PO SCH (09:19)
[2021-10-22] MEDS: DESITIN 4OZ/NYSTATIN 15 GRAM MIXTURE PASTE TOP SCH ×2 (09:28→21:20)
[2021-10-22] MEDS ORDERED: DIPHENOXYLATE/ATROPINE 2.5-0.025 MG TABLET PO PRN (12:34)
[2021-10-22] MEDS: cefTRIAXone 1,000 MG in SODIUM CHLORIDE 0.9% 100 ML IV SCH (19:20)
[2021-10-22] MEDS: tiZANidine 4 MG TABLET PO SCH (21:19)
[2021-10-22] MEDS: GABAPENTIN 400 MG CAPSULE PO SCH (21:19)
[2021-10-22] MEDS: FAMOTIDINE 20 MG TABLET PO SCH (21:19)
[2021-10-23] MEDS: metroNIDAZOLE INJ 500 MG/100 ML PREMIX IV SCH ×3 (03:28→20:55)
[2021-10-23] MEDS: ENOXAPARIN 40 MG/0.4 ML SYRINGE SUBCUT SCH ×2 (06:00→18:10)
[2021-10-23] MEDS: LEVOTHYROXINE 50 MCG TABLET PO SCH (06:00)
[2021-10-23 06:27] LABS: Basophils % 0.1 % (0.0-0.8); Eosinophils % 0.4 % (0.00-10.9); Hematocrit 40.2 VOL% (35.7-47.0); Hemoglobin 12.8 GM/DL (12.0-16.0); Immature Granulocytes % 0.3 %; Immature Granulocytes Absolute 0.02 #; Lymphocytes # 2.7 10*3/uL (1.4-4.0); Lymphocytes % 37.7 % (21.3-54.2); Mean Corpuscular HGB Conc 31.8 GM/DL (32-36); Mean Corpuscular Volume 89.7 FL (87-102); Mean Platelet Volume 11.8 FL (9.6-12.0); Neutrophils % 54.5 % (38.7-73.9); Platelet Count 232 T/CUMM (130-400); Red Blood Count 4.48 MC/CUMM (3.8-5.5); Red Cell Distribution Width 13.7 % (9.3-17.3); White Blood Count 7.1 T/CUMM (4-12)
[2021-10-23 06:50] LABS: Calcium 8.1 MG/DL (8.5-10.1); Ferritin 344.9 ng/mL (8-252); Osmolality,Calculated 279.5 MOS/KG (273-304); Potassium 3.6 MMOL/L (3.5-5.1)
[2021-10-23] MEDS: INSULIN LISPRO 100 UNIT/ML SUBCUT SCH ×4 (08:07→21:27)
[2021-10-23] MEDS: ASPIRIN EC 325 MG TABLET PO SCH (10:15)
[2021-10-23] MEDS: CITALOPRAM 40 MG TABLET PO SCH (10:15)
[2021-10-23] MEDS: amLODIPine 5 MG TABLET PO SCH (10:17)
[2021-10-23] MEDS: carvediloL 3.125 MG TABLET PO SCH ×2 (10:17→21:28)
[2021-10-23] MEDS: predniSONE 5 MG TABLET PO SCH (10:17)
[2021-10-23] MEDS: FAMOTIDINE 20 MG TABLET PO SCH ×2 (10:17→21:28)
[2021-10-23] MEDS: MYCOPHENOLATE MOFETIL 250 MG CAPSULE PO SCH ×2 (10:17→21:28)
[2021-10-23] MEDS: CHOLECALCIFEROL 1,000 UNIT TABLET PO SCH (10:23)
[2021-10-23] MEDS: ASCORBIC ACID 500 MG TABLET PO SCH ×2 (10:23→21:28)
[2021-10-23] MEDS: TACROLIMUS 0.5 MG CAPSULE PO SCH ×2 (10:23→21:28)
[2021-10-23] MEDS: DESITIN 4OZ/NYSTATIN 15 GRAM MIXTURE PASTE TOP SCH ×2 (10:23→21:29)
[2021-10-23] MEDS: ZINC GLUCONATE 50 MG TABLET PO SCH (10:23)
[2021-10-23] MEDS: CETIRIZINE 10 MG TABLET PO SCH (10:23)
[2021-10-23] MEDS: oxyCODONE/ACETAMINOPHEN 5-325 MG TABLET PO PRN (12:30)
[2021-10-23] MEDS: GABAPENTIN 400 MG CAPSULE PO SCH (21:27)
[2021-10-23] MEDS: cefTRIAXone 1,000 MG in SODIUM CHLORIDE 0.9% 100 ML IV SCH (21:27)
[2021-10-23] MEDS: tiZANidine 4 MG TABLET PO SCH (21:28)
[2021-10-24] MEDS: metroNIDAZOLE INJ 500 MG/100 ML PREMIX IV SCH ×3 (03:55→20:24)
[2021-10-24] MEDS: ENOXAPARIN 40 MG/0.4 ML SYRINGE SUBCUT SCH ×2 (06:20→17:58)
[2021-10-24] MEDS: LEVOTHYROXINE 50 MCG TABLET PO SCH (06:21)
[2021-10-24] MEDS: INSULIN LISPRO 100 UNIT/ML SUBCUT SCH ×4 (11:07→20:33)
[2021-10-24] MEDS: FAMOTIDINE 20 MG TABLET PO SCH ×2 (11:08→20:36)
[2021-10-24] MEDS: MYCOPHENOLATE MOFETIL 250 MG CAPSULE PO SCH ×2 (11:08→20:35)
[2021-10-24] MEDS: carvediloL 3.125 MG TABLET PO SCH ×2 (11:08→20:36)
[2021-10-24] MEDS: DESITIN 4OZ/NYSTATIN 15 GRAM MIXTURE PASTE TOP SCH ×2 (11:08→20:36)
[2021-10-24] MEDS: amLODIPine 5 MG TABLET PO SCH (11:08)
[2021-10-24] MEDS: CHOLECALCIFEROL 1,000 UNIT TABLET PO SCH (11:08)
[2021-10-24] MEDS: CITALOPRAM 40 MG TABLET PO SCH (11:08)
[2021-10-24] MEDS: ASCORBIC ACID 500 MG TABLET PO SCH ×2 (11:08→20:36)
[2021-10-24] MEDS: TACROLIMUS 0.5 MG CAPSULE PO SCH ×2 (11:08→20:35)
[2021-10-24] MEDS: predniSONE 5 MG TABLET PO SCH (11:08)
[2021-10-24] MEDS: ZINC GLUCONATE 50 MG TABLET PO SCH (11:08)
[2021-10-24] MEDS: CETIRIZINE 10 MG TABLET PO SCH (11:08)
[2021-10-24] MEDS: INSULIN GLARGINE 100 UNIT/ML SUBCUT SCH (13:55)
[2021-10-24] MEDS: GABAPENTIN 400 MG CAPSULE PO SCH (20:35)
[2021-10-24] MEDS: SIMVASTATIN 10 MG TABLET PO SCH (20:36)
[2021-10-24] MEDS: tiZANidine 4 MG TABLET PO SCH (20:36)
[2021-10-24] MEDS: cefTRIAXone 1,000 MG in SODIUM CHLORIDE 0.9% 100 ML IV SCH (21:36)
[2021-10-25] MEDS: metroNIDAZOLE INJ 500 MG/100 ML PREMIX IV SCH ×3 (03:57→20:37)
[2021-10-25] MEDS: LEVOTHYROXINE 50 MCG TABLET PO SCH (05:59)
[2021-10-25] MEDS: ENOXAPARIN 40 MG/0.4 ML SYRINGE SUBCUT SCH ×2 (05:59→17:57)
[2021-10-25] MEDS: INSULIN LISPRO 100 UNIT/ML SUBCUT SCH ×4 (09:05→20:49)
[2021-10-25] MEDS: CITALOPRAM 40 MG TABLET PO SCH (09:06)
[2021-10-25] MEDS: ASPIRIN EC 81 MG TABLET PO SCH (09:06)
[2021-10-25] MEDS: carvediloL 3.125 MG TABLET PO SCH ×2 (09:06→20:38)
[2021-10-25] MEDS: INSULIN GLARGINE 100 UNIT/ML SUBCUT SCH (09:06)
[2021-10-25] MEDS: FAMOTIDINE 20 MG TABLET PO SCH ×2 (09:06→20:39)
[2021-10-25] MEDS: CHOLECALCIFEROL 1,000 UNIT TABLET PO SCH (09:06)
[2021-10-25] MEDS: amLODIPine 5 MG TABLET PO SCH (09:07)
[2021-10-25] MEDS: ASCORBIC ACID 500 MG TABLET PO SCH ×2 (09:07→20:38)
[2021-10-25] MEDS: CETIRIZINE 10 MG TABLET PO SCH (09:07)
[2021-10-25] MEDS: MYCOPHENOLATE MOFETIL 250 MG CAPSULE PO SCH ×2 (09:07→20:38)
[2021-10-25] MEDS: TACROLIMUS 0.5 MG CAPSULE PO SCH ×2 (09:08→20:38)
[2021-10-25] MEDS: predniSONE 5 MG TABLET PO SCH (09:08)
[2021-10-25] MEDS: DESITIN 4OZ/NYSTATIN 15 GRAM MIXTURE PASTE TOP SCH ×2 (09:08→20:39)
[2021-10-25] MEDS: ZINC GLUCONATE 50 MG TABLET PO SCH (10:00)
[2021-10-25] MEDS: GABAPENTIN 400 MG CAPSULE PO SCH (20:39)
[2021-10-25] MEDS: SIMVASTATIN 10 MG TABLET PO SCH (20:39)
[2021-10-25] MEDS: tiZANidine 4 MG TABLET PO SCH (20:39)
[2021-10-25] MEDS: cefTRIAXone 1,000 MG in SODIUM CHLORIDE 0.9% 100 ML IV SCH (22:17)
[2021-10-26 05:25] LABS: Basophils % 0.2 % (0.0-0.8); Eosinophils % 0.3 % (0.00-10.9); Hematocrit 39.7 VOL% (35.7-47.0); Hemoglobin 12.6 GM/DL (12.0-16.0); Immature Granulocytes % 0.3 %; Immature Granulocytes Absolute 0.02 #; Lymphocytes # 3.6 10*3/uL (1.4-4.0); Lymphocytes % 61.4 % (21.3-54.2); Mean Corpuscular HGB Conc 31.7 GM/DL (32-36); Mean Corpuscular Volume 89.8 FL (87-102); Mean Platelet Volume 11.2 FL (9.6-12.0); Monocytes % 8.5 % (1.7-12.7); Neutrophils % 29.3 % (38.7-73.9); Platelet Count 280 T/CUMM (130-400); Red Blood Count 4.42 MC/CUMM (3.8-5.5); Red Cell Distribution Width 13.6 % (9.3-17.3); White Blood Count 5.9 T/CUMM (4-12)
[2021-10-26 05:53] LABS: Calcium 8.6 MG/DL (8.5-10.1); Osmolality,Calculated 287.1 MOS/KG (273-304); Potassium 3.5 MMOL/L (3.5-5.1)
[2021-10-26 05:59] LABS: Atypical Lymphocytes Few; Band Neutrophils 1 % (0-10); Hypochromia 1+; Lymphocytes 63 % (20-55); Microcytosis Slight; Segmented Neutrophils 33 % (50-85); Total Cells Counted 100
[2021-10-26] MEDS: LEVOTHYROXINE 50 MCG TABLET PO SCH (06:38)
[2021-10-26] MEDS: ENOXAPARIN 40 MG/0.4 ML SYRINGE SUBCUT SCH (06:38)
[2021-10-26] MEDS: INSULIN GLARGINE 100 UNIT/ML SUBCUT SCH (08:16)
[2021-10-26] MEDS: INSULIN LISPRO 100 UNIT/ML SUBCUT SCH ×2 (08:17→12:40)
[2021-10-26] MEDS: MYCOPHENOLATE MOFETIL 250 MG CAPSULE PO SCH (08:17)
[2021-10-26] MEDS: CITALOPRAM 40 MG TABLET PO SCH (08:18)
[2021-10-26] MEDS: CHOLECALCIFEROL 1,000 UNIT TABLET PO SCH (08:18)
[2021-10-26] MEDS: TACROLIMUS 0.5 MG CAPSULE PO SCH (08:19)
[2021-10-26] MEDS: predniSONE 5 MG TABLET PO SCH (08:20)
[2021-10-26] MEDS: CETIRIZINE 10 MG TABLET PO SCH (08:20)
[2021-10-26] MEDS: ASCORBIC ACID 500 MG TABLET PO SCH (08:20)
[2021-10-26] MEDS: ZINC GLUCONATE 50 MG TABLET PO SCH (08:21)
[2021-10-26] MEDS: FAMOTIDINE 20 MG TABLET PO SCH (08:21)
[2021-10-26] MEDS: carvediloL 3.125 MG TABLET PO SCH (08:21)
[2021-10-26] MEDS: ASPIRIN EC 81 MG TABLET PO SCH (08:21)
[2021-10-26] MEDS: DESITIN 4OZ/NYSTATIN 15 GRAM MIXTURE PASTE TOP SCH (08:22)
[2021-10-26] MEDS: amLODIPine 5 MG TABLET PO SCH (08:22)
[2021-10-26] MEDS ORDERED: DAPAGLIFLOZIN 10 MG TABLET PO SCH (09:00)
[2021-10-26] MEDS ORDERED: MAGNESIUM CHLORIDE 64 MG TABLET PO SCH (10:00)
[2021-10-26] MEDS ORDERED: POTASSIUM CHLORIDE 20 MEQ TABLET PO ONE (10:00)
[2021-10-26 12:32] VITALS: BP 103/64
== END 2021-10-26 13:12 | DRG 178 ==
LOC: N.ED 13:21 → SUATTDRO 17:42 → N.3E 17:42
PROVIDERS: ADMIT Phlebology; ATTEND Hospitalist

== ENCOUNTER 2022-01-03 17:50 | Inpatient (IN) ==
[2022-01-03] MEDS ORDERED: SODIUM CHLORIDE 0.9% 1,000 ML IV STA (18:23)
[2022-01-03 18:55] LABS: Basophils # 0.1 10*3/uL (0.0-0.2); Basophils % 0.4 % (0.0-0.8); Eosinophils # 0.2 10*3/uL (0.0-0.87); Eosinophils % 1.7 % (0.00-10.9); Hematocrit 34.7 VOL% (35.7-47.0); Immature Granulocytes % 0.4 %; Immature Granulocytes Absolute 0.05 #; Lymphocytes # 2.2 10*3/uL (1.4-4.0); Lymphocytes % 19.6 % (21.3-54.2); Mean Corpuscular HGB Conc 31.7 GM/DL (32-36); Mean Corpuscular Volume 94.6 FL (87-102); Mean Platelet Volume 11.1 FL (9.6-12.0); Monocytes # 1.2 10*3/uL (0.11-0.8); Monocytes % 10.5 % (1.7-12.7); Neutrophils % 67.4 % (38.7-73.9); Platelet Count 276 T/CUMM (130-400); Red Blood Count 3.67 MC/CUMM (3.8-5.5); Red Cell Distribution Width 15.5 % (9.3-17.3); White Blood Count 11.2 T/CUMM (4-12)
[2022-01-03 19:14] LABS: Albumin 2.5 G/DL (3.4-5.0); Bilirubin,Total 0.7 MG/DL (0.20-1.00); Calcium 7.9 MG/DL (8.5-10.1); Osmolality,Calculated 279.7 MOS/KG (273-304); Potassium 4.1 MMOL/L (3.5-5.1); Total Protein 5.4 G/DL (6.4-8.2)
[2022-01-03 19:58] LABS: RBC,Urine <1 /HPF (0-4); Squamous Epithelial Cell,Urine Occasional /HPF (0-10)
[2022-01-03 19:59] LABS: Bilirubin,Urine Negative (Negative); Blood, Urine Negative (Negative); Glucose,Urine (UA) Negative (Negative); Ketones,Urine Negative (Negative); Nitrite,Urine Negative (Negative); Protein,Urine Negative (Negative); Urine Appearance Clear (Clear); Urine Color Yellow (Yellow); Urine Urobilinogen 0.2 eU/dL (<2.0)
[2022-01-03] MEDS ORDERED: AZITHROMYCIN INJ 500 MG in SODIUM CHLORIDE 0.9% 250 ML IV STA (20:09)
[2022-01-03] MEDS ORDERED: cefTRIAXone 1,000 MG in SODIUM CHLORIDE 0.9% 100 ML IV STA (20:09)
[2022-01-03] MEDS ORDERED: ONDANSETRON 4 MG/2 ML VIAL IV PRN (21:32)
[2022-01-03] MEDS ORDERED: GLUCAGON 1 MG VIAL IM PRN (21:32)
[2022-01-03] MEDS ORDERED: DEXTROSE 50% 25 GM/50 ML VIAL IV PRN (21:32)
[2022-01-03] MEDS ORDERED: DEXTROSE 10% 250 ML BAG IV PRN (22:05)
[2022-01-03 23:00] LABS: Hepatitis B Core IgM Quant 0.06 Index; Hepatitis B Surface Ag Quant < 0.10 Index; Hepatitis B Surface Ag Result Non-Reactive (NonReactive); Hepatitis C Virus Ab Quant 0.16 Index; Hepatitis C Virus Ab Result Non-Reactive (NonReactive)
[2022-01-03] MEDS: PIPERACILLIN/TAZOBACTAM 3,375 MG in SODIUM CHLORIDE 0.9% 100 ML IV SCH (23:27)
[2022-01-04] MEDS: ACETAMINOPHEN 325 MG TABLET PO PRN ×2 (00:30→15:00)
[2022-01-04] MEDS: SODIUM CHLORIDE 0.9% 1,000 ML IV SCH ×2 (00:31→16:35)
[2022-01-04 01:08] LABS: Basophils % 0.4 % (0.0-0.8); Eosinophils # 0.1 10*3/uL (0.0-0.87); Eosinophils % 0.7 % (0.00-10.9); Hematocrit 35.4 VOL% (35.7-47.0); Hemoglobin 10.9 GM/DL (12.0-16.0); Immature Granulocytes % 0.6 %; Immature Granulocytes Absolute 0.07 #; Lymphocytes # 2.9 10*3/uL (1.4-4.0); Lymphocytes % 26.6 % (21.3-54.2); Mean Corpuscular HGB Conc 30.8 GM/DL (32-36); Mean Corpuscular Volume 95.4 FL (87-102); Mean Platelet Volume 10.7 FL (9.6-12.0); Monocytes % 9.1 % (1.7-12.7); Neutrophils % 62.6 % (38.7-73.9); Platelet Count 251 T/CUMM (130-400); Red Blood Count 3.71 MC/CUMM (3.8-5.5); Red Cell Distribution Width 15.5 % (9.3-17.3)
[2022-01-04 01:38] LABS: Albumin 2.5 G/DL (3.4-5.0); Bilirubin,Total 0.6 MG/DL (0.20-1.00); Calcium 8.2 MG/DL (8.5-10.1); Potassium 4.2 MMOL/L (3.5-5.1); Thyroid Stimulating Hormone 1.57 uIU/ml (0.358-3.74); Total Protein 5.7 G/DL (6.4-8.2)
[2022-01-04] MEDS: ALBUTEROL/IPRATROPIUM 3 ML NEB RESP TX SCH ×4 (01:40→20:00)
[2022-01-04] MEDS: PIPERACILLIN/TAZOBACTAM 3,375 MG in SODIUM CHLORIDE 0.9% 100 ML IV SCH ×2 (06:14→13:21)
[2022-01-04] MEDS ORDERED: MAGNESIUM SULF RIDER 2 GM/50 ML PREMIX IV ONE (08:18)
[2022-01-04] MEDS: PANTOPRAZOLE 40 MG TABLET PO SCH (09:41)
[2022-01-04] MEDS: INSULIN LISPRO 100 UNIT/ML SUBCUT SCH ×4 (10:13→21:39)
[2022-01-04] MEDS: GABAPENTIN 400 MG CAPSULE PO SCH ×2 (15:02→21:38)
[2022-01-04] MEDS: CALCIUM (CARBONATE)/VITAMIN D 600 MG-400 UNIT TABLET PO SCH (17:29)
[2022-01-04] MEDS: TACROLIMUS 0.5 MG CAPSULE PO SCH (21:38)
[2022-01-04] MEDS: AZITHROMYCIN INJ 500 MG in SODIUM CHLORIDE 0.9% 250 ML IV SCH (21:39)
[2022-01-04] MEDS: MYCOPHENOLATE MOFETIL 250 MG CAPSULE PO SCH (21:39)
[2022-01-04] MEDS: oxyCODONE/ACETAMINOPHEN 5-325 MG TABLET PO PRN (21:39)
[2022-01-04] MEDS: ENOXAPARIN 40 MG/0.4 ML SYRINGE SUBCUT SCH (21:39)
[2022-01-05] MEDS: ALBUTEROL/IPRATROPIUM 3 ML NEB RESP TX SCH ×4 (00:10→19:10)
[2022-01-05] MEDS: PIPERACILLIN/TAZOBACTAM 3,375 MG in SODIUM CHLORIDE 0.9% 100 ML IV SCH ×3 (00:30→15:27)
[2022-01-05] MEDS: SODIUM CHLORIDE 0.9% 1,000 ML IV SCH ×2 (01:27→15:26)
[2022-01-05] MEDS: LEVOTHYROXINE 50 MCG TABLET PO SCH (05:45)
[2022-01-05 06:07] LABS: Basophils % 0.5 % (0.0-0.8); Eosinophils # 0.5 10*3/uL (0.0-0.87); Eosinophils % 6.1 % (0.00-10.9); Hematocrit 36.7 VOL% (35.7-47.0); Immature Granulocytes % 0.4 %; Immature Granulocytes Absolute 0.03 #; Lymphocytes # 2.8 10*3/uL (1.4-4.0); Lymphocytes % 33.5 % (21.3-54.2); Mean Corpuscular Volume 97.6 FL (87-102); Mean Platelet Volume 11.1 FL (9.6-12.0); Monocytes # 0.9 10*3/uL (0.11-0.8); Monocytes % 10.7 % (1.7-12.7); Neutrophils % 48.8 % (38.7-73.9); Platelet Count 255 T/CUMM (130-400); Red Blood Count 3.76 MC/CUMM (3.8-5.5); Red Cell Distribution Width 15.7 % (9.3-17.3); White Blood Count 8.2 T/CUMM (4-12)
[2022-01-05 06:31] LABS: Calcium 7.8 MG/DL (8.5-10.1); Osmolality,Calculated 284.1 MOS/KG (273-304); Potassium 4.2 MMOL/L (3.5-5.1)
[2022-01-05] MEDS: INSULIN LISPRO 100 UNIT/ML SUBCUT SCH ×4 (08:49→21:43)
[2022-01-05] MEDS: CALCIUM (CARBONATE)/VITAMIN D 600 MG-400 UNIT TABLET PO SCH ×2 (09:12→17:31)
[2022-01-05] MEDS: ASPIRIN 325 MG TABLET PO SCH (09:13)
[2022-01-05] MEDS: TACROLIMUS 0.5 MG CAPSULE PO SCH ×2 (09:13→21:42)
[2022-01-05] MEDS: GABAPENTIN 400 MG CAPSULE PO SCH ×3 (09:13→21:42)
[2022-01-05] MEDS: predniSONE 5 MG TABLET PO SCH (09:13)
[2022-01-05] MEDS: PANTOPRAZOLE 40 MG TABLET PO SCH (09:14)
[2022-01-05] MEDS: MYCOPHENOLATE MOFETIL 250 MG CAPSULE PO SCH ×2 (09:14→21:42)
[2022-01-05] MEDS: oxyCODONE/ACETAMINOPHEN 5-325 MG TABLET PO PRN (09:25)
[2022-01-05] MEDS ORDERED: INSULIN GLARGINE 100 UNIT/ML SUBCUT SCH (21:00)
[2022-01-05] MEDS: AZITHROMYCIN INJ 500 MG in SODIUM CHLORIDE 0.9% 250 ML IV SCH (21:40)
[2022-01-05] MEDS: ENOXAPARIN 40 MG/0.4 ML SYRINGE SUBCUT SCH (21:42)
[2022-01-06] MEDS: PIPERACILLIN/TAZOBACTAM 3,375 MG in SODIUM CHLORIDE 0.9% 100 ML IV SCH ×2 (00:18→10:34)
[2022-01-06] MEDS: ALBUTEROL/IPRATROPIUM 3 ML NEB RESP TX SCH ×3 (01:00→13:18)
[2022-01-06] MEDS: LEVOTHYROXINE 50 MCG TABLET PO SCH (05:32)
[2022-01-06] MEDS: SODIUM CHLORIDE 0.9% 1,000 ML IV SCH (05:32)
[2022-01-06 06:14] LABS: Basophils % 0.3 % (0.0-0.8); Eosinophils # 0.5 10*3/uL (0.0-0.87); Hematocrit 36.6 VOL% (35.7-47.0); Immature Granulocytes % 0.3 %; Immature Granulocytes Absolute 0.03 #; Lymphocytes # 3.2 10*3/uL (1.4-4.0); Mean Corpuscular HGB Conc 30.1 GM/DL (32-36); Mean Corpuscular Volume 96.8 FL (87-102); Mean Platelet Volume 11.3 FL (9.6-12.0); Monocytes # 0.8 10*3/uL (0.11-0.8); Monocytes % 9.1 % (1.7-12.7); Neutrophils % 47.3 % (38.7-73.9); Platelet Count 262 T/CUMM (130-400); Red Blood Count 3.78 MC/CUMM (3.8-5.5); Red Cell Distribution Width 15.8 % (9.3-17.3); White Blood Count 8.7 T/CUMM (4-12)
[2022-01-06 06:53] LABS: Albumin 2.4 G/DL (3.4-5.0); Bilirubin,Total 0.4 MG/DL (0.20-1.00); Osmolality,Calculated 281.3 MOS/KG (273-304); Potassium 3.8 MMOL/L (3.5-5.1); Total Protein 5.7 G/DL (6.4-8.2)
[2022-01-06] MEDS ORDERED: MAGNESIUM SULF RIDER 2 GM/50 ML PREMIX IV ONE (08:00)
[2022-01-06] MEDS: INSULIN LISPRO 100 UNIT/ML SUBCUT SCH (08:10)
[2022-01-06] MEDS: TACROLIMUS 0.5 MG CAPSULE PO SCH (08:40)
[2022-01-06] MEDS: predniSONE 5 MG TABLET PO SCH (08:41)
[2022-01-06] MEDS: MYCOPHENOLATE MOFETIL 250 MG CAPSULE PO SCH (08:41)
[2022-01-06] MEDS: CALCIUM (CARBONATE)/VITAMIN D 600 MG-400 UNIT TABLET PO SCH (08:41)
[2022-01-06] MEDS: ASPIRIN 325 MG TABLET PO SCH (08:41)
[2022-01-06] MEDS: PANTOPRAZOLE 40 MG TABLET PO SCH (08:41)
[2022-01-06] MEDS: GABAPENTIN 400 MG CAPSULE PO SCH (08:42)
[2022-01-06 12:09] VITALS: BP 144/46
[2022-01-06 20:36] LABS: CDT Result Negative (Negative); CDT Specimen Source STOOL
== END 2022-01-06 15:02 | disposition swing bed (61) | DRG 194 ==
LOC: EDBD → EDUNIT# → N.ED 17:50 → N.EDINP 21:32 → SUATTDRO 21:32 → N.3E 22:20
PROVIDERS: ADMIT Internal Medicine; ATTEND Family Medicine

== ENCOUNTER 2022-03-12 14:43 | Inpatient (IN) ==
[2022-03-12] MEDS ORDERED: SODIUM CHLORIDE 0.9% 1,000 ML IV STA (14:58)
[2022-03-12 15:14] LABS: Basophils % 0.3 % (0.0-0.8); Eosinophils # 0.1 10*3/uL (0.0-0.87); Eosinophils % 0.4 % (0.00-10.9); Hematocrit 37.6 VOL% (35.7-47.0); Hemoglobin 11.9 GM/DL (12.0-16.0); Immature Granulocytes % 0.5 %; Immature Granulocytes Absolute 0.08 #; Lymphocytes # 2.1 10*3/uL (1.4-4.0); Lymphocytes % 13.6 % (21.3-54.2); Mean Corpuscular HGB Conc 31.6 GM/DL (32-36); Mean Corpuscular Volume 91.5 FL (87-102); Mean Platelet Volume 10.8 FL (9.6-12.0); Monocytes # 1.2 10*3/uL (0.11-0.8); Monocytes % 7.6 % (1.7-12.7); Neutrophils % 77.6 % (38.7-73.9); Platelet Count 412 T/CUMM (130-400); Red Blood Count 4.11 MC/CUMM (3.8-5.5); Red Cell Distribution Width 14.3 % (9.3-17.3); White Blood Count 15.5 T/CUMM (4-12)
[2022-03-12 15:14] LABS: Arterial Base Excess iSTAT 1 MMOL/L (-2.5-2.5); Arterial Bicarbonate iSTAT 23.5 MMOL/L (20-26); Arterial O2 Saturation iSTAT 98 % (95-100); Arterial PCO2 iSTAT 30 MM HG (35-48); Arterial PO2 iSTAT 87 MM HG (80-95); Arterial Total CO2 iSTAT 24 MMO/L (23-27); Arterial pH iSTAT 7.506 (7.35-7.45)
[2022-03-12 15:26] LABS: Albumin 2.6 G/DL (3.4-5.0); Bilirubin,Total 0.7 MG/DL (0.20-1.00); Calcium 8.5 MG/DL (8.5-10.1); Potassium 3.9 MMOL/L (3.5-5.1); Total Protein 5.7 G/DL (6.4-8.2)
[2022-03-12 15:58] LABS: Mucus,Urine Occasional /LPF (Occasional); RBC,Urine 1 /HPF (0-4)
[2022-03-12 16:05] LABS: Urine Appearance Clear (Clear); Urine Color Yellow (Yellow)
[2022-03-12 16:06] LABS: Bilirubin,Urine Small mg/dL (Negative); Blood, Urine Negative (Negative); Glucose,Urine (UA) 250 mg/dL (Negative); Ketones,Urine >160 mg/dL (Negative); Nitrite,Urine Negative (Negative); Protein,Urine 30 mg/dL (Negative); Urine Urobilinogen 0.2 eU/dL (<2.0)
[2022-03-12 16:28] LABS: Barbiturates Screen,Urine Negative (Negative); Benzodiazepines Screen,Urine Negative (Negative); Cannabinoid Screen,Urine Negative (Negative); Opiate Screen,Urine Negative (Negative); Phencyclidine Screen,Urine Negative (Negative)
[2022-03-12] MEDS ORDERED: GLUCAGON 1 MG VIAL IM PRN (17:01)
[2022-03-12] MEDS ORDERED: DEXTROSE 10% 250 ML BAG IV PRN (17:14)
[2022-03-12] MEDS: SODIUM CHLORIDE 0.9% 1,000 ML IV SCH (17:23)
[2022-03-12] MEDS: ENOXAPARIN 40 MG/0.4 ML SYRINGE SUBCUT SCH (18:13)
[2022-03-12] MEDS: carvediloL 6.25 MG TABLET PO SCH (22:21)
[2022-03-12] MEDS: SIMVASTATIN 10 MG TABLET PO SCH (22:21)
[2022-03-12] MEDS: PIPERACILLIN/TAZOBACTAM 3,375 MG in SODIUM CHLORIDE 0.9% 100 ML IV SCH (22:24)
[2022-03-12] MEDS: VANCOMYCIN INJ 1,000 MG in SODIUM CHLORIDE 0.9% 250 ML IV SCH (22:36)
[2022-03-13] MEDS: TACROLIMUS 0.5 MG CAPSULE PO SCH ×3 (00:24→22:02)
[2022-03-13] MEDS: MYCOPHENOLATE MOFETIL 250 MG CAPSULE PO SCH ×3 (00:24→22:05)
[2022-03-13 02:01] LABS: Basophils % 0.2 % (0.0-0.8); Eosinophils # 0.1 10*3/uL (0.0-0.87); Eosinophils % 0.4 % (0.00-10.9); Hematocrit 34.8 VOL% (35.7-47.0); Hemoglobin 11.3 GM/DL (12.0-16.0); Immature Granulocytes % 0.6 %; Immature Granulocytes Absolute 0.07 #; Lymphocytes # 3.2 10*3/uL (1.4-4.0); Lymphocytes % 26.2 % (21.3-54.2); Mean Corpuscular HGB Conc 32.5 GM/DL (32-36); Mean Corpuscular Volume 90.4 FL (87-102); Mean Platelet Volume 10.8 FL (9.6-12.0); Monocytes # 1.1 10*3/uL (0.11-0.8); Monocytes % 8.8 % (1.7-12.7); Neutrophils % 63.8 % (38.7-73.9); Platelet Count 400 T/CUMM (130-400); Red Blood Count 3.85 MC/CUMM (3.8-5.5); Red Cell Distribution Width 14.3 % (9.3-17.3); White Blood Count 12.3 T/CUMM (4-12)
[2022-03-13 02:18] LABS: Albumin 2.4 G/DL (3.4-5.0); Bilirubin,Total 0.9 MG/DL (0.20-1.00); Calcium 7.8 MG/DL (8.5-10.1); Osmolality,Calculated 282.7 MOS/KG (273-304); Potassium 3.4 MMOL/L (3.5-5.1); Risk Ratio 3.25; Total Protein 5.9 G/DL (6.4-8.2); VLDL Cholesterol 26.8 MG/DL
[2022-03-13] MEDS: ONDANSETRON 4 MG/2 ML VIAL IV PRN ×3 (03:47→17:32)
[2022-03-13] MEDS: PIPERACILLIN/TAZOBACTAM 3,375 MG in SODIUM CHLORIDE 0.9% 100 ML IV SCH (04:26)
[2022-03-13] MEDS: SODIUM CHLORIDE 0.9% 1,000 ML IV SCH (06:30)
[2022-03-13] MEDS ORDERED: MAGNESIUM SULF RIDER 4 GM/100 ML PREMIX IV ONE (07:45)
[2022-03-13] MEDS ORDERED: POTASSIUM CHLORIDE 20 MEQ TABLET PO ONE (08:13)
[2022-03-13] MEDS ORDERED: FELODIPINE 5 MG TABLET PO SCH (09:00)
[2022-03-13] MEDS: ASPIRIN 325 MG TABLET PO SCH (09:46)
[2022-03-13] MEDS: carvediloL 6.25 MG TABLET PO SCH ×2 (09:47→22:04)
[2022-03-13] MEDS: CITALOPRAM 40 MG TABLET PO SCH (09:47)
[2022-03-13] MEDS: predniSONE 5 MG TABLET PO SCH (09:47)
[2022-03-13] MEDS: VANCOMYCIN INJ 1,000 MG in SODIUM CHLORIDE 0.9% 250 ML IV SCH (10:03)
[2022-03-13] MEDS ORDERED: GLUCAGON 1 MG VIAL IM PRN (11:04)
[2022-03-13] MEDS ORDERED: DEXTROSE 50% 25 GM/50 ML VIAL IV PRN (11:04)
[2022-03-13] MEDS: INSULIN LISPRO 100 UNIT/ML SUBCUT SCH ×3 (12:22→22:05)
[2022-03-13] MEDS: ENOXAPARIN 40 MG/0.4 ML SYRINGE SUBCUT SCH (18:40)
[2022-03-13] MEDS: SIMVASTATIN 10 MG TABLET PO SCH (22:02)
[2022-03-13] MEDS: INSULIN GLARGINE 100 UNIT/ML SUBCUT SCH (22:05)
[2022-03-13] MEDS: ACETAMINOPHEN 325 MG TABLET PO PRN (22:29)
[2022-03-14] MEDS: ONDANSETRON 4 MG/2 ML VIAL IV PRN (05:00)
[2022-03-14 05:51] LABS: Basophils # 0.1 10*3/uL (0.0-0.2); Basophils % 0.6 % (0.0-0.8); Eosinophils # 0.2 10*3/uL (0.0-0.87); Eosinophils % 2.3 % (0.00-10.9); Hematocrit 38.3 VOL% (35.7-47.0); Hemoglobin 12.1 GM/DL (12.0-16.0); Immature Granulocytes % 0.4 %; Immature Granulocytes Absolute 0.04 #; Lymphocytes % 29.3 % (21.3-54.2); Mean Corpuscular HGB Conc 31.6 GM/DL (32-36); Mean Corpuscular Volume 92.7 FL (87-102); Mean Platelet Volume 11.2 FL (9.6-12.0); Monocytes # 0.9 10*3/uL (0.11-0.8); Neutrophils % 58.4 % (38.7-73.9); Platelet Count 442 T/CUMM (130-400); Red Blood Count 4.13 MC/CUMM (3.8-5.5); Red Cell Distribution Width 14.4 % (9.3-17.3); White Blood Count 10.4 T/CUMM (4-12)
[2022-03-14 06:36] LABS: Albumin 2.6 G/DL (3.4-5.0); Bilirubin,Total 0.6 MG/DL (0.20-1.00); Calcium 8.5 MG/DL (8.5-10.1); Osmolality,Calculated 279.5 MOS/KG (273-304); Potassium 3.7 MMOL/L (3.5-5.1); Total Protein 6.6 G/DL (6.4-8.2)
[2022-03-14 07:25] LABS: Hepatitis B Core IgM Quant < 0.05 Index; Hepatitis B Surface Ag Quant < 0.10 Index; Hepatitis B Surface Ag Result Non-Reactive (NonReactive); Hepatitis C Virus Ab Quant 0.05 Index; Hepatitis C Virus Ab Result Non-Reactive (NonReactive)
[2022-03-14] MEDS: predniSONE 5 MG TABLET PO SCH (08:51)
[2022-03-14] MEDS: TACROLIMUS 0.5 MG CAPSULE PO SCH ×2 (08:51→21:33)
[2022-03-14] MEDS: MYCOPHENOLATE MOFETIL 250 MG CAPSULE PO SCH ×2 (08:51→21:33)
[2022-03-14] MEDS: carvediloL 6.25 MG TABLET PO SCH ×2 (08:51→21:33)
[2022-03-14] MEDS: PANTOPRAZOLE 20 MG TABLET PO SCH (08:51)
[2022-03-14] MEDS: CITALOPRAM 40 MG TABLET PO SCH (08:51)
[2022-03-14] MEDS: ASPIRIN 325 MG TABLET PO SCH (08:51)
[2022-03-14] MEDS: FELODIPINE 5 MG TABLET PO SCH (08:52)
[2022-03-14] MEDS: INSULIN LISPRO 100 UNIT/ML SUBCUT SCH ×4 (08:56→21:31)
[2022-03-14] MEDS ORDERED: FELODIPINE 5 MG TABLET PO SCH (09:00)
[2022-03-14] MEDS: ENOXAPARIN 40 MG/0.4 ML SYRINGE SUBCUT SCH (17:04)
[2022-03-14] MEDS: INSULIN GLARGINE 100 UNIT/ML SUBCUT SCH (21:30)
[2022-03-14] MEDS: SIMVASTATIN 10 MG TABLET PO SCH (21:34)
[2022-03-15] MEDS: ACETAMINOPHEN 325 MG TABLET PO PRN ×2 (02:15→11:25)
[2022-03-15 04:55] LABS: Basophils # 0.1 10*3/uL (0.0-0.2); Basophils % 0.5 % (0.0-0.8); Eosinophils # 0.2 10*3/uL (0.0-0.87); Eosinophils % 1.4 % (0.00-10.9); Hematocrit 34.3 VOL% (35.7-47.0); Hemoglobin 10.8 GM/DL (12.0-16.0); Immature Granulocytes % 0.5 %; Immature Granulocytes Absolute 0.05 #; Lymphocytes # 3.4 10*3/uL (1.4-4.0); Lymphocytes % 31.1 % (21.3-54.2); Mean Corpuscular HGB Conc 31.5 GM/DL (32-36); Mean Corpuscular Volume 92.5 FL (87-102); Mean Platelet Volume 11.2 FL (9.6-12.0); Neutrophils % 57.5 % (38.7-73.9); Platelet Count 412 T/CUMM (130-400); Red Blood Count 3.71 MC/CUMM (3.8-5.5); Red Cell Distribution Width 14.1 % (9.3-17.3); White Blood Count 10.9 T/CUMM (4-12)
[2022-03-15 05:17] LABS: Albumin 2.5 G/DL (3.4-5.0); Bilirubin,Total 0.4 MG/DL (0.20-1.00); Calcium 8.3 MG/DL (8.5-10.1); Potassium 3.4 MMOL/L (3.5-5.1); Total Protein 6.1 G/DL (6.4-8.2)
[2022-03-15] MEDS ORDERED: POTASSIUM CHLORIDE 20 MEQ TABLET PO ONE (09:00)
[2022-03-15] MEDS: INSULIN LISPRO 100 UNIT/ML SUBCUT SCH ×4 (09:04→23:15)
[2022-03-15] MEDS: TACROLIMUS 0.5 MG CAPSULE PO SCH ×2 (09:05→23:16)
[2022-03-15] MEDS: predniSONE 5 MG TABLET PO SCH (09:05)
[2022-03-15] MEDS: carvediloL 6.25 MG TABLET PO SCH ×2 (09:05→23:16)
[2022-03-15] MEDS: PANTOPRAZOLE 20 MG TABLET PO SCH (09:05)
[2022-03-15] MEDS: CITALOPRAM 40 MG TABLET PO SCH (09:05)
[2022-03-15] MEDS: ASPIRIN 325 MG TABLET PO SCH (09:05)
[2022-03-15] MEDS: MYCOPHENOLATE MOFETIL 250 MG CAPSULE PO SCH ×2 (09:06→23:17)
[2022-03-15] MEDS: FELODIPINE 5 MG TABLET PO SCH (11:25)
[2022-03-15 19:22] LABS: Basophils % 0.3 % (0.0-0.8); Eosinophils # 0.1 10*3/uL (0.0-0.87); Eosinophils % 0.6 % (0.00-10.9); Hematocrit 36.9 VOL% (35.7-47.0); Hemoglobin 11.5 GM/DL (12.0-16.0); Immature Granulocytes % 0.2 %; Immature Granulocytes Absolute 0.02 #; Lymphocytes # 2.9 10*3/uL (1.4-4.0); Lymphocytes % 34.1 % (21.3-54.2); Mean Corpuscular HGB Conc 31.2 GM/DL (32-36); Mean Corpuscular Volume 93.4 FL (87-102); Mean Platelet Volume 10.7 FL (9.6-12.0); Monocytes # 0.6 10*3/uL (0.11-0.8); Monocytes % 6.5 % (1.7-12.7); Neutrophils % 58.3 % (38.7-73.9); Platelet Count 457 T/CUMM (130-400); Red Blood Count 3.95 MC/CUMM (3.8-5.5); Red Cell Distribution Width 14.2 % (9.3-17.3); White Blood Count 8.6 T/CUMM (4-12)
[2022-03-15] MEDS: INSULIN GLARGINE 100 UNIT/ML SUBCUT SCH (23:14)
[2022-03-15] MEDS: SIMVASTATIN 10 MG TABLET PO SCH (23:18)
[2022-03-16] MEDS: ACETAMINOPHEN 325 MG TABLET PO PRN (01:31)
[2022-03-16 04:45] LABS: Basophils # 0.1 10*3/uL (0.0-0.2); Basophils % 0.6 % (0.0-0.8); Eosinophils # 0.3 10*3/uL (0.0-0.87); Eosinophils % 2.5 % (0.00-10.9); Hematocrit 35.6 VOL% (35.7-47.0); Immature Granulocytes % 0.3 %; Immature Granulocytes Absolute 0.03 #; Lymphocytes # 4.5 10*3/uL (1.4-4.0); Lymphocytes % 45.3 % (21.3-54.2); Mean Corpuscular HGB Conc 30.9 GM/DL (32-36); Mean Corpuscular Volume 94.4 FL (87-102); Mean Platelet Volume 10.9 FL (9.6-12.0); Monocytes # 0.8 10*3/uL (0.11-0.8); Monocytes % 8.4 % (1.7-12.7); Neutrophils % 42.9 % (38.7-73.9); Platelet Count 435 T/CUMM (130-400); Red Blood Count 3.77 MC/CUMM (3.8-5.5); Red Cell Distribution Width 14.1 % (9.3-17.3); White Blood Count 9.8 T/CUMM (4-12)
[2022-03-16 05:11] LABS: Albumin 2.7 G/DL (3.4-5.0); Bilirubin,Total 0.4 MG/DL (0.20-1.00); Calcium 8.6 MG/DL (8.5-10.1); Osmolality,Calculated 277.5 MOS/KG (273-304); Total Protein 6.4 G/DL (6.4-8.2)
[2022-03-16] MEDS: TACROLIMUS 0.5 MG CAPSULE PO SCH ×2 (09:25→21:27)
[2022-03-16] MEDS: predniSONE 5 MG TABLET PO SCH (09:26)
[2022-03-16] MEDS: carvediloL 6.25 MG TABLET PO SCH ×2 (09:26→21:27)
[2022-03-16] MEDS: MYCOPHENOLATE MOFETIL 250 MG CAPSULE PO SCH ×2 (09:26→21:26)
[2022-03-16] MEDS: CITALOPRAM 40 MG TABLET PO SCH (09:26)
[2022-03-16] MEDS: PANTOPRAZOLE 20 MG TABLET PO SCH (09:26)
[2022-03-16] MEDS: FELODIPINE 5 MG TABLET PO SCH (09:26)
[2022-03-16] MEDS: INSULIN LISPRO 100 UNIT/ML SUBCUT SCH ×4 (09:27→21:24)
[2022-03-16] MEDS: INSULIN GLARGINE 100 UNIT/ML SUBCUT SCH (21:25)
[2022-03-16] MEDS: DOCUSATE SODIUM 100 MG CAPSULE PO PRN (21:26)
[2022-03-16] MEDS: SIMVASTATIN 10 MG TABLET PO SCH (21:28)
[2022-03-17] MEDS: ACETAMINOPHEN 325 MG TABLET PO PRN ×2 (01:31→22:10)
[2022-03-17] MEDS ORDERED: LACTATED RINGERS 1,000 ML IV SCH (08:00)
[2022-03-17] MEDS ORDERED: propofoL 200 MG/20 ML VIAL IV ONE (11:05)
[2022-03-17] MEDS ORDERED: LIDOCAINE 2% 5 ML VIAL ONE (11:05)
[2022-03-17] MEDS ORDERED: ETOMIDATE 20 MG/10 ML VIAL IV ONE (11:05)
[2022-03-17] MEDS: TACROLIMUS 0.5 MG CAPSULE PO SCH ×2 (12:21→22:11)
[2022-03-17] MEDS: FELODIPINE 5 MG TABLET PO SCH (12:21)
[2022-03-17] MEDS: MYCOPHENOLATE MOFETIL 250 MG CAPSULE PO SCH ×2 (12:21→22:11)
[2022-03-17] MEDS: predniSONE 5 MG TABLET PO SCH (12:22)
[2022-03-17] MEDS: INSULIN LISPRO 100 UNIT/ML SUBCUT SCH ×4 (12:22→22:13)
[2022-03-17] MEDS: CITALOPRAM 40 MG TABLET PO SCH (12:22)
[2022-03-17] MEDS: PANTOPRAZOLE 20 MG TABLET PO SCH (12:22)
[2022-03-17] MEDS: carvediloL 6.25 MG TABLET PO SCH ×2 (12:22→22:12)
[2022-03-17] MEDS: SIMVASTATIN 10 MG TABLET PO SCH (22:12)
[2022-03-17] MEDS: DOCUSATE SODIUM 100 MG CAPSULE PO PRN (22:12)
[2022-03-17] MEDS: INSULIN GLARGINE 100 UNIT/ML SUBCUT SCH (22:13)
[2022-03-18 04:56] LABS: Basophils # 0.1 10*3/uL (0.0-0.2); Basophils % 0.6 % (0.0-0.8); Eosinophils # 0.2 10*3/uL (0.0-0.87); Eosinophils % 1.6 % (0.00-10.9); Hematocrit 37.3 VOL% (35.7-47.0); Hemoglobin 11.7 GM/DL (12.0-16.0); Immature Granulocytes % 0.3 %; Immature Granulocytes Absolute 0.03 #; Lymphocytes % 51.2 % (21.3-54.2); Mean Corpuscular HGB Conc 31.4 GM/DL (32-36); Mean Platelet Volume 11.6 FL (9.6-12.0); Monocytes # 0.9 10*3/uL (0.11-0.8); Monocytes % 9.3 % (1.7-12.7); Platelet Count 357 T/CUMM (130-400); Red Blood Count 3.97 MC/CUMM (3.8-5.5); White Blood Count 9.9 T/CUMM (4-12)
[2022-03-18 06:10] LABS: Eosinophils 4 % (0-10); Lymphocytes 41 % (20-55); Platelet Estimate Adequate; Total Cells Counted 100
[2022-03-18] MEDS: FELODIPINE 5 MG TABLET PO SCH (09:14)
[2022-03-18] MEDS: CITALOPRAM 40 MG TABLET PO SCH (09:14)
[2022-03-18] MEDS: INSULIN LISPRO 100 UNIT/ML SUBCUT SCH ×2 (09:14→12:25)
[2022-03-18] MEDS: PANTOPRAZOLE 20 MG TABLET PO SCH (09:14)
[2022-03-18] MEDS: MYCOPHENOLATE MOFETIL 250 MG CAPSULE PO SCH (09:15)
[2022-03-18] MEDS: carvediloL 6.25 MG TABLET PO SCH (09:15)
[2022-03-18] MEDS: predniSONE 5 MG TABLET PO SCH (09:15)
[2022-03-18] MEDS: TACROLIMUS 0.5 MG CAPSULE PO SCH (10:04)
[2022-03-18 11:34] VITALS: BP 117/35
== END 2022-03-18 12:50 | disposition home health service (06) | DRG 377 ==
LOC: N.ED 14:43 → N.EDINP 14:43 → SUATTDRO 18:28 → N.5E 03-13 19:32 → SUATTDRO 03-16 08:39
PROVIDERS: ADMIT Internal Medicine; ATTEND Internal Medicine Geriatric Medicine

== ENCOUNTER 2022-03-24 17:23 | Inpatient (IN) ==
[2022-03-24] MEDS ORDERED: MORPHINE 2 MG/1 ML SYRINGE IV STA (19:06)
[2022-03-24] MEDS ORDERED: PANTOPRAZOLE 40 MG VIAL IV STA (19:06)
[2022-03-24] MEDS ORDERED: SODIUM CHLORIDE 0.9% 500 ML IV STA (19:06)
[2022-03-24] MEDS ORDERED: ONDANSETRON 4 MG/2 ML VIAL IV STA (19:06)
[2022-03-24 19:30] LABS: Basophils # 0.1 10*3/uL (0.0-0.2); Basophils % 0.4 % (0.0-0.8); Eosinophils # 0.4 10*3/uL (0.0-0.87); Eosinophils % 3.4 % (0.00-10.9); Hematocrit 36.3 VOL% (35.7-47.0); Hemoglobin 11.3 GM/DL (12.0-16.0); Immature Granulocytes % 0.5 %; Immature Granulocytes Absolute 0.06 #; Lymphocytes % 35.1 % (21.3-54.2); Mean Corpuscular HGB Conc 31.1 GM/DL (32-36); Mean Corpuscular Volume 93.1 FL (87-102); Mean Platelet Volume 11.8 FL (9.6-12.0); Monocytes # 0.9 10*3/uL (0.11-0.8); Monocytes % 7.6 % (1.7-12.7); Platelet Count 397 T/CUMM (130-400); Red Cell Distribution Width 14.2 % (9.3-17.3); White Blood Count 11.3 T/CUMM (4-12)
[2022-03-24 19:35] LABS: Bilirubin,Total 0.4 MG/DL (0.20-1.00); Calcium 8.9 MG/DL (8.5-10.1); Osmolality,Calculated 281.1 MOS/KG (273-304); Potassium 4.4 MMOL/L (3.5-5.1)
[2022-03-24] MEDS ORDERED: MAGNESIUM SULF RIDER 2 GM/50 ML PREMIX IV STA (20:39)
[2022-03-24] MEDS ORDERED: ACETAMINOPHEN 325 MG TABLET PO PRN (22:03)
[2022-03-24] MEDS ORDERED: ONDANSETRON 4 MG/2 ML VIAL IV PRN (22:03)
[2022-03-24] MEDS ORDERED: MAGNESIUM SULF RIDER 4 GM/100 ML PREMIX IV PRN (22:03)
[2022-03-24] MEDS ORDERED: GLUCAGON 1 MG VIAL IM PRN (22:03)
[2022-03-24] MEDS ORDERED: DEXTROSE 10% 250 ML BAG IV PRN (22:16)
[2022-03-24 23:24] LABS: Bacteria,Urine Occasional /HPF (Few); Hyaline Casts,Urine 1 /LPF (0-3); RBC,Urine 2 /HPF (0-4); Squamous Epithelial Cell,Urine Occasional /HPF (0-10)
[2022-03-24 23:25] LABS: Bilirubin,Urine Negative (Negative); Blood, Urine Negative (Negative); Glucose,Urine (UA) 100 mg/dL (Negative); Ketones,Urine Negative (Negative); Nitrite,Urine Negative (Negative); Protein,Urine Negative (Negative); Urine Appearance Clear (Clear); Urine Color Yellow (Yellow); Urine Urobilinogen 0.2 eU/dL (<2.0)
[2022-03-25] MEDS: SODIUM CHLORIDE 0.9% 1,000 ML IV SCH ×3 (01:11→22:34)
[2022-03-25] MEDS: oxyCODONE/ACETAMINOPHEN 5-325 MG TABLET PO SCH ×3 (01:50→17:59)
[2022-03-25 04:24] LABS: Basophils % 0.5 % (0.0-0.8); Eosinophils # 0.5 10*3/uL (0.0-0.87); Eosinophils % 5.6 % (0.00-10.9); Hematocrit 35.3 VOL% (35.7-47.0); Hemoglobin 10.9 GM/DL (12.0-16.0); Immature Granulocytes % 0.2 %; Immature Granulocytes Absolute 0.02 #; Lymphocytes # 3.5 10*3/uL (1.4-4.0); Lymphocytes % 41.8 % (21.3-54.2); Mean Corpuscular HGB Conc 30.9 GM/DL (32-36); Mean Corpuscular Volume 93.9 FL (87-102); Mean Platelet Volume 11.4 FL (9.6-12.0); Monocytes % 12.1 % (1.7-12.7); Neutrophils % 39.8 % (38.7-73.9); Platelet Count 403 T/CUMM (130-400); Red Blood Count 3.76 MC/CUMM (3.8-5.5); Red Cell Distribution Width 14.3 % (9.3-17.3); White Blood Count 8.4 T/CUMM (4-12)
[2022-03-25 04:51] LABS: Calcium 8.7 MG/DL (8.5-10.1); Osmolality,Calculated 282.5 MOS/KG (273-304)
[2022-03-25] MEDS: MAGNESIUM SULF RIDER 2 GM/50 ML PREMIX IV PRN (05:07)
[2022-03-25] MEDS ORDERED: SUCRALFATE 1 GM/10 ML UDCUP PO SCH (07:30)
[2022-03-25] MEDS ORDERED: metroNIDAZOLE INJ 500 MG/100 ML PREMIX IV SCH (08:30)
[2022-03-25] MEDS: POLYETHYLENE GLYCOL POWDER 17 GM PACK PO SCH ×3 (09:29→21:01)
[2022-03-25] MEDS: INSULIN LISPRO 100 UNIT/ML SUBCUT SCH ×4 (09:29→21:03)
[2022-03-25] MEDS: CIPROFLOXACIN INJ 400 MG/200 ML PREMIX IV SCH ×2 (09:29→21:01)
[2022-03-25] MEDS: PANTOPRAZOLE 40 MG VIAL IV SCH ×2 (09:29→21:03)
[2022-03-25] MEDS: INSULIN GLARGINE 100 UNIT/ML SUBCUT SCH (10:01)
[2022-03-25] MEDS: metroNIDAZOLE INJ 500 MG/100 ML PREMIX IV SCH ×2 (11:54→21:01)
[2022-03-25] MEDS: METOCLOPRAMIDE 10 MG/2 ML VIAL IV SCH ×2 (11:55→17:59)
[2022-03-25 14:46] LABS: Calcium 8.2 MG/DL (8.5-10.1); Potassium 3.9 MMOL/L (3.5-5.1)
[2022-03-25] MEDS: MAGNESIUM OXIDE 400 MG TABLET PO SCH ×2 (15:01→21:02)
[2022-03-25] MEDS: GABAPENTIN 400 MG CAPSULE PO SCH ×2 (15:01→21:03)
[2022-03-25] MEDS: TACROLIMUS 0.5 MG CAPSULE PO SCH (21:02)
[2022-03-25] MEDS: MYCOPHENOLATE MOFETIL 250 MG CAPSULE PO SCH (21:02)
[2022-03-25] MEDS: CALCIUM (CARBONATE)/VITAMIN D 600 MG-400 UNIT TABLET PO SCH (21:02)
[2022-03-25] MEDS: carvediloL 6.25 MG TABLET PO SCH (21:03)
[2022-03-26] MEDS: METOCLOPRAMIDE 10 MG/2 ML VIAL IV SCH ×5 (00:48→23:54)
[2022-03-26] MEDS: SODIUM CHLORIDE 0.9% 1,000 ML IV SCH ×3 (00:49→21:07)
[2022-03-26] MEDS: oxyCODONE/ACETAMINOPHEN 5-325 MG TABLET PO SCH ×3 (02:05→18:27)
[2022-03-26] MEDS: metroNIDAZOLE INJ 500 MG/100 ML PREMIX IV SCH ×3 (04:55→21:07)
[2022-03-26 06:12] LABS: Basophils % 0.5 % (0.0-0.8); Eosinophils # 0.6 10*3/uL (0.0-0.87); Eosinophils % 7.6 % (0.00-10.9); Hematocrit 33.8 VOL% (35.7-47.0); Hemoglobin 10.2 GM/DL (12.0-16.0); Immature Granulocytes % 0.4 %; Immature Granulocytes Absolute 0.03 #; Lymphocytes # 3.4 10*3/uL (1.4-4.0); Lymphocytes % 40.2 % (21.3-54.2); Mean Corpuscular HGB Conc 30.2 GM/DL (32-36); Mean Corpuscular Volume 96.8 FL (87-102); Mean Platelet Volume 11.9 FL (9.6-12.0); Monocytes # 1.2 10*3/uL (0.11-0.8); Monocytes % 14.2 % (1.7-12.7); Neutrophils % 37.1 % (38.7-73.9); Platelet Count 344 T/CUMM (130-400); Red Blood Count 3.49 MC/CUMM (3.8-5.5); Red Cell Distribution Width 14.6 % (9.3-17.3); White Blood Count 8.4 T/CUMM (4-12)
[2022-03-26 06:22] LABS: Calcium 8.1 MG/DL (8.5-10.1); Potassium 3.9 MMOL/L (3.5-5.1)
[2022-03-26 07:03] LABS: Eosinophils 8 % (0-10); Lymphocytes 27 % (20-55); Platelet Estimate Normal; Total Cells Counted 100
[2022-03-26 07:04] LABS: Ovalocytes Slight
[2022-03-26] MEDS: INSULIN LISPRO 100 UNIT/ML SUBCUT SCH ×4 (08:02→21:10)
[2022-03-26] MEDS: CIPROFLOXACIN INJ 400 MG/200 ML PREMIX IV SCH ×2 (08:40→21:07)
[2022-03-26] MEDS: carvediloL 6.25 MG TABLET PO SCH ×2 (08:41→21:09)
[2022-03-26] MEDS: MYCOPHENOLATE MOFETIL 250 MG CAPSULE PO SCH ×2 (08:41→21:09)
[2022-03-26] MEDS: predniSONE 5 MG TABLET PO SCH (08:41)
[2022-03-26] MEDS: TACROLIMUS 0.5 MG CAPSULE PO SCH ×2 (08:42→21:08)
[2022-03-26] MEDS: MAGNESIUM OXIDE 400 MG TABLET PO SCH ×3 (08:42→21:09)
[2022-03-26] MEDS: SIMVASTATIN 10 MG TABLET PO SCH (08:42)
[2022-03-26] MEDS: GABAPENTIN 400 MG CAPSULE PO SCH ×3 (08:42→21:09)
[2022-03-26] MEDS: CALCIUM (CARBONATE)/VITAMIN D 600 MG-400 UNIT TABLET PO SCH ×2 (08:42→21:09)
[2022-03-26] MEDS: CITALOPRAM 40 MG TABLET PO SCH (08:42)
[2022-03-26] MEDS: POLYETHYLENE GLYCOL POWDER 17 GM PACK PO SCH ×3 (08:43→21:08)
[2022-03-26] MEDS: PANTOPRAZOLE 40 MG VIAL IV SCH ×2 (08:43→21:10)
[2022-03-26] MEDS: INSULIN GLARGINE 100 UNIT/ML SUBCUT SCH (08:43)
[2022-03-26] MEDS: MAGNESIUM SULF RIDER 2 GM/50 ML PREMIX IV PRN (10:35)
[2022-03-27] MEDS: oxyCODONE/ACETAMINOPHEN 5-325 MG TABLET PO SCH ×3 (02:07→18:30)
[2022-03-27] MEDS: metroNIDAZOLE INJ 500 MG/100 ML PREMIX IV SCH ×3 (04:02→19:44)
[2022-03-27 05:44] LABS: Basophils % 0.5 % (0.0-0.8); Eosinophils # 0.5 10*3/uL (0.0-0.87); Eosinophils % 5.4 % (0.00-10.9); Hematocrit 35.6 VOL% (35.7-47.0); Hemoglobin 10.7 GM/DL (12.0-16.0); Immature Granulocytes % 0.3 %; Immature Granulocytes Absolute 0.03 #; Lymphocytes # 3.8 10*3/uL (1.4-4.0); Lymphocytes % 44.1 % (21.3-54.2); Mean Corpuscular HGB Conc 30.1 GM/DL (32-36); Mean Corpuscular Volume 96.7 FL (87-102); Mean Platelet Volume 11.7 FL (9.6-12.0); Monocytes # 0.9 10*3/uL (0.11-0.8); Neutrophils % 39.7 % (38.7-73.9); Platelet Count 324 T/CUMM (130-400); Red Blood Count 3.68 MC/CUMM (3.8-5.5); Red Cell Distribution Width 14.4 % (9.3-17.3); White Blood Count 8.6 T/CUMM (4-12)
[2022-03-27] MEDS: METOCLOPRAMIDE 10 MG/2 ML VIAL IV SCH ×3 (05:46→18:30)
[2022-03-27 06:01] LABS: Calcium 8.3 MG/DL (8.5-10.1); Osmolality,Calculated 287.8 MOS/KG (273-304)
[2022-03-27] MEDS: MAGNESIUM SULF RIDER 2 GM/50 ML PREMIX IV PRN (06:37)
[2022-03-27] MEDS: INSULIN LISPRO 100 UNIT/ML SUBCUT SCH ×4 (08:16→22:24)
[2022-03-27] MEDS: INSULIN GLARGINE 100 UNIT/ML SUBCUT SCH (08:16)
[2022-03-27] MEDS: PANTOPRAZOLE 40 MG VIAL IV SCH ×2 (08:17→22:25)
[2022-03-27] MEDS: CIPROFLOXACIN INJ 400 MG/200 ML PREMIX IV SCH ×2 (08:17→22:24)
[2022-03-27] MEDS: POLYETHYLENE GLYCOL POWDER 17 GM PACK PO SCH ×3 (08:17→22:27)
[2022-03-27] MEDS: GABAPENTIN 400 MG CAPSULE PO SCH ×3 (08:18→22:27)
[2022-03-27] MEDS: carvediloL 6.25 MG TABLET PO SCH ×2 (08:18→22:26)
[2022-03-27] MEDS: TACROLIMUS 0.5 MG CAPSULE PO SCH ×2 (08:18→22:26)
[2022-03-27] MEDS: CALCIUM (CARBONATE)/VITAMIN D 600 MG-400 UNIT TABLET PO SCH ×2 (08:19→22:27)
[2022-03-27] MEDS: SIMVASTATIN 10 MG TABLET PO SCH (08:19)
[2022-03-27] MEDS: predniSONE 5 MG TABLET PO SCH (08:19)
[2022-03-27] MEDS: CITALOPRAM 40 MG TABLET PO SCH (08:19)
[2022-03-27] MEDS: MYCOPHENOLATE MOFETIL 250 MG CAPSULE PO SCH ×2 (08:19→22:26)
[2022-03-27] MEDS: SODIUM CHLORIDE 0.9% 1,000 ML IV SCH (08:19)
[2022-03-27] MEDS: MAGNESIUM OXIDE 400 MG TABLET PO SCH ×3 (08:19→22:27)
[2022-03-28] MEDS: METOCLOPRAMIDE 10 MG/2 ML VIAL IV SCH ×4 (00:49→17:09)
[2022-03-28] MEDS: oxyCODONE/ACETAMINOPHEN 5-325 MG TABLET PO SCH ×3 (02:14→18:34)
[2022-03-28] MEDS: metroNIDAZOLE INJ 500 MG/100 ML PREMIX IV SCH ×3 (04:59→19:20)
[2022-03-28 05:07] LABS: Basophils % 0.4 % (0.0-0.8); Eosinophils # 0.4 10*3/uL (0.0-0.87); Eosinophils % 4.5 % (0.00-10.9); Hematocrit 36.6 VOL% (35.7-47.0); Immature Granulocytes % 0.4 %; Immature Granulocytes Absolute 0.04 #; Lymphocytes # 3.6 10*3/uL (1.4-4.0); Lymphocytes % 37.9 % (21.3-54.2); Mean Corpuscular HGB Conc 30.1 GM/DL (32-36); Mean Corpuscular Volume 97.1 FL (87-102); Mean Platelet Volume 11.2 FL (9.6-12.0); Monocytes # 0.9 10*3/uL (0.11-0.8); Monocytes % 9.3 % (1.7-12.7); Neutrophils % 47.5 % (38.7-73.9); Platelet Count 325 T/CUMM (130-400); Red Blood Count 3.77 MC/CUMM (3.8-5.5); Red Cell Distribution Width 14.5 % (9.3-17.3); White Blood Count 9.4 T/CUMM (4-12)
[2022-03-28 05:23] LABS: Calcium 8.6 MG/DL (8.5-10.1); Osmolality,Calculated 283.3 MOS/KG (273-304); Potassium 4.9 MMOL/L (3.5-5.1)
[2022-03-28] MEDS: CIPROFLOXACIN INJ 400 MG/200 ML PREMIX IV SCH ×2 (08:49→20:17)
[2022-03-28] MEDS: PANTOPRAZOLE 40 MG VIAL IV SCH ×2 (08:49→20:16)
[2022-03-28] MEDS: MYCOPHENOLATE MOFETIL 250 MG CAPSULE PO SCH ×2 (08:50→20:16)
[2022-03-28] MEDS: TACROLIMUS 0.5 MG CAPSULE PO SCH ×2 (08:50→20:16)
[2022-03-28] MEDS: CALCIUM (CARBONATE)/VITAMIN D 600 MG-400 UNIT TABLET PO SCH ×2 (08:51→20:16)
[2022-03-28] MEDS: carvediloL 6.25 MG TABLET PO SCH ×2 (08:51→17:09)
[2022-03-28] MEDS: GABAPENTIN 400 MG CAPSULE PO SCH ×3 (08:51→20:16)
[2022-03-28] MEDS: predniSONE 5 MG TABLET PO SCH (08:51)
[2022-03-28] MEDS: MAGNESIUM OXIDE 400 MG TABLET PO SCH ×3 (08:51→20:16)
[2022-03-28] MEDS: INSULIN GLARGINE 100 UNIT/ML SUBCUT SCH (08:52)
[2022-03-28] MEDS: INSULIN LISPRO 100 UNIT/ML SUBCUT SCH ×4 (08:52→21:25)
[2022-03-28] MEDS: POLYETHYLENE GLYCOL POWDER 17 GM PACK PO SCH (08:52)
[2022-03-28] MEDS: CITALOPRAM 40 MG TABLET PO SCH (08:55)
[2022-03-28] MEDS: MAGNESIUM SULF RIDER 2 GM/50 ML PREMIX IV PRN (10:45)
[2022-03-28] MEDS ORDERED: ZINC OXIDE PASTE 113 GM TUBE TOP PRN (12:24)
[2022-03-28] MEDS ORDERED: SIMVASTATIN 10 MG TABLET PO SCH (21:00)
[2022-03-29] MEDS: METOCLOPRAMIDE 10 MG/2 ML VIAL IV SCH ×3 (00:52→12:19)
[2022-03-29] MEDS: oxyCODONE/ACETAMINOPHEN 5-325 MG TABLET PO SCH ×2 (02:30→09:49)
[2022-03-29] MEDS: metroNIDAZOLE INJ 500 MG/100 ML PREMIX IV SCH ×2 (04:54→13:03)
[2022-03-29 05:23] LABS: Basophils % 0.3 % (0.0-0.8); Eosinophils # 0.4 10*3/uL (0.0-0.87); Eosinophils % 4.2 % (0.00-10.9); Hematocrit 35.8 VOL% (35.7-47.0); Hemoglobin 10.7 GM/DL (12.0-16.0); Immature Granulocytes % 0.4 %; Immature Granulocytes Absolute 0.04 #; Lymphocytes # 3.2 10*3/uL (1.4-4.0); Lymphocytes % 31.6 % (21.3-54.2); Mean Corpuscular HGB Conc 29.9 GM/DL (32-36); Mean Corpuscular Volume 96.8 FL (87-102); Mean Platelet Volume 11.8 FL (9.6-12.0); Monocytes # 1.2 10*3/uL (0.11-0.8); Monocytes % 11.4 % (1.7-12.7); Neutrophils % 52.1 % (38.7-73.9); Platelet Count 296 T/CUMM (130-400); Red Cell Distribution Width 14.6 % (9.3-17.3); White Blood Count 10.3 T/CUMM (4-12)
[2022-03-29 06:03] LABS: Calcium 8.3 MG/DL (8.5-10.1); Osmolality,Calculated 287.1 MOS/KG (273-304); Potassium 3.7 MMOL/L (3.5-5.1)
[2022-03-29 06:20] LABS: Calcium 8.2 MG/DL (8.5-10.1); Potassium 3.7 MMOL/L (3.5-5.1)
[2022-03-29] MEDS: INSULIN GLARGINE 100 UNIT/ML SUBCUT SCH (08:11)
[2022-03-29] MEDS: CIPROFLOXACIN INJ 400 MG/200 ML PREMIX IV SCH (08:11)
[2022-03-29] MEDS: INSULIN LISPRO 100 UNIT/ML SUBCUT SCH ×2 (08:11→12:15)
[2022-03-29] MEDS: PANTOPRAZOLE 40 MG VIAL IV SCH (08:12)
[2022-03-29] MEDS: CALCIUM (CARBONATE)/VITAMIN D 600 MG-400 UNIT TABLET PO SCH (08:13)
[2022-03-29] MEDS: predniSONE 5 MG TABLET PO SCH (08:13)
[2022-03-29] MEDS: CITALOPRAM 40 MG TABLET PO SCH (08:13)
[2022-03-29] MEDS: MYCOPHENOLATE MOFETIL 250 MG CAPSULE PO SCH (08:13)
[2022-03-29] MEDS: TACROLIMUS 0.5 MG CAPSULE PO SCH (08:13)
[2022-03-29] MEDS: carvediloL 6.25 MG TABLET PO SCH (08:13)
[2022-03-29] MEDS: MAGNESIUM OXIDE 400 MG TABLET PO SCH (08:13)
[2022-03-29] MEDS: GABAPENTIN 400 MG CAPSULE PO SCH (08:13)
[2022-03-29] MEDS ORDERED: POLYETHYLENE GLYCOL POWDER 17 GM PACK PO SCH (09:00)
[2022-03-29] MEDS ORDERED: metroNIDAZOLE 500 MG TABLET PO SCH (12:00)
[2022-03-29 12:19] VITALS: BP 121/65
[2022-03-29 16:01] LABS: Tacrolimus (Prograf) 11.9 ng/mL
[2022-03-30] MEDS ORDERED: INSULIN GLARGINE 100 UNIT/ML SUBCUT SCH (09:00)
== END 2022-03-29 14:58 | disposition swing bed (61) | DRG 384 ==
LOC: EDUNIT# → N.EDINP 17:23 → N.ED 17:23 → SUATTDRO 22:03 → N.3E 23:40 → SUATTDRO 03-25 08:18
PROVIDERS: ADMIT Phlebology; ATTEND Internal Medicine

== ENCOUNTER 2022-05-07 14:50 | Inpatient (IN) ==
[2022-05-07] MEDS ORDERED: PANTOPRAZOLE 40 MG TABLET PO STA (15:21)
[2022-05-07] MEDS ORDERED: SODIUM CHLORIDE 0.9% 1,000 ML IV STA (15:21)
[2022-05-07 15:29] LABS: Basophils % 0.3 % (0.0-0.8); Eosinophils # 0.2 10*3/uL (0.0-0.87); Eosinophils % 1.5 % (0.00-10.9); Hematocrit 38.3 VOL% (35.7-47.0); Hemoglobin 12.2 GM/DL (12.0-16.0); Immature Granulocytes % 0.3 %; Immature Granulocytes Absolute 0.04 #; Lymphocytes # 4.5 10*3/uL (1.4-4.0); Lymphocytes % 38.1 % (21.3-54.2); Mean Corpuscular HGB Conc 31.9 GM/DL (32-36); Mean Corpuscular Volume 89.3 FL (87-102); Mean Platelet Volume 10.9 FL (9.6-12.0); Monocytes # 1.1 10*3/uL (0.11-0.8); Monocytes % 9.2 % (1.7-12.7); Neutrophils % 50.6 % (38.7-73.9); Platelet Count 365 T/CUMM (130-400); Red Blood Count 4.29 MC/CUMM (3.8-5.5); Red Cell Distribution Width 14.3 % (9.3-17.3); White Blood Count 11.7 T/CUMM (4-12)
[2022-05-07 15:41] LABS: PT Patient Result 11.4 SECS (10.1-12.1); Partial Thromboplastin Time 29.1 SECS (23.7-32.9)
[2022-05-07 16:30] LABS: Albumin 3.2 G/DL (3.4-5.0); Bilirubin,Total 0.9 MG/DL (0.20-1.00); Osmolality,Calculated 287.7 MOS/KG (273-304); Potassium 4.1 MMOL/L (3.5-5.1); Total Protein 7.7 G/DL (6.4-8.2)
[2022-05-07] MEDS ORDERED: GLUCAGON 1 MG VIAL IM PRN (17:03)
[2022-05-07] MEDS ORDERED: ONDANSETRON 4 MG/2 ML VIAL IV PRN (17:03)
[2022-05-07] MEDS ORDERED: SODIUM CHLORIDE 0.9% 1,000 ML IV PRN (17:12)
[2022-05-07] MEDS ORDERED: DEXTROSE 10% 250 ML BAG IV PRN (17:13)
[2022-05-07] MEDS ORDERED: ZINC OXIDE PASTE 113 GM TUBE TOP PRN (17:31)
[2022-05-07] MEDS: SODIUM CHLORIDE 0.9% 1,000 ML IV SCH (18:21)
[2022-05-07] MEDS: INSULIN LISPRO 100 UNIT/ML SUBCUT SCH (18:26)
[2022-05-07] MEDS: ACETAMINOPHEN 325 MG TABLET PO PRN (20:20)
[2022-05-07] MEDS ORDERED: MYCOPHENOLATE MOFETIL 250 MG CAPSULE PO SCH (21:00)
[2022-05-07 21:28] LABS: Hematocrit 34.6 VOL% (35.7-47.0); Hemoglobin 10.8 GM/DL (12.0-16.0)
[2022-05-07] MEDS: TACROLIMUS 0.5 MG CAPSULE PO SCH (22:13)
[2022-05-07] MEDS: CALCIUM (CARBONATE)/VITAMIN D 600 MG-400 UNIT TABLET PO SCH (22:13)
[2022-05-07] MEDS: GABAPENTIN 400 MG CAPSULE PO SCH (22:14)
[2022-05-07] MEDS: carvediloL 6.25 MG TABLET PO SCH (22:14)
[2022-05-07] MEDS: MYCOPHENOLATE MOFETIL 250 MG CAPSULE PO SCH (22:14)
[2022-05-07] MEDS: oxyCODONE/ACETAMINOPHEN 5-325 MG TABLET PO SCH (22:14)
[2022-05-07] MEDS: MAGNESIUM OXIDE 400 MG TABLET PO SCH (22:15)
[2022-05-07] MEDS: SIMVASTATIN 10 MG TABLET PO SCH (22:15)
[2022-05-08] MEDS: INSULIN LISPRO 100 UNIT/ML SUBCUT SCH ×4 (00:27→17:47)
[2022-05-08] MEDS: PANTOPRAZOLE INJ 200 MG in SODIUM CHLORIDE 0.9% 250 ML IV SCH (00:59)
[2022-05-08 01:13] LABS: Hematocrit 34.8 VOL% (35.7-47.0); Hemoglobin 10.9 GM/DL (12.0-16.0)
[2022-05-08 05:31] LABS: Basophils % 0.5 % (0.0-0.8); Eosinophils # 0.5 10*3/uL (0.0-0.87); Eosinophils % 6.7 % (0.00-10.9); Hematocrit 33.9 VOL% (35.7-47.0); Hemoglobin 10.6 GM/DL (12.0-16.0); Lymphocytes # 3.3 10*3/uL (1.4-4.0); Lymphocytes % 44.5 % (21.3-54.2); Mean Corpuscular HGB Conc 31.3 GM/DL (32-36); Mean Corpuscular Volume 91.6 FL (87-102); Mean Platelet Volume 11.2 FL (9.6-12.0); Monocytes # 0.9 10*3/uL (0.11-0.8); Monocytes % 11.9 % (1.7-12.7); Neutrophils % 36.4 % (38.7-73.9); Platelet Count 298 T/CUMM (130-400); Red Cell Distribution Width 14.2 % (9.3-17.3); White Blood Count 7.3 T/CUMM (4-12)
[2022-05-08 05:34] LABS: Hematocrit 34.3 VOL% (35.7-47.0); Hemoglobin 10.7 GM/DL (12.0-16.0)
[2022-05-08 05:46] LABS: % Iron Saturation 10.7 % (18-50); Ferritin 48.9 ng/mL (8-252); Folate 19.09 NG/ML (5.38-24.0)
[2022-05-08 05:48] LABS: Albumin 2.7 G/DL (3.4-5.0); Bilirubin,Total 0.7 MG/DL (0.20-1.00); Calcium 8.2 MG/DL (8.5-10.1); Osmolality,Calculated 288.5 MOS/KG (273-304); Potassium 3.4 MMOL/L (3.5-5.1); Total Protein 6.4 G/DL (6.4-8.2)
[2022-05-08 06:29] LABS: Band Neutrophils 8 % (0-10); Eosinophils 5 % (0-10); Lymphocytes 43 % (20-55); Platelet Estimate Normal; Total Cells Counted 100
[2022-05-08 06:30] LABS: Anisocytosis 1+
[2022-05-08] MEDS ORDERED: POTASSIUM CHLORIDE 20 MEQ TABLET PO ONE (07:28)
[2022-05-08] MEDS ORDERED: MAGNESIUM SULF RIDER 2 GM/50 ML PREMIX IV ONE (07:28)
[2022-05-08] MEDS: oxyCODONE/ACETAMINOPHEN 5-325 MG TABLET PO SCH ×3 (07:44→20:10)
[2022-05-08 09:38] LABS: Hematocrit 35.8 VOL% (35.7-47.0); Hemoglobin 11.1 GM/DL (12.0-16.0)
[2022-05-08] MEDS: TACROLIMUS 0.5 MG CAPSULE PO SCH ×2 (10:23→20:09)
[2022-05-08] MEDS: MYCOPHENOLATE MOFETIL 250 MG CAPSULE PO SCH ×2 (10:23→20:11)
[2022-05-08] MEDS: MAGNESIUM OXIDE 400 MG TABLET PO SCH ×3 (10:23→20:20)
[2022-05-08] MEDS: predniSONE 5 MG TABLET PO SCH (10:23)
[2022-05-08] MEDS: GABAPENTIN 400 MG CAPSULE PO SCH ×3 (10:23→20:11)
[2022-05-08] MEDS: CITALOPRAM 40 MG TABLET PO SCH (10:24)
[2022-05-08] MEDS: CALCIUM (CARBONATE)/VITAMIN D 600 MG-400 UNIT TABLET PO SCH ×2 (10:24→20:20)
[2022-05-08] MEDS: carvediloL 6.25 MG TABLET PO SCH ×2 (10:28→20:12)
[2022-05-08] MEDS ORDERED: DOCUSATE SODIUM 100 MG CAPSULE PO PRN (10:59)
[2022-05-08 12:47] LABS: Hematocrit 36.9 VOL% (35.7-47.0); Hemoglobin 11.5 GM/DL (12.0-16.0)
[2022-05-08 17:23] LABS: Hematocrit 38.8 VOL% (35.7-47.0); Hemoglobin 11.6 GM/DL (12.0-16.0)
[2022-05-08] MEDS: ACETAMINOPHEN 325 MG TABLET PO PRN (20:09)
[2022-05-08] MEDS: FERROUS SULFATE 325 MG TABLET PO SCH (20:09)
[2022-05-08] MEDS: SIMVASTATIN 10 MG TABLET PO SCH (20:12)
[2022-05-08] MEDS: MELATONIN 3 MG TABLET PO SCH (20:12)
[2022-05-08 21:14] LABS: Hemoglobin 11.6 GM/DL (12.0-16.0)
[2022-05-09 01:49] LABS: Hematocrit 35.7 VOL% (35.7-47.0); Hemoglobin 11.1 GM/DL (12.0-16.0)
[2022-05-09] MEDS: INSULIN LISPRO 100 UNIT/ML SUBCUT SCH ×4 (02:03→18:45)
[2022-05-09] MEDS: SODIUM CHLORIDE 0.9% 1,000 ML IV SCH ×3 (03:56→20:24)
[2022-05-09] MEDS: PANTOPRAZOLE INJ 200 MG in SODIUM CHLORIDE 0.9% 250 ML IV SCH (04:03)
[2022-05-09 05:08] LABS: Basophils # 0.1 10*3/uL (0.0-0.2); Basophils % 0.3 % (0.0-0.8); Eosinophils # 0.1 10*3/uL (0.0-0.87); Eosinophils % 0.8 % (0.00-10.9); Hematocrit 34.7 VOL% (35.7-47.0); Hemoglobin 10.7 GM/DL (12.0-16.0); Immature Granulocytes % 0.6 %; Immature Granulocytes Absolute 0.12 #; Lymphocytes # 3.1 10*3/uL (1.4-4.0); Lymphocytes % 16.7 % (21.3-54.2); Mean Corpuscular HGB Conc 30.8 GM/DL (32-36); Mean Corpuscular Volume 93.5 FL (87-102); Monocytes # 1.4 10*3/uL (0.11-0.8); Monocytes % 7.5 % (1.7-12.7); Neutrophils % 74.1 % (38.7-73.9); Platelet Count 274 T/CUMM (130-400); Red Blood Count 3.71 MC/CUMM (3.8-5.5); Red Cell Distribution Width 14.4 % (9.3-17.3); White Blood Count 18.5 T/CUMM (4-12)
[2022-05-09 05:37] LABS: Albumin 2.7 G/DL (3.4-5.0); Bilirubin,Total 0.7 MG/DL (0.20-1.00); Calcium 8.4 MG/DL (8.5-10.1); Osmolality,Calculated 283.1 MOS/KG (273-304); Potassium 4.2 MMOL/L (3.5-5.1); Total Protein 6.2 G/DL (6.4-8.2)
[2022-05-09] MEDS: oxyCODONE/ACETAMINOPHEN 5-325 MG TABLET PO SCH ×3 (06:03→22:21)
[2022-05-09 08:51] LABS: Hematocrit 34.8 VOL% (35.7-47.0); Hemoglobin 10.7 GM/DL (12.0-16.0)
[2022-05-09] MEDS: CITALOPRAM 40 MG TABLET PO SCH (11:44)
[2022-05-09] MEDS: CALCIUM (CARBONATE)/VITAMIN D 600 MG-400 UNIT TABLET PO SCH ×2 (11:44→22:21)
[2022-05-09] MEDS: carvediloL 6.25 MG TABLET PO SCH ×2 (11:44→16:58)
[2022-05-09] MEDS: FERROUS SULFATE 325 MG TABLET PO SCH ×2 (11:45→22:22)
[2022-05-09] MEDS: predniSONE 5 MG TABLET PO SCH (11:45)
[2022-05-09] MEDS: GABAPENTIN 400 MG CAPSULE PO SCH ×3 (11:45→22:22)
[2022-05-09] MEDS: TACROLIMUS 0.5 MG CAPSULE PO SCH ×2 (11:45→22:20)
[2022-05-09] MEDS: MYCOPHENOLATE MOFETIL 250 MG CAPSULE PO SCH ×2 (11:45→22:21)
[2022-05-09] MEDS: MAGNESIUM OXIDE 400 MG TABLET PO SCH ×3 (11:45→22:21)
[2022-05-09 13:06] LABS: Urine Appearance Slightly Cloudy (Clear); Urine Color Dark Yellow (Yellow)
[2022-05-09 13:07] LABS: Bilirubin,Urine Small mg/dL (Negative); Blood, Urine Trace mg/dL (Negative); Glucose,Urine (UA) 100 mg/dL (Negative); Ketones,Urine Trace mg/dL (Negative); Nitrite,Urine Negative (Negative); Protein,Urine 100 mg/dL (Negative); Urine Specific Gravity >= 1.030 (1.001-1.035); Urine Urobilinogen 0.2 eU/dL (<2.0)
[2022-05-09 13:10] LABS: Bacteria,Urine Few /HPF (Few); Hyaline Casts,Urine 29 /LPF (0-3); Mucus,Urine Occasional /LPF (Occasional); RBC,Urine 1 /HPF (0-4); Squamous Epithelial Cell,Urine Many /HPF (0-10)
[2022-05-09 13:13] LABS: Hematocrit 32.8 VOL% (35.7-47.0)
[2022-05-09] MEDS: ACETAMINOPHEN 325 MG TABLET PO PRN (13:23)
[2022-05-09] MEDS: MELATONIN 3 MG TABLET PO SCH (22:20)
[2022-05-09] MEDS: SIMVASTATIN 10 MG TABLET PO SCH (22:21)
[2022-05-10] MEDS: INSULIN LISPRO 100 UNIT/ML SUBCUT SCH ×4 (04:11→17:18)
[2022-05-10 05:24] LABS: Basophils % 0.3 % (0.0-0.8); Eosinophils # 0.4 10*3/uL (0.0-0.87); Hematocrit 32.4 VOL% (35.7-47.0); Hemoglobin 9.9 GM/DL (12.0-16.0); Immature Granulocytes % 0.3 %; Immature Granulocytes Absolute 0.03 #; Lymphocytes # 3.4 10*3/uL (1.4-4.0); Lymphocytes % 36.4 % (21.3-54.2); Mean Corpuscular HGB Conc 30.6 GM/DL (32-36); Mean Corpuscular Volume 94.2 FL (87-102); Mean Platelet Volume 11.3 FL (9.6-12.0); Monocytes # 0.8 10*3/uL (0.11-0.8); Monocytes % 9.1 % (1.7-12.7); Neutrophils % 49.9 % (38.7-73.9); Platelet Count 239 T/CUMM (130-400); Red Blood Count 3.44 MC/CUMM (3.8-5.5); Red Cell Distribution Width 14.3 % (9.3-17.3); White Blood Count 9.3 T/CUMM (4-12)
[2022-05-10] MEDS: PANTOPRAZOLE INJ 200 MG in SODIUM CHLORIDE 0.9% 250 ML IV SCH (05:31)
[2022-05-10] MEDS: oxyCODONE/ACETAMINOPHEN 5-325 MG TABLET PO SCH ×3 (05:32→21:11)
[2022-05-10 05:50] LABS: Albumin 2.5 G/DL (3.4-5.0); Bilirubin,Total 0.5 MG/DL (0.20-1.00); Osmolality,Calculated 286.4 MOS/KG (273-304); Potassium 3.9 MMOL/L (3.5-5.1); Total Protein 5.7 G/DL (6.4-8.2)
[2022-05-10] MEDS: FERROUS SULFATE 325 MG TABLET PO SCH ×2 (08:52→21:11)
[2022-05-10] MEDS: CALCIUM (CARBONATE)/VITAMIN D 600 MG-400 UNIT TABLET PO SCH ×2 (08:52→21:10)
[2022-05-10] MEDS: MYCOPHENOLATE MOFETIL 250 MG CAPSULE PO SCH ×2 (08:52→21:11)
[2022-05-10] MEDS: CITALOPRAM 40 MG TABLET PO SCH (08:52)
[2022-05-10] MEDS: carvediloL 6.25 MG TABLET PO SCH ×2 (08:52→17:18)
[2022-05-10] MEDS: MAGNESIUM OXIDE 400 MG TABLET PO SCH ×3 (08:52→21:11)
[2022-05-10] MEDS: GABAPENTIN 400 MG CAPSULE PO SCH ×3 (08:53→21:11)
[2022-05-10] MEDS: predniSONE 5 MG TABLET PO SCH (08:53)
[2022-05-10] MEDS: TACROLIMUS 0.5 MG CAPSULE PO SCH ×2 (08:53→21:10)
[2022-05-10] MEDS: SODIUM CHLORIDE 0.9% 1,000 ML IV SCH ×2 (09:03→22:50)
[2022-05-10] MEDS: PANTOPRAZOLE 40 MG VIAL IV SCH ×2 (09:04→21:12)
[2022-05-10] MEDS: LACTATED RINGERS 1,000 ML IV SCH (10:42)
[2022-05-10] MEDS ORDERED: propofoL 200 MG/20 ML VIAL IV ONE (11:08)
[2022-05-10] MEDS ORDERED: LIDOCAINE 2% 5 ML VIAL ONE (11:08)
[2022-05-10] MEDS ORDERED: BISACODYL 5 MG TABLET PO ONE (15:00)
[2022-05-10] MEDS ORDERED: POLYETHYLENE GLYCOL POWDER 255 GM BOTTLE PO ONE (18:00)
[2022-05-10] MEDS: MELATONIN 3 MG TABLET PO SCH (21:10)
[2022-05-10] MEDS: SIMVASTATIN 10 MG TABLET PO SCH (21:11)
[2022-05-11] MEDS: INSULIN LISPRO 100 UNIT/ML SUBCUT SCH ×4 (00:22→17:11)
[2022-05-11] MEDS: SODIUM CHLORIDE 0.9% 1,000 ML IV SCH ×2 (01:21→21:07)
[2022-05-11] MEDS: oxyCODONE/ACETAMINOPHEN 5-325 MG TABLET PO SCH ×3 (04:08→23:43)
[2022-05-11] MEDS ORDERED: POLYETHYLENE GLYCOL POWDER 255 GM BOTTLE PO ONE (05:00)
[2022-05-11 06:08] LABS: Basophils % 0.4 % (0.0-0.8); Eosinophils # 0.5 10*3/uL (0.0-0.87); Eosinophils % 6.6 % (0.00-10.9); Hematocrit 35.3 VOL% (35.7-47.0); Hemoglobin 10.6 GM/DL (12.0-16.0); Immature Granulocytes % 0.3 %; Immature Granulocytes Absolute 0.02 #; Lymphocytes # 2.8 10*3/uL (1.4-4.0); Mean Corpuscular Volume 94.4 FL (87-102); Mean Platelet Volume 11.9 FL (9.6-12.0); Monocytes # 0.6 10*3/uL (0.11-0.8); Neutrophils % 44.7 % (38.7-73.9); Platelet Count 274 T/CUMM (130-400); Red Blood Count 3.74 MC/CUMM (3.8-5.5); Red Cell Distribution Width 14.1 % (9.3-17.3); White Blood Count 7.2 T/CUMM (4-12)
[2022-05-11 06:09] LABS: PT Patient Result 10.8 SECS (10.1-12.1)
[2022-05-11 06:25] LABS: Calcium 8.6 MG/DL (8.5-10.1); Osmolality,Calculated 281.4 MOS/KG (273-304); Potassium 4.1 MMOL/L (3.5-5.1)
[2022-05-11] MEDS: carvediloL 6.25 MG TABLET PO SCH ×2 (08:50→17:11)
[2022-05-11] MEDS: PANTOPRAZOLE 40 MG VIAL IV SCH ×2 (08:50→21:04)
[2022-05-11] MEDS: LACTATED RINGERS 1,000 ML IV SCH ×3 (12:12→14:16)
[2022-05-11] MEDS ORDERED: LIDOCAINE 2% 5 ML VIAL ONE (13:26)
[2022-05-11] MEDS ORDERED: propofoL 200 MG/20 ML VIAL IV ONE (13:26)
[2022-05-11] MEDS ORDERED: DEXTROSE 50% 25 GM/50 ML VIAL IV PRN (14:31)
[2022-05-11] MEDS ORDERED: GLUCAGON 1 MG VIAL IM PRN (14:31)
[2022-05-11] MEDS: MYCOPHENOLATE MOFETIL 250 MG CAPSULE PO SCH ×2 (14:39→22:17)
[2022-05-11] MEDS: CALCIUM (CARBONATE)/VITAMIN D 600 MG-400 UNIT TABLET PO SCH ×2 (14:39→22:17)
[2022-05-11] MEDS: MAGNESIUM OXIDE 400 MG TABLET PO SCH ×3 (14:40→22:18)
[2022-05-11] MEDS: FERROUS SULFATE 325 MG TABLET PO SCH ×2 (14:40→22:18)
[2022-05-11] MEDS: predniSONE 5 MG TABLET PO SCH (14:40)
[2022-05-11] MEDS: CITALOPRAM 40 MG TABLET PO SCH (14:40)
[2022-05-11] MEDS: TACROLIMUS 0.5 MG CAPSULE PO SCH ×2 (14:40→22:17)
[2022-05-11] MEDS: GABAPENTIN 400 MG CAPSULE PO SCH ×3 (14:40→22:17)
[2022-05-11] MEDS: SIMVASTATIN 10 MG TABLET PO SCH (22:18)
[2022-05-11] MEDS: MELATONIN 3 MG TABLET PO SCH (22:18)
[2022-05-12] MEDS: INSULIN LISPRO 100 UNIT/ML SUBCUT SCH ×3 (00:10→12:21)
[2022-05-12] MEDS: SODIUM CHLORIDE 0.9% 1,000 ML IV SCH (04:41)
[2022-05-12 05:00] LABS: Basophils % 0.3 % (0.0-0.8); Eosinophils # 0.2 10*3/uL (0.0-0.87); Eosinophils % 3.2 % (0.00-10.9); Hematocrit 35.9 VOL% (35.7-47.0); Immature Granulocytes % 0.2 %; Immature Granulocytes Absolute 0.01 #; Lymphocytes # 3.5 10*3/uL (1.4-4.0); Lymphocytes % 56.2 % (21.3-54.2); Mean Corpuscular HGB Conc 30.6 GM/DL (32-36); Mean Corpuscular Volume 92.3 FL (87-102); Mean Platelet Volume 11.1 FL (9.6-12.0); Monocytes # 0.5 10*3/uL (0.11-0.8); Monocytes % 8.6 % (1.7-12.7); Neutrophils % 31.5 % (38.7-73.9); Platelet Count 263 T/CUMM (130-400); Red Blood Count 3.89 MC/CUMM (3.8-5.5); White Blood Count 6.2 T/CUMM (4-12)
[2022-05-12 05:21] LABS: Calcium 8.7 MG/DL (8.5-10.1); Potassium 3.8 MMOL/L (3.5-5.1)
[2022-05-12 05:23] LABS: Eosinophils 1 % (0-10); Lymphocytes 55 % (20-55); Platelet Estimate Adequate; Total Cells Counted 100
[2022-05-12] MEDS: oxyCODONE/ACETAMINOPHEN 5-325 MG TABLET PO SCH ×3 (05:46→16:53)
[2022-05-12] MEDS ORDERED: MAGNESIUM SULF RIDER 2 GM/50 ML PREMIX IV STA (07:44)
[2022-05-12] MEDS: CALCIUM (CARBONATE)/VITAMIN D 600 MG-400 UNIT TABLET PO SCH (08:41)
[2022-05-12] MEDS: carvediloL 6.25 MG TABLET PO SCH (08:42)
[2022-05-12] MEDS: CITALOPRAM 40 MG TABLET PO SCH (08:42)
[2022-05-12] MEDS: MYCOPHENOLATE MOFETIL 250 MG CAPSULE PO SCH (08:42)
[2022-05-12] MEDS: TACROLIMUS 0.5 MG CAPSULE PO SCH (08:42)
[2022-05-12] MEDS: PANTOPRAZOLE 40 MG VIAL IV SCH (08:42)
[2022-05-12] MEDS: GABAPENTIN 400 MG CAPSULE PO SCH ×2 (08:42→15:51)
[2022-05-12] MEDS: predniSONE 5 MG TABLET PO SCH (08:42)
[2022-05-12] MEDS: FERROUS SULFATE 325 MG TABLET PO SCH (08:42)
[2022-05-12] MEDS: MAGNESIUM OXIDE 400 MG TABLET PO SCH ×2 (08:42→15:51)
[2022-05-12 11:54] VITALS: BP 147/42
== END 2022-05-12 17:00 | disposition home health service (06) | DRG 378 ==
LOC: EDBD → EDUNIT# → SUATTDRO → N.ED 14:50 → N.EDINP 17:03 → SUATTDRO 17:03 → N.3E 17:50
PROVIDERS: ADMIT Emergency Medicine; ATTEND Internal Medicine

== ENCOUNTER 2022-06-01 20:56 | Inpatient (IN) ==
[2022-06-01] MEDS ORDERED: ONDANSETRON 4 MG/2 ML VIAL IV STA (21:45)
[2022-06-01] MEDS ORDERED: SODIUM CHLORIDE 0.9% 1,000 ML IV STA (21:45)
[2022-06-01 22:45] LABS: Basophils % 0.2 % (0.0-0.8); Eosinophils % 0.2 % (0.00-10.9); Hematocrit 35.5 VOL% (35.7-47.0); Hemoglobin 11.2 GM/DL (12.0-16.0); Immature Granulocytes % 0.6 %; Immature Granulocytes Absolute 0.11 #; Lymphocytes # 3.2 10*3/uL (1.4-4.0); Lymphocytes % 16.2 % (21.3-54.2); Mean Corpuscular HGB Conc 31.5 GM/DL (32-36); Mean Corpuscular Volume 89.6 FL (87-102); Mean Platelet Volume 10.5 FL (9.6-12.0); Monocytes # 1.2 10*3/uL (0.11-0.8); Monocytes % 6.1 % (1.7-12.7); Neutrophils % 76.7 % (38.7-73.9); Platelet Count 321 T/CUMM (130-400); Red Blood Count 3.96 MC/CUMM (3.8-5.5); Red Cell Distribution Width 14.3 % (9.3-17.3); White Blood Count 19.9 T/CUMM (4-12)
[2022-06-01 22:47] LABS: RBC,Urine <1 /HPF (0-4)
[2022-06-01 22:49] LABS: Glucose,Urine (UA) 100 mg/dL (Negative); Ketones,Urine Trace mg/dL (Negative); Protein,Urine 100 mg/dL (Negative); Urine Appearance Clear (Clear); Urine Color Yellow (Yellow); Urine pH 8.5 (4.5-8.0)
[2022-06-01 22:50] LABS: Bilirubin,Urine Negative (Negative); Blood, Urine Negative (Negative); Nitrite,Urine Negative (Negative); Urine Urobilinogen 0.2 eU/dL (<2.0)
[2022-06-01 23:03] LABS: Albumin 2.9 G/DL (3.4-5.0); Bilirubin,Total 0.8 MG/DL (0.20-1.00); Calcium 8.9 MG/DL (8.5-10.1); Osmolality,Calculated 282.5 MOS/KG (273-304); Potassium 3.6 MMOL/L (3.5-5.1); Total Protein 6.3 G/DL (6.4-8.2)
[2022-06-02] MEDS ORDERED: DEXTROSE 10% 250 ML BAG IV PRN ×2 (02:24→13:56)
[2022-06-02] MEDS ORDERED: ALUMINUM/MAGNES/SIMETH MAX STR 30 ML UDCUP PO PRN (02:24)
[2022-06-02] MEDS ORDERED: GLUCAGON 1 MG VIAL IM PRN (02:24)
[2022-06-02] MEDS ORDERED: ACETAMINOPHEN 325 MG TABLET PO PRN (02:24)
[2022-06-02] MEDS ORDERED: MAGNESIUM SULF RIDER 4 GM/100 ML PREMIX IV PRN (02:24)
[2022-06-02] MEDS ORDERED: hydrALAZINE 20 MG/1 ML VIAL IV PRN (02:24)
[2022-06-02] MEDS ORDERED: MAGNESIUM SULF RIDER 2 GM/50 ML PREMIX IV PRN (02:24)
[2022-06-02] MEDS ORDERED: ONDANSETRON 4 MG/2 ML VIAL IV PRN (02:24)
[2022-06-02] MEDS ORDERED: POTASSIUM CHLORIDE 20 MEQ TABLET PO PRN (02:24)
[2022-06-02] MEDS ORDERED: POTASSIUM CHLORIDE RIDER 10 MEQ/100 ML PREMIX IV PRN (02:24)
[2022-06-02 03:48] LABS: Basophils % 0.2 % (0.0-0.8); Eosinophils % 0.1 % (0.00-10.9); Hematocrit 33.4 VOL% (35.7-47.0); Hemoglobin 10.4 GM/DL (12.0-16.0); Immature Granulocytes % 0.7 %; Immature Granulocytes Absolute 0.12 #; Lymphocytes # 4.2 10*3/uL (1.4-4.0); Mean Corpuscular HGB Conc 31.1 GM/DL (32-36); Mean Platelet Volume 10.3 FL (9.6-12.0); Monocytes # 1.2 10*3/uL (0.11-0.8); Monocytes % 7.1 % (1.7-12.7); Neutrophils % 67.9 % (38.7-73.9); Platelet Count 288 T/CUMM (130-400); Red Blood Count 3.67 MC/CUMM (3.8-5.5); Red Cell Distribution Width 14.4 % (9.3-17.3); White Blood Count 17.5 T/CUMM (4-12)
[2022-06-02 04:03] LABS: Osmolality,Calculated 283.4 MOS/KG (273-304)
[2022-06-02] MEDS: oxyCODONE/ACETAMINOPHEN 5-325 MG TABLET PO PRN ×3 (05:07→21:11)
[2022-06-02] MEDS: LACTATED RINGERS 1,000 ML IV SCH ×2 (05:08→18:22)
[2022-06-02] MEDS: INSULIN REGULAR 100 UNIT/ML SUBCUT SCH ×4 (08:42→22:41)
[2022-06-02] MEDS: TACROLIMUS 0.5 MG CAPSULE PO SCH ×2 (08:43→21:10)
[2022-06-02] MEDS: ENOXAPARIN 40 MG/0.4 ML SYRINGE SUBCUT SCH (08:43)
[2022-06-02] MEDS: CITALOPRAM 40 MG TABLET PO SCH (08:44)
[2022-06-02] MEDS: MYCOPHENOLATE MOFETIL 250 MG CAPSULE PO SCH (08:44)
[2022-06-02] MEDS: MAGNESIUM OXIDE 400 MG TABLET PO SCH ×3 (08:44→21:10)
[2022-06-02] MEDS: carvediloL 3.125 MG TABLET PO SCH ×2 (08:44→21:10)
[2022-06-02] MEDS: PANTOPRAZOLE 40 MG TABLET PO SCH ×2 (08:44→17:01)
[2022-06-02] MEDS: predniSONE 5 MG TABLET PO SCH (08:44)
[2022-06-02] MEDS: DOCUSATE SODIUM 100 MG CAPSULE PO SCH ×2 (08:44→22:41)
[2022-06-02] MEDS: GABAPENTIN 400 MG CAPSULE PO SCH ×3 (08:44→21:10)
[2022-06-02] MEDS: CALCIUM (CARBONATE)/VITAMIN D 600 MG-400 UNIT TABLET PO SCH ×2 (08:45→21:11)
[2022-06-02] MEDS ORDERED: INSULIN NPH/REGULAR 70/30 100 UNIT/ML SUBCUT SCH (09:00)
[2022-06-02] MEDS ORDERED: FUROSEMIDE 20 MG TABLET PO SCH (09:00)
[2022-06-02 10:31] LABS: Albumin 2.5 G/DL (3.4-5.0); Bilirubin,Direct 0.25 MG/DL (0.0-0.20); Bilirubin,Indirect 0.7 MG/DL (0.0-1.0); Bilirubin,Total 0.9 MG/DL (0.20-1.00); Total Protein 5.9 G/DL (6.4-8.2)
[2022-06-02] MEDS: cefTRIAXone 2,000 MG in SODIUM CHLORIDE 0.9% 100 ML IV SCH (11:18)
[2022-06-02] MEDS: POLYETHYLENE GLYCOL POWDER 17 GM PACK PO SCH (11:22)
[2022-06-02] MEDS ORDERED: SIMVASTATIN 10 MG TABLET PO SCH (21:00)
[2022-06-02] MEDS ORDERED: MYCOPHENOLATE MOFETIL 250 MG CAPSULE PO SCH (21:00)
[2022-06-02] MEDS ORDERED: tiZANidine 4 MG TABLET PO SCH (21:00)
[2022-06-03 05:14] LABS: Basophils % 0.3 % (0.0-0.8); Eosinophils # 0.5 10*3/uL (0.0-0.87); Eosinophils % 5.3 % (0.00-10.9); Hematocrit 32.9 VOL% (35.7-47.0); Immature Granulocytes % 0.2 %; Immature Granulocytes Absolute 0.02 #; Lymphocytes # 3.1 10*3/uL (1.4-4.0); Lymphocytes % 34.4 % (21.3-54.2); Mean Corpuscular HGB Conc 30.4 GM/DL (32-36); Mean Corpuscular Volume 92.9 FL (87-102); Mean Platelet Volume 10.9 FL (9.6-12.0); Monocytes % 10.6 % (1.7-12.7); Neutrophils % 49.2 % (38.7-73.9); Platelet Count 245 T/CUMM (130-400); Red Blood Count 3.54 MC/CUMM (3.8-5.5); Red Cell Distribution Width 14.5 % (9.3-17.3); White Blood Count 9.1 T/CUMM (4-12)
[2022-06-03 05:54] LABS: Albumin 2.4 G/DL (3.4-5.0); Bilirubin,Total 0.5 MG/DL (0.20-1.00); Calcium 8.5 MG/DL (8.5-10.1); Osmolality,Calculated 279.4 MOS/KG (273-304); Potassium 3.8 MMOL/L (3.5-5.1); Total Protein 5.8 G/DL (6.4-8.2)
[2022-06-03] MEDS ORDERED: MAGNESIUM SULF RIDER 2 GM/50 ML PREMIX IV ONE (08:26)
[2022-06-03] MEDS: ENOXAPARIN 40 MG/0.4 ML SYRINGE SUBCUT SCH (09:57)
[2022-06-03] MEDS: POLYETHYLENE GLYCOL POWDER 17 GM PACK PO SCH (09:58)
[2022-06-03] MEDS: cefTRIAXone 2,000 MG in SODIUM CHLORIDE 0.9% 100 ML IV SCH (09:58)
[2022-06-03] MEDS: TACROLIMUS 0.5 MG CAPSULE PO SCH (09:58)
[2022-06-03] MEDS: CALCIUM (CARBONATE)/VITAMIN D 600 MG-400 UNIT TABLET PO SCH (09:59)
[2022-06-03] MEDS: MAGNESIUM OXIDE 400 MG TABLET PO SCH (09:59)
[2022-06-03] MEDS: MYCOPHENOLATE MOFETIL 250 MG CAPSULE PO SCH (09:59)
[2022-06-03] MEDS: CITALOPRAM 40 MG TABLET PO SCH (09:59)
[2022-06-03] MEDS: predniSONE 5 MG TABLET PO SCH (09:59)
[2022-06-03] MEDS: PANTOPRAZOLE 40 MG TABLET PO SCH (10:00)
[2022-06-03] MEDS: carvediloL 3.125 MG TABLET PO SCH (10:00)
[2022-06-03] MEDS: DOCUSATE SODIUM 100 MG CAPSULE PO SCH (10:00)
[2022-06-03] MEDS: GABAPENTIN 400 MG CAPSULE PO SCH (10:00)
[2022-06-03] MEDS: INSULIN REGULAR 100 UNIT/ML SUBCUT SCH ×2 (10:39→12:13)
[2022-06-03 11:42] VITALS: BP 140/57
== END 2022-06-03 14:50 | disposition home health service (06) | DRG 392 ==
LOC: EDUNIT# → N.3E 20:56 → N.ED 20:56 → N.3E 06-02 03:40 → SUATTDRO 06-02 09:01
PROVIDERS: ADMIT Internal Medicine; ATTEND Internal Medicine

== ENCOUNTER 2022-08-08 19:24 | Observation (INO) ==
[2022-08-08] MEDS ORDERED: MORPHINE 2 MG/1 ML SYRINGE ONE (21:14)
[2022-08-08] MEDS ORDERED: MORPHINE 2 MG/1 ML SYRINGE IV STA (21:25)
[2022-08-08] MEDS ORDERED: ACETAMINOPHEN 325 MG TABLET PO PRN (23:10)
[2022-08-08] MEDS ORDERED: GLUCAGON 1 MG VIAL IM PRN (23:10)
[2022-08-08] MEDS ORDERED: ONDANSETRON 4 MG/2 ML VIAL IV PRN (23:10)
[2022-08-08] MEDS ORDERED: DEXTROSE 10% 250 ML BAG IV PRN (23:21)
[2022-08-09] MEDS: MORPHINE 2 MG/1 ML SYRINGE IV PRN (04:15)
[2022-08-09] MEDS: INSULIN REGULAR 100 UNIT/ML SUBCUT SCH ×4 (06:28→17:13)
[2022-08-09] MEDS: PANTOPRAZOLE 40 MG TABLET PO SCH (08:46)
[2022-08-09] MEDS: DOCUSATE SODIUM 100 MG CAPSULE PO SCH ×2 (08:46→21:46)
[2022-08-09 10:50] LABS: Basophils % 0.3 % (0.0-0.8); Eosinophils # 0.3 10*3/uL (0.0-0.87); Eosinophils % 2.8 % (0.00-10.9); Hematocrit 36.6 VOL% (35.7-47.0); Hemoglobin 11.4 GM/DL (12.0-16.0); Immature Granulocytes % 0.3 %; Immature Granulocytes Absolute 0.03 #; Lymphocytes # 4.9 10*3/uL (1.4-4.0); Lymphocytes % 45.4 % (21.3-54.2); Mean Corpuscular HGB Conc 31.1 GM/DL (32-36); Mean Corpuscular Volume 90.1 FL (87-102); Mean Platelet Volume 10.4 FL (9.6-12.0); Monocytes # 1.1 10*3/uL (0.11-0.8); Monocytes % 10.2 % (1.7-12.7); Platelet Count 236 T/CUMM (130-400); Red Blood Count 4.06 MC/CUMM (3.8-5.5); Red Cell Distribution Width 15.9 % (9.3-17.3); White Blood Count 10.8 T/CUMM (4-12)
[2022-08-09 11:15] LABS: Albumin 3.2 G/DL (3.4-5.0); Bilirubin,Total 1.2 MG/DL (0.20-1.00); Calcium 8.8 MG/DL (8.5-10.1); Osmolality,Calculated 286.7 MOS/KG (273-304); Potassium 3.8 MMOL/L (3.5-5.1); Total Protein 6.6 G/DL (6.4-8.2)
[2022-08-09] MEDS: CITALOPRAM 40 MG TABLET PO SCH (11:51)
[2022-08-09] MEDS: TACROLIMUS 0.5 MG CAPSULE PO SCH ×2 (11:51→21:46)
[2022-08-09] MEDS: INSULIN NPH/REG 70/30 100 UNIT/ML SUBCUT SCH (11:52)
[2022-08-09] MEDS: MYCOPHENOLATE MOFETIL 250 MG CAPSULE PO SCH ×2 (11:52→21:46)
[2022-08-09] MEDS ORDERED: cefTRIAXone 1,000 MG in SODIUM CHLORIDE 0.9% 100 ML IV ONE (14:59)
[2022-08-09] MEDS: methylPREDNISolone SOD SUC 40 MG/1 ML VIAL IV SCH ×2 (16:25→23:20)
[2022-08-09] MEDS: tiZANidine 4 MG TABLET PO SCH (21:46)
[2022-08-09] MEDS: SIMVASTATIN 10 MG TABLET PO SCH (21:46)
[2022-08-09] MEDS ORDERED: MAGNESIUM SULF RIDER 1 GM/100 ML PREMIX IV ONE (23:07)
[2022-08-10] MEDS: INSULIN REGULAR 100 UNIT/ML SUBCUT SCH ×4 (00:50→18:10)
[2022-08-10] MEDS: SODIUM CHLORIDE 0.9% 1,000 ML IV SCH ×3 (00:50→15:56)
[2022-08-10] MEDS: methylPREDNISolone SOD SUC 40 MG/1 ML VIAL IV SCH ×2 (06:43→15:57)
[2022-08-10 06:54] LABS: Calcium 8.7 MG/DL (8.5-10.1); Osmolality,Calculated 289.8 MOS/KG (273-304); Potassium 4.5 MMOL/L (3.5-5.1)
[2022-08-10] MEDS: DOCUSATE SODIUM 100 MG CAPSULE PO SCH ×2 (09:18→21:41)
[2022-08-10] MEDS: PANTOPRAZOLE 40 MG TABLET PO SCH (09:19)
[2022-08-10] MEDS: MYCOPHENOLATE MOFETIL 250 MG CAPSULE PO SCH ×2 (09:19→21:40)
[2022-08-10] MEDS: CITALOPRAM 40 MG TABLET PO SCH (09:19)
[2022-08-10] MEDS: INSULIN NPH/REG 70/30 100 UNIT/ML SUBCUT SCH (09:19)
[2022-08-10] MEDS: TACROLIMUS 0.5 MG CAPSULE PO SCH ×2 (15:55→21:41)
[2022-08-10] MEDS: tiZANidine 4 MG TABLET PO SCH (21:41)
[2022-08-10] MEDS: traMADol 50 MG TABLET PO SCH (21:42)
[2022-08-10] MEDS: SIMVASTATIN 10 MG TABLET PO SCH (21:43)
[2022-08-11] MEDS: methylPREDNISolone SOD SUC 40 MG/1 ML VIAL IV SCH ×3 (00:29→15:55)
[2022-08-11] MEDS: INSULIN REGULAR 100 UNIT/ML SUBCUT SCH ×4 (02:03→17:33)
[2022-08-11] MEDS: traMADol 50 MG TABLET PO SCH ×3 (09:10→21:22)
[2022-08-11] MEDS: CITALOPRAM 40 MG TABLET PO SCH (09:10)
[2022-08-11] MEDS: TACROLIMUS 0.5 MG CAPSULE PO SCH ×2 (09:32→21:21)
[2022-08-11] MEDS: DOCUSATE SODIUM 100 MG CAPSULE PO SCH ×2 (09:32→21:21)
[2022-08-11] MEDS: PANTOPRAZOLE 40 MG TABLET PO SCH (09:33)
[2022-08-11] MEDS: INSULIN NPH/REG 70/30 100 UNIT/ML SUBCUT SCH (09:34)
[2022-08-11] MEDS: MYCOPHENOLATE MOFETIL 250 MG CAPSULE PO SCH ×2 (09:34→21:20)
[2022-08-11] MEDS: SODIUM CHLORIDE 0.9% 1,000 ML IV SCH ×3 (10:00→16:35)
[2022-08-11] MEDS: MORPHINE 2 MG/1 ML SYRINGE IV PRN (15:30)
[2022-08-11] MEDS: SIMVASTATIN 10 MG TABLET PO SCH (21:22)
[2022-08-11] MEDS: tiZANidine 4 MG TABLET PO SCH (21:22)
[2022-08-12] MEDS: methylPREDNISolone SOD SUC 40 MG/1 ML VIAL IV SCH ×2 (00:27→08:07)
[2022-08-12] MEDS: INSULIN REGULAR 100 UNIT/ML SUBCUT SCH ×4 (00:28→14:23)
[2022-08-12] MEDS: MORPHINE 2 MG/1 ML SYRINGE IV PRN (00:29)
[2022-08-12] MEDS: SODIUM CHLORIDE 0.9% 1,000 ML IV SCH ×2 (00:31→14:37)
[2022-08-12] MEDS: DOCUSATE SODIUM 100 MG CAPSULE PO SCH (09:24)
[2022-08-12] MEDS: MYCOPHENOLATE MOFETIL 250 MG CAPSULE PO SCH (09:25)
[2022-08-12] MEDS: TACROLIMUS 0.5 MG CAPSULE PO SCH (09:26)
[2022-08-12] MEDS: PANTOPRAZOLE 40 MG TABLET PO SCH (09:26)
[2022-08-12] MEDS: CITALOPRAM 40 MG TABLET PO SCH (09:27)
[2022-08-12] MEDS: traMADol 50 MG TABLET PO SCH (09:27)
[2022-08-12] MEDS: INSULIN NPH/REG 70/30 100 UNIT/ML SUBCUT SCH (09:29)
[2022-08-12 12:09] VITALS: BP 174/51
== END 2022-08-12 15:00 | disposition home health service (06) ==
LOC: EDBD → EDUNIT# → N.ED 19:24 → N.2W 19:24
PROVIDERS: ADMIT Internal Medicine; ATTEND Internal Medicine

== ENCOUNTER 2022-08-21 18:10 | Inpatient (IN) ==
[2022-08-21] MEDS ORDERED: SODIUM CHLORIDE 0.9% 1,000 ML IV STA (18:50)
[2022-08-21 19:03] LABS: Basophils % 0.2 % (0.0-0.8); Eosinophils % 0.2 % (0.00-10.9); Hematocrit 41.6 VOL% (35.7-47.0); Hemoglobin 12.9 GM/DL (12.0-16.0); Immature Granulocytes % 0.6 %; Lymphocytes # 1.6 10*3/uL (1.4-4.0); Lymphocytes % 9.9 % (21.3-54.2); Mean Corpuscular Volume 91.6 FL (87-102); Mean Platelet Volume 11.7 FL (9.6-12.0); Monocytes # 0.5 10*3/uL (0.11-0.8); Neutrophils % 86.1 % (38.7-73.9); Platelet Count 337 T/CUMM (130-400); Red Blood Count 4.54 MC/CUMM (3.8-5.5); Red Cell Distribution Width 15.9 % (9.3-17.3); White Blood Count 16.6 T/CUMM (4-12)
[2022-08-21 19:06] LABS: Bilirubin,Urine Small mg/dL (Negative); Blood, Urine Negative (Negative); Glucose,Urine (UA) 500 mg/dL (Negative); Hyaline Casts,Urine 28 /LPF (0-3); Ketones,Urine 15 mg/dL (Negative); Mucus,Urine Occasional /LPF (Occasional); Nitrite,Urine Negative (Negative); Protein,Urine 100 mg/dL (Negative); RBC,Urine 9 /HPF (0-4); Squamous Epithelial Cell,Urine Occasional /HPF (0-10); Urine Appearance Clear (Clear); Urine Color Yellow (Yellow); Urine Specific Gravity >= 1.030 (1.001-1.035); Urine Urobilinogen 0.2 eU/dL (<2.0); Urine pH 5.5 (4.5-8.0)
[2022-08-21 19:12] LABS: INR 1.3; PT Patient Result 13.6 SECS (10.1-12.1)
[2022-08-21 19:14] LABS: Albumin 2.9 G/DL (3.4-5.0); Calcium 9.4 MG/DL (8.5-10.1); Osmolality,Calculated 290.4 MOS/KG (273-304); Potassium 4.5 MMOL/L (3.5-5.1); Total Protein 6.1 G/DL (6.4-8.2)
[2022-08-21] MEDS ORDERED: cefTRIAXone 1,000 MG in SODIUM CHLORIDE 0.9% 100 ML IV STA (19:29)
[2022-08-21] MEDS ORDERED: INSULIN REGULAR 100 UNIT/ML IV STA (19:29)
[2022-08-21] MEDS ORDERED: ASPIRIN 325 MG TABLET PO STA (19:41)
[2022-08-21] MEDS: SODIUM CHLORIDE 0.9% 1,000 ML IV SCH (19:42)
[2022-08-21] MEDS ORDERED: GLUCAGON 1 MG VIAL IM PRN (19:47)
[2022-08-21] MEDS ORDERED: ONDANSETRON 4 MG/2 ML VIAL IV PRN (19:47)
[2022-08-21] MEDS ORDERED: ACETAMINOPHEN 325 MG TABLET PO PRN (19:47)
[2022-08-21] MEDS: DOCUSATE SODIUM 100 MG CAPSULE PO SCH (20:51)
[2022-08-22] MEDS: SODIUM CHLORIDE 0.9% 1,000 ML IV SCH ×3 (06:21→21:26)
[2022-08-22 06:40] LABS: Basophils % 0.3 % (0.0-0.8); Eosinophils # 0.2 10*3/uL (0.0-0.87); Eosinophils % 1.5 % (0.00-10.9); Hematocrit 37.4 VOL% (35.7-47.0); Hemoglobin 11.6 GM/DL (12.0-16.0); Immature Granulocytes % 0.6 %; Immature Granulocytes Absolute 0.07 #; Lymphocytes # 2.5 10*3/uL (1.4-4.0); Lymphocytes % 20.4 % (21.3-54.2); Mean Corpuscular Volume 91.2 FL (87-102); Mean Platelet Volume 12.3 FL (9.6-12.0); Monocytes # 0.7 10*3/uL (0.11-0.8); Monocytes % 5.6 % (1.7-12.7); Neutrophils % 71.6 % (38.7-73.9); Platelet Count 267 T/CUMM (130-400); Red Cell Distribution Width 15.8 % (9.3-17.3); White Blood Count 12.4 T/CUMM (4-12)
[2022-08-22 07:10] LABS: Albumin 2.5 G/DL (3.4-5.0); Bilirubin,Total 0.5 MG/DL (0.20-1.00); Calcium 8.5 MG/DL (8.5-10.1); Total Protein 5.8 G/DL (6.4-8.2)
[2022-08-22] MEDS ORDERED: PANTOPRAZOLE 40 MG TABLET PO SCH (09:00)
[2022-08-22] MEDS: INSULIN REGULAR 100 UNIT/ML SUBCUT SCH ×2 (10:11→16:31)
[2022-08-22] MEDS: DOCUSATE SODIUM 100 MG CAPSULE PO SCH ×2 (12:18→21:13)
[2022-08-22] MEDS: carvediloL 6.25 MG TABLET PO SCH ×2 (12:54→18:06)
[2022-08-22] MEDS ORDERED: propofoL 200 MG/20 ML VIAL IV ONE (16:23)
[2022-08-22] MEDS ORDERED: PHENYLEPHRINE 1 MG/10 ML SYRINGE IV ONE (16:23)
[2022-08-22] MEDS ORDERED: fentaNYL 100 MCG/2 ML VIAL ONE (16:23)
[2022-08-22] MEDS ORDERED: ETOMIDATE 40 MG/20 ML VIAL IV ONE (16:23)
[2022-08-22] MEDS ORDERED: BUPIVACAINE SPINAL 0.75% 2 ML AMP SPINAL ONE (16:23)
[2022-08-22] MEDS ORDERED: buprenorphine HCL 0.3 MG/ML VIAL ONE (16:24)
[2022-08-22] MEDS ORDERED: KETAMINE 500 MG/10 ML VIAL ONE (16:25)
[2022-08-22] MEDS ORDERED: ceFAZolin 1,000 MG VIAL ONE (17:50)
[2022-08-22] MEDS: TACROLIMUS 0.5 MG CAPSULE PO SCH (21:13)
[2022-08-22] MEDS: GABAPENTIN 400 MG CAPSULE PO SCH (21:13)
[2022-08-22] MEDS: MYCOPHENOLATE MOFETIL 250 MG CAPSULE PO SCH (21:13)
[2022-08-22] MEDS: SIMVASTATIN 10 MG TABLET PO SCH (21:13)
[2022-08-22] MEDS: tiZANidine 4 MG TABLET PO SCH (21:13)
[2022-08-22] MEDS: MAGNESIUM OXIDE 400 MG TABLET PO SCH (21:14)
[2022-08-23] MEDS: LEVOTHYROXINE 25 MCG TABLET PO SCH (06:29)
[2022-08-23 07:59] LABS: Calcium 7.8 MG/DL (8.5-10.1); Osmolality,Calculated 292.7 MOS/KG (273-304); Potassium 4.1 MMOL/L (3.5-5.1)
[2022-08-23 08:08] LABS: Basophils % 0.2 % (0.0-0.8); Eosinophils # 0.2 10*3/uL (0.0-0.87); Eosinophils % 2.1 % (0.00-10.9); Hematocrit 33.9 VOL% (35.7-47.0); Hemoglobin 10.3 GM/DL (12.0-16.0); Immature Granulocytes % 0.5 %; Immature Granulocytes Absolute 0.04 #; Lymphocytes # 2.6 10*3/uL (1.4-4.0); Lymphocytes % 29.6 % (21.3-54.2); Mean Corpuscular HGB Conc 30.4 GM/DL (32-36); Mean Platelet Volume 11.5 FL (9.6-12.0); Monocytes # 0.9 10*3/uL (0.11-0.8); Monocytes % 10.4 % (1.7-12.7); Neutrophils % 57.2 % (38.7-73.9); Platelet Count 267 T/CUMM (130-400); Red Blood Count 3.57 MC/CUMM (3.8-5.5); Red Cell Distribution Width 15.7 % (9.3-17.3); White Blood Count 8.9 T/CUMM (4-12)
[2022-08-23] MEDS ORDERED: INSULIN NPH/REG 70/30 100 UNIT/ML SUBCUT SCH ×2 (09:00→17:00)
[2022-08-23] MEDS: INSULIN REGULAR 100 UNIT/ML SUBCUT SCH ×2 (09:04→16:36)
[2022-08-23] MEDS: INSULIN NPH/REG 70/30 100 UNIT/ML SUBCUT SCH (10:03)
[2022-08-23] MEDS: ASPIRIN EC 81 MG TABLET PO SCH ×2 (10:03→16:08)
[2022-08-23] MEDS: PANTOPRAZOLE 40 MG TABLET PO SCH (10:03)
[2022-08-23] MEDS: carvediloL 6.25 MG TABLET PO SCH ×2 (10:03→16:08)
[2022-08-23] MEDS: DOCUSATE SODIUM 100 MG CAPSULE PO SCH ×2 (10:04→21:04)
[2022-08-23] MEDS: CITALOPRAM 40 MG TABLET PO SCH (10:04)
[2022-08-23] MEDS: MAGNESIUM OXIDE 400 MG TABLET PO SCH ×3 (10:04→21:04)
[2022-08-23] MEDS: MYCOPHENOLATE MOFETIL 250 MG CAPSULE PO SCH ×2 (10:04→21:04)
[2022-08-23] MEDS: GABAPENTIN 400 MG CAPSULE PO SCH ×2 (10:04→21:03)
[2022-08-23] MEDS: DAPAGLIFLOZIN 5 MG TABLET PO SCH (10:04)
[2022-08-23] MEDS: predniSONE 5 MG TABLET PO SCH (10:04)
[2022-08-23] MEDS: TACROLIMUS 0.5 MG CAPSULE PO SCH ×2 (10:05→21:03)
[2022-08-23] MEDS: cefTRIAXone 1,000 MG in SODIUM CHLORIDE 0.9% 100 ML IV SCH (10:54)
[2022-08-23] MEDS: SODIUM CHLORIDE 0.9% 1,000 ML IV SCH ×2 (10:55→16:28)
[2022-08-23] MEDS: ZINC OXIDE PASTE 113 GM TUBE TOP SCH ×2 (16:14→21:04)
[2022-08-23] MEDS: MORPHINE 2 MG/1 ML SYRINGE IV PRN (16:37)
[2022-08-23] MEDS ORDERED: hydrALAZINE 20 MG/1 ML VIAL IV ONE (17:55)
[2022-08-23] MEDS ORDERED: hydrALAZINE 20 MG/1 ML VIAL IV PRN (17:56)
[2022-08-23] MEDS ORDERED: INSULIN GLARGINE 100 UNIT/ML SUBCUT SCH (21:00)
[2022-08-23] MEDS: SIMVASTATIN 10 MG TABLET PO SCH (21:03)
[2022-08-23] MEDS: tiZANidine 4 MG TABLET PO SCH (21:04)
[2022-08-23] MEDS ORDERED: MAGNESIUM SULF RIDER 2 GM/50 ML PREMIX IV ONE (22:09)
[2022-08-24 03:59] LABS: Calcium 8.3 MG/DL (8.5-10.1); Osmolality,Calculated 293.1 MOS/KG (273-304); Potassium 3.8 MMOL/L (3.5-5.1)
[2022-08-24] MEDS: SODIUM CHLORIDE 0.9% 1,000 ML IV SCH ×2 (04:19→14:19)
[2022-08-24] MEDS: LEVOTHYROXINE 25 MCG TABLET PO SCH (05:36)
[2022-08-24] MEDS: MORPHINE 2 MG/1 ML SYRINGE IV PRN (05:43)
[2022-08-24] MEDS: cefTRIAXone 1,000 MG in SODIUM CHLORIDE 0.9% 100 ML IV SCH (09:46)
[2022-08-24] MEDS: PANTOPRAZOLE 40 MG TABLET PO SCH (09:48)
[2022-08-24] MEDS: carvediloL 6.25 MG TABLET PO SCH ×2 (09:48→16:59)
[2022-08-24] MEDS: predniSONE 5 MG TABLET PO SCH (09:48)
[2022-08-24] MEDS: CITALOPRAM 40 MG TABLET PO SCH (09:48)
[2022-08-24] MEDS: DAPAGLIFLOZIN 5 MG TABLET PO SCH (09:48)
[2022-08-24] MEDS: TACROLIMUS 0.5 MG CAPSULE PO SCH ×2 (09:48→21:43)
[2022-08-24] MEDS: DOCUSATE SODIUM 100 MG CAPSULE PO SCH ×2 (09:48→21:43)
[2022-08-24] MEDS: INSULIN NPH/REG 70/30 100 UNIT/ML SUBCUT SCH ×2 (09:49→16:59)
[2022-08-24] MEDS: MAGNESIUM OXIDE 400 MG TABLET PO SCH ×3 (09:49→21:43)
[2022-08-24] MEDS: ASPIRIN EC 81 MG TABLET PO SCH ×2 (09:49→16:59)
[2022-08-24] MEDS: INSULIN REGULAR 100 UNIT/ML SUBCUT SCH ×2 (09:49→16:57)
[2022-08-24] MEDS: GABAPENTIN 400 MG CAPSULE PO SCH ×2 (09:50→21:44)
[2022-08-24] MEDS: ZINC OXIDE PASTE 113 GM TUBE TOP SCH ×2 (09:50→22:49)
[2022-08-24] MEDS: MYCOPHENOLATE MOFETIL 250 MG CAPSULE PO SCH ×2 (09:55→21:42)
[2022-08-24] MEDS: SIMVASTATIN 10 MG TABLET PO SCH (21:43)
[2022-08-24] MEDS: tiZANidine 4 MG TABLET PO SCH (21:44)
[2022-08-25] MEDS: SODIUM CHLORIDE 0.9% 1,000 ML IV SCH ×2 (04:05→17:16)
[2022-08-25 05:13] LABS: Basophils % 0.3 % (0.0-0.8); Eosinophils # 0.2 10*3/uL (0.0-0.87); Eosinophils % 2.5 % (0.00-10.9); Hematocrit 29.6 VOL% (35.7-47.0); Immature Granulocytes % 0.3 %; Immature Granulocytes Absolute 0.02 #; Lymphocytes # 2.6 10*3/uL (1.4-4.0); Lymphocytes % 32.4 % (21.3-54.2); Mean Corpuscular HGB Conc 30.4 GM/DL (32-36); Mean Corpuscular Volume 94.6 FL (87-102); Mean Platelet Volume 11.2 FL (9.6-12.0); Monocytes # 0.7 10*3/uL (0.11-0.8); Monocytes % 8.2 % (1.7-12.7); Neutrophils % 56.3 % (38.7-73.9); Platelet Count 213 T/CUMM (130-400); Red Blood Count 3.13 MC/CUMM (3.8-5.5); Red Cell Distribution Width 15.5 % (9.3-17.3)
[2022-08-25 05:32] LABS: Calcium 7.9 MG/DL (8.5-10.1); Osmolality,Calculated 283.8 MOS/KG (273-304); Potassium 3.3 MMOL/L (3.5-5.1)
[2022-08-25] MEDS: LEVOTHYROXINE 25 MCG TABLET PO SCH (06:43)
[2022-08-25] MEDS: DEXTROSE 10% 250 ML BAG IV PRN (08:00)
[2022-08-25] MEDS: INSULIN REGULAR 100 UNIT/ML SUBCUT SCH ×2 (08:15→15:52)
[2022-08-25] MEDS: TACROLIMUS 0.5 MG CAPSULE PO SCH ×2 (09:24→21:11)
[2022-08-25] MEDS: INSULIN NPH/REG 70/30 100 UNIT/ML SUBCUT SCH ×2 (09:24→17:13)
[2022-08-25] MEDS: GABAPENTIN 400 MG CAPSULE PO SCH ×2 (09:25→21:10)
[2022-08-25] MEDS: MYCOPHENOLATE MOFETIL 250 MG CAPSULE PO SCH ×2 (09:26→21:09)
[2022-08-25] MEDS: DOCUSATE SODIUM 100 MG CAPSULE PO SCH ×2 (09:27→21:09)
[2022-08-25] MEDS: MAGNESIUM OXIDE 400 MG TABLET PO SCH ×3 (09:27→21:10)
[2022-08-25] MEDS: ASPIRIN EC 81 MG TABLET PO SCH ×2 (09:28→17:13)
[2022-08-25] MEDS: CITALOPRAM 40 MG TABLET PO SCH (09:28)
[2022-08-25] MEDS: predniSONE 5 MG TABLET PO SCH (09:28)
[2022-08-25] MEDS: DAPAGLIFLOZIN 5 MG TABLET PO SCH (09:28)
[2022-08-25] MEDS: carvediloL 6.25 MG TABLET PO SCH ×2 (09:28→17:13)
[2022-08-25] MEDS: cefTRIAXone 1,000 MG in SODIUM CHLORIDE 0.9% 100 ML IV SCH (09:31)
[2022-08-25] MEDS: ZINC OXIDE PASTE 113 GM TUBE TOP SCH (09:37)
[2022-08-25] MEDS: PANTOPRAZOLE 40 MG TABLET PO SCH (09:37)
[2022-08-25] MEDS ORDERED: POTASSIUM CHLORIDE 20 MEQ TABLET PO ONE (11:11)
[2022-08-25] MEDS: MORPHINE 2 MG/1 ML SYRINGE IV PRN (17:38)
[2022-08-25] MEDS: tiZANidine 4 MG TABLET PO SCH (21:10)
[2022-08-25] MEDS: SIMVASTATIN 10 MG TABLET PO SCH (21:10)
[2022-08-26] MEDS: ZINC OXIDE PASTE 113 GM TUBE TOP SCH ×2 (04:36→08:04)
[2022-08-26 05:17] LABS: Basophils % 0.3 % (0.0-0.8); Eosinophils # 0.2 10*3/uL (0.0-0.87); Eosinophils % 3.1 % (0.00-10.9); Hematocrit 35.1 VOL% (35.7-47.0); Hemoglobin 10.5 GM/DL (12.0-16.0); Immature Granulocytes % 0.4 %; Immature Granulocytes Absolute 0.03 #; Lymphocytes # 2.8 10*3/uL (1.4-4.0); Lymphocytes % 35.8 % (21.3-54.2); Mean Corpuscular HGB Conc 29.9 GM/DL (32-36); Mean Corpuscular Volume 95.9 FL (87-102); Mean Platelet Volume 11.4 FL (9.6-12.0); Monocytes # 0.5 10*3/uL (0.11-0.8); Neutrophils % 54.4 % (38.7-73.9); Platelet Count 295 T/CUMM (130-400); Red Blood Count 3.66 MC/CUMM (3.8-5.5); Red Cell Distribution Width 15.2 % (9.3-17.3); White Blood Count 7.7 T/CUMM (4-12)
[2022-08-26 05:36] LABS: Calcium 8.2 MG/DL (8.5-10.1); Osmolality,Calculated 282.8 MOS/KG (273-304)
[2022-08-26] MEDS: LEVOTHYROXINE 25 MCG TABLET PO SCH (05:59)
[2022-08-26] MEDS: SODIUM CHLORIDE 0.9% 1,000 ML IV SCH (06:34)
[2022-08-26] MEDS: cefTRIAXone 1,000 MG in SODIUM CHLORIDE 0.9% 100 ML IV SCH (08:00)
[2022-08-26] MEDS: ASPIRIN EC 81 MG TABLET PO SCH (08:00)
[2022-08-26] MEDS: GABAPENTIN 400 MG CAPSULE PO SCH (08:00)
[2022-08-26] MEDS: MAGNESIUM OXIDE 400 MG TABLET PO SCH (08:00)
[2022-08-26] MEDS: MYCOPHENOLATE MOFETIL 250 MG CAPSULE PO SCH (08:00)
[2022-08-26] MEDS: PANTOPRAZOLE 40 MG TABLET PO SCH (08:01)
[2022-08-26] MEDS: DAPAGLIFLOZIN 5 MG TABLET PO SCH (08:01)
[2022-08-26] MEDS: DOCUSATE SODIUM 100 MG CAPSULE PO SCH (08:01)
[2022-08-26] MEDS: TACROLIMUS 0.5 MG CAPSULE PO SCH (08:01)
[2022-08-26] MEDS: carvediloL 6.25 MG TABLET PO SCH (08:01)
[2022-08-26] MEDS: predniSONE 5 MG TABLET PO SCH (08:01)
[2022-08-26] MEDS: DEXTROSE 10% 250 ML BAG IV PRN (08:02)
[2022-08-26] MEDS: CITALOPRAM 40 MG TABLET PO SCH (08:02)
[2022-08-26] MEDS: INSULIN REGULAR 100 UNIT/ML SUBCUT SCH (08:03)
[2022-08-26] MEDS: INSULIN NPH/REG 70/30 100 UNIT/ML SUBCUT SCH (08:04)
[2022-08-26] MEDS ORDERED: POTASSIUM CHLORIDE 20 MEQ TABLET PO SCH (09:00)
[2022-08-26 11:08] VITALS: BP 107/70
[2022-08-26] MEDS: MORPHINE 2 MG/1 ML SYRINGE IV PRN (13:20)
== END 2022-08-26 14:12 | DRG 480 ==
LOC: N.ED 18:10 → N.EDINP 19:47 → N.3E 23:13
PROVIDERS: ADMIT Internal Medicine; ATTEND Internal Medicine